=== PATIENT | female | born 1950 | race Caucasian/White ===

== ENCOUNTER 2020-06-18 11:21 | Emergency (ER) | payer MEDICARE, SELFPAY ==
--- NOTE | ~2020-06-18 | US_ITS ---
EXAMINATION: US venous doppler UE RT EXAM DATE: 06/18/2020 13:00 INDICATION: Right upper arm swelling. TECHNIQUE: Multiple grayscale, color flow, Doppler sonographic images of the right upper extremity ve ins obtained by technologist. Compression was performed where able. There is no prior study for baltazar lutz. FINDINGS: Right upper extremity: Jugular vein: ------------> Normal. Subclavian vein: --------> Normal. Axillary vein:------------> Normal. Brachial vein:-----------> Normal. Basilic vein: ------------> Normal. Cephalic vein: ----------> Normal. Radial vein: ------------> Normal. Ulnar vein: > Normal. Scanning at upper extremity above the antecubital fossa area of lump and swelling slightly hyperechoi c ill-defined region, nonspecific finding without artifact to suggest foreign body. No focal drainabl e abscess. IMPRESSION: 1. No deep venous thrombosis of the right upper extremity. 2. Vague nonspecific hyperechoic region at area of clinical concern without hypervascularity, focal m ass, abscess or definite foreign body identified. Nonspecific finding. Reviewed, dictated and finalized at location A. IMPRESSION: 1. No deep venous thrombosis of the right upper extremity. 2. Vague nonspecific hyperechoic region at area of clinical concern without hyp ervascularity, focal mass, abscess or definite foreign body identified. Nonspec ific finding.
[2020-06-18 11:30] VITALS: BP 130/109; PULSE 108; RESP 16; TEMP 36.6; O2SAT 98
--- NOTE | 2020-06-18 12:32 | PC.NURSE ---
pt to ultrasound
--- NOTE | 2020-06-18 13:21 | ED.UPPEXIN ---
HPI - Extremity Injury (Upper) General Chief Complaint: Extremity Injury, Upper <Alley Turner PA-C - Last Filed: 06/18/20 19:25> Stated Complaint: Possible Blood Clot in Arm <Alley Turner PA-C - Last Filed: 06/18/20 19:25> Time Seen by Provider: 06/18/20 12:08 <Alley Turner PA-C - Last Filed: 06/18/20 19:25> Source: patient and family <Alley Turner PA-C - Last Filed: 06/18/20 19:25> Mode of arrival: ambulatory <SARAH Wilson Last Filed: 06/18/20 19:25> Limitations: no limitations <Alley Turner PA-C - Last Filed: 06/18/20 19:25> History of Present Illness HPI narrative: Patient presents with chief complaint of swelling to the right axillary area that makes her concern for a venous thrombosis in the arm. Patient states that the swelling and discomfort to the area is presenting similarly to a DVT that she had in her left leg 4 years ago that was accompanied by PE. Patient states that she is also in remission for colon cancer and her last bout of chemo was 2 years ago. Patient denies any shortness of breath or lower extremity discomfort at this time. Patient states she takes a baby aspirin daily but denies being on any additional blood thinners. Patient cannot recall any direct injury or overuse of the arm that could cause the swelling. Patient denies loss of range of motion to the extremity. Patient denies severe pain to the extremity or to her fingertips. She reports some tingling sensation but states she has struggled with neuropathy in the past. Patient denies any fever, chills, nausea, vomiting, diarrhea, chest pain, shortness of breath, headache or any other symptoms. <Alley Turner PA-C - Last Filed: 06/18/20 19:25> Related Data Home Medications: Home Medications Medication Instructions Recorded Confirmed atorvastatin 06/18/20 cyclobenzaprine mg 06/18/20 hydroxychloroquine 06/18/20 losartan 06/18/20 metoprolol succinate PO 06/18/20 06/18/20 pantoprazole PO 06/18/20 <Alley Turner PA-C - Last Filed: 06/18/20 19:25> Allergies/Adverse Reactions: Allergies Allergy/AdvReac Type Severity Reaction Status Date / Time levofloxacin Allergy Severe joint Verified 08/09/18 19:26 swelling/difficulty walking morphine Allergy Intermediate Rash Verified 06/01/18 12:35 erythromycin base Allergy Unknown Verified 06/01/18 12:35 latex Allergy Unknown Verified 06/01/18 12:35 lisinopril Allergy Unknown SEVERE Verified 06/01/18 12:35 COUGHING Sulfa (Sulfonamide Allergy Unknown Verified 06/01/18 12:35 Antibiotics) tobramycin Allergy Unknown SWOLLEN, Verified 06/01/18 12:35 RED EYES <Alley Turner PA-C - Last Filed: 06/18/20 19:25> Review of Systems Review of Systems: Narrative: CONSTITUTIONAL: Denies fever, chills, or sweats. EYES: Denies visual changes, redness, or discharge. ENT: Denies rhinorrhea, congestion, sore throat, or otalgia. CARDIOVASCULAR: Denies chest pain, palpitations, or edema. RESPIRATORY: Denies cough or dyspnea. GASTROINTESTINAL: Denies abdominal pain, nausea, vomiting, or diarrhea. GENITOURINARY: Denies dysuria or hematuria. SKIN: Reports swelling denies rash or itching. MUSCULOSKELETAL: Reports right axillary swelling denies back pain, joint pain, or myalgia. NEUROLOGIC: Denies headache, numbness, dizziness, or weakness. PSYCHIATRIC: Denies anxiety or depression. <Alley Turner PA-C - Last Filed: 06/18/20 19:25> [facility] Past Medical History Medical History: Medical History (Updated 06/19/20 @ 00:00 by Anderson Euceda) Colon cancer DVT (deep venous thrombosis) Pulmonary emboli <Alley Turner PA-C - Last Filed: 06/18/20 19:25> Social History Social History: Social History (Updated 06/18/20 @ 13:25 by Alley Turner PA-C) Alcohol intake: unknown Substance use: unknown <Alley Turner PA-C - Last Filed: 06/18/20 19:25> Exam Narrative: Exam Narrative: GENERAL
--- NOTE | 2020-06-18 13:30 | PC.NURSE ---
Patient came to nurses station to check for results of her ultrasound. She was informed that they had not been read or reported to the EDP by the radiologist. Will notify charge hand of delay in results.
--- NOTE | 2020-06-18 14:50 | PC.NURSE ---
Patient presents to nurse station and tells me that she is leaving. She tells me that she knows her results and that she does not need to wait to be discharge. Patient and her states that she will not stay for me to notify the ED PA. Patient and her left the ED at this time.
== END 2020-06-18 14:45 | disposition home or self-care (01) ==
PROVIDERS: Emergency Provider Emergency Medicine
DX: M79.89 Other specified soft tissue disorders (principal); Z86.73 Personal history of transient ischemic attack (TIA), and cerebral infarction without residual deficits; Z86.718 Personal history of other venous thrombosis and embolism; Z85.038 Personal history of other malignant neoplasm of large intestine; Z92.21 Personal history of antineoplastic chemotherapy
CPT/HCPCS: 93971; 99284

== ENCOUNTER 2023-10-07 10:56 | Outpatient (CLI) | payer MEDICARE, SELFPAY ==
[2023-10-14 19:26] LABS: Cryoglobulin, QL Negative (Negative)
== END 2023-10-07 10:57 | disposition home or self-care (01) ==
PROVIDERS: Visit Provider Internal Medicine Rheumatology
DX: M35.01 Sjogren syndrome with keratoconjunctivitis (principal)
CPT/HCPCS: 36415; 82595

== ENCOUNTER 2024-09-21 10:38 | Outpatient (CLI) | payer MEDICARE, SELFPAY ==
--- NOTE | ~2024-09-21 | MR_ITS ---
EXAMINATION: MR hip RT wo con DATE: 09/21/2024 11:57 INDICATION: Right hip pain TECHNIQUE: Magnetic resonance imaging (MRI) of the right hip was performed without intravenous contr ast. Sequences included full-field axial PD-weighted FS FSE and T1-weighted FSE, coronal of the pelvi s with PD-weighted FS FSE, small field of view of the right hip with axial PD-weighted FS FSE, sagit hima PD-weighted FS FSE and coronal PD weighted FS FSE. Additional radial T1-weighted FGR oriented ort hogonal to the acetabular rim were obtained for evaluation of the labrum. COMPARISON: None FINDINGS: Bones/labrum/cartilage: Lumbar dextrocurvature with severe spondylosis. There is fibrofatty and fibrovascular degenerative en dplate changes in the lumbar spine. Marrow signal is otherwise normal with no fracture, avascular nec rosis or pathologic marrow replacing process. There is a tear at the 9:30-10:30 position of the right acetabular labrum. Minimal osteoarthritis at the right hip. Fluid: Symmetric physiologic amount of fluid within both hip joints. Soft tissues: Moderate tendinopathy without tear of the right gluteus minimus tendon. Additional moderate tendinopa thy with full-thickness tear of the absence of the right gluteus medius tendons which is detached fro m the lateral facet of the greater trochanter and retracted approximately 3.5 cm proximally. There is mild feathery muscular edema at the distal myotendinous junction of the right gluteus medius medius. There is relatively symmetric mild fatty atrophy of the bilateral gluteus minimus tendons. Otherwise normal and symmetric muscle bulk and signal in the pelvis and visualized proximal thighs. The left g luteus medius medius and minimus tendons, bilateral gluteus medius maxwell tendons, bilateral iliopso as tendons and bilateral proximal hamstring tendons are all normal. The uterus is not identified and has likely been surgically resected. Limited evaluation of visceral organs of the pelvis is otherwise unremarkable. No pathologically enlarged pelvic/inguinal lymphadenopathy. IMPRESSION: 1. Moderate right gluteus medius and minimus tendinopathy with full-thickness tear involving anterior half of the right gluteus medius tendon at its lateral facet trochanteric attachment. 2. Minimal right hip osteoarthritis with small tear of the posterior right acetabular labrum. 3. Severe lumbar spondylosis. Reviewed, dictated and finalized at location A. IMPRESSION: 1. Moderate right gluteus medius and minimus tendinopathy with full-thickness t ear involving anterior half of the right gluteus medius tendon at its lateral f acet trochanteric attachment. 2. Minimal right hip osteoarthritis with small tear of the posterior right acet abular labrum. 3. Severe lumbar spondylosis.
== END 2024-09-21 10:39 | disposition home or self-care (01) ==
DX: M76.01 Gluteal tendinitis, right hip (principal); S76.011A Strain of muscle, fascia and tendon of right hip, initial encounter; X58.XXXA Exposure to other specified factors, initial encounter; M47.816 Spondylosis without myelopathy or radiculopathy, lumbar region
CPT/HCPCS: 73721

== ENCOUNTER 2025-05-26 12:12 | Emergency (ER) | payer MEDICARE, SELFPAY ==
[2025-05-26] VITALS (7 sets, daily range): BP systolic 122–148; BP diastolic 81–88; PULSE 97–108; RESP 14–29; TEMP 36.8; O2SAT 95–99
--- NOTE | ~2025-05-26 | CT_ITS ---
EXAMINATION: CT brain wo con DATE: 05/26/2025 13:07 INDICATION: Fall with head injury TECHNIQUE: Computed tomography (CT) of the head was performed without intravenous contrast. Sagittal and coronal reconstructions were performed. The mA was adjusted according to patient size. Iterative reconstruction technique was employed. The dose-length product was 605.33 mGy-cm. COMPARISON: None FINDINGS: No calvarial fracture. Displaced fractures of the left nasal bone, the anterior and medial paz of t he left maxillary sinus as well as well as the floor and medial wall of the left orbit. Bilateral chelsey bes appear intact. There is mucosal thickening in the paranasal sinuses with high attenuation depende ntly layering blood in the left maxillary sinus and minimally in the right maxillary sinus. There is a laceration extending from the left malar to the left temporal region with prominent underlying soft tissue swelling and subcutaneous gas. No acute intracranial hemorrhage, acute infarction or abnormal extra axial fluid collection. There is mild scattered white matter hypoattenuation consistent with chronic small vessel ischemic disease. Ventricles are normal and symmetric. No mass/mass effect. The orbits, paranasal sinuses and mastoid a ir cells are normal. IMPRESSION: 1. No calvarial fracture or acute intracranial process. 2. Mild scattered white matter hypoattenuation consistent with chronic small vessel ischemic disease. 2. Fractures of the left nasal bone and paz of the left orbit and maxillary sinus as detailed above . Reviewed, dictated and finalized at location A. IMPRESSION: 1. No calvarial fracture or acute intracranial process. 2. Mild scattered white matter hypoattenuation consistent with chronic small ve ssel ischemic disease. 2. Fractures of the left nasal bone and paz of the left orbit and maxillary s inus as detailed above.
--- NOTE | ~2025-05-26 | CT_ITS ---
EXAMINATION: 1. CT facial & cervical spine wo DATE: 05/26/2025 13:08 INDICATION: Trauma with head injury TECHNIQUE: 1. Computed tomography (CT) of the maxillofacial region and of the cervical spine were performed with out intravenous contrast. Sagittal and coronal reconstructions of both regions were obtained. Automat ed exposure control and iterative reconstruction technique were employed. The dose-length product was 312.56 mGy-cm. COMPARISON: None. FINDINGS: Maxillofacial CT: Multiple nasal bone fractures including a comminuted fracture at the base of the left nasal bone and immediately adjacent anterior and medial paz of the left maxillary sinus. There is a deep skin lace ration overlying the fractured the base of the nasal bone with some surrounding foci of soft tissue g as suggesting open/compound fracture. Fracture extends posteriorly along a comminuted fracture of the inferior wall of the left orbit which involves the infraorbital canal. There is also comminuted frac ture of the lamina papyracea/medial wall of the left orbit with medial displacement of fragments at t he anterior-inferior aspect of the lamina papyracea. The inferior rectus muscle extends along the cep halad margin of the fracture but does not appear to herniate through the fracture defect although wou ld correlate with ophthalmic exam to exclude entrapment. Finally there is a nondisplaced fracture ext ending transversely across inferior aspect of the right maxillary sinus involving the anterior and la teral paz. Nasal septum remains midline without evident fracture. Mucosal thickening the paranasal sinuses with change of prior bilateral ethmoidectomies and right unc inectomy. There as also been a likely prior left uncinectomy however assessment is more limited by di stortion of the anatomy resulting from the displaced maxillary wall fracture fragments. There is depe ndently layering high attenuation blood in the bilateral maxillary and left ethmoid sinuses. Left chelsey be appears to remain intact. Right orbit is normal. Mastoid air cells and middle ear cavities are aniyah ar. There is an additional laceration extending from the left malar region with additional joints sof t tissue swelling and subcutaneous gas extending cephalad to the left temporal region. Mandible, zygo matic arches and paz of the right orbit remain intact. Severe osteoarthritis at the bilateral tempo romandibular joints. Cervical spine CT: There is reversal of the normal cervical lordosis. Vertebral body heights are normal. No fracture. Mo derate osteoarthritis at the atlantoaxial articulation. Severe disc height loss with severe uncoverte bral osteoarthritis and posterior endplate osteophytes contributing to mild central canal stenosis at C4-C5, C5-C6 and C6-C7. Mild disc height loss at C2-C3 and C3-C4. Multilevel mild to moderate cervic al facet osteoarthritis. There is moderate neural foraminal stenosis on the left at C6-C7 with multil evel mild stenosis at the remaining bilateral cervical neural foramina. Cervical soft tissues are unr emarkable. Mild biapical pleural-parenchymal scarring. IMPRESSION: 1. Multiple maxillofacial fractures involving the left nasal bone, paz of the left and right maxill rizwan sinuses and left orbit as detailed above. Normal is comminution and displacement of the fractures at the junction of the nasal bone, left orbit and maxilla as well as adjacent deep skin laceration s uggesting open/compound fracture. 2. Severe cervical spondylosis without acute osseous abnormality. Reviewed, dictated and finalized at location A. IMPRESSION: 1. Multiple maxillofacial fractures involving the left nasal bone, paz of the left and right maxillary sinuses and left orbit as detailed above. Normal is c omminution and displacement of the fractures at the junction of the nasal bone, left orbit and maxilla as well as adjacent deep skin laceration suggesting ope n/compound fracture. 2. Severe cervical spondylosis without acute osseous abnormality.
--- NOTE | 2025-05-26 12:51 | ED_ITS ---
HPI - Fall General Chief Complaint: Fall Stated Complaint: Fall w/ Laceration Time Seen by Provider: 05/26/25 12:34 History of Present Illness HPI Narrative: Patient is a 74-year-old female who presents ER after a trip and fall. She fell down approximately 5 steps face 1st. She did strike her head. No LOC. She is not on any blood thinning medication. She has a laceration across the left maxillary area extending towards the ear. She also has a laceration the medial canthus of the eyelid. She denies any eye pain. She reports normal vision in her eye. Tetanus up-to-date. She is in a cervical immobilizer. Related Data Home Medications ?Medication ?Instructions ?Recorded ?Confirmed ?Last Taken ?Type atorvastatin 40 mg tablet 06/18/20 Unknown History cyclobenzaprine 5 mg tablet mg 06/18/20 Unknown History hydroxychloroquine 200 mg tablet 06/18/20 Unknown History losartan 50 mg tablet 06/18/20 Unknown History metoprolol succinate 25 mg PO 06/18/20 06/18/20 Unknown History tablet,extended release 24 hr pantoprazole 40 mg tablet,delayed PO 06/18/20 Unknown History release Allergies Allergy/AdvReac Type Severity Reaction Status Date / Time levofloxacin Allergy Severe joint Verified 05/26/25 12:25 swelling/difficulty walking morphine Allergy Intermediate Rash Verified 05/26/25 12:25 erythromycin base Allergy Unknown unknown Verified 05/26/25 12:25 latex Allergy Unknown Other Verified 05/26/25 12:25 lisinopril Allergy Unknown SEVERE Verified 05/26/25 12:25 COUGHING Sulfa (Sulfonamide Allergy Unknown Other Verified 05/26/25 12:25 Antibiotics) tobramycin Allergy Unknown SWOLLEN, Verified 05/26/25 12:25 RED EYES Review of Systems Review of Systems: All systems reviewed & are unremarkable except as noted in HPI and below Constitutional: Constitutional: Reports no additional constitutional complaints Eyes: Eyes: Reports no additional eye complaints ENT: Reports system reviewed and no additional complaints, except as documented Cardiovascular: Cardiovascular: Reports no additional cardiovascular complaints Respiratory: Respiratory: Reports no additional respiratory complaints Musculoskeletal: Musculoskeletal: Reports no additional musculoskeletal complaints Neurologic: Reports system reviewed and no additional complaints, except as documented [facility] Past Medical History Medical History (Updated 05/26/25 @ 13:45 by Harman Tellez MD) Coronary artery disease Autoimmune hepatitis Hyperlipidemia Hypertension Pulmonary emboli DVT (deep venous thrombosis) Colon cancer Surgical History Surgical History (Updated 05/26/25 @ 13:45 by Harman Tellez MD) History of hysterectomy History of percutaneous coronary intervention Social History Social History (Updated 06/18/20 @ 13:25 by Rhonda Turner PA-C) Alcohol intake: unknown Substance use: unknown Exam Narrative: GENERAL: Well-appearing, well-nourished, and in no acute distress. HEAD: Normocephalic, atraumatic. EYES: PERRLA and EOMI. Laceration the medial canthus left eye. ENT: Mucous membranes moist. Tender palpation over the nasal bone. Gaping 2.5 cm laceration along the nasal labial fold extending inferior to the midline of the left eye. Additional laceration lateral to that 3.5 cm in length. NECK: Supple. C-spine immobilized. No midline tenderness. CHEST: Clear to auscultation. No respiratory distress. HEART: Regular rate and rhythm. Normal peripheral pulses. ABDOMEN: Soft, nontender, nondistended. EXTREMITIES: Normal range of motion. No edema. SKIN: Warm, dry, skin tear right forearm. NEURO: No facial asymmetry. Sharp and soft touch intact in face. Alert and oriented x3. PSYCH: Normal mood and affect. Course Course Emergency Course: 1347: Patient resting comfortably. Informed of results and significant injuries. Patient has received Ancef 2 g as well as metronidazole 500 mg. Patient has been accepted to [facility] emergency department by Dr. Cornelius. Vital Signs Vital signs: Vital Signs Temperature 98.2 F 05/26/25 12:19 Pulse Rate 98 05/26/25 12:19 Respiratory Rate 16 05/26/25 12:19 Blood Pressure 122/81 05/26/25 12:19 Pulse Oximetry 97 05/26/25 12:19 Oxygen Delivery Room Air 05/26/25 12:19 Temperature 98.2 F 05/26/25 12:19 Pulse Rate 104 H 05/26/25 12:30 Respiratory Rate 29 H 05/26/25 12:30 Blood Pressure 142/81 H 05/26/25 12:30 Pulse Oximetry 95 05/26/25 12:30 Oxygen Delivery Room Air 05/26/25 12:30 MDM - Fall Imaging Data Radiologist's impression: ITS Impressions Head CT 05/26/25 13:08 IMPRESSION: 1. No calvarial fracture or acute intracranial process. 2. Mild scattered white matter hypoattenuation consistent with chronic small vessel ischemic disease. 2. Fractures of the left nasal bone and paz of the left orbit and maxillary sinus as detailed above. Head/Cervical Spine/Facial Bones CT 05/26/25 13:16 IMPRESSION: 1. Multiple maxillofacial fractures involving the left nasal bone, paz of the left and right maxillary sinuses and left orbit as detailed above. Normal is comminution and displacement of the fractures at the junction of the nasal bone, left orbit and maxilla as well as adjacent deep skin laceration suggesting open/compound fracture. 2. Severe cervical spondylosis without acute osseous abnormality. Critical Care Time Critical Care Time Critical Care Time: Yes Total Critical Care Time: 35 Discharge Plan Discharge Clinical Impression: Complex laceration of face, Injury of eyelid, Fracture of orbital floor, Open fracture of maxillary sinus, Fracture of nasal bone Patient Disposition: Acute Care Hospital Condition: Stable Patient Language: Somali Prescriptions: No Action losartan 50 mg tablet atorvastatin 40 mg tablet pantoprazole 40 mg tablet,delayed release (DR/EC) PO metoprolol succinate 25 mg tablet extended release 24 hr PO hydroxychloroquine 200 mg tablet cyclobenzaprine 5 mg tablet Follow-up/Referrals: PHYSICIAN,TECHNICAL SALES REPRESENTATIVES [Non-Staff] -
[2025-05-26] MEDS: metroNIDAZOLE 500 MG/ISO 100ML 500 MG/100 ML BAG 100 MG IVPB (13:31)
[2025-05-26] MEDS: fentaNYL CITRATE INJ (*CRX) 100 MCG/2 ML VIAL 50 MCG IV PUSH ×2 (13:32→15:24)
[2025-05-26] MEDS: fentaNYL CITRATE INJ (*CRX) 100 MCG/2 ML VIAL 25 MCG IV PUSH (14:05)
== END 2025-05-26 15:40 | disposition short-term general hospital (02) ==
PROVIDERS: Emergency Provider Emergency Medicine
DX: S02.69XB Fracture of mandible of other specified site, initial encounter for open fracture (principal); S02.2XXA Fracture of nasal bones, initial encounter for closed fracture; S02.32XA Fracture of orbital floor, left side, initial encounter for closed fracture; S02.832A Fracture of medial orbital wall, left side, initial encounter for closed fracture; W10.9XXA Fall (on) (from) unspecified stairs and steps, initial encounter; I25.10 Atherosclerotic heart disease of native coronary artery without angina pectoris; I10 Essential (primary) hypertension; E78.5 Hyperlipidemia, unspecified; K75.4 Autoimmune hepatitis; Z86.711 Personal history of pulmonary embolism; Z86.718 Personal history of other venous thrombosis and embolism; Z85.038 Personal history of other malignant neoplasm of large intestine; Z90.710 Acquired absence of both cervix and uterus
CPT/HCPCS: 70450; 70486; 72125; 96365; 96367; 96375; 96376; 99285; J1836; J3010

== ENCOUNTER 2025-06-23 09:42 | Emergency (ER) | payer MEDICARE, SELFPAY ==
--- OUTSIDE RECORDS SUMMARY | 2025-06-23 09:46 | XMS_ITS | Encounter Summary ---
Author Organization [facility] Address [address] [facility] [place] [address] Care Team Providers Care Prosthodontist/Educator Name Role Phone Robert Celeste MD Primary Care Provider [phone] John Gallardo MD Unavailable Dinorah Peters DO Primary Care Provider [phone] Dinorah Peters DO Primary Care Provider [phone] Tracy Maldonado MD Unavailable [phone] Tracy Maldonado MD Unavailable [phone] Julita Adams MD Unavailable Abel Pop MD Unavailable Selam Ramirez MD Unavailable Luis Munoz MD Unavailable [phone] Kinjal Marino MD Unavailable [phone] Ghada Guardado MD Unavailable João Mora MD Unavailable Marianna Benjamin MD Unavailable [phone] Pratibha Hayes MD Primary Care Provider [phone] Franky Choudhury DO Unavailable Franky Choudhury DO Primary Care Provider Pratibha Hayes MD Primary Care Provider [phone] Franky Choudhury DO Primary Care Provider [phone] Lenin Trevino MD Unavailable Markie Romero MD Unavailable Reason for Visit * Reason Onset Date Comments MEDICATION REFILL 01/13/2020 Encounter Details Date Type Department Care Team (Late st Contact Info) Description 01/13/2020 Refill [facility] [address] [place] [address] Octavio Ruff MD [address] [place] [address] MEDICATION REFILL Social History Tobacco Use Types Packs/Day Years Used Date Smoking Tobacco: Never Smokeless Tobacco: Never Alcohol Use Standard Drinks/Week Comments No 0 (1 standard drink = 0.6 oz pur e alcohol) Comments No Sex and Gender Information Value Date Recorded Sex Assigned at Not on file Legal Sex Female 6:32 AM INSURANCE LICENSING SUPERVISOR Gender Identity Not on file Sexual Orientation Not on file Occupation Industry Job Start Date Job End Date Retired Not on file Not on file Not on file documented as of this encounter Functional Status * Is person deaf or have serious hearing difficulty? Answer Date of Assessment Author No 08/29/2018 11:33 AM Farrah Puente RN * Is person blind or have serious difficulty seeing? Answer Date of Assessment Author No 08/29/2018 11:33 AM Farrah Puente RN * Does person have serious difficulty walking/climbing stairs? Answer Date of Assessment Author No 08/29/2018 11:33 AM Farrah Puente RN * Does person have difficulty dressing/bathing? Answer Date of Assessment Author No 08/29/2018 11:33 AM Farrah Puente RN * Does person have difficulty doing errands alone? Answer Date of Assessment Author No 08/29/2018 11:33 AM Farrah Puente RN documented as of this encounter Mental Status * Does person have difficulty concentrating/remembering/making decisions? Answer Entry Date Author No 08/29/2018 11:33 AM CDT Farrah Neff RN documented in this encounter Plan of Treatment Upcoming Encounters Date Type Department Care Team (Late st Contact Info) Description 07/16/2025 10:30 AM CDT Procedure visit [facility] - Cosmetic Dermatology [address], [place] [place] [address] 07/23/2025 9:15 AM CDT Office Visit [facility] - Orthopedics [address] [place] [phone] Sharad Mclaughlin, HAND II THERMAL CUTTER-SPACE SYSTEMS OPERATIONS MANAGER [address] [address] 07/26/2025 1:45 PM CDT Office Visit [facility] - Internal Med [address] [place] [phone] Franky Choudhury, [address] [place] [address] 08/02/2025 1:00 PM CDT Office Visit [facility] - Ophthalmology [address] [place] [phone] Monse Kelly, HAND II THERMAL CUTTER-SPACE SYSTEMS OPERATIONS MANAGER [address] [place] [address] [place] [address] 08/09/2025 1:30 PM CDT Hospital Encounter [address] [address] 08/09/2025 2:00 PM CDT Hospital Encounter [address] [address] 08/14/2025 11:00 AM CDT Office Visit [facility] - Cosmetic Dermatology [address], [place] [place] [address] Consuelo Bosch MD [address] [facility] [address] [place] [address] 09/06/2025 11:30 AM CDT Office Visit [facility] - Cardiology [address] [facility], [facility] [address] [place] [address] Stephanie Silvestre, HAND II THERMAL CUTTER-SPACE SYSTEMS OPERATIONS MANAGER [address] [facility] [address] [place] [address] 10/01/2025 1:00 PM INSURANCE LICENSING SUPERVISOR Office Visit [facility] - Rheumatology [address] [place] [address] Markie Romero MD [address] [facility] [place] [address] 11/13/2025 11:00 AM INSURANCE LICENSING SUPERVISOR Office Visit [facility] - Hematology/Oncology [address] [place] [address] Luis Munoz MD [address] [facility] DIV OF HEMATOLOGY & [place] [address] 11/15/2025 11:00 AM INSURANCE LICENSING SUPERVISOR Office Visit [facility] - NURSE ADMINISTRATOR [address] [facility] [address] [place] [address] Jennifer Guy, HAND II THERMAL CUTTER-SPACE SYSTEMS OPERATIONS MANAGER 10[address] [facility] [address] [place] [address] 11/16/2025 11:00 AM INSURANCE LICENSING SUPERVISOR Office Visit [facility] - Ophthalmology [address] [facility], [place] [address] Xu Kelly OD [address] [place] [address] 05/14/2026 12:30 PM CDT Procedure visit [facility] - GI [address] [place] [phone] 05/14/2026 1:00 PM CDT Office Visit [facility] - GI [address] [place] [phone] Jasmyn Alvarado, HAND II THERMAL CUTTER-SPACE SYSTEMS OPERATIONS MANAGER [address] [place] [address] [address] [place] [address] documented as of this encounter Goals Goal Patient Goal Type Associated Problems Recent Progress Patient-Stated? Author Medication Management General On track( 025 1:02 PM CDT) Reena Dodge, RN Note: Expected end date: ongoing Interventions: Take all medications as prescribed Let your doctor know right away about any changes in your medications Make sure to request a refill of your medication at least one week prior to your last dose documented as of this encounter Visit Diagnoses Not on filedocumented in this encounter Additional Health Concerns Infection Onset Date Last Indicated Resolved Time CDIFF Under Investigation 05/27/2025 05/27/2025 8:56 PM CDT documented as of this encounter Care Teams Prosthodontist/Educator Relationship Specialty Start Date End Date Robert Celeste MD [address] [place] [address] PCP - General Internal Medicine 02/20/16 08/26/20 Dinorah Peters DO [address] [facility] 2L [place] [address] PCP - General Internal Medicine 08/27/20 03/24/21 Dinorah Peters DO [address] [facility] 2L [place] [address] PCP - General Internal Medicine 03/25/21 06/03/23 Pratibha Hayes MD [address] [place] [address] PCP - General Internal Medicine 06/04/23 11/17/23 Franky Choudhury DO [address] [place] [address] PCP - General Internal Medicine 11/18/23 09/26/24 Pratibha Hayes MD [address] [place] [address] PCP - General Internal Medicine 09/27/24 10/01/24 Franky Choudhury DO [address] [place] [address] PCP - General Internal Medicine 10/02/24 John Gallardo MD [address] [place] [address] Resident - PCP Student Resident 07/04/18 06/16/21 Tracy Maldonado MD [address] DIV [place] Resident - PCP Student Resident 06/17/21 05/11/23 Tracy Maldonado MD [address] DIV OF [facility] [place] Resident Student Resident 06/17/21 10/01/21 Julita Adams MD [address] [place] Resident - PCP Internal Medicine 05/17/23 06/03/23 Abel Pop MD [address] [place] [phone] Pain Management Anesthesiology 05/17/23 Selam Ramirez MD [address] [facility] [place] [address] Ophthalmology 05/17/23 Luis Munoz MD [address] [facility] OF HEMATOLOGY & [place] [address] Hematology and Oncology 05/17/23 Kinjal Marino MD [address] [place] [address] DEPT [place] [address] Dermatology 05/17/23 Ghada Guardado MD [address] [address] Cardiology 05/17/23 João Mora MD [address] [facility] [place] [address] Resident Rheumatology 05/17/23 05/26/25 Marianna Benjamin MD [address] [facility] [place] [phone] Surgeon Orthopedic Surgery 05/17/23 Franky Choudhury DO [address] [place] [address] Resident - PCP Internal Medicine 06/04/23 Lenin Trevino MD [address] [place] [address] Rheumatology 05/27/25 [facility] [address] [place] [address] Resident Rheumatology 06/15/25 documented as of this encounter
--- OUTSIDE RECORDS SUMMARY | 2025-06-23 09:46 | XMS_ITS | Encounter Summary ---
Author Organization [facility] Address [address] [facility] [place] [address] Care Team Providers Care Fur Dressing Supervisor Name Role Phone Abel Pop MD Unavailable Selam Ramirez MD Unavailable Luis Munoz MD Unavailable [phone] Kijnal Marino MD Unavailable [phone] Ghada Guardado MD Unavailable [phone] João Mora MD Unavailable Marianna Benjamin MD Unavailable [phone] Franky Choudhury DO Unavailable [phone] Franky Choudhury DO Primary Care Provider Lenin Trevino MD [facility]available [facility] Unavailable Encounter Details Date Type Department Care Team (Late st Contact Info) Description 05/26/2025 Ophth Exam [facility] - Ophthalmology [address] [place] [phone] Jorge Johnston MD [address] [place] [address] Social History Tobacco Use Types Packs/Day Years Used Date Smoking Tobacco: Never Smokeless Tobacco: Never Alcohol Use Standard Drinks/Week Comments No 0 (1 standard drink = 0.6 oz pur e alcohol) AUDIT-C Answer Date Recorded Q1: How often do you have a drink containing alcohol? Never 05/26/2025 Q2: How many drinks containi ng alcohol do you have on a typical day when you are drinking? Patient does not drink Q3: How often do you have si x or more drinks on one occasion? Never 05/26/2025 Overall Financial Resource Strain (CARDIA) Answe r Date Recorded How hard is it for you to pa y for the very basics like food, housing, medical care, and heating? Not hard at all 05/27/2025 PHQ-2 Answer Date Recorded Patient Health Questionnaire-2 Score 0 03/19/2025 [facility] - Occupational Stress Questionnaire Answer Date Recorded Do you feel stress - tense, restless, nervous, or anxious, or unable to sleep at night because your mind is troubled all the time - these days? Only a little 05/27/2025 Hunger Vital Sign Answer Date Recorded Within the past 12 months, y ou worried that your food would run out before you got the money to buy more. Never true 05/27/20 25 Within the past 12 months, t he food you bought just didn't last and you didn't have money to get more. Never true 05/27/2025 PRAPARE - Transportation Answer Date Re corded In the past 12 months, has l ack of transportation kept you from medical appointments or from getting medications? No 04/30 In the past 12 months, has l ack of transportation kept you from meetings, work, or from getting things needed for daily living? No 05/27/2025 Housing Stability Vital Sign Answer Aryan e Recorded In the last 12 months, was t here a time when you were not able to pay the mortgage or rent on time? No 05/27/2025 In the past 12 months, how m any times have you moved where you were living? 0 05/27/2025 At any time in the past 12 m [facility], were you homeless or living in a custodial (including now)? No 05/27/2025 Comments No Sex and Gender Information Value Date Recorded Sex Assigned at Not on file Legal Sex Female 6:32 AM SWITCH COUPLER Gender Identity Not on file Sexual Orientation Not on file Occupation Industry Job Start Date Job End Date Retired Not on file Not on file Not on file documented as of this encounter Functional Status * Question Answer Date of Assessment Author Q1: How often do you have a drink containing alcohol? Never 05/26/2025 11:56 PM Rhys Connolly RN Q2: How many drinks containing alcohol do you have on a typical day when you are drinking? Patient does not drink 05/26/2025 11:56 PM SOFIYAT Rhys Patel RN Q3: How often do you have six or more drinks on one occasion? Never 05/26/2025 11:56 PM SOFIYAT Rhys Patel RN * Audit-C Score Answer Date of Assessment Author 0 05/26/2025 11:56 PM SOFIYAT Rhys Patel RN * Is person deaf or have serious hearing difficulty? Answer Date of Assessment Author No 05/06/2022 4:42 PM Marisela Harman RN * Is person blind or have serious difficulty seeing? Answer Date of Assessment Author No 05/06/2022 4:42 PM SOFIYAT Marisela eLger RN * Does person have serious difficulty walking/climbing stairs? Answer Date of Assessment Author No 05/06/2022 4:42 PM Marisela Harman RN * Does person have difficulty dressing/bathing? Answer Date of Assessment Author No 05/06/2022 4:42 PM Marisela Harman RN * Does person have difficulty doing errands alone? Answer Date of Assessment Author No 05/06/2022 4:42 PM Marisela Harman RN documented as of this encounter Mental Status * Does person have difficulty concentrating/remembering/making decisions? Answer Entry Date Author No 05/06/2022 4:42 PM Marisela Harman RN documented in this encounter Plan of Treatment Upcoming Encounters Date Type Department Care Team (Late st Contact Info) Description 07/16/2025 10:30 AM CDT Procedure visit [facility] - Cosmetic Dermatology [address], [facility] [address] [place] [address] 07/23/2025 9:15 AM CDT Office Visit [facility] - Orthopedics [address] [place] [address], [place] [address] Sharad Mclaughlin, PIG MACHINE OPERATOR HELPER-PARTS DATA WRITER [address] [facility] 400 [place] [address] 07/26/2025 1:45 PM CDT Office Visit [facility] - Internal Med [address] [place] [address], [place] [phone] Franky Choudhury DO [address] [place] [address] 08/02/2025 1:00 PM CDT Office Visit [facility] - Ophthalmology [address] [place] [address], [place] [phone] Monse Kelly, PIG MACHINE OPERATOR HELPER-PARTS DATA WRITER [address] [place] [address] [place] [address] 08/09/2025 1:30 PM CDT Hospital Encounter [address] [address] 08/09/2025 2:00 PM CDT Hospital Encounter [address] [address] 08/14/2025 11:00 AM CDT Office Visit [facility] - Cosmetic Dermatology [address], [facility] [address] [place] [address] Consuelo Bosch MD [address] [facility] [address], [place] [address] 09/06/2025 11:30 AM CDT Office Visit [facility] - Cardiology [address] [facility], [place] [address] [place] [address] Stephanie Silvestre, PIG MACHINE OPERATOR HELPER-PARTS DATA WRITER [address] [facility] [address] [place] [address] 10/01/2025 1:00 PM SWITCH COUPLER Office Visit [facility] - Rheumatology 1225 [facility], [place] [phone] Markie Romero MD [address] [facility] [place] [address] 11/13/2025 11:00 AM SWITCH COUPLER Office Visit [facility] - Hematology/Oncology [address] [place] [address] Luis Munoz MD [address] [facility] DIV OF HEMATOLOGY & [place] [address] 11/15/2025 11:00 AM SWITCH COUPLER Office Visit [facility] - PLATING TANK OPERATOR APPRENTICE 10[address] [facility] [address] [place] [address] Jennifer Guy, PIG MACHINE OPERATOR HELPER-PARTS DATA WRITER [address] [facility] [address] [place] [address] 11/16/2025 11:00 AM SWITCH COUPLER Office Visit [facility] - Ophthalmology 1225 [facility], [place] [phone] Xu Kelly OD 1225 [place] [address] 05/14/2026 12:30 PM CDT Procedure visit [facility] - GI [address] [place] [phone] 05/14/2026 1:00 PM CDT Office Visit [facility] - GI [address] [place] [phone] Jasmyn Alvarado, PIG MACHINE OPERATOR HELPER-PARTS DATA WRITER [address] [facility] 3FL DIV OF GASTROENTEROLOGY [place], [place] [phone] documented as of this encounter Goals Goal Patient Goal Type Associated Problems Recent Progress Patient-Stated? Author Medication Management General On track( 025 1:02 PM CDT) Reena Dodge RN Note: Expected end date: ongoing Interventions: [...] documented as of this encounter Care Teams Fur Dressing Supervisor Relationship Specialty Start Date End Date Franky Choudhury DO [address] [place] [address] PCP - General Internal Medicine 10/02/24 Abel Pop MD [facility] [place] [address] Pain Management Anesthesiology 05/17/23 Selam Ramirez MD [address] [facility] GL DEPT [place] [address] Ophthalmology 05/17/23 Luis Munoz MD [address] [facility] DIV OF HEMATOLOGY & [place] [address] Hematology and Oncology 05/17/23 Kinjal Marino MD [address] [facility] 3L [place] [address] Dermatology 05/17/23 Ghada Guardado MD [address] [facility] [address]120 [place] [address] Cardiology 05/17/23 João Mora MD [address] [facility] [place] [place] [address] Resident Rheumatology 05/17/23 05/26/25 Marainna Benjamin MD [address] [facility] [place] [address] Surgeon Orthopedic Surgery 05/17/23 Franky Choudhury DO [address] [place] [address] Resident - PCP Internal Medicine 06/04/23 Lenin Trevino MD [address] [facility] 2L [place] [address] Rheumatology 05/27/25 Markie Romero MD [address] [facility] [place] [address] Resident Rheumatology 06/15/25 documented as of this encounter
--- OUTSIDE RECORDS SUMMARY | 2025-06-23 09:46 | XMS_ITS | Encounter Summary ---
Author Organization [facility] Address [address] [place] [address] Care Team Providers Care Quality Controller Name Role Phone Abel Pop MD Unavailable Selam Ramirez MD Unavailable Luis Munoz MD Unavailable [phone] Kinjal Marino MD Unavailable [phone] Ghada Guardado MD Unavailable [phone] João Mora MD Unavailable [phone] Marianna Benjamin MD Unavailable Pratibha Hayes MD Primary Care Provider [phone] Franky Choudhury DO Unavailable [phone] Franky Choudhury DO Primary Care Provider Pratibha Hayes MD Primary Care Provider [phone] Franky Choudhury DO Primary Care Provider Lenin Trevino MD Unavailable Markie Romero MD Unavailable Reason for Visit * Reason Onset Date Comments Colposcopy 10/13/2023 Encounter Details Date Type Department Care Team (Late st Contact Info) Description 10/13/2023 Telephone [facility] - AFRICANA STUDIES PROFESSOR [address] [place] [address] Melania Mohan MD [address] [place] [address] Colposcopy Social History Tobacco Use Types Packs/Day Years Used Date Smoking Tobacco: Never Smokeless Tobacco: Never Alcohol Use Standard Drinks/Week Comments No 0 (1 standard drink = 0.6 oz pur e alcohol) AUDIT-C Answer Date Recorded Q1: How often do you have a drink containing alcohol? Never 03/31/2023 Q2: How many drinks containi ng alcohol do you have on a typical day when you are drinking? Patient does not drink Q3: How often do you have si x or more drinks on one occasion? Never 03/31/2023 PHQ-2 Answer Date Recorded PHQ2 TOTAL SCORE 0 06/08/2023 Hunger Vital Sign Answer Date Recorded Within the past 12 months, y ou worried that your food would run out before you got the money to buy more. Never true 05/05/20 22 Within the past 12 months, t he food you bought just didn't last and you didn't have money to get more. Never true 05/05/2022 Comments No Sex and Gender Information Value Date Recorded Sex Assigned at Not on file Legal Sex Female 6:[address] Gender Identity Not on file Sexual Orientation [...] Marisela Harman RN * Does person have serious difficulty walking/climbing stairs? Answer Date of Assessment Author No 05/06/2022 4:42 PM Marisela Harman RN * Does person have difficulty dressing/bathing? Answer Date of Assessment Author No 05/06/2022 4:42 PM CDT Marisela Leger RN * Does person have difficulty doing errands alone? Answer Date of Assessment Author No 05/06/2022 4:42 PM CDT Marisela Leger RN documented as of this encounter Mental Status * Does person have difficulty concentrating/remembering/making decisions? Answer Entry Date Author No 05/06/2022 4:42 PM CDT Marisela Leger RN documented in this encounter Miscellaneous Notes * Telephone Encounter - Alma Pickett - 10/13/2023 10:50 AM CST Pt is calling to schedule a colposcopy Pt stated that she is available Nov 12- Dec 03 CLEANER documented in this encounter Plan of Treatment Upcoming Encounters Date Type Department Care Team (Late st Contact Info) Description 07/16/2025 10:30 AM CDT Procedure visit [facility] - Cosmetic Dermatology [address], [facility] [address] [place] [address] 07/23/2025 9:15 AM CDT Office Visit [facility] - Orthopedics [address] [place] [phone] Sharad Mclaughlin, CHIEF OPERATOR LOCK TENDER-GIFT BASKET PACKER [address] [facility] 400 [place] [address] 07/26/2025 1:45 PM CDT Office Visit [facility] - Internal Med [address] [place] [phone] Franky Choudhury DO [address] [place] [address] 08/02/2025 1:00 PM CDT Office Visit [facility] - Ophthalmology [address] [place] [address] [place] [phone] Monse Kelly, CHIEF OPERATOR LOCK TENDER-GIFT BASKET PACKER [address] [place] [address] [place] [address] 08/09/2025 1:30 PM CDT Hospital Encounter [facility] [address] [place] [address] 08/09/2025 2:00 PM CDT Hospital Encounter [address] [address] 08/14/2025 11:00 AM CDT Office Visit [facility] - Cosmetic Dermatology [address], [facility] [place] 200 [place] [phone] Consuelo Bosch MD [address] [facility] [address], [place] [address] 09/06/2025 11:30 AM CDT Office Visit [facility] - Cardiology [address] [facility] [place] [phone] [place] [address] Stephanie Silvestre, CHIEF OPERATOR LOCK TENDER-GIFT BASKET PACKER [phone] [place] [address] 10/01/2025 1:[address]ER Office Visit [facility] - Rheumatology [address] [facility], [place] [phone] Markie Romero MD [address] [facility] [place] [address] 11/13/2025 11:[address]ER Office Visit [facility] - Hematology/Oncology [facility] [place] [phone] Luis Munoz MD [address] [facility] DIV OF HEMATOLOGY & [place] [address] 11/15/2025 11:[address]ER Office Visit [facility] - AFRICANA STUDIES PROFESSOR [address] [facility] [address] [place] [phone] Jennifer Guy, CHIEF OPERATOR LOCK TENDER-GIFT BASKET PACKER [address] [facility] [address] [place] [address] 11/16/2025 11:[address]ER Office Visit [facility] - Ophthalmology [address] [place] [phone] Xu Kelly, MIRTA [address] [place] [address] 05/14/2026 12:30 PM CDT Procedure visit [facility] - GI [address] [place] [phone] 05/14/2026 1:00 PM CDT Office Visit [facility] - GI [address] [place] [phone] Jasmyn Alvarado, CHIEF OPERATOR LOCK TENDER-GIFT BASKET PACKER [address] [place] [address] [address] [place] [address] documented as of this encounter Goals Goal [...] documented as of this encounter Care Teams Quality Controller Relationship Specialty Start Date End Date Pratibha Hayes MD [address] [place] [address] 2L DIV [place] [phone] PCP - General Internal Medicine 06/04/23 11/17/23 Franky Choudhury DO [address] [place] [address] PCP - General Internal Medicine 11/18/23 09/26/24 Pratibha Hayes MD [address] OF [place] [address] PCP - General Internal Medicine 09/27/24 10/01/24 Franky Choudhury DO [address] [place] [address] PCP - General Internal Medicine 10/02/24 Abel Pop MD [address] [place] [address] Pain Management Anesthesiology 05/17/23 Selam Ramirez MD 1225 [facility] [place] [address] Ophthalmology 05/17/23 Luis Munoz MD [address] [facility] DIV OF HEMATOLOGY & [place] [address] Hematology and Oncology 05/17/23 Kinjal Marino MD [address] [facility] 3L [place] [address] Dermatology 05/17/23 Ghada Guardado MD [address] [address] Cardiology 05/17/23 João Mora MD [address]25 [place] [phone] Resident Rheumatology 05/17/23 05/26/25 [place] [address] [place] [address] [place] [phone] Surgeon Orthopedic Surgery 05/17/23 Franky Choudhury DO [address]01 [place] [address] Resident - PCP Internal Medicine 06/04/23 Lenin Trevino MD [address] [place] [address] [place] [phone] Rheumatology 05/27/25 Markie Romero MD [address] [place] [address] [place] [phone] Resident Rheumatology 06/15/25 documented as of this encounter
--- OUTSIDE RECORDS SUMMARY | 2025-06-23 09:46 | XMS_ITS | Clinical Summary ---
Author Organization [facility] Address [address] [place] [address] Phone Care Team Providers Care Scraper Operator Name Role Phone Pratibha Hayes MD Primary Care Provider Allergies Active Allergy Reactions Criticality Noted Date Comments Erythromycin Hives,Swelling High 07/11/2009 Latex Rash Low 07/11/2009 Sulfa (Sulfonamide Antibiotics) Rash,Swelling Low 0 07/11/2009 Medications esomeprazole (NEXIUM) 40 mg Oral CpDR Take 40 mg by mouth daily before breakfast. Active metoprolol tartrate (LOPRESSOR) 100 mg Oral Tab Take 100 mg by mouth 2 times daily. Active azathioprine (IMURAN) 75 mg Oral Tab Take 50 mg by mouth daily. Active AZELASTINE HCL (ASTELIN NA) Administer in each nostril. Active FLUNISOLIDE (NASAREL NA) Administer in each nostril. Active hydroxychloroqui ne (PLAQUENIL) 200 mg Oral Tab Take 200 mg by mouth daily. Active cetirizine (ZYRTEC) 10 mg Oral Tab Take 10 mg by mouth daily. Active GUAIFENESIN (MUCINEX PO) Take by mouth. Ac tive oxazepam (SERAX) 10 mg Oral Cap Take 10 mg by mouth nightly as needed for Insomnia and Anxiety. Active estradiol (VIVELLE-DOT) 0.0375 mg/24 hr Transdermal PTSW Apply 0.0375 mg to skin as directed twice weekly. Active CALCIUM PO Take by mouth. Acti ve ALENDRONATE SODIUM/VITAMIN D3 (FOSAMAX PLUS D PO) Take by mouth. Activ e Eye Lubricant Combination No.1 (FRESHKOTE) 2-0.9-1.8 % OP Drop Administer 1 Drop in both eyes PRN for Discomfort. 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 Dr yassine stroud, dr davina mercedes, dr akhil grant Problem Noted Date Diagnosed Date Abnormal mammogram, unspecified 02/03/2013 Autoimmune hepatitis Unspecified essential hypertension Osteopenia Sjogren's syndrome Family History Medical History Relation Name Comments Heart Disease Father Other Father diabetes Cancer Sister Relation Name Status Comments Father Sister Social History Tobacco Use Types Packs/Day Years Used Date Smoking Tobacco: Never Alcohol Use Standard Drinks/Week Comments Yes 0 (1 standard drink = 0.6 oz pur e alcohol) rarely Comments No Sex and Gender Information Value Date Recorded Sex Assigned at Not on file Legal Sex Female 4:36 AM 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 Gender Identity Not on file Sexual Orientation Not on file Occupation Industry Job Start Date Job End Date Not on file Not on file Not on file Not on file Last Filed Vital Signs Vital Sign Reading Time Taken Comments Blood Pressure 122/84 07/11/2009 10:32 AM CDT Pulse - - Temperature - - Respiratory Rate - - Oxygen Saturation - - Inhaled Oxygen Concentration - - Weight 57.2 kg (126 lb) 07/11/2009 10:32 AM CDT Height 160 cm (5' 3) 07/11/2009 10:32 AM CDT Body Mass Index 22.32 07/11/2009 10:32 AM CDT Plan of Treatment Health Maintenance Due Date Last Done Comments ZOSTER VACCINE (1 of 2) 1970 COLORECTAL SCREENING 1996 Colorectal Cancer Screening 1996 FIT-DNA Q 3 years 1996 FIT/FOBT Q 1 year 1996 Flex Sig/CT Colonography Q 5 years 1996 RSV VACCINE (60+ or ) (1 - Risk 60-74 years 1-dose series) 2011 OSTEOPOROSIS SCREENING 2016 DTAP/TDAP/TD VACCINES (2 - T d or Tdap) 11/14/2017 11/14/2007 BREAST CANCER SCREENING 03/06/2020 03/06/20 19, 09/08/2018, 08/31/2017, Additional history exists INFLUENZA VACCINE (#1) 2025 6, 07/30/2015, 08/09/2013, Additional history exists PNEUMOCOCCAL VACCINE 50+ YEARS Completed 09/03/2017 , 10/05/2016 Procedures Procedure Name Priority Date/Time Associated Diagnosis Comments MAMMO DIAG UNI RIGHT 3D ARLET W OR WO CAD Routine 03/06/2019 1:35 PM CDT Breast mass, right from Last 3 Months or Most Recently Relevant to Health Maintenance Results * MAMMO DIAG UNI RIGHT 3D ARLET W OR WO CAD (03/06/2019 1:35 PM CDT) Anatomical Region Laterality Modality Breast Right Mammography 03/06/2019 1:35 PM CDT Impressions 03/06/2019 2:25 PM CDT IMPRESSION: No suspicious findings to suggest malignancy. Clinical follow-up is recommended for the patient's right breast pain. Annual mammography is recommended. OVERALL ASSESSMENT: BI-RADS Category 1 - Negative. DICTATION LOCATION: [facility] 03/06/2019 2:25 PM CDT RIGHT BREAST FULL-FIELD DIGITAL DIAGNOSTIC MAMMOGRAM WITH CAD WITH TOMOGRAPHY AND LIMITED RIGHT BREAST ULTRASOUND DATE: 03/06/2019 1:35 PM HISTORY: Pain in the upper outer right breast. COMPARISON: 09/08/2018 and older. BREAST COMPOSITION: Heterogeneously dense, which limits the sensitivity of mammography. TECHNIQUE: Diagnostic full-field and spot compression digital mammography was performed on the right breast. Low-dose full-field digital breast tomosynthesis examination was performed with 2D and 3D acquisitions. Examination is read in conjunction with computer aided detection. Targeted sonography of the right breast was performed. FINDINGS: MAMMOGRAMS: There is no concerning mass, suspicious calcifications or architectural distortion identified. Since the prior mammograms, there has been no significant interval change. A metallic skin marker indicates the patient's area of pain in the posterior upper outer right breast. No corresponding mammographic abnormality is seen. ULTRASOUND: Targeted sonography was performed over the patient's area pain within the upper outer right breast. No solid or cystic mass is identified. There are no concerning findings. Procedure Note Luisana Wray MD - 03/06/2019 RIGHT BREAST FULL-FIELD DIGITAL DIAGNOSTIC MAMMOGRAM WITH CAD WITH TOMOGRAPHY AND LIMITED RIGHT BREAST ULTRASOUND DATE: 03/06/2019 1:35 PM HISTORY: Pain in the upper outer right breast. COMPARISON: 09/08/2018 and older. BREAST COMPOSITION: Heterogeneously dense, which limits the sensitivity of mammography. TECHNIQUE: Diagnostic full-field and spot compression digital mammography was performed on the right breast. Low-dose full-field digital breast tomosynthesis examination was performed with 2D and 3D acquisitions. Examination is read in conjunction with computer aided detection. Targeted sonography of the right breast was performed. FINDINGS: MAMMOGRAMS: There is no concerning mass, suspicious calcifications or architectural distortion identified. Since the prior mammograms, there has been no significant interval change. A metallic skin marker indicates the patient's area of pain in the posterior upper outer right breast. No corresponding mammographic abnormality is seen. ULTRASOUND: Targeted sonography was performed over the patient's area pain within the upper outer right breast. No solid or cystic mass is identified. There are no concerning findings. IMPRESSION: No suspicious findings to suggest malignancy. Clinical follow-up is recommended for the patient's right breast pain. Annual mammography is recommended. OVERALL ASSESSMENT: BI-RADS Category 1 - Negative. DICTATION LOCATION: [facility] Antonia Dupont MD MAMMO ORDERABL ES Final Result from Last 3 Months or Most Recently Relevant to Health Maintenance Insurance MEDICARE PART A AND B [facility] Care Teams Scraper Operator Relationship Specialty Start Date End Date Pratibha Hayes MD PCP - General Pediatrics 04/10/21
--- OUTSIDE RECORDS SUMMARY | 2025-06-23 09:46 | XMS_ITS | Encounter Summary ---
Author Organization [facility] Address [address] [place] [address] Care Team Providers Care Automated Equipment Engineer Technician Name Role Phone Abel Pop MD Unavailable Selam Ramirez MD Unavailable Luis Munoz MD Unavailable [phone] Kinjal Marino MD Unavailable [phone] Ghada Guardado MD Unavailable Marianna Benjamin MD Unavailable Franky Choudhury DO Unavailable Franky Choudhury DO Primary Care Provider Lenin Trevino MD Unavailable [facility] Unavailable Encounter Details Date Type Department Care Team (Late st Contact Info) Description 05/28/2025 Ophth Exam [facility] - Ophthalmology [address] [place] [address] Barrett Gutierrez MD [address] [place], [place] [phone] Social History Tobacco Use Types Packs/Day Years [...] Recorded Patient Health Questionnaire-2 Score 0 03/19/2025 [facility] - Occupational [...] time in the past 12 m [facility], were you homeless or living in a halfway (including now)? No 05/27/2025 Comments No Sex and Gender Information Value Date Recorded Sex Assigned at Not on file Legal Sex Female 6:32 AM CHEMICAL OPERATIONS AND TRAINING Gender Identity Not on file Sexual Orientation Not on file Occupation Industry Job Start Date Job End Date Retired Not on file Not on file Not on file documented as of this encounter Functional Status * Is person deaf or have serious hearing difficulty? Answer Date of Assessment Author No 05/28/2025 12:32 PM CDT Citlalli Alas RN * Is person blind or have serious difficulty seeing? Answer Date of Assessment Author No 05/28/2025 12:32 PM CDT Citlalli Alas RN * Does person have serious difficulty walking/climbing stairs? Answer Date of Assessment Author No 05/28/2025 12:32 PM CDT Citlalli Alas RN * Does person have difficulty dressing/bathing? Answer Date of Assessment Author No 05/28/2025 12:32 PM CDT Citlalli Alas RN * Does person have difficulty doing errands alone? Answer Date of Assessment Author No 05/28/2025 12:32 PM CDT Citlalli Alas RN documented as of this encounter Mental Status * Does person have difficulty concentrating/remembering/making decisions? Answer Entry Date Author No 05/28/2025 12:32 PM CDT Citlalli Alas RN documented in this encounter Plan of Treatment Upcoming Encounters Date Type Department Care Team (Late st Contact Info) Description 07/16/2025 10:30 AM CDT Procedure visit [facility] - Cosmetic Dermatology [address], [facility] 200 [place] [address] 07/23/2025 9:15 AM CDT Office Visit [facility] - Orthopedics [address] [place] [address], [place] [address] Sharad Mclaughlin, PROCESS CONTROL SPECIALIST-MAIL SORTING SUPERVISOR [address] [address] 07/26/2025 1:45 PM CDT Office Visit [facility] - Internal Med [address] [place] [address], [facility] [place] [phone] Franky Choudhury, [address] [place] [address] 08/02/2025 1:00 PM CDT Office Visit [facility] - Ophthalmology 12[address] [facility], [place] [address] Monse Kelly, PROCESS CONTROL SPECIALIST-MAIL SORTING SUPERVISOR 1225 [facility] DEPT [place] [address] 08/09/2025 1:30 PM CDT Hospital Encounter [address] [address] 08/09/2025 2:00 PM CDT Hospital Encounter [address] [address] 08/14/2025 11:00 AM CDT Office Visit [facility] - Cosmetic Dermatology [address], [facility] 200 [place] [phone] Consuelo Bosch MD [address] [facility] [address], [place] [address] 09/06/2025 11:30 AM CDT Office Visit [facility] - Cardiology 1034 [facility], [address] [address] Stephanie Silvestre, PROCESS CONTROL SPECIALIST-MAIL SORTING SUPERVISOR [address] [address] 10/01/2025 1:00 PM CHEMICAL OPERATIONS AND TRAINING Office Visit [facility] - Rheumatology [address] [place] [phone] Markie Romero MD [facility] DIV [place] [address] 11/13/2025 11:00 AM CHEMICAL OPERATIONS AND TRAINING Office Visit [facility] - Hematology/Oncology [address] [place] [phone] Luis Munoz MD 1201 [facility] OF HEMATOLOGY & [place] [address] 11/15/2025 11:00 AM CHEMICAL OPERATIONS AND TRAINING Office Visit [facility] - ACUTE CARE NURSING ASSISTANT [address] [facility] [address] [place] [phone] Jennifer Guy, PROCESS CONTROL SPECIALIST-MAIL SORTING SUPERVISOR [address] [facility] [address] [place] [address] 11/16/2025 11:00 AM CHEMICAL OPERATIONS AND TRAINING Office Visit [facility] - Ophthalmology [address] [place] [phone] [place] [address] [place] [phone] 05/14/2026 12:30 PM CDT Procedure visit [facility] - GI [address] [place] [phone] 05/14/2026 1:00 PM CDT Office Visit [facility] - GI [address] [place] [phone] Jasmyn Alvarado, PROCESS CONTROL SPECIALIST-MAIL SORTING SUPERVISOR [address] [place] [address] 3F [place] [address] documented as of this encounter Goals Goal [...] Diagnoses Not on filedocumented in this encounter Care Teams Automated Equipment Engineer Technician Relationship Specialty Start Date End Date Franky Choudhury DO [address] [place] [address] PCP - General Internal Medicine 10/02/24 Abel Pop MD [address] [place] [phone] Pain Management Anesthesiology 05/17/23 Selam Ramirez MD [address] [facility] DEPT [place] [address] Ophthalmology 05/17/23 Luis Munoz MD [address] [facility] DIV OF HEMATOLOGY & [place] [address] Hematology and Oncology 05/17/23 Kinjal Marino MD [address] [facility] 3L [place] [address] Dermatology 05/17/23 Ghada Guardado MD [address] [address] Cardiology 05/17/23 Marianna Benjamin MD [address] [address] Surgeon Orthopedic Surgery 05/17/23 Franky Choudhury DO [address] [place] [address] Resident - PCP Internal Medicine 06/04/23 Lenin Trevino MD [address] [facility] 2L [place] [address] Rheumatology 05/27/25 Markie Romero MD [address] [place] [address] Resident Rheumatology 06/15/25 documented as of this encounter
--- OUTSIDE RECORDS SUMMARY | 2025-06-23 09:46 | XMS_ITS | Encounter Summary ---
Author Organization [facility] Address [address] [place] [address] Care Team Providers Care Manufacturing Director Name Role Phone Robert Celeste MD Primary Care Provider [phone] John Gallardo MD Unavailable Dinorah Peters DO Primary Care Provider [phone] Dinorah Peters DO Primary Care Provider [phone] Tracy Maldonado MD Unavailable [phone] Tracy Maldonado MD Unavailable [phone] Julita Adams MD Unavailable Abel Pop MD Unavailable Selam Ramirez MD Unavailable Luis Munoz MD Unavailable [phone] Kinjal Marino MD Unavailable [phone] Ghada Guardado MD Unavailable João Mora MD Unavailable Marianna Benjamin MD Unavailable Pratibha Hayes MD Primary Care Provider [phone] Franky Choudhury DO Unavailable KeiMachoamaya DO Primary Care Provider [phone] Pratibha Hayes MD Primary Care Provider Franky Choudhury DO Primary Care Provider [phone] Lenin Trevino MD Unavailable Markie Romero MD Unavailable Reason for Visit * Reason Onset Date Comments MEDICATION REFILL 01/10/2020 MEDICATION REFILL 01/11/2020 Encounter Details Date Type Department Care Team (Late st Contact Info) Description 01/10/2020 Refill [facility] [address] [place] [address] Octavio Yanez MD [address] [place] [address] MEDICATION REFILL; MEDICATION REFILL Social History Tobacco Use Types Packs/Day Years Used Date Smoking Tobacco: Never Smokeless Tobacco: Never Alcohol Use Standard Drinks/Week Comments No 0 (1 standard drink = 0.6 oz pur e alcohol) Comments No Sex and Gender Information Value Date Recorded Sex Assigned at Not on file Legal Sex Female 6:[address] COMMISSIONER Gender Identity Not on file Sexual Orientation [...] of Assessment Author No 08/29/2018 11:33 AM CDT Farrah Neff RN documented as of this encounter Mental Status * Does person have difficulty concentrating/remembering/making decisions? Answer Entry Date Author No 08/29/2018 11:33 AM CDT Farrah Neff RN documented in this encounter Miscellaneous Notes * Telephone Encounter - Irlanda Glynn - 01/11/2020 11:35 AM CST Refill Request [facility] 12.30.19 NOV none Allergies: Allergies Allergen Reactions ??? Latex Swelling blisters ??? Levaquin [Levofloxacin] Other Says joints swell up huge ??? Codeine Vomiting ??? Lisinopril Cough Says really bad deep cough ??? Morphine Vomiting ??? Sulfa Drugs Urticaria, Rash and Swelling ??? Tobramycin-Dexamethasone Anaphylaxis, Itching and Swelling tobradex eye drops ??? Tobradex St Urticaria, Itching and Swelling ??? Erythromycin Urticaria and Rash Pended Medication Order: Requested Prescriptions Pending Prescriptions Disp Refills ??? hydroxychloroquine (PLAQUENIL) 200 MG tablet 30 tablet 3 Sig: Take 1 tablet by mouth once daily Reasons: Sjogren's Syndrome Signed Prescriptions Disp Refills ??? hydroxychloroquine (PLAQUENIL) 200 MG tablet 30 tablet 3 Sig: Take 1 tablet by mouth once daily Reasons: Sjogren's Syndrome Authorizing Provider: OCTAVIO YANEZ T COMMISSIONER documented in this encounter Plan of Treatment Upcoming Encounters Date Type Department Care Team (Late st Contact Info) Description 07/16/2025 10:30 AM CDT Procedure visit [facility] - Cosmetic Dermatology [address], [facility] 200 [place] [address] 07/23/2025 9:15 AM CDT Office Visit [facility] - Orthopedics [address] [facility], [place] [address] Sharad Mclaughlin, DIRECTOR PHYSICAL-OUTREACH DIRECTOR [address] [address] 07/26/2025 1:45 PM CDT Office Visit [facility] - Internal Med [address] [facility], [place] [phone] Franky Choudhury, [address] [place] [address] 08/02/2025 1:00 PM CDT Office Visit [facility] - Ophthalmology [address] [place] [address], [place] [phone] Monse Kelly, DIRECTOR PHYSICAL-OUTREACH DIRECTOR [address] [place] [address] [place] [address] 08/09/2025 1:30 PM CDT Hospital Encounter [address] [address] 08/09/2025 2:00 PM CDT Hospital Encounter [address] [address] 08/14/2025 11:00 AM CDT Office Visit [facility] - Cosmetic Dermatology [address], [address] [phone] Consuelo Bosch MD [address] [address] 09/06/2025 11:30 AM CDT Office Visit [facility] - Cardiology [address] [place], [address] [address] Stephanie Silvestre, DIRECTOR PHYSICAL-OUTREACH DIRECTOR [address] [address] 10/01/2025 1:[address] COMMISSIONER Office Visit [facility] - Rheumatology [address] [place] [address] Markie Romero MD [address] [facility] [place] [address] 11/13/2025 11:[address] COMMISSIONER Office Visit [facility] - Hematology/Oncology [address] [place] [phone] Luis Munoz MD [address] [facility] DIV OF HEMATOLOGY & [place]ICAL [place] [address] 11/15/2025 11:[address] COMMISSIONER Office Visit [facility] - COMMISSARY CLERK [address] [facility] [address] [place] [phone] Jennifer Guy, DIRECTOR PHYSICAL-OUTREACH DIRECTOR [address] [facility] [address] [place] [address] 11/16/2025 11:[address] COMMISSIONER Office Visit [facility] - Ophthalmology [address] [facility], [place] [address] Xu Kelly OD [address] [place] [phone] 05/14/2026 12:30 PM CDT Procedure visit [facility] - GI [address] [place] [phone] 05/14/2026 1:00 PM CDT Office Visit [facility] - GI [address] [place] [phone] Jasmyn Alvarado, DIRECTOR PHYSICAL-OUTREACH DIRECTOR [address] [place] [address] [address]F [place] [address] documented as of this encounter Goals Goal [...] documented as of this encounter Care Teams Manufacturing Director Relationship Specialty Start Date End Date Robert Celeste MD [address] [place] [address] PCP - General Internal Medicine 02/20/16 08/26/20 Dinorah Peters DO [address] [place] [address] PCP - General Internal Medicine 08/27/20 03/24/21 Dinorah Peters DO [address] [place] [phone] PCP - General Internal Medicine 03/25/21 06/03/23 Pratibha Hayes MD [address] [place] [address] PCP - General Internal Medicine 06/04/23 11/17/23 Franky Choudhury DO [address] [place] [address] PCP - General Internal Medicine 11/18/23 09/26/24 Pratibha Hayes MD [address] [place] [phone] PCP - General Internal Medicine 09/27/24 10/01/24 Franky Choudhury DO [address] [place] [address] PCP - General Internal Medicine 10/02/24 John Gallardo MD [address] [place] [address] Resident - PCP Student Resident 07/04/18 06/16/21 Tracy Maldonado MD [address] DIV OF [facility] INTERNAL MEDICINE [place] Resident - PCP Student Resident 06/17/21 05/11/23 Tracy Maldonado MD [address] DIV OF [facility] INTERNAL [facility] [place] Resident Student Resident 06/17/21 10/01/21 Julita Adams MD [address] DIV OF [facility] INTERNAL MEDIC[facility] [place] Resident - PCP Internal Medicine 05/17/23 06/03/23 Abel Pop MD [address] [place] [phone] Pain Management Anesthesiology 05/17/23 Selam Ramirez MD [address] [place] [phone] Ophthalmology 05/17/23 Luis Munoz MD [address] DIV OF HEMATOLOGY & [place]ICAL [place] [address] Hematology and Oncology 05/17/23 Kinjal Marino MD [address] DEPT [place] [address] Dermatology 05/17/23 Ghada Guardado MD [address] [facility] [address] [place] [address] Cardiology 05/17/23 João Mora MD [address] [place] [phone] Resident Rheumatology 05/17/23 05/26/25 Marianna Benjamin MD [address] [facility] [place] [place] [phone] Surgeon Orthopedic Surgery 05/17/23 Franky Choudhury DO [address] [place] [address] Resident - PCP Internal Medicine 06/04/23 Lenin Trevino MD [address] [facility] 2L DIV [place] [address] Rheumatology 05/27/25 Markie Romero MD [address] [place] [phone] Resident Rheumatology 06/15/25 documented as of this encounter
--- OUTSIDE RECORDS SUMMARY | 2025-06-23 09:46 | XMS_ITS | Encounter Summary ---
Author Organization [facility] Address [address] [facility] [place] [address] Care Team Providers Care Veterinary Anatomist Name Role Phone FranDinorah DO Primary Care Provider [phone] Tracy Maldonado MD Unavailable [phone] Julita Adams MD Unavailable [phone] Abel Pop MD Unavailable Selam Ramirez MD Unavailable Luis Munoz MD Unavailable [phone] Kinjal Marino MD Unavailable [phone] Ghada Guardado MD Unavailable [phone] João Mora MD Unavailable Marianna Benjamin MD Unavailable [phone] Pratibha Hayes MD Primary Care Provider [phone] Franky Choudhury DO Unavailable [phone] Franky Choudhury DO Primary Care Provider [phone] Pratibha Hayes MD Primary Care Provider [phone] Franky Choudhury DO Primary Care Provider [phone] Lenin Trev[facility] MD [facility] Un[facility] Encounter Details Date Type Department Care Team (Late st Contact Info) Description 12/02/2022 Telephone [facility] [address] [place] [address] Selam Ramirez MD [address] [facility] [place]PT [place] [address] Social History Tobacco Use Types Packs/Day Years Used Date Smoking Tobacco: Never Smokeless Tobacco: Never Alcohol Use Standard Drinks/Week Comments No 0 (1 standard drink = 0.6 oz pur e alcohol) PHQ-2 Answer Date Recorded PHQ2 TOTAL SCORE 0 04/09/2022 Hunger Vital Sign Answer Date Recorded Within [...] on file Legal Sex Female 6:32 AM MASH FILTER CLOTH CHANGER Gender Identity Not on file Sexual Orientation Not on file Occupation Industry Job Start Date Job End Date Retired Not on file Not on file Not on file COVID-19 Exposure Response Date Recorded In the last 10 days, have yo u been in contact with someone who was confirmed or suspected to have Coronavirus/COVID-19? No / Unsure 12/04/2022 7:49 AM MASH FILTER CLOTH CHANGER documented as of this encounter Functional Status [...] encounter Miscellaneous Notes * Telephone Encounter - Precious Eason - 12/02/2022 2:02 PM CST I am pretty sure you didn't mean to message me as I am currently not doing any adult clinics. I am only at [facility]. Did you mean to message Dr. Ramirez? FILTER CLOTH CHANGER * Telephone Encounter - Lu Gunn - 12/02/2022 1:58 PM CST I spoke to Rose and added her to the wait list for an earlier appointment. Her 03/17/23 appointment got pushed back to 05/05/23. Please contact patient if any appointment becomes available with Dr. Ramirez sooner. Thank you! FILTER CLOTH CHANGER documented in this encounter Plan of Treatment Upcoming Encounters Date Type Department Care Team (Late st Contact Info) Description 07/16/2025 10:30 AM CDT Procedure visit [facility] - Cosmetic Dermatology [address], [facility] 200 [place] [address] 07/23/2025 9:15 AM CDT Office Visit [facility] - Orthopedics [address] [place], [place] [address] Sharad Mclaughlin, MEDICAL CUSTOMER SERVICE REPRESENTATIVE-BUILDING MAINTENANCE WORKER [address] [facility] 400 [place] [address] 07/26/2025 1:45 PM CDT Office Visit [facility] - Internal Med [address] [place], [place] [phone] Franky Choudhury DO [address]01 [place] [address] 08/02/2025 1:00 PM CDT Office Visit [facility] - Ophthalmology [address] [place], [place] [address] Monse Kelly, MEDICAL CUSTOMER SERVICE REPRESENTATIVE-BUILDING MAINTENANCE WORKER [address] [place] [address] [place] [address] 08/09/2025 1:30 PM CDT Hospital Encounter [address] [address] 08/09/2025 2:00 PM CDT Hospital Encounter [address] [address] 08/14/2025 11:00 AM CDT Office Visit [facility] - Cosmetic Dermatology [address], [facility] 200 [place] [address] Consuelo Bosch MD [address] [facility] [address], [place] [address] 09/06/2025 11:30 AM CDT Office Visit [facility] - Cardiology [address] [facility], [place] [address] [place] [address] Stephanie Silvestre, MEDICAL CUSTOMER SERVICE REPRESENTATIVE-BUILDING MAINTENANCE WORKER [address] [place] [place] [address] 10/01/2025 1:00 PM MASH FILTER CLOTH CHANGER Office Visit [facility] - Rheumatology [address] [place], [place] [address] Markie Romero MD [facility] [place] [address] 11/13/2025 11:00 AM MASH FILTER CLOTH CHANGER [facility]Oncology [address] [place] [address] Luis Munoz MD 1201 [facility] DIV OF HEMATOLOGY & [place] [address] 11/15/2025 11:00 AM MASH FILTER CLOTH CHANGER Office Visit [facility] - DIRECTOR OF CONSUMER AFFAIRS [address] [facility] [address] [place] [address] Jennifer Guy, MEDICAL CUSTOMER SERVICE REPRESENTATIVE-BUILDING MAINTENANCE WORKER 10[address] [facility] [address] [place] [address] 11/16/2025 11:00 AM MASH FILTER CLOTH CHANGER Office Visit [facility] - Ophthalmology [address] [place] [address], [place] [address] Xu Kelly, MIRTA [address] [place] [address] 05/14/2026 12:30 PM CDT Procedure visit [facility] - GI [address] [place] [phone] 05/14/2026 1:00 PM CDT Office Visit [facility] - GI [address] [place] [phone] Jasmyn Alvarado, MEDICAL CUSTOMER SERVICE REPRESENTATIVE-BUILDING MAINTENANCE WORKER [address] [place] [address] [address] [place] [address] documented as of this encounter Goals Goal [...] documented as of this encounter Care Teams Veterinary Anatomist Relationship Specialty Start Date End Date Dinorah Peters DO [address] DIV [facility] [place] [address] PCP - General Internal Medicine 03/25/21 06/03/23 Pratibha Hayes MD [address] DIV OF [facility] [place] [address] PCP - General Internal Medicine 06/04/23 11/17/23 Franky Choudhury DO [address] [place] [address] PCP - General Internal Medicine 11/18/23 09/26/24 Pratibha Hayes MD [address] DIV OF [facility] [place] [address] PCP - General Internal Medicine 09/27/24 10/01/24 Franky Choudhury DO [address] [place] [address] PCP - General Internal Medicine 10/02/24 Tracy Maldonado MD [address] DIV OF [facility] [place] Resident - PCP Student Resident 06/17/21 05/11/23 Julita Adams MD [address] [facility] 2L DIV OF GEN INTERNAL MEDICINE [place] Resident - PCP Internal Medicine 05/17/23 06/03/23 Abel Pop MD [address] [place] [address] Pain Management Anesthesiology 05/17/23 Selam Ramirez MD [address] [facility] GL [place] [address] Ophthalmology 05/17/23 Luis Munoz MD [address] [facility] DIV OF HEMATOLOGY & [place] [address] Hematology and Oncology 05/17/23 Kinjal Marino MD [address] [facility] 3L [place] [address] Dermatology 05/17/23 Ghada Guardado MD [address] [facility] 1120 [place] [address] Cardiology 05/17/23 João Mora MD [address] [facility] [place] [address] Resident Rheumatology 05/17/23 05/26/25 Marianna Benjamin MD [address] [facility] [place] [address] Surgeon Orthopedic Surgery 05/17/23 Franky Choudhury DO [address] [place] [address] Resident - PCP Internal Medicine 06/04/23 Lenin Trevino MD [address] [facility] 2L [place] [phone] Rheumatology 05/27/25 Markie Romero MD [address] [facility] [place] [address] Resident Rheumatology 06/15/25 documented as of this encounter
--- OUTSIDE RECORDS SUMMARY | 2025-06-23 09:46 | XMS_ITS | Encounter Summary ---
Author Organization [facility] Address [address] [place] [address] Care Team Providers Care Rubber Heel And Sole Press Tender Name Role Phone FranDinorah DO Primary Care Provider [phone] Tracy Maldonado MD Unavailable [phone] Julita Adams MD Unavailable [phone] Abel Pop MD Unavailable Selam Ramirez MD Unavailable Luis Munoz MD Unavailable [phone] Kinjal Marino MD Unavailable [phone] Ghada Guardado MD Unavailable [phone] João Mora MD Unavailable Marianna Benjamin MD Unavailable Pratibha Hayes MD Primary Care Provider [phone] Franky Choudhury DO Unavailable [phone] Franky Choudhury DO Primary Care Provider [phone] Pratibha Hayes MD Primary Care Provider [phone] Franky Choudhury DO Primary Care Provider [phone] Lenin Trevino MD [facility]available [facility] Unavailable Reason for Visit * Reason Onset Date Comments MEDICATION REFILL 11/20/2022 Encounter Details Date Type Department Care Team (Late st Contact Info) Description 11/20/2022 Refill [facility] [address] [facility], [place] [address] Julita Adams MD [address] [place] [address] MEDICATION REFILL Social History Tobacco Use Types [...] on file Legal Sex Female 6:32 AM PULMONARY FUNCTION TECHNICIAN Gender Identity Not on file Sexual Orientation Not on file Occupation Industry Job Start Date Job End Date Retired Not on file Not on file Not on file COVID-19 Exposure Response Date Recorded In the last 10 days, have yo u been in contact with someone who was confirmed or suspected to have Coronavirus/COVID-19? No / Unsure 11/12/2022 2:59 PM PULMONARY FUNCTION TECHNICIAN documented as of this encounter Functional Status * Is person deaf or have serious hearing difficulty? Answer Date of Assessment Author No 05/06/2022 4:42 PM CDT Marisela Leger RN * Is person blind or have serious difficulty seeing? Answer Date of Assessment Author No 05/06/2022 4:42 PM SOFIYAT Marisela Leger RN * Does person have serious difficulty [...] Marisela Leger RN documented in this encounter Plan of Treatment Upcoming Encounters Date Type Department Care Team (Late st Contact Info) Description 07/16/2025 10:30 AM CDT Procedure visit [facility] - Cosmetic Dermatology [address], [facility] [address] [place] [phone] 07/23/2025 9:15 AM CDT Office Visit [facility] - Orthopedics [address] [place] [phone] Sharad Mclaughlin, ARTILLERY METEOROLOGICAL MAN-DYE MACHINE TENDER [address] [facility] [address] [place] [address] 07/26/2025 1:45 PM CDT Office Visit [facility] - Internal Med [address] [place] [phone] Franky Choudhury DO [address] [place] [address] 08/02/2025 1:00 PM CDT Office Visit [facility] - Ophthalmology [address] [place] [phone] Monse Kelly, ARTILLERY METEOROLOGICAL MAN-DYE MACHINE TENDER [address] [place] [address] DEPT [place] [address] 08/09/2025 1:30 PM CDT Hospital Encounter [facility] [address] [place] [address] 08/09/2025 2:00 PM CDT Hospital Encounter [facility] [address] [place] [address] 08/14/2025 11:00 AM CDT Office Visit [facility] - Cosmetic Dermatology [address], [place] [address] [place] [address] Consuelo Bosch MD [address] [place] [address] [place] [address] 09/06/2025 11:30 AM CDT Office Visit [facility] - Cardiology [address] [facility], [facility] [address] [place] [address] Stephanie Silvestre, ARTILLERY METEOROLOGICAL MAN-DYE MACHINE TENDER [address] [facility] [address] [place] [address] 10/01/2025 1:00 PM PULMONARY FUNCTION TECHNICIAN Office Visit [facility] - Rheumatology [address] [facility], [place] [phone] Markie Romero MD [address] [facility] DIV [place] [address] 11/13/2025 11:00 AM PULMONARY FUNCTION TECHNICIAN Office Visit [facility] - Hematology/Oncology [address] [place] [phone] Luis Munoz MD [address] [facility] DIV OF HEMATOLOGY & [place] [address] 11/15/2025 11:00 AM PULMONARY FUNCTION TECHNICIAN Office Visit [facility] - SETUP OPERATOR [address] [facility] [address] [place] [phone] Jennifer Guy, ARTILLERY METEOROLOGICAL MAN-DYE MACHINE TENDER [address] [facility] [place] [address] [place] [address] 11/16/2025 11:00 AM PULMONARY FUNCTION TECHNICIAN Office Visit [facility] - Ophthalmology [address] [place] [phone] Xu Kelly, MIRTA [address] [place] [address] 05/14/2026 12:30 PM CDT Procedure visit [facility] - GI [address] [place] [phone] 05/14/2026 1:00 PM CDT Office Visit [facility] - GI [address] [place] [phone] Jasmyn Alvarado, ARTILLERY METEOROLOGICAL MAN-DYE MACHINE TENDER [address] [place] [address] [address]FL DIV OF GASTROENTEROLOGY [place], [place] [phone] documented as of this encounter Goals Goal [...] documented as of this encounter Care Teams Rubber Heel And Sole Press Tender Relationship Specialty Start Date End Date Dinorah Peters DO [address] [place] [address] 2L DIV OF GEN [place] [address] PCP - General Internal Medicine 03/25/21 06/03/23 Pratibha Hayes MD [address] [place] [address] 2L DIV OF [place] [address] PCP - General Internal Medicine 06/04/23 11/17/23 Franky Choudhury DO [address] [place] [address] PCP - General Internal Medicine 11/18/23 09/26/24 Pratibha Hayes MD [address] 2L DIV OF [facility] [place] [address] PCP - General Internal Medicine 09/27/24 10/01/24 Franky Choudhury DO [address] [place] [address] PCP - General Internal Medicine 10/02/24 Tracy Maldonado MD [address] [facility] 2L DIV OF [facility] INTERNAL MEDICINE [place] Resident - PCP Student Resident 06/17/21 05/11/23 Julita Adams MD [address] [facility] DIV OF [facility] INTERNAL [place], [place] Resident - PCP Internal Medicine 05/17/23 06/03/23 Abel Pop MD [address] [place] [address] Pain Management Anesthesiology 05/17/23 Selam Ramirez MD [address] DEPT [place] [address] Ophthalmology 05/17/23 Luis Munoz MD [address] DIV OF HEMATOLOGY & [place] [address] Hematology and Oncology 05/17/23 Kinjal Marino MD [address] [facility] 3L [place] [address] Dermatology 05/17/23 Ghada Guardado MD [address] [facility] [place] [address] [place] [address] Cardiology 05/17/23 João Mora MD [address] [facility] [place] [phone] Resident Rheumatology 05/17/23 05/26/25 Marianna Benjamin MD [address] [facility] [place] [phone] Surgeon Orthopedic Surgery 05/17/23 Franky Choudhury DO [address] [place] [address] Resident - PCP Internal Medicine 06/04/23 Lenin Trevino MD 1225 [facility] 2L [place] [phone] Rheumatology 05/27/25 Markie Romero MD [address] [facility] DIV [place] [phone] Resident Rheumatology 06/15/25 documented as of this encounter
--- OUTSIDE RECORDS SUMMARY | 2025-06-23 09:46 | XMS_ITS | Encounter Summary ---
Author Organization [facility] Address [address] [facility] [place] [address] Care Team Providers Care Meat Apprentice Name Role Phone Abel Pop MD Unavailable Selam Rmairez MD Unavailable Luis Munoz MD Unavailable [phone] Kinjal Marino MD Unavailable [phone] Ghada Guardado MD Unavailable Marianna Benjamin MD Unavailable Franky Choudhury DO Unavailable Franky Choudhury DO Primary Care Provider [phone] Lenin Trevino MD [facility]available [facility] Unavailable Encounter Details Date Type Department Care Team (Late st Contact Info) Description 06/18/2025 Results Follow-Up [facility] - RIM ROLLER SETTER [address] [facility] [address] [place] [address] Melania Mohan MD [address] [facility] [address] [place] [address] Social History Tobacco Use Types Packs/Day Years [...] Date Recorded Patient Health Questionnaire-2 Score 0 06/09/2025 [facility] of Occupat ional Health - Occupational Stress [...] any time in the past 12 m ont, were you homeless or living in a intermediate (including now)? No 05/27/2025 Comments No Sex and Gender Information Value Date Recorded Sex Assigned at Not on file Legal Sex Female 6:32 AM CATERING COOK Gender Identity Not on file Sexual Orientation [...] Description 07/16/2025 10:30 AM CDT Procedure visit [facility] - Cosmetic Dermatology [address] , [facility] 200 [place] [address] 07/23/2025 9:15 AM CDT Office Visit [facility] - Orthopedics [address] [place] [address], [place] [address] Sharad Mclaughlin, SPRAY PAINTER-HEALTH CONCIERGE [address] [facility] 400 [place] [address] 07/26/2025 1:45 PM CDT Office Visit [facility] - Internal Med [address] [place] [address], [place] [phone] Franky Choudhury, DO [address] [place] [address] 08/02/2025 1:00 PM CDT Office Visit [facility] - Ophthalmology [address] [facility], [place] [phone] Monse Kelly, SPRAY PAINTER-HEALTH CONCIERGE [address] [place] [address] DEPT [place] [address] 08/09/2025 1:30 PM CDT Hospital Encounter [address] [address] 08/09/2025 2:00 PM CDT Hospital Encounter [address] [address] 08/14/2025 11:00 AM CDT Office Visit [facility] - Cosmetic Dermatology [address], [facility] 200 [place] [phone] Consuelo Bosch MD [address] [facility] [address] [address] 09/06/2025 11:30 AM CDT Office Visit [facility] - Cardiology [address] [phone] Stephanie Silvestre, SPRAY PAINTER-HEALTH CONCIERGE [address] [place] [address] 10/01/2025 1:00 PM CATERING COOK Office Visit [facility] - Rheumatology [address] [place] [phone] Markie Romero MD [facility]5 [facility] DIV [place] [address] 11/13/2025 11:00 AM CATERING COOK Office Visit [facility] - Hematology/Oncology [address] [place] [phone] Luis Munoz MD 1201 [facility] OF [facility] [place] [address] 11/15/2025 11:00 AM CATERING COOK Office Visit [facility] - RIM ROLLER SETTER [address] [facility] [address] [place] [phone] Jennifer Guy, SPRAY PAINTER-HEALTH CONCIERGE [address] [facility] [address] [place] [address] 11/16/2025 11:00 AM CATERING COOK Office Visit [facility] - Ophthalmology [address] [place] [phone] Xu Kelly OD [address] [place] [phone] 05/14/2026 12:30 PM CDT Procedure visit [facility] - GI [address] [place] [phone] 05/14/2026 1:00 PM CDT Office Visit [facility] - GI [address] [place] [phone] Jasmyn Alvarado, SPRAY PAINTER-HEALTH CONCIERGE [address] [place] [address] DIV [place] [address] documented as of this encounter Goals Goal [...] on filedocumented in this encounter Care Teams Meat Apprentice Relationship Specialty Start Date End Date Franky Choudhury DO [address] [place] [address] PCP - General Internal Medicine 10/02/24 Abel Pop MD [address] [place] [phone] Pain Management Anesthesiology 05/17/23 Selam Ramirez MD [address] [facility] [address] DEPT [place] [phone] Ophthalmology 05/17/23 Luis Munoz MD [facility] S [facility] OF [facility] & [place] [address] Hematology and Oncology 05/17/23 Kinjal Marino MD [facility] [place] [address] [place] [address] Dermatology 05/17/23 Ghada Guardado MD [address] [address] Cardiology 05/17/23 Marianna Benjamin MD [address] [address] Surgeon Orthopedic Surgery 05/17/23 Franky Choudhury DO [address] [place] [address] Resident - PCP Internal Medicine 06/04/23 Lenin Trevino MD [address]L [place] [address] Rheumatology 05/27/25 [facility] [address] [place] [address] Resident Rheumatology 06/15/25 documented as of this encounter
--- OUTSIDE RECORDS SUMMARY | 2025-06-23 09:46 | XMS_ITS | Encounter Summary ---
Author Organization [facility] Address [address] [facility] [place] [address] Care Team Providers Care Chemical Tank Worker Name Role Phone Robert Celeste MD Primary Care Provider [phone] John Gallardo MD Unavailable Dinorah Peters DO Primary Care Provider [phone] Dinorah Peters DO Primary Care Provider [phone] Tracy Maldonado MD Unavailable [phone] Tracy Maldonado MD Unavailable [phone] Julita Adams MD Unavailable Abel Pop MD Unavailable Selam Ramirez MD Unavailable Luis Munoz MD Unavailable [phone] Kinjal Marino MD Unavailable [phone] Ghada Guardado MD Unavailable João Mora MD Unavailable Marianna Benjamin MD Unavailable Pratibha Hayes MD Primary Care Provider [phone] Franky Choudhury DO Unavailable ChoudhuryMachoamaya DO Primary Care Provider [phone] Pratibha Hayes MD Primary Care Provider Franky Choudhury DO Primary Care Provider [phone] Lenin Trevino MD Unavailable Markie Romero MD Unavailable Encounter Details Date Type Department Care Team (Late st Contact Info) Description 10/07/2017 Lab Requisition [facility] - Lab Cytogenetics [address] [place] [address] Jerry Howell MD [address] [place] [address] B-cell lymphoma Social History Tobacco Use Types Packs/Day Years Used Date Smoking Tobacco: Never Alcohol Use Standard Drinks/Week Comments No 0 (1 standard drink = 0.6 oz pur e alcohol) Comments No Sex and Gender Information Value Date Recorded Sex Assigned at Not on file Legal Sex Female 6:32 AM SQUEEGEE OPERATOR Gender Identity Not on file Sexual Orientation Not on file documented as of this encounter Functional Status * Is person deaf or have serious hearing difficulty? Answer Date of Assessment Author No 03/23/2016 6:20 AM Basilio Chauhan RN * Is person blind or have serious difficulty seeing? Answer Date of Assessment Author No 03/23/2016 6:20 AM Basilio Chauhan RN * Does person have serious difficulty walking/climbing stairs? Answer Date of Assessment Author No 03/23/2016 6:20 AM Basilio Chauhan RN * Does person have difficulty dressing/bathing? Answer Date of Assessment Author No 03/23/2016 6:20 AM Basilio Chauhan RN * Does person have difficulty doing errands alone? Answer Date of Assessment Author No 03/23/2016 6:20 AM Basilio Chauhan RN documented as of this encounter Mental Status * Does person have difficulty concentrating/remembering/making decisions? Answer Entry Date Author No 03/23/2016 6:20 AM Basilio Chauhan A, RN documented in this encounter Plan of Treatment Upcoming Encounters Date Type Department Care Team (Late st Contact Info) Description 07/16/2025 10:30 AM CDT Procedure visit [facility] - Cosmetic Dermatology [address], [facility] 200 [place] [address] 07/23/2025 9:15 AM CDT Office Visit [facility] - Orthopedics [address] [place] [phone] Sharad Mclaughlin, BULLET LUBRICANT MIXER-MATERIAL ANALYST [address] [facility] 400 [place] [address] 07/26/2025 1:45 PM CDT Office Visit [facility] - Internal Med [address] [place] [phone] Franky Choudhury DO [address] [place] [address] 08/02/2025 1:00 PM CDT [facility] Ophthalmology [address] [place] [phone] Monse Kelly, BULLET LUBRICANT MIXER-MATERIAL ANALYST [address] [place] [address] [place] [phone] 08/09/2025 1:30 PM CDT Hospital Encounter [address] [address] 08/09/2025 2:00 PM CDT Hospital Encounter [address] [address] 08/14/2025 11:00 AM CDT Office Visit [facility] - Cosmetic Dermatology [facility], [facility] 200 [place] [phone] Consuelo Bosch MD [address] [facility] [address] [place] [address] 09/06/2025 11:30 AM CDT Office Visit [facility] - Cardiology [address] [facility], [place] [address] [place] [address] Stephanie Silvestre, BULLET LUBRICANT MIXER-MATERIAL ANALYST [address] [facility] [address] [place] [address] 10/01/2025 1:00 PM SQUEEGEE OPERATOR Office Visit [facility] - Rheumatology [address] [place] [phone] Markie Romero MD [address] [facility] [place] [address] 11/13/2025 11:00 AM SQUEEGEE OPERATOR Office Visit [facility] - Hematology/Oncology [address] [place] [phone] Luis Munoz MD [address] [facility] DIV OF HEMATOLOGY & [place] [address] 11/15/2025 11:00 AM SQUEEGEE OPERATOR [facility] - VETERINARY PHARMACOLOGIST [address] [facility] [address] [place] [phone] Jennifer Guy, BULLET LUBRICANT MIXER-MATERIAL ANALYST 10[address] [facility] [address] [place] [address] 11/16/2025 11:00 AM SQUEEGEE OPERATOR Office Visit [facility] - Ophthalmology [address] [facility], [place] [phone] Xu Kelly OD [address]25 [place] [phone] 05/14/2026 12:30 PM CDT Procedure visit [facility] - GI [address] [facility], [place] [phone] 05/14/2026 1:00 PM CDT Office Visit [facility] Physician Group - GI [address] [facility], [facility] [place] [phone] Christiano Jasmyn Amee, BULLET LUBRICANT MIXER-MATERIAL ANALYST 12[address] [facility] 3FL [place] [address] documented as of this encounter Procedures Procedure Name Priority Date/Time Associated Diagnosis Comments CYTOGENETICS CANCER PANEL Routine 09/29/2017 10:54 AM CDT B-cell lymphoma documented in this encounter Results * CYTOGENETICS CANCER PANEL (09/29/2017 10:54 AM CDT) Indication for Study Diffuse Large B-Cell Lymphoma 7 9:16 AM [facility] CYTOGENOMIC LAB Results Cytogenetics Analysis of 200 FFPE interphase gastric mass cells hybridized to dual breakapart BCL6, MYC and dual labeled dual fusion CMYC/IGH and BCL2/IGH specific fluorescent labeled probes* directed onto 3q27,8q24, 8q24/14q32 and 18q21/14q32 showed the following results: nuc ed(BCL6x2)[200], (CEP8,CMYC,IGH)x2[20 0],(CMYCx2)[200],(IG H,BCL2)x2[200] Normal 7 9:16 AM [facility] CYTOGENOMIC LAB Interpretation FISH of double hit lymphoma panel was negative for all the probes based on 200 interphase cells of FFPE slides. 7 9:16 AM [facility] CYTOGENOMIC LAB at [address] [facility] Disclaimer *This test was developed, and its performance characteristics determined by [facility] Molecular Cytogenetics Laboratory as required by CLIA '88 Regulations. It has not been cleared or approved for specific uses by the U.S. Food and Drug Administration. The FDA has determined that such clearance or approval is not necessary. This test is used for clinical purposes. It should not be reported as investigational or for research. --------- Notes for FISH probes: 1- At the pretreatment level, the cutoff values for trisomy is 1%, dual breakapart is 3 to 5%, double fusion is 1%, and monosomy/deletion is 5% for no FFPE specimen and 20% for FFPE specimen. Efficiency of the probe intensity was acceptable overall. 2- At the post-treatment level, any identified percentage found below the pretreatment cutoff values could not be interpreted unequivocally and needs to be correlated with clinicopathological and clinical findings. At the post treatment level, a low percentage could either represent an actual minimal residual disease or an actual nature of normal cell division. 3- Cutoff values are combined for all different probes forming a range of percentages which covers low/high ends of each probe that fluctuate due to environmental conditions. Percentages that are close to the cutoff values have to be interpreted in correlation with clinicopathological and clinical findings. 4- An additional validation is performed by correlating pathology with cytogenetic findings. 7 9:16 AM [facility] CYTOGENOMIC LAB Client Information [facility] - [id number] [facility] Lab # [id number] SENIOR C SOFTWARE DEVELOPER-TIS 7 9:16 AM [facility] CYTOGENOMIC LAB Embedded Images 7 9:16 AM [facility] CYTOGENOMIC LAB Other SLIDE / Unknown 09/29/2017 1 0:54 AM CDT 10/07/2017 4:12 PM SQUEEGEE OPERATOR us Jerry Howell MD LAB - PATHOLOGY/CYTOLOGY ORDERA BLES Final Result [facility] MOLECULAR CYTOGENOMIC LAB [address] [place] [address] documented in this encounter Visit Diagnoses Diagnosis B-cell lymphoma (HCC) Burkitt's tumor or lymphoma, unspecified site, extranodal and solid organ sites documented in this encounter Additional Health Concerns Infection Onset Date Last Indicated Resolved Time CDIFF Under Investigation 05/27/2025 05/27/2025 8:56 PM CDT documented as of this encounter Care Teams Chemical Tank Worker Relationship Specialty Start Date End Date Robert Celeste MD [address] [place] [address] PCP - General Internal Medicine 02/20/16 08/26/20 Dinorah Peters DO [address] DIV OF [facility] [place] [address] PCP - General Internal Medicine 08/27/20 03/24/21 Dinorah Peters DO [address] DIV OF [facility] [place] [address] PCP - General Internal Medicine 03/25/21 06/03/23 Pratibha Hayes MD [address] [place] [address] PCP - General Internal Medicine 06/04/23 11/17/23 Franky Choudhury DO [address] [place] [address] PCP - General Internal Medicine 11/18/23 09/26/24 Pratibha Hayes MD [address] DIV OF [facility] [place] [address] PCP - General Internal Medicine 09/27/24 10/01/24 Choudhury DO Franky [address] [place] [address] PCP - General Internal Medicine 10/02/24 John Gallardo MD [address] [place] [address] Resident - PCP Student Resident 07/04/18 06/16/21 Tracy Maldonado MD [address] DIV OF [facility] INTERNAL MEDIC[place] Resident - PCP Student Resident 06/17/21 05/11/23 Tracy Maldonado MD [address] DIV OF [facility] INTERNAL [place] Resident Student Resident 06/17/21 10/01/21 Julita Adams MD [address] DIV OF [facility] INTERNAL [place] Resident - PCP Internal Medicine 05/17/23 06/03/23 Abel Pop MD [address] [facility] [place] [phone] Pain Management Anesthesiology 05/17/23 Selam Ramirez MD [address] [place] [phone] Ophthalmology 05/17/23 Luis Munoz MD [address] DIV OF HEMATOLOGY & [place] [address] Hematology and Oncology 05/17/23 Kinjal Marino MD [address] [place] [address] Dermatology 05/17/23 Ghada Guardado MD [address] [facility] 1120 [place] [address] Cardiology 05/17/23 João Mora MD [address]25 [facility] [place] [phone] Resident Rheumatology 05/17/23 05/26/25 Marianna Benjamin MD [address] [facility] [place] [phone] Surgeon Orthopedic Surgery 05/17/23 Franky Choudhury DO [address] [place] [address] Resident - PCP Internal Medicine 06/04/23 Lenin Trevino MD 1225 [facility] 2L [place] [phone] Rheumatology 05/27/25 Markie Romero MD 12[address] [facility] [place] [address] Resident Rheumatology 06/15/25 documented as of this encounter
--- OUTSIDE RECORDS SUMMARY | 2025-06-23 09:46 | XMS_ITS | Encounter Summary ---
Author Organization [facility] Healthcare Address [address] [place] [address] Care Team Providers Care Cryptologic Linguist Name Role Phone Pratibha Hayes MD Primary Care Provider [phone] Encounter Details Date Type Department Care Team (Late st Contact Info) Description 06/20/2025 Results Follow-Up [facility] Medical Group Convenient Care at [address] [address] Lesley Kelly NP [address] [facility] [address] [place] [address] Urine culture Urine, clean voided Social History Tobacco Use Types Packs/Day Years Used Date Smoking Tobacco: Never Alcohol Use Standard Drinks/Week Comments No 0 (1 standard drink = 0.6 oz pur e alcohol) Comments Unknown Sex and Gender Information Value Date Recorded Sex Assigned at Not on file Legal Sex Female 3:03 AM PERSONAL LOAN SPECIALIST Gender Identity Not on file Sexual Orientation Not on file documented as of this encounter Plan of Treatment Not on file documented as of this encounter Visit Diagnoses Not on filedocumented in this encounter Care Teams Cryptologic Linguist Relationship Specialty Start Date End Date Pratibha Hayes MD [address] [facility] 2L DIV [place] [address] PCP - General Internal Medicine 11/18/24 documented as of this encounter
--- OUTSIDE RECORDS SUMMARY | 2025-06-23 09:46 | XMS_ITS | Encounter Summary ---
Author Organization [facility] Address [address] [place] [address] Care Team Providers Care Community Life Director Name Role Phone Robert Celeste MD Primary Care Provider [phone] John Gallardo MD Unavailable Dinorah Peters DO Primary Care Provider [phone] Dinorah Peters DO Primary Care Provider [phone] Tracy Maldonado MD Unavailable [phone] Tracy Maldonado MD Unavailable [phone] Julita Adams MD Unavailable Abel Pop MD Unavailable Selam Ramirez MD Unavailable Luis Munoz MD Unavailable [phone] Kinjal Marino MD Unavailable [phone] Ghada Guardado MD Unavailable João Mora MD Unavailable Marianna Benjamin MD Unavailable [phone] Pratibha Hayes MD Primary Care Provider [phone] Franky Choudhury DO Unavailable ChoudhuryMachoamaya DO Primary Care Provider Pratibha Hayes MD Primary Care Provider [phone] Franky Choudhury DO Primary Care Provider [phone] Lenin Trevino MD Unavailable Markie Romero MD Unavailable Encounter Details Date Type Department Care Team (Late st Contact Info) Description 10/07/2017 Lab Requisition [facility] - Lab Cytogenetics [address] [place] [address] Jerry Howell MD [address] [place] [address] B-cell lymphoma Social History Tobacco Use Types Packs/Day Years Used Date Smoking Tobacco: Never Alcohol Use Standard Drinks/Week Comments No 0 (1 standard drink = 0.6 oz pur e alcohol) Comments No Sex and Gender Information Value Date Recorded Sex Assigned at Not on file Legal Sex Female 6:32 AM PIZZA CHEF Gender Identity Not on file Sexual Orientation [...] - Cosmetic Dermatology [address], [facility] 200 [place] [phone] 07/23/2025 9:15 AM CDT Office Visit [facility] - Orthopedics [address] [place] [phone] Sharad Mclaughlin, URBAN SOCIOLOGIST-LEAD INSTALLER 1011 [facility] 400 [place] [address] 07/26/2025 1:45 PM CDT Office Visit [facility] - Internal Med [address] [place] [phone] Franky Choudhury DO [address] [place] [address] 08/02/2025 1:00 PM CDT [facility] Ophthalmology [address] [place] [phone] Monse Kelly, URBAN SOCIOLOGIST-LEAD INSTALLER [address] [place] [address] [place] [address] 08/09/2025 1:30 PM CDT Hospital Encounter [address] [address] 08/09/2025 2:00 PM CDT Hospital Encounter [address] [address] 08/14/2025 11:00 AM CDT Office Visit [facility] - Cosmetic Dermatology [facility], [facility] 200 [place] [phone] Consuelo Bosch MD [address] [email or web address] [address] [place] [address] 09/06/2025 11:30 AM CDT Office Visit [facility] - Cardiology [address] [facility], [place] [address] [place] [address] Stephanie Silvestre, URBAN SOCIOLOGIST-LEAD INSTALLER [address] [facility] [address] [place] [address] 10/01/2025 1:00 PM PIZZA CHEF Office Visit [facility] - Rheumatology [address] [place] [phone] Markie Romero MD [address] [facility] [place] [address] 11/13/2025 11:00 AM PIZZA CHEF Office Visit [facility] - Hematology/Oncology [address] [place] [phone] Luis Munoz MD 1201 [facility] DIV OF HEMATOLOGY & MEDICAL [place] [address] 11/15/2025 11:00 AM PIZZA CHEF [facility] - PATROL MAN [address] [facility] [address] [place] [phone] Jennifer Guy, URBAN SOCIOLOGIST-LEAD INSTALLER 1031 [facility] [address] [place] [address] 11/16/2025 11:00 AM PIZZA CHEF Office Visit [facility] - Ophthalmology 1225 [facility], [place] [phone] Xu Kelly OD 1225 [place] [phone] 05/14/2026 12:30 PM CDT Procedure visit [facility] Physician Group - GI [address] [place] [phone] 05/14/2026 1:00 PM CDT Office Visit [facility] Physician Group - GI [address] [place] [phone] Jasmyn Alvarado, URBAN SOCIOLOGIST-LEAD INSTALLER [address] [place] [address] [address]FL [place] [address] documented as of this encounter Visit Diagnoses Diagnosis B-cell lymphoma (HCC) Burkitt's tumor or lymphoma, unspecified site, extranodal and solid organ sites documented in this encounter Additional Health Concerns Infection Onset Date Last Indicated Resolved Time CDIFF Under Investigation 05/27/2025 05/27/2025 8:56 PM CDT documented as of this encounter Care Teams Community Life Director Relationship Specialty Start Date End Date Robert Celeste MD [address] [place] [address] PCP - General Internal Medicine 02/20/16 08/26/20 Dinorah Peters DO [address] [facility] [address] 2L DIV OF [facility] [place] [address] PCP - General Internal Medicine 08/27/20 03/24/21 Dinorah Peters DO [address] DIV OF [facility] [place] [address] PCP - General Internal Medicine 03/25/21 06/03/23 Pratibha Hayes MD [address] DIV OF [facility] [place] [address] PCP - General Internal Medicine 06/04/23 11/17/23 Franky Choudhury DO [address] [place] [address] PCP - General Internal Medicine 11/18/23 09/26/24 Pratibha Hayes MD [address] 2[address] DIV OF [facility] [place] [address] PCP - General Internal Medicine 09/27/24 10/01/24 Franky Choudhury DO [address] [place] [address] PCP - General Internal Medicine 10/02/24 John Gallardo MD [address] [place] [address] Resident - PCP Student Resident 07/04/18 06/16/21 Tracy Maldonado MD [address] DIV OF [facility] INTERNAL [place] Resident - PCP Student Resident 06/17/21 05/11/23 Tracy Maldonado MD [address] DIV OF [facility] INTERNAL [place] Resident Student Resident 06/17/21 10/01/21 Julita Adams MD [address] DIV OF [facility] INTERNAL [place] Resident - PCP Internal Medicine 05/17/23 06/03/23 Abel Pop MD [address] [place] [address] Pain Management Anesthesiology 05/17/23 Selam Ramirez MD [address] [place] [phone] Ophthalmology 05/17/23 Luis Munoz MD [address] DIV OF HEMATOLOGY & MEDICAL [place] [address] Hematology and Oncology 05/17/23 Kinjal Marino MD [address] [facility] [address]L DEPT [place] [address] Dermatology 05/17/23 Ghada Guardado MD [address] [address] Cardiology 05/17/23 João Mora MD [address] [facility] [place] [place] [address] Resident Rheumatology 05/17/23 05/26/25 Marianna Benjamin MD [address] S [facility] [place] [place] [phone] Surgeon Orthopedic Surgery 05/17/23 Franky Choudhury DO [address] [facility] [address] Resident - PCP Internal Medicine 06/04/23 Lenin Trevino MD [address] [facility] 2L DIV [place] [phone] Rheumatology 05/27/25 Markie Romero MD [address] [facility] [place] [phone] Resident Rheumatology 06/15/25 documented as of this encounter
--- OUTSIDE RECORDS SUMMARY | 2025-06-23 09:46 | XMS_ITS | Clinical Summary ---
Author Organization [facility] Address [address] [place] [address] Care Team Providers Care Nozzle And Sleeve Worker Name Role Phone Pratibha Hayes MD Primary Care Provider [phone] Allergies Active Allergy Reactions Criticality Noted Date Comments Amoxicillin Diarrhea Low 06/05/2025 Codeine Vomiting High 08/12/2018 Erythromycin Hives High Reaction: Hives, Kiwi (Actinidia Chinensis) Anaphylaxis,Rash,Sw elling High 10/30/2024 Mouth blisters and anaphylaxis Latex Hives,Swelling High Reaction: Hives, Swelling, Levofloxacin Swelling High 06/01/2018 Says joints swell up huge Lisinopril Cough,Other (See comments) Medium 11/17/2016 persistent cough Says really bad deep cough Morphine Vomiting High 08/12/2018 [place] Anaphylaxis,Rash,Sw elling High 10/30/2024 Mouth blisters and anaphylaxis Sulfa (Sulfonamide Antibiotics) Rash,Swelling Reaction: Rash, Swelling, Tobramycin Tobramycin-Dexamethaso ne Angioedema,Itching, Swelling,Urticaria High 04/05/2012 tobradex eye drops - swelling under eyelid and to face, no anaphylaxis Tomato Anaphylaxis,Rash,Sw elling High 10/30/2024 Mouth blisters and anaphylaxis Medications azelastine (ASTELIN) 137 mcg (0.1 %) nasal spray spray 2 spray by intranasal route 2 times every day in each nostril 0 0 3 Active cetirizine (ZyrTEC) 10 mg capsule 10 mg. 0 0 3 Active valACYclovir (VALTREX) 1 gram tablet take 1 tablet by oral route every 12 hours 0 0 3 Active guaiFENesin ER (MUCINEX) 600 mg 12 hr tablet take 1 tablet by oral route every 12 hours as needed 0 0 3 Active oxazepam (SERAX) 10 mg capsule take 1 capsule by oral route 3 times every day 0 0 3 Active Additional Information Patient not taking.Reported on 06/16/2025 metoprolol XL (TOPROL-XL) 100 mg 24 hr tablet take 1 tablet by oral route every day 0 0 3 Active azaTHIOprine (AZASAN) 75 mg tablet take 1 tablet by oral route every day 0 0 3 Active Additional Information Patient not taking.Reported on 06/16/2025 hydroxychloroqu ine (PLAQUENIL) 200 mg tablet take 1 Tablet by oral route every 2 days 0 0 3 Active aspirin 81 mg enteric coated tablet Take 1 tablet (81 mg total) by mouth daily 4 Active atorvastatin (LIPITOR) 40 mg tablet Take 1 tablet (40 mg total) by mouth daily 4 Active cyclobenzaprine (FLEXERIL) 5 mg tablet Take 1 tablet (5 mg total) by mouth 2 (two) times a day as needed 4 Active gabapentin (NEURONTIN) 300 mg capsule Take 1 capsule (300 mg total) by mouth nightly 4 Active Vascepa 1 gram capsule TAKE 1 CAPSULE BY MOUTH TWICE DAILY WITH MORNING MEAL AND WITH EVENING MEAL 4 Active losartan (COZAAR) 50 mg tablet Take 1 tablet (50 mg total) by mouth daily 4 Active nitroglycerin (NITROSTAT) 0.4 mg SL tablet DISSOLVE ONE TABLET UNDER THE TONGUE EVERY 5 MINUTES NEEDED FOR CHEST PAIN. DO NOT EXCEED A TOTAL OF 3 DOSES IN 15 MINUTES [address] (PROTONIX) 40 mg EC tablet Take 1 tablet (40 mg total) by mouth 2 (two) times a day 7 Active acyclovir (ZOVIRAX) 5 % ointment Apply topically Acti ve alendronate (Fosamax) 70 mg tablet 1 po q week, with usual precautions 7 Active biotin 5 mg tablet Take 5 mg by mouth 2 (two) times a day Active esomeprazole DR (NexIUM) 40 mg capsule daily 7 Active estradioL (Vivelle-Dot) 0.0375 mg/[address] on the skin 9 Active oxyCODONE (ROXICODONE) 5 mg immediate release tablet 5 Active cephalexin (KEFLEX) 500 mg capsuleIndicati ons:Acute cystitis with hematuria Take 1 capsule (500 mg total) by mouth 2 (two) times a day for 5 days 10 capsule 5 06/21/20 25 Active Problems Problem Noted Date Diagnosed Date Osteopenia 06/16/2025 Closed T12 fracture 05/27/2025 Fracture of fourth metacarpal bone of right hand 05/27/2025 Fracture of left orbital floor 05/27/2025 Cheek laceration 05/27/2025 Maxillary sinus fracture 05/27/2025 Nasal fracture 05/27/2025 Facial laceration 05/26/2025 Open fracture of left nasoorbitoethmoid complex 05/26/2025 Trauma 05/26/2025 Greater trochanteric bursitis of right hip 11/10 Hypertriglyceridemia 11/10/2024 Tear of right gluteus medius tendon 11/10/2024 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 Herpes zoster without complication 06/08/2023 Epiphora due to insufficient drainage, right 08/2023 Lacrimal canalicular stenosis, right 05/08/2023 Lagophthalmos of right lower eyelid 05/08/2023 Nasolacrimal duct obstruction, acquired, right 0 05/08/2023 HGSIL Pap smear of vagina 04/13/2023 ALVERTO III (vulvar intraepithelial neoplasia III) 0 04/13/2023 SVT (supraventricular tachycardia) 05/04/2022 Back spasm 04/03/2021 Chronic midline low back pain without sciatica 0 04/03/2021 Actinic keratosis 03/10/2021 Inflamed seborrheic keratosis 03/10/2021 Neoplasm of uncertain behavior of skin Essential hypertension 03/28/2020 Autoimmune hepatitis 08/08/2018 Overview (06/16/2025): 03/25/21 Fibroscan CAP 289, LSM 7.9 kPa 03/29/23 Fibroscan CAP 262, LSM 3.9 kPa PUD (peptic ulcer disease) 08/08/2018 S/P coronary artery stent placement 08/08/2018 Overview (06/16/2025): 02/09 1. Severe stenosis in the mid LAD s/p successful PCI with angioplasty and deployment of a 3.0x15 Xience Xpedition drug-eluting stent deployed with mini-crush technique and post-dilated with a 3mm non- compliant balloon. 2. Severe stenoses in the proximal and mid D2 s/p successful PCI with angioplasty and deployment of overlapping Xience Xpedition drug-eluting stents (2.25x18 mid and 2.5x18 proximal) post-dilated proximally with a 2.5mm non-compliant balloon. 3. Chronic-appearing severe stenosis in the proximal D1. 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 Severe stenosis in the mid LAD s/p successful PCI with angioplasty and deployment of a 3.0x15 Xience Xpedition drug-eluting stent deployed with mini-crush technique and post-dilated with a 3mm non- compliant balloon. 2. Severe stenoses in the proximal and mid D2 s/p successful PCI with angioplasty and deployment of overlapping Xience Xpedition drug-eluting stents (2.25x18 mid and 2.5x18 proximal) post-dilated proximally with a 2.5mm non-compliant balloon. 3. Chronic-appearing severe stenosis in the proximal D1. Osteoporosis 11/07/2013 Overview (06/16/2025): Had 5 years of bisphosphonate therapy ICD-10 Conversion Abnormal mammogram 02/03/2013 Asymmetrical sensorineural hearing loss 03/14/20 12 Chronic infection of sinus 01/15/2012 Encounters Date Type Department Care Team Description 06/20/2025 Results Follow-Up [facility] at [address] [phone] Lesley Kelly NP Urine culture Urine, clean voided 06/16/2025 6:10 PM CDT - 06/16/2025 11:59 PM CDT Hospital Encounter [address] [address] Acute cystitis with hematuria Discharge Disposition: Discharge to home or self care 06/16/2025 9:15 AM CDT Office Visit [facility] at [address] [address] Lesley Kelly NP Acute cystitis with hematuria (Primary Dx) 06/16/2025 Telephone [facility] at [address] [address] Yael Ram MA from Last 3 Months Immunizations Immunization Administration Dates Next Due Influenza, Quadrivalent, Hig h Dose, Preservative Free, Intrr 08/26/2023,08/15/2022,08/07/2021,08/06 Influenza, Trivalent, Adjuva nted, Intramuscular 08/12/2024 Influenza, Trivalent, High D ose, Split, Preservative Free, Intramuscular 08/15/2019,09/11/2018,08/11/2017,08/24 Influenza, Trivalent, IM (MDV) 6,08/15/2015,07/30/2015,08/06,08/09/2013,08/20/2012 Influenza, Unspecified 08/20/2023,09/12/2018 Moderna SARS-CoV-2 Monovalen t Vaccination (12+ YRS) 03/10/2022,02/27/2021,01/28/2021 Pneumococcal Conjugate PCV 13 10/05/2016 Pneumococcal Conjugate Pcv20 05/19/2023 Pneumococcal Polysaccharide PPV23 09/03/2017 RSV Vaccine, Pref, Recombina nt, Subunit, Adjuvanted, PF, IM (Arexvy) 08/20/2023 Td, adsorbed 08/29/2018 Tdap 11/14/2007 ZOSTER Recombinant 03/14/2021,11/28/2020 Surgical History Surgery Date Site/Laterality Comments HYSTERECTOMY 1988 Hysterectomy PORT PLACEMENT CHEST >5 YEARS 08/22/2018 N/A PORT PLACEMENT CHEST >5 YEARS 10/08/2017 N/A PORT PLACEMENT CHEST >5 YEARS 10/08/2017 N/A Medical History Medical History Date Comments Hx Other Medical 1997 Left foot surge ry Hx Other Medical 1997 Sinus Surgery Hx Other Medical Hepatitis Osteoarthritis Osteoarthritis Hypertension Hypertension Personal history of other en docrine, nutritional and metabolic disease History of hyperlipi demia - (Added by USHA Conv) Personal history of other di seases of the musculoskeletal system and connective tissue History of osteopenia - (Add ed by USHA Conv) Personal history of other di seases of the circulatory system History of hypertension - (A dded by USHA Conv) Family History Medical History Relation Name Comments Cancer Other Family history of Cancer; Diabetes Other Family history of Diabetes mellitus; Heart disease Other Family history of Heart disease; Heart failure Other Family history of Congestive heart failure; Hypertension Other Family history of Hypertension; Osteoarthritis Other Family histor y of Osteoarthritis; Stroke Other Family history of Stroke; Relation Name Status Comments Other Social History Tobacco Use Types Packs/Day Years Used Date Smoking Tobacco: Never Alcohol Use Standard Drinks/Week Comments No 0 (1 standard drink = 0.6 oz pur e alcohol) Comments Unknown Sex and Gender Information Value Date Recorded Sex Assigned at Not on file Legal Sex Female 3:03 AM DAM TENDER Gender Identity Not on file Sexual Orientation Not on file Obstetrics History Last Filed Vital Signs Vital Sign Reading Time Taken Comments Blood Pressure 147/88 06/16/2025 9:18 AM CDT Pulse 86 06/16/2025 9:18 AM CDT Temperature 36.6 C (97.8 F) 06/16/2025 9:18 AM CDT Respiratory Rate 16 06/16/2025 9:18 AM CDT Oxygen Saturation 97% 06/16/2025 9:18 AM CDT Inhaled Oxygen Concentration - - Weight 64.4 kg (142 lb) 11/18/2024 3:55 PM DAM TENDER Height 157.5 cm (5' 2) 03/18/2017 3:52 PM CDT Body Mass Index 25.97 03/18/2017 3:52 PM CDT Plan of Treatment Health Maintenance Due Date Last Done Comments Colon Cancer Screening-Colonoscopy 1950 Depression Screening 1950 Fall Risk Assessment 1950 Hepatitis C Screening 1950 Hepatitis B Screening 1969 Well Visit 65+ 2016 Osteoporosis Screening-Bone Density Scan 11/12/2024 11/12/2022, 11/12/2022, 05/27/2020, Additional history exists Covid-19 Vaccine (8 - Modern a risk ) 02/09/2025 08/12/2024, 08/20/2023, 08/08/2022, Additional history exists Breast Cancer Screening-Mammogram 06/16/2025 06/16/2024, 06/16/2024, 06/14/2023, Additional history exists Influenza Vaccine (#1) 2025 , 08/26/2023, 08/20/2023, Additional history exists DTaP/Tdap/Td Vaccine (3 - Td or Tdap) 08/29/2028 08/29/2018, 11/14/2007 Zoster Vaccine Completed 03/14/2021, 11/28/2020 Pneumococcal vaccine 65+ Completed 023, 09/03/2017, 10/05/2016 Procedures Procedure Name Priority Date/Time Associated Diagnosis Comments URINE CULTURE Routine 06/16/2025 6:44 PM CDT POCT URINALYSIS DIPSTICK Routine 06/16/2025 1:00 PM CDT Acute cystitis with hematuria from Last 3 Months Results * (ABNORMAL) Urine culture Urine, clean voided (06/16/2025 6:44 PM CDT) Report Final Report: Greater than or equal to 100,000 colonies/mL of Enterobacter cloacae complex (.) Comment:Testing performed by : [facility], [address] [facility], [place]., [address] Organism ENTEROBACTER CLOACAE COMPLEX ANY Urine, clean voided 06/16/2025 6:44 PM CDT 06/17/2025 12:09 AM CDT Narrative ANY - 06/19/2025 7:45 AM CDT Testing performed by [facility] Microbiology Laboratory ([phone]) Organism Antibiotic Method Susceptibility Enterobacter cloacae complex Ampicillin INTERPRETATION Resistant Enterobacter cloacae complex Cefazolin INTERPRETATION Resistant Enterobacter cloacae complex Nitrofurantoin INTERPRETATION Intermediate Enterobacter cloacae complex Gentamicin INTERPRETATION Susceptible Enterobacter cloacae complex Trimethoprim with Sulfamethoxazole INTERPRETATION Susceptible Enterobacter cloacae complex Meropenem INTERPRETATION Susceptible Enterobacter cloacae complex Cefepime INTERPRETATION Susceptible Enterobacter cloacae complex Ciprofloxacin INTERPRETATION Susceptible Enterobacter cloacae complex Ceftazidime INTERPRETATION Resistant Enterobacter cloacae complex Ceftriaxone INTERPRETATION Resistant Enterobacter cloacae complex Piperacillin/Tazobactam INTERPRETATION Resistant Lesley Kelly NP LAB MICROBIOLOGY - [facility] [place] ANY [id number] [address] [place] [address] * (ABNORMAL) POCT urinalysis dipstick (06/16/2025 1:00 PM CDT) Color, Urine, POC Yellow Clarity, ur, POC Cloudy(A) Clear Glucose, ur, POC Negative Negative Bilirubin, ur, POC Negative Negative Ketones, ur, POC Negative Negative Specific [place], POC 1.010 1.003 - 1.030 Blood, ur, POC Trace(A) Negative pH, ur, POC 6.0 5.0 - 8.0 Protein, ur, POC Negative Negative Urobilinogen, urine, POC 0.2 0.2 - 1.0 mg/dL Nitrite, ur, POC Negative Negative Leukocytes, ur, POC Large(A) Negative Lot Number [id number] Urine 06/16/2025 1:00 PM CDT Lesley Kelly NP POINT OF CARE TEST ORDERABLES F inal Result from Last 3 Months Insurance MEDICARE [facility] MEDICARE SUPPLEMENT Care Teams Nozzle And Sleeve Worker Relationship Specialty Start Date End Date Pratibha Hayes MD [address] OF [facility] [place] [address] PCP - General Internal Medicine 11/18/24
--- OUTSIDE RECORDS SUMMARY | 2025-06-23 09:46 | XMS_ITS | Encounter Summary ---
Author Organization [facility] Address [address] [facility] [place] [address] Care Team Providers Care Supervisor Electronics Assembly Name Role Phone FranDinorah DO Primary Care Provider [phone] Tracy Maldonado MD Unavailable [phone] Julita Adams MD Unavailable [phone] Abel Pop MD Unavailable Selam Ramirez MD Unavailable Luis Munoz MD Unavailable [phone] Kinjal Marino MD Unavailable [phone] Ghada Guardado MD Unavailable [phone] João Mora MD Unavailable Marianna Benjamin MD Unavailable Pratibha Hayes MD Primary Care Provider [phone] Franky Choudhury DO Unavailable [phone] Franky Choudhury DO Primary Care Provider [phone] Pratibha Hayes MD Primary Care Provider [phone] Franky Choudhury DO Primary Care Provider [phone] Lenin Trevino MD [facility]available [facility] Unavailable Reason for Visit * Reason Onset Date Comments MEDICATION REFILL 03/24/2022 Encounter Details Date Type Department Care Team (Late st Contact Info) Description 03/24/2022 Refill [facility] Medicine [address] [facility], [place] [phone] Dinorah Peters, DO [address] [facility] 2L DIV OF [facility] [place] [phone] MEDICATION REFILL Social History Tobacco Use Types Packs/Day Years Used Date Smoking Tobacco: Never Smokeless Tobacco: Never Alcohol Use Standard Drinks/Week Comments No 0 (1 standard drink = 0.6 oz pur e alcohol) PHQ-2 Answer Date Recorded PHQ2 TOTAL SCORE 0 04/03/2021 Comments No Sex and Gender Information Value Date Recorded Sex Assigned at Not on file Legal Sex Female 6:32 AM ASSOCIATE DENTIST Gender Identity Not on file Sexual Orientation [...] Date Author No 08/29/2018 11:33 AM CDT Tiller, Farrah, RN documented in this encounter Miscellaneous Notes * Telephone Encounter - John Devine - 03/24/2022 11:57 AM CDT Refill Request Rose Reynaga GOPAL:08/27/2021 NOV due: 04/01/2022 Qty Disp:90 TABLETS Allergies: Allergies Allergen Reactions ??? Latex Swelling [...] Requested Prescriptions Pending Prescriptions Disp Refills ??? cyclobenzaprine (FLEXERIL) 5 MG tablet 90 tablet 1 Sig: Take 1 (one) tablet by mouth 2 times daily as needed documented in this encounter Plan of Treatment Upcoming Encounters Date Type Department Care Team (Late st Contact Info) Description 07/16/2025 10:30 AM CDT Procedure visit [facility] - Cosmetic Dermatology [address] , [facility] [address] [place] [address] 07/23/2025 9:15 AM CDT Office Visit [facility] - Orthopedics [address] [place] [phone] Sharad Mclaughlin, COO-TEXTILE BROKER [address] [facility] [address] [place] [address] 07/26/2025 1:45 PM CDT [facility] [address] [place] [phone] Franky Choudhury, DO [address] [place] [address] 08/02/2025 1:00 PM CDT Office Visit [facility] - Ophthalmology [address] [facility], [place] [phone] Monse Kelly, COO-TEXTILE BROKER [address] [place] [address] [place] [phone] 08/09/2025 1:30 PM CDT Hospital Encounter [address] [address] 08/09/2025 2:00 PM CDT Hospital Encounter [address] [address] 08/14/2025 11:00 AM CDT Office Visit [facility] - Cosmetic Dermatology [address], [facility] [address] [place] [phone] Consuelo Bosch MD [address] [facility] [address], [place] [address] 09/06/2025 11:30 AM CDT Office Visit [facility] - Cardiology [address] [facility], [address] [phone] Stephanie Silvestre, COO-TEXTILE BROKER [id number] [place] [address] 10/01/2025 1:00 PM ASSOCIATE DENTIST Office Visit [facility] - Rheumatology [address] [facility], [place] [phone] Markie Romeor MD [facility] [facility] [place] [phone] 11/13/2025 11:00 AM ASSOCIATE DENTIST Office Visit [facility] - Hematology/Oncology [address] [place] [phone] Luis Munoz MD [address] [facility] OF HEMATOLOGY & [place] [address] 11/15/2025 11:00 AM ASSOCIATE DENTIST Office Visit [facility] - [facility] [address] [facility] [address] [place] [phone] Jennifer Guy, COO-TEXTILE BROKER [address] [place] [address] 11/16/2025 11:00 AM ASSOCIATE DENTIST [facility] [address] [place] [phone] Xu Kelly OD [address] [place] [address] 05/14/2026 12:30 PM CDT Procedure visit [facility] - GI [address] [place] [phone] 05/14/2026 1:00 PM CDT Office Visit [facility] - GI [address] [place] [phone] Jasmyn Alvarado, COO-TEXTILE BROKER [address] [place] [address] [address] [place] [address] documented as of this encounter Goals Goal [...] as of this encounter Visit Diagnoses Diagnosis Chronic midline low back pain without sciatica Back spasm Other symptoms referable to back documented in this encounter Additional Health Concerns Infection Onset Date Last Indicated Resolved Time CDIFF Under Investigation 05/27/2025 05/27/2025 8:56 PM CDT documented as of this encounter Care Teams Supervisor Electronics Assembly Relationship Specialty Start Date End Date Johnyalthea Dinorah JuneDO [address] 2[address] [place] [address] PCP - General Internal Medicine 03/25/21 06/03/23 Pratibha Hayes MD [address] [place] [address] PCP - General Internal Medicine 06/04/23 11/17/23 Franky Choudhury DO [address] [place] [address] PCP - General Internal Medicine 11/18/23 09/26/24 Pratibha Hayes MD [address] [place] [address] PCP - General Internal Medicine 09/27/24 10/01/24 Franky Choudhury DO [address] [place] [address] PCP - General Internal Medicine 10/02/24 Tracy Maldonado MD [address] DIV OF [facility] INTERNAL [place], [place] Resident - PCP Student Resident 06/17/21 05/11/23 Julita Adams MD [address] [facility] [place], [place] Resident - PCP Internal Medicine 05/17/23 06/03/23 Abel Pop MD [address] [place] [phone] Pain Management Anesthesiology 05/17/23 Selam Ramirez MD [address] [facility] DEPT [place] [phone] Ophthalmology 05/17/23 Luis Munoz MD [address] [facility] DIV OF HEMATOLOGY & [place] [address] Hematology and Oncology 05/17/23 Kinjal Marino MD [address] [facility] 3L [place] [address] Dermatology 05/17/23 Ghada Guardado MD [address] [address] Cardiology 05/17/23 João Mora MD [address] [facility] [place] [phone] Resident Rheumatology 05/17/23 05/26/25 Marianna Benjamin MD [address] [facility] [place] [phone] Surgeon Orthopedic Surgery 05/17/23 Franky Choudhury DO [address] [place] [address] Resident - PCP Internal Medicine 06/04/23 Lenin Trevino MD [address] [facility] [address] [place] [phone] Rheumatology 05/27/25 Markie Romero MD [address] [place] [phone] Resident Rheumatology 06/15/25 documented as of this encounter
--- OUTSIDE RECORDS SUMMARY | 2025-06-23 09:46 | XMS_ITS | Encounter Summary ---
Author Organization [facility] Address [address] [facility] [place] [address] Care Team Providers Care Roofer Apprentice Name Role Phone FranDinorah DO Primary Care Provider [phone] Tracy Maldonado MD Unavailable [phone] Julita Adams MD Unavailable [phone] Abel Pop MD Unavailable Selam Ramirez MD Unavailable Luis Munoz MD Unavailable [phone] Kinjal Marino MD Unavailable [phone] Ghada Guardado MD Unavailable [phone] João Mora MD Unavailable Marianna Benjamni MD Unavailable Pratibha Hayes MD Primary Care Provider [phone] Franky Choudhury DO Unavailable [phone] Franky Choudhury DO Primary Care Provider [phone] Pratibha Hayes MD Primary Care Provider [phone] Franky Choudhury DO Primary Care Provider [phone] Lenin Trevino MD Unavailable Markie Romero MD Unavailable Reason for Visit * Reason Onset Date Comments MEDICATION REFILL 03/24/2022 Encounter Details Date Type Department Care Team (Late st Contact Info) Description 03/24/2022 Refill [facility] [address] [facility], [place] [phone] Dinorah Peters, DO [address] [facility] 2L DIV OF [facility] [place] [place] [address] MEDICATION REFILL Social History Tobacco Use Types Packs/Day Years Used Date Smoking Tobacco: Never Smokeless Tobacco: Never Alcohol Use Standard Drinks/Week Comments No 0 (1 standard drink = 0.6 oz pur e alcohol) PHQ-2 Answer Date Recorded PHQ2 TOTAL SCORE 0 04/03/2021 Comments No Sex and Gender Information Value Date Recorded Sex Assigned at Not on file Legal Sex Female 6:32 AM LEAD BUSINESS ANALYST Gender Identity Not on file Sexual Orientation [...] Tiller, Farrah, RN documented in this encounter Plan of Treatment Upcoming Encounters Date Type Department Care Team (Late st Contact Info) Description 07/16/2025 10:30 AM CDT [facility] Cosmetic Dermatology [address], [address] [place] [address] 07/23/2025 9:15 AM CDT Office Visit [facility] - Orthopedics [address] [place] [phone] Sharad Mclaughlin, PUMP STATION OPERATOR-TISSUE RECOVERY TECHNICIAN [address] [address] 07/26/2025 1:45 PM CDT Office Visit [facility] - Internal Med [address] [place] [phone] Franky Choudhury DO 1201 [place] [address] 08/02/2025 1:00 PM CDT Office Visit [facility] - Ophthalmology [address] [place] [phone] Monse Kelly, PUMP STATION OPERATOR-TISSUE RECOVERY TECHNICIAN [address] [place] [address] [place] [address] 08/09/2025 1:30 PM CDT Hospital Encounter [address] [address] 08/09/2025 2:00 PM CDT Hospital Encounter [address] [address] 08/14/2025 11:00 AM CDT [facility] Visit [facility] Cosmetic Dermatology [facility] [place] [address] Consuelo Bosch MD [address] [place] [address], [place] [address] 09/06/2025 11:30 AM CDT Office Visit [facility] Cardiology [address] [facility], [facility] [address]120 [place] [address] Stephanie Silvestre, PUMP STATION OPERATOR-TISSUE RECOVERY TECHNICIAN [address] [place] [address] [address] [place] [address] 10/01/2025 1:00 PM LEAD BUSINESS ANALYST Office Visit [facility] - Rheumatology [address] [facility], [place] [address] Markie Romero MD [address] [facility] [place] [address] 11/13/2025 11:00 AM LEAD BUSINESS ANALYST Office Visit [facility] - Hematology/Oncology [address] [place] [address] Luis Munoz MD [address] [facility] DIV OF HEMATOLOGY & [place] [address] 11/15/2025 11:00 AM LEAD BUSINESS ANALYST Office Visit [facility] - LANGUAGE ASSISTANT [address] [facility] [address] [place] [address] Jennifer Guy, PUMP STATION OPERATOR-TISSUE RECOVERY TECHNICIAN 10[address] [facility] 400 [place] [address] 11/16/2025 11:00 AM LEAD BUSINESS ANALYST Office Visit [facility] - Ophthalmology [address] [facility], [place] [address] Xu Kelly OD 1225 [place] [phone] 05/14/2026 12:30 PM CDT Procedure visit [facility] - GI 1225 [place] [address] 05/14/2026 1:00 PM CDT Office Visit [facility] - GI 1225 [place] [phone] Jasmyn Alvarado, PUMP STATION OPERATOR-TISSUE RECOVERY TECHNICIAN [address] [place] [address] [address] [place] [address] documented as of this encounter Goals Goal [...] documented as of this encounter Care Teams Roofer Apprentice Relationship Specialty Start Date End Date Dinorah Peters DO [address] [facility] 2L [place] [address] PCP - General Internal Medicine 03/25/21 06/03/23 Pratibha Hayes MD [address] [facility] 2L [place] [address] PCP - General Internal Medicine 06/04/23 11/17/23 Franky Choudhury DO [address]01 [place] [address] PCP - General Internal Medicine 11/18/23 09/26/24 Pratibha Hayes MD [address] 2L [place] [address] PCP - General Internal Medicine 09/27/24 10/01/24 Macho ChoudhuryamayaDO [address] [facility] [place] [address] PCP - General Internal Medicine 10/02/24 Tracy Maldonado MD [address] 2L DIV OF GEN INTERNAL MEDICINE [place] Resident - PCP Student Resident 06/17/21 05/11/23 Julita Adams MD [address] 2L DIV OF [facility] INTERNAL MEDICINE [place] Resident - PCP Internal Medicine 05/17/23 06/03/23 Abel Pop MD [address] [place] [phone] Pain Management Anesthesiology 05/17/23 Selam Ramirez MD [address] [place] [phone] Ophthalmology 05/17/23 Luis Munoz MD [address] DIV OF HEMATOLOGY & [place] [address] Hematology and Oncology 05/17/23 Kinjal Marino MD [address] [place] [address] Dermatology 05/17/23 Ghada Guardado MD [address] [facility] 1120 [place] [address] Cardiology 05/17/23 João Mora MD [facility]5 [place] [phone] Resident Rheumatology 05/17/23 05/26/25 Marianna Benjamin MD [address] [place] [address] [place] [address] Surgeon Orthopedic Surgery 05/17/23 Franky Choudhury DO [address]01 [place] [address] Resident - PCP Internal Medicine 06/04/23 Lenin Trevino MD [address] [place] [address] 2L [place] [address] Rheumatology 05/27/25 Markie Romero MD [address] [place] [address] [place] [phone] Resident Rheumatology 06/15/25 documented as of this encounter
--- OUTSIDE RECORDS SUMMARY | 2025-06-23 09:46 | XMS_ITS | Clinical Summary ---
Author Organization [facility] Address [address], [facility] [address] [place] [address] Phone Care Team Providers Care Rough Carpenter Name Role Phone Provider, Unknown Primary Care Provider Unavaila Edmond Soto DO Unavailable [phone] Allergies Active Allergy Reactions Criticality Noted Date Comments Erythromycin Unknown 04/15/2017 Latex Unknown,Swelling High 03/13/2016 blisters Lisinopril Other (see Comments) Low 11/17/2016 persistent cough Sulfa Antibiotics Unknown 04/15/2017 Tobramycin Unknown 04/15/2017 Medications acyclovir (ZOVIRAX) 5 % Ointment Apply every 3 hours. Active Aspirin 81 MG Tablet Take 81 mg by mouth daily. Active atorvastatin (LIPITOR) 40 MG Tablet Take 40 mg by mouth daily. Active azaTHIOprine (IMURAN) 50 MG Tablet Take 50 mg by mouth daily. Active azelastine (ASTELIN) 0.1 % Solution 2 Sprays by Nasal route 2 times daily. Use in each nostril as directed Active Calcium Carbonate (CALCIUM 600 PO) Take by mouth. Active Carboxymethylcel l-Hypromellose (GENTEAL OP) Place in affected eye(s). Active cetirizine (ZYRTEC ALLERGY) 10 MG Tablet Take 10 mg by mouth daily. Active cyclobenzaprine (FLEXERIL) 5 MG Tablet Take 5 mg by mouth 3 times daily. Active FLUNISOLIDE, NASAL, NA by Nasal route. Acti ve losartan (COZAAR) 50 MG Tablet Take 50 mg by mouth daily. Active metoprolol succinate (TOPROL-XL) 200 MG TABLET SR 24 HR Take 200 mg by mouth daily. Active Multiple Vitamins-Mineral s (MULTIVITAMIN PO) Take by mouth. Activ e nitroGLYCERIN (NITROSTAT) 0.4 MG SL Tablet 0.4 mg by Sublingual route every 5 minutes as needed for Chest pain. Active [place]-3 Fatty Acids (OMEGA-3 FISH OIL PO) Take by mouth. Ac tive Oxazepam (SERAX PO) Take by mouth. Activ e valACYclovir (VALTREX) 1 GM Tablet Take 1,000 mg by mouth 2 times daily. Active pantoprazole (PROTONIX) 40 MG Tablet Delayed ResponseIndicati ons:Gastrointest inal hemorrhage with hematemesis,Acut e gastric ulcer with hemorrhage,Duode nal ulcer,Gastroesop hageal reflux disease without esophagitis,Othe r pulmonary embolism without acute cor pulmonale, unspecified chronicity (HCC),Acute deep vein thrombosis (DVT) of both upper extremities, unspecified vein (HCC),Anemia, unspecified type Take 1 Tab by mouth daily. 60 Tab 3 7 Active Glycerin-Polysor enrike 80 (REFRESH DRY EYE THERAPY OP) Place in affected eye(s). Active pantoprazole (PROTONIX) 40 MG Tablet Delayed Response Take 1 Tab by mouth 2 times daily (before meals). 60 Tab 2 7 Active Family History Medical History Relation Name Comments Heart Disease Father Lupus Father Heart Disease Mother Osteoporosis Mother Breast Cancer Sister Cancer Sister Brain Heart Disease Sister Lung Cancer Sister Relation Name Status Comments Father Mother Sister Social History Tobacco Use Types Packs/Day Years Used Date Smoking Tobacco: Never Alcohol Use Standard Drinks/Week Comments No 0 (1 standard drink = 0.6 oz pur e alcohol) Comments Unknown Sex and Gender Information Value Date Recorded Sex Assigned at Not on file Legal Sex Female 9:21 AM CDT Gender Identity Not on file Sexual Orientation Not on file Last Filed Vital Signs Vital Sign Reading Time Taken Comments Blood Pressure 136/82 04/15/2017 12:55 PM CDT Pulse 98 04/15/2017 12:55 PM CDT Temperature 36.7 C (98 F) 04/15/2017 12:55 PM CDT Respiratory Rate 16 04/15/2017 12:55 PM CDT Oxygen Saturation 92% 04/15/2017 12:55 PM CDT Inhaled Oxygen Concentration - - Weight 61.2 kg (135 lb) 04/15/2017 12:55 PM CDT Height - - Body Mass Index - - Plan of Treatment Health Maintenance Due Date Last Done Comments Hepatitis C Virus (HCV) Screening 1950 TdaP Immunization 1950 Cologuard 1996 Colonoscopy 1996 Colorectal Cancer Screening 1996 Immunochemical Fecal Occult Blood 1996 Pneumococcal Immunization (50+ years) (1 of 1 - PCV) 2001 Respiratory Syncytial Virus (RSV) Immunization (Adult) (1 - Risk 60-74 years 1-dose series) 2011 SARS-COV-2 Immunization (2 - Moderna risk series) 09/25/2021 08/28/2021 Influenza Immunization (#1) 2025 09/0 06/2020, 08/15/2019, 09/11/2018, Additional history exists Zoster Immunization Completed 03/14/2021, 0 Hepatitis B Immunization Aged Out No longer eligible based on patient's age to complete this topic Human Papillomavirus (HPV) Immunization Aged Out No longer eligible based on patient's age to complete this topic Meningococcal Immunization (ACWY) Aged Out No longer eligible based on patient's age to complete this topic Rotavirus Immunization Aged Out No lo nger eligible based on patient's age to complete this topic Insurance MEDICARE [facility], [facility] [place] [address] [facility] [address] Care Teams Rough Carpenter Relationship Specialty Start Date End Date Provider, Unknown UNKNOWN PCP - General 03/17/17 Edmond Verma DO UNKNOWN Gastroenterology 07/14/17
--- OUTSIDE RECORDS SUMMARY | 2025-06-23 09:46 | XMS_ITS | Encounter Summary ---
Author Organization [facility] Address [address] [facility] [place] [address] Care Team Providers Care Gravity Prospecting Observer Name Role Phone Abel Pop MD Unavailable Selam Ramirez MD Unavailable Luis Munoz MD Unavailable [phone] Kinjal Marino MD Unavailable [phone] Ghada Guardado MD Unavailable [phone] João Mora MD Unavailable Marianna Benjamin MD Unavailable Franky Choudhury DO Unavailable [phone] Franky Choudhury DO Primary Care Provider Lenin Trevino MD Unavailable [facility] Unavailable Encounter Details Date Type Department Care Team (Late st Contact Info) Description 05/23/2025 Results Follow-Up [facility] GI [address] [facility], [place] [address] Jasmyn Alvarado, HARMONIC ANALYST-ROBOTICS APPLICATION ENGINEER [address] [place] [address] [facility] [place], [place] [phone] Social History Tobacco Use Types Packs/Day Years [...] Recorded Patient Health Questionnaire-2 Score 0 03/19/2025 [facility] - Occupational [...] time in the past 12 m [facility], were you homeless or living in a long-term (including now)? No 05/27/2025 Comments No Sex and Gender Information Value Date Recorded Sex Assigned at Not on file Legal Sex Female 6:32 AM BENEFITS SPECIALIST Gender Identity Not on file Sexual Orientation Not on file Occupation Industry Job Start Date Job End Date Retired Not on file Not on file Not on file documented as of this encounter Functional Status * Question Answer Date of Assessment Author Q1: How often do you have a drink containing alcohol? Never 05/26/2025 11:56 PM SOFIYAT Rhys Patel RN Q2: How many drinks containing alcohol [...] Description 07/16/2025 10:30 AM CDT Procedure visit [facility] - Cosmetic Dermatology [address], [address] [place] [address] 07/23/2025 9:15 AM CDT Office Visit [facility] Orthopedics [address] [facility], [place] [address] Sharad Mclaughlin, HARMONIC ANALYST-ROBOTICS APPLICATION ENGINEER [address] [facility] 400 [place] [address] 07/26/2025 1:45 PM CDT Office Visit [facility] - Internal Med [address] [place] [address], [place] [phone] Franky Choudhury, [address]01 [place] [address] 08/02/2025 1:00 PM CDT Office Visit [facility] - Ophthalmology [address] [place] [address], [place] [phone] Monse Kelly, HARMONIC ANALYST-ROBOTICS APPLICATION ENGINEER [address] [facility] [place] [address] 08/09/2025 1:30 PM CDT Hospital Encounter [address] [address] 08/09/2025 2:00 PM CDT Hospital Encounter [address] [address] 08/14/2025 11:00 AM CDT Office Visit [facility] - Cosmetic Dermatology [address], [facility] 200 [place] [address] Consuelo Bosch MD [address] [place], [place] [address] 09/06/2025 11:30 AM CDT Office Visit [facility] - Cardiology 1034 [facility], [address] [place] [address] Stephanie Silvestre, HARMONIC ANALYST-ROBOTICS APPLICATION ENGINEER [address] [facility] [address] [place] [address] 10/01/2025 1:00 PM BENEFITS SPECIALIST Office Visit [facility] - Rheumatology [address] [facility], [place] [address] Markie Romero MD 1225 [facility] [place] [address] 11/13/2025 11:00 AM BENEFITS SPECIALIST Office Visit [facility] - Hematology/Oncology [address] [place] [address] Luis Munoz MD 1201 [facility] DIV OF HEMATOLOGY & [place] [address] 11/15/2025 11:00 AM BENEFITS SPECIALIST Office Visit [facility] - FACULTY PHYSICIAN 1031 [facility] [address] [place] [phone] Jennifer Guy, HARMONIC ANALYST-ROBOTICS APPLICATION ENGINEER 1031 [facility] 400 [place] [address] 11/16/2025 11:00 AM BENEFITS SPECIALIST Office Visit [facility] - Ophthalmology [address] [facility], [place] [phone] Xu Kelly, MIRTA 1225 [place] [address] 05/14/2026 12:30 PM CDT Procedure visit [facility] - GI [address] [place] [phone] 05/14/2026 1:00 PM CDT Office Visit [facility] - GI [address] [place] [phone] AlvaradoJasmyn hickey Amee, HARMONIC ANALYST-ROBOTICS APPLICATION ENGINEER [address] [facility] 3FL DIV OF GASTROENTEROLOGY [place], [place] [phone] documented as of this encounter Goals Goal [...] documented as of this encounter Care Teams Gravity Prospecting Observer Relationship Specialty Start Date End Date Franky Choudhury DO 1201 [place] [address] PCP - General Internal Medicine 10/02/24 Abel Pop MD 1201 [place] [phone] Pain Management Anesthesiology 05/17/23 Selam Ramirez MD 1225 [facility] GL [place] [phone] Ophthalmology 05/17/23 Luis Munoz MD [address] [facility] DIV OF HEMATOLOGY & [place] [address] Hematology and Oncology 05/17/23 Kinjal Marino MD 1225 [facility] 3L [place] [address] Dermatology 05/17/23 Ghada Guardado MD [address] [facility] 1120 [place] [address] Cardiology 05/17/23 João Mora MD 1225 [facility] [place] [address] Resident Rheumatology 05/17/23 05/26/25 Marianna Benjamin MD 1225 [facility] [place] [address] Surgeon Orthopedic Surgery 05/17/23 Franky Choudhury DO [address]01 [place] [address] Resident - PCP Internal Medicine 06/04/23 Lenin Trevino MD 1225 [facility] 2L [place] [address] Rheumatology 05/27/25 Markie Romero MD 1225 [facility] [place] [address] Resident Rheumatology 06/15/25 documented as of this encounter
--- OUTSIDE RECORDS SUMMARY | 2025-06-23 09:46 | XMS_ITS | Referral Summary ---
Author Organization [facility] Address [address] [place] [address] Care Team Providers Care Rayon Winder Name Role Phone Pratibha Hayes MD Primary Care Provider [phone] Encounters Date Type Department Care Team Description 06/20/2025 Results Follow-Up [facility] at [address] [address] Lesley Kelly NP Urine culture Urine, clean voided 06/16/2025 6:10 PM CDT - 06/16/2025 11:59 PM CDT Hospital Encounter [address] [address] Acute cystitis with hematuria Discharge Disposition: Discharge to home or self care 06/16/2025 Telephone [facility] at [address] [address] Yael Ram MA 06/16/2025 9:15 AM CDT Office Visit [facility] at [address] [address] Lesley Kelly NP Acute cystitis with hematuria (Primary Dx) from Last 3 Months Allergies Active Allergy Reactions Criticality Noted Date [...] bad deep cough Morphine Vomiting High 08/12/2018 [place] Anaphylaxis,Rash,Sw elling High 10/30/2024 Mouth blisters and [...] coronary artery stent placement 08/08/2018 Overview (06/16/2025): 3 1. 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 03/14/2014 Overview (06/16/2025): [...] 03/14/20 12 Chronic infection of sinus 01/15/2012 Immunizations Immunization Administration Dates Next Due Influenza, [...] adsorbed 08/29/2018 Tdap 11/14/2007 ZOSTER Recombinant 03/14/2021,11/28/2020 Social History Tobacco Use Types Packs/Day Years Used Date Smoking Tobacco: Never Alcohol Use Standard Drinks/Week Comments No 0 (1 standard drink = 0.6 oz pur e alcohol) Comments Unknown Sex and Gender Information Value Date Recorded Sex Assigned at Not on file Legal Sex Female 3:03 AM CONSTRUCTION TECH Gender Identity Not on file Sexual Orientation [...] 64.4 kg (142 lb) 11/18/2024 3:55 PM CONSTRUCTION TECH Height 157.5 cm (5' 2) 03/18/2017 3:52 PM CDT Body Mass Index 25.97 03/18/2017 3:52 PM CDT Plan of Treatment Not on file Procedures Procedure Name Priority Date/Time Associated Diagnosis Comments URINE CULTURE Routine 06/16/2025 6:44 PM CDT POCT URINALYSIS DIPSTICK Routine 06/16/2025 1:00 PM CDT Acute cystitis with hematuria from Last 3 Months Results * (ABNORMAL) Urine culture Urine, clean voided (06/16/2025 6:44 PM CDT) Report Final Report: Greater than or equal to 100,000 colonies/mL of Enterobacter cloacae complex (.) Comment:Testing performed by : [facility], [address] [facility], [place]., [address] Organism ENTEROBACTER CLOACAE COMPLEX ANY BELLAMY Urine, clean voided 06/16/2025 6:44 PM CDT 06/17/2025 12:09 AM CDT Narrative ANY BELLAMY - 06/19/2025 7:45 AM CDT Testing performed by [facility] Microbiology Laboratory ([phone]) Organism Antibiotic Method Susceptibility Enterobacter cloacae complex [...] Resistant Lesley Kelly NP LAB MICROBIOLOGY - [facility] [place] [id number] [address] Department [place] [address] * (ABNORMAL) POCT urinalysis dipstick (06/16/2025 1:00 PM CDT) Color, Urine, POC Yellow Clarity, ur, POC Cloudy(A) Clear Glucose, ur, POC Negative Negative Bilirubin, ur, POC Negative Negative Ketones, ur, POC Negative Negative Specific Gidd[place], POC 1.010 1.003 - 1.030 Blood, ur, POC Trace(A) Negative pH, ur, POC 6.0 5.0 - 8.0 Protein, ur, POC Negative Negative Urobilinogen, urine, POC 0.2 0.2 - 1.0 mg/dL Nitrite, ur, POC Negative Negative Leukocytes, ur, POC Large(A) Negative Lot Number [id number] Urine 06/16/2025 1:00 PM CDT Lesley Kelly NP POINT OF CARE TEST ORDERABLES F inal Result from Last 3 Months Insurance MEDICARE [facility] MEDICARE SUPPLEMENT Care Teams Rayon Winder Relationship Specialty Start Date End Date Pratibha Hayes MD [address] OF [place] [phone] PCP - General Internal Medicine 11/18/24
[2025-06-23 09:47] VITALS: BP 139/109; PULSE 106; RESP 18; TEMP 36.7; O2SAT 97
--- OUTSIDE RECORDS SUMMARY | 2025-06-23 09:47 | XMS_ITS | Encounter Summary ---
Author Organization [facility] Address [address] [facility] [place] [address] Care Team Providers Care Certified Medical Records Coder Name Role Phone John Gallardo MD Unavailable Dinorah Peters DO Primary Care Provider [phone] Dinorah Peters DO Primary Care Provider [phone] Tracy Maldonado MD Unavailable [phone] Tracy Maldonado MD Unavailable Julita Adams MD Unavailable Abel Pop MD Unavailable Selam Ramirez MD Unavailable Luis Munoz MD Unavailable [phone] Kinjal Marino MD Unavailable [phone] Ghada Guardado MD Unavailable [phone] João Mora MD Unavailable Marianna Benjamin MD Unavailable Pratibha Hayes MD Primary Care Provider Franky Choudhury DO Unavailable Franky Choudhury DO Primary Care Provider Pratibha Hayes MD Primary Care Provider Franky Choudhury DO Primary Care Provider [phone] Lenin Trevino MD [facility]available [facility] Unavailable Reason for Visit * Reason Onset Date Comments MEDICATION REFILL 11/15/2020 Encounter Details Date Type Department Care Team (Late st Contact Info) Description 11/15/2020 Refill [facility] [address] [facility] [address] [place] [address] Obinna Pantoja, DO Need updated address MEDICATION REFILL Social History Tobacco Use Types Packs/Day Years Used Date Smoking Tobacco: Never Smokeless Tobacco: Never Alcohol Use Standard Drinks/Week Comments No 0 (1 standard drink = 0.6 oz pur e alcohol) Comments No Sex and Gender Information Value Date Recorded Sex Assigned at Not on file Legal Sex Female 6:32 AM WAREHOUSE TEAM MEMBER Gender Identity Not on file Sexual Orientation [...] Entry Date Author No 08/29/2018 11:33 AM Farrah Puente RN documented in this encounter Plan of Treatment Upcoming Encounters Date Type Department Care Team (Late st Contact Info) Description 07/16/2025 10:30 AM CDT Procedure visit [facility] - Cosmetic Dermatology [facility], [facility] [address] [place] [phone] 07/23/2025 9:15 AM CDT Office Visit [facility] - Orthopedics [address] [place] [phone] Sharad Mclaughlin, SALES DEVELOPER-DOCKETING SPECIALIST [address] [facility] [address] [place] [address] 07/26/2025 1:45 PM CDT Office Visit [facility] - Internal Med [address] [place] [phone] Franky Choudhury DO [address] [place] [address] 08/02/2025 1:00 PM CDT Office Visit [facility] - Ophthalmology [address] [place] [phone] Monse Kelly, SALES DEVELOPER-DOCKETING SPECIALIST [address] [place] [address] [place] [address] 08/09/2025 1:30 PM CDT Hospital Encounter [address] [address] 08/09/2025 2:00 PM CDT Hospital Encounter [address] [address] 08/14/2025 11:00 AM CDT Office Visit [facility] - Cosmetic Dermatology [facility], [facility] [address] [place] [phone] Consuelo Bosch MD [address] [facility] [address] [address] 09/06/2025 11:30 AM CDT Office Visit [facility] - Cardiology [address] [facility], [facility] [address] [place] [address] Stephanie Silvestre, SALES DEVELOPER-DOCKETING SPECIALIST [address] [facility] [address] [place] [address] 10/01/2025 1:00 PM WAREHOUSE TEAM MEMBER Office Visit [facility] - Rheumatology [address] [facility], [place] [address] Markie Romero MD [address] [facility] [place] [address] 11/13/2025 11:00 AM WAREHOUSE TEAM MEMBER Office Visit [facility] - Hematology/Oncology [address] [place] [phone] Luis Munoz MD 12[address] [facility] DIV OF HEMATOLOGY & [place] [address] 11/15/2025 11:00 AM WAREHOUSE TEAM MEMBER Office Visit [facility] - QUALITY ASSURANCE CLERK [address] [facility] [address] [place] [phone] Jennifer Guy, SALES DEVELOPER-DOCKETING SPECIALIST 1031 [facility] 400 [place] [address] 11/16/2025 11:00 AM WAREHOUSE TEAM MEMBER Office Visit [facility] - Ophthalmology [address] [facility] [place] [phone] Xu Kelly OD [address] [place] [phone] 05/14/2026 12:30 PM CDT Procedure visit [facility] - GI 12[address] [place] [address] 05/14/2026 1:00 PM CDT Office Visit [facility] - GI [address] [place] [phone] Jasmyn Alvarado, SALES DEVELOPER-DOCKETING SPECIALIST [address] [place] [address] [address] [place] [address] documented as of this encounter Goals Goal [...] documented as of this encounter Care Teams Certified Medical Records Coder Relationship Specialty Start Date End Date Dinorah Peters DO [address] [place] [address] 2L DIV OF [facility] [place] [address] PCP - General Internal Medicine 08/27/20 03/24/21 Dinorah Peters DO [address] [place] [address] 2L DIV OF [facility] [place] [address] PCP - General Internal Medicine 03/25/21 06/03/23 Pratibha Hayes MD [address] [place] [address] 2L DIV OF [facility] [place] [address] PCP - General Internal Medicine 06/04/23 11/17/23 Franky Choudhury DO [address] [place] [address] PCP - General Internal Medicine 11/18/23 09/26/24 Pratibha Hayes MD [address] 2L DIV OF [facility] [place] [phone] PCP - General Internal Medicine 09/27/24 10/01/24 Franky Choudhury DO [address] [place] [address] PCP - General Internal Medicine 10/02/24 John Gallardo MD [address] [place] [address] Resident - PCP Student Resident 07/04/18 06/16/21 Tracy Maldonado MD [address] 2L DIV OF [facility] [place] Resident - PCP Student Resident 06/17/21 05/11/23 Tracy Maldonado MD [address] 2L DIV OF [facility] [place] Resident Student Resident 06/17/21 10/01/21 Julita [place] MD [address] DIV OF [facility] [place] Resident - PCP Internal Medicine 05/17/23 06/03/23 Abel Pop MD [address] [place] [phone] Pain Management Anesthesiology 05/17/23 Selam Ramirez MD [address] [place] [phone] Ophthalmology 05/17/23 Luis Munoz MD [address] [facility] DIV OF HEMATOLOGY & [place] [address] Hematology and Oncology 05/17/23 Kinjal Marino MD [address] [facility] 3L [place] [address] Dermatology 05/17/23 Ghada Guardado MD [address] [facility] 1120 [place] [address] Cardiology 05/17/23 João Mora MD [address] [facility] [place] [address] Resident Rheumatology 05/17/23 05/26/25 Marianna Benjamin MD [address] [facility] [place] [address] Surgeon Orthopedic Surgery 05/17/23 Franky Choudhury DO [address] [place] [address] Resident - PCP Internal Medicine 06/04/23 Lenin Trevino MD 1225 [facility] 2L [place] [phone] Rheumatology 05/27/25 Markie Romero MD [address] [facility] [place] [address] Resident Rheumatology 06/15/25 documented as of this encounter
--- OUTSIDE RECORDS SUMMARY | 2025-06-23 09:47 | XMS_ITS | Encounter Summary ---
Author Organization [facility] Address [address] [place] [address] Care Team Providers Care Front Maker Name Role Phone Robert Celeste MD Primary Care Provider [phone] John Gallardo MD Unavailable Dinorah Peters DO Primary Care Provider [phone] Dinorah Peters DO Primary Care Provider [phone] Tracy Maldonado MD Unavailable [phone] Tracy Maldonado MD Unavailable [phone] Julita [place] MD Unavailable Abel Pop MD Unavailable Selam Ramirez MD Unavailable Luis Munoz MD Unavailable [phone] Kinjal Marino MD Unavailable [phone] Ghada Guardado MD Unavailable João Mora MD Unavailable Marianna Benjamin MD Unavailable Pratibha Hayes MD Primary Care Provider [phone] Franky Choudhury DO Unavailable Franky Choudhury DO Primary Care Provider [phone] Pratibha Hayes MD Primary Care Provider Franky Choudhury DO Primary Care Provider [phone] Lenin Trevino MD Unavailable Markie Romero MD Unavailable Reason for Visit * Reason Onset Date Comments Order 06/22/2018 Encounter Details Date Type Department Care Team (Late st Contact Info) Description 06/22/2018 Telephone [facility] [address] [facility] [address] [place] [address] Robert Celeste MD [address] OF [facility] [place] [address] Order Social History Tobacco Use Types Packs/Day Years Used Date Smoking Tobacco: Never Smokeless Tobacco: Never Alcohol Use Standard Drinks/Week Comments No 0 (1 standard drink = 0.6 oz pur e alcohol) Comments No Sex and Gender Information Value Date Recorded Sex Assigned at Not on file Legal Sex Female 6:32 AM CERTIFIED FLEX ENDOSCOPE REPROCESSOR Gender Identity Not on file Sexual Orientation Not on file documented as of this encounter Functional Status * Is person deaf or have serious hearing difficulty? Answer Date of Assessment Author No 06/22/2018 4:11 PM Jocelin Jacob RN * Is person blind or have serious difficulty seeing? Answer Date of Assessment Author No 06/22/2018 4:11 PM Jocelin Jacob RN * Does person have serious difficulty walking/climbing stairs? Answer Date of Assessment Author No 06/22/2018 4:11 PM Jocelin Jacbo RN * Does person have difficulty dressing/bathing? Answer Date of Assessment Author No 06/22/2018 4:11 PM Jocelin Jacob RN * Does person have difficulty doing errands alone? Answer Date of Assessment Author No 06/22/2018 4:11 PM Jocelin Jacob RN documented as of this encounter Mental Status * Does person have difficulty concentrating/remembering/making decisions? Answer Entry Date Author No 06/22/2018 4:11 PM CDT Jocelin Turcios RN documented in this encounter Miscellaneous Notes * Telephone Encounter - Antonia Loza - 06/22/2018 4:14 PM CDT Bella from [facility] called CB# [phone] Bella called to see if the PCP will follow the pt for home care Thank you documented in this encounter Plan of Treatment Upcoming Encounters Date Type Department Care Team (Late st Contact Info) Description 07/16/2025 10:30 AM CDT Procedure visit [facility] - Cosmetic Dermatology [address], [facility] 200 [place] [phone] 07/23/2025 9:15 AM CDT Office Visit [facility] - Orthopedics [address] [place] [phone] Sharad Mclaughlin, OPERATIONS SUPERVISOR-VETERINARY MEDICINE DOCTOR 1011 [facility] 400 [place] [address] 07/26/2025 1:45 PM CDT Office Visit [facility] - Internal Med [address] [place] [phone] Franky Choudhury DO 1201 [place] [address] 08/02/2025 1:00 PM CDT Office Visit [facility] - Ophthalmology [address] [place] [phone] Monse Kelly, OPERATIONS SUPERVISOR-VETERINARY MEDICINE DOCTOR [address] [place] [address] DE[place] [phone] 08/09/2025 1:30 PM CDT Hospital Encounter [facility] [address] [place] [address] 08/09/2025 2:00 PM CDT Hospital Encounter [facility] [address] [place] [address] 08/14/2025 11:00 AM CDT Office Visit [facility] - Cosmetic Dermatology [address], [place] [address] [place] [address] Consuelo Bosch MD [address] [place] [address] [place] [address] 09/06/2025 11:30 AM CDT Office Visit [facility] - Cardiology [address] [facility], [facility] [address] [place] [address] Stephanie Silvestre, OPERATIONS SUPERVISOR-VETERINARY MEDICINE DOCTOR 1034 [facility] [address] [place] [address] 10/01/2025 1:00 PM CERTIFIED FLEX ENDOSCOPE REPROCESSOR Office Visit [facility] - Rheumatology 1225 [facility] [place] [address] Markie Romero MD 1225 [facility] DIV [place] [phone] 11/13/2025 11:00 AM CERTIFIED FLEX ENDOSCOPE REPROCESSOR Office Visit [facility] - Hematology/Oncology [address] [place] [phone] Luis Munoz MD 1201 [facility] DIV OF HEMATOLOGY & [place] [address] 11/15/2025 11:00 AM CERTIFIED FLEX ENDOSCOPE REPROCESSOR Office Visit [facility] - BILLPOSTER [address] [facility] [address] [place] [phone] Jennifer Guy, OPERATIONS SUPERVISOR-VETERINARY MEDICINE DOCTOR 10[address] [facility] [address] [place] [address] 11/16/2025 11:00 AM CERTIFIED FLEX ENDOSCOPE REPROCESSOR Office Visit [facility] - Ophthalmology [address] [place] [phone] Xu Kelly, MIRTA [address] [place] [phone] 05/14/2026 12:30 PM CDT Procedure visit [facility] - GI [address] [place] [phone] 05/14/2026 1:00 PM CDT Office Visit [facility] - GI [address] [place] [phone] Jasmyn Alvarado, OPERATIONS SUPERVISOR-VETERINARY MEDICINE DOCTOR [address] [place] [address] 3FL [place] [address] documented as of this encounter Visit Diagnoses Not on filedocumented in this encounter Additional Health Concerns Infection Onset Date Last Indicated Resolved Time CDIFF Under Investigation 05/27/2025 05/27/2025 8:56 PM CDT documented as of this encounter Care Teams Front Maker Relationship Specialty Start Date End Date Robert Celeste MD [address] [place] [address] PCP - General Internal Medicine 02/20/16 08/26/20 Dinorah Peters DO [address] [place] [address] 2L DIV OF [place] [address] PCP - General Internal Medicine 08/27/20 03/24/21 Dinorah Peters DO [address] [place] [address] 2L DIV [place] [address] PCP - General Internal Medicine 03/25/21 06/03/23 Pratibha Hayes MD [address] 2L DIV OF [facility] [place] [address] PCP - General Internal Medicine 06/04/23 11/17/23 Franky Choudhury DO [address] [place] [address] PCP - General Internal Medicine 11/18/23 09/26/24 Pratibha Hayes MD [address] 2L DIV OF [facility] [place] [address] PCP - General Internal Medicine 09/27/24 10/01/24 Franky Choudhury DO [address] [place] [address] PCP - General Internal Medicine 10/02/24 John Gallardo MD [address] [place] [address] Resident - PCP Student Resident 07/04/18 06/16/21 Tracy Maldonado MD [address] 2L DIV OF [facility] [place] Resident - PCP Student Resident 06/17/21 05/11/23 Tracy Maldonado MD [address] 2L DIV OF [facility] [place] Resident Student Resident 06/17/21 10/01/21 Julita Adams MD [address] 2L DIV [place] Resident - PCP Internal Medicine 05/17/23 06/03/23 Abel Pop MD [address] [place] [phone] Pain Management Anesthesiology 05/17/23 Selam Ramirez MD [address] [facility] GL DEPT [place] [phone] Ophthalmology 05/17/23 Luis Munoz MD [address] [facility] DIV OF HEMATOLOGY & [place] [address] Hematology and Oncology 05/17/23 Kinjal Marino MD [address] [facility] 3L [place] [address] Dermatology 05/17/23 Ghada Guardado MD [address] [address] Cardiology 05/17/23 João Mora MD [address] [facility] [place] [phone] Resident Rheumatology 05/17/23 05/26/25 Marianna Benjamin MD [address] [facility] [place] [phone] Surgeon Orthopedic Surgery 05/17/23 Franky Choudhury DO [address] [place] [address] Resident - PCP Internal Medicine 06/04/23 Lenin Trevino MD [address] [facility] 2L [place] [address] Rheumatology 05/27/25 Markie Romero MD [address] [facility] [place] [address] Resident Rheumatology 06/15/25 documented as of this encounter
--- OUTSIDE RECORDS SUMMARY | 2025-06-23 09:47 | XMS_ITS | Encounter Summary ---
Author Organization [facility] Address [address] [facility] [place] [address] Care Team Providers Care Manager Water Wastewater Name Role Phone Robert Celeste MD Primary Care Provider [phone] John Gallardo MD Unavailable Dinorah Peters DO Primary Care Provider [phone] Dinorah Peters DO Primary Care Provider [phone] Tracy Maldonado MD Unavailable [phone] Tracy Maldonado MD Unavailable [phone] Julita Adams MD Unavailable Abel Pop MD Unavailable Selam Ramirez MD Unavailable Luis Munoz MD Unavailable [phone] Kinjal Marino MD Unavailable [phone] Ghada Guardado MD Unavailable João Mora MD Unavailable Marianna Benjamin MD Unavailable Pratibha Hayes MD Primary Care Provider [phone] Franky Choudhury DO Unavailable KeiMachoamaya DO Primary Care Provider [phone] Pratibha Hayes MD Primary Care Provider [phone] Franky Choudhury DO Primary Care Provider [phone] Lenin Trevino MD Unavailable Markie Romero MD Unavailable Encounter Details Date Type Department Care Team (Late st Contact Info) Description 08/16/2018 Telephone [facility] General Internal Medicine [address] [place], [place] [phone] Robert Celeste MD [address] [place] [address] Social History Tobacco Use Types Packs/Day Years Used Date Smoking Tobacco: Never Smokeless Tobacco: Never Alcohol Use Standard Drinks/Week Comments No 0 (1 standard drink = 0.6 oz pur e alcohol) Comments No Sex and Gender Information Value Date Recorded Sex Assigned at Not on file Legal Sex Female 6:32 AM TRACK VEHICLE 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 Answer Date of Assessment Author No 08/11/2018 1:21 PM Sindhu Zhong RN * Is person blind or have serious difficulty seeing? Answer Date of Assessment Author No 08/11/2018 1:21 PM Sindhu Zhong RN * Does person have serious difficulty walking/climbing stairs? Answer Date of Assessment Author No 08/11/2018 1:21 PM Sindhu Zhong, [place]DE[place] * Does person have difficulty dressing/bathing? Answer Date of Assessment Author No 08/11/2018 1:21 PM Sindhu Zhong RN * Does person have difficulty doing errands alone? Answer Date of Assessment Author No 08/11/2018 1:21 PM Sindhu Zhong RN documented as of this encounter Mental Status * Does person have difficulty concentrating/remembering/making decisions? Answer Entry Date Author No 08/11/2018 1:21 PM CDT Sindhu Diego RN documented in this encounter Miscellaneous Notes * Telephone Encounter - Krysta Dumas RN - 08/16/2018 3:25 PM CDT Telephone call from Lu Vilchis. Orders previously sent from their office for this patient were incorrect and she will be faxing new orders. documented in this encounter Plan of Treatment Upcoming Encounters Date Type Department Care Team (Late st Contact Info) Description 07/16/2025 10:30 AM CDT Procedure visit [facility] - Cosmetic Dermatology [address], [facility] [address] [place] [phone] 07/23/2025 9:15 AM CDT Office Visit [facility] - Orthopedics [address] [place] [phone] Sharad Mclaughlin, MECHATRONICS TECHNICIAN-COMPLAINT SPECIALIST [address] [facility] 400 [place] [address] 07/26/2025 1:45 PM CDT [facility] Med [address] [place] [phone] Franky Choudhury DO 1201 [place] [address] 08/02/2025 1:00 PM CDT [facility] Ophthalmology [address] [place] [phone] Monse Kelly, MECHATRONICS TECHNICIAN-COMPLAINT SPECIALIST [address] [place] [address] [place] [phone] 08/09/2025 1:30 PM CDT Hospital Encounter [facility] [address] [place] [address] 08/09/2025 2:00 PM CDT Hospital Encounter [facility] [address] [place] [address] 08/14/2025 11:00 AM CDT Office Visit [facility] - Cosmetic Dermatology [address], [place] [address] [place] [phone] Consuelo Bosch MD [address] [facility] [address] [place] [address] 09/06/2025 11:30 AM CDT Office Visit [facility] - Cardiology [address] [facility], [facility] 1120 [place] [address] Stephanie Silvestre, MECHATRONICS TECHNICIAN-COMPLAINT SPECIALIST 1034 [facility] 1120 [place] [address] 10/01/2025 1:00 PM TRACK VEHICLE REPAIRER Office Visit [facility] - Rheumatology [address] [facility], [place] [phone] Markie Romero MD 12[address] [facility] [place] [phone] 11/13/2025 11:00 AM TRACK VEHICLE REPAIRER Office Visit [facility] - Hematology/Oncology [address] [place] [phone] Luis Munoz MD [address] [facility] DIV OF HEMATOLOGY & [place]ICAL [place] [address] 11/15/2025 11:00 AM TRACK VEHICLE REPAIRER Office Visit [facility] - INFECTION PREVENTION PRACTITIONER [address] [facility] [address] [place] [phone] Jennifer Guy, MECHATRONICS TECHNICIAN-COMPLAINT SPECIALIST 1031 [facility] 400 [place] [address] 11/16/2025 11:00 AM TRACK VEHICLE REPAIRER Office Visit [facility] - Ophthalmology 1225 [place] [phone] Xu Kelly, MIRTA 1225 [place] [address] 05/14/2026 12:30 PM CDT Procedure visit [facility] - GI [address] [place] [phone] 05/14/2026 1:00 PM CDT Office Visit [facility] - GI [address] [place] [phone] Jasmyn Alvarado, MECHATRONICS TECHNICIAN-COMPLAINT SPECIALIST [address] [place] [address] [address] DIV OF GASTROENTEROLOGY [place], [place] [phone] documented as of this encounter Goals Goal [...] documented as of this encounter Care Teams Manager Water Wastewater Relationship Specialty Start Date End Date Robert Celeste MD [address]60 [place] [address] PCP - General Internal Medicine 02/20/16 08/26/20 Dinorah Peters DO [address] [place] [address] 2L DIV [place] [phone] PCP - General Internal Medicine 08/27/20 03/24/21 Dinorah Peters DO [address] 2L DIV OF [facility] [place] [address] PCP - General Internal Medicine 03/25/21 06/03/23 Pratibha Hayes MD [address] 2L DIV OF [facility] [place] [address] PCP - General Internal Medicine 06/04/23 11/17/23 Franky Choudhury DO [address] [place] [address] PCP - General Internal Medicine 11/18/23 09/26/24 Pratibha Hayes MD [address] 2L [place] [address] PCP - General Internal Medicine 09/27/24 10/01/24 Franky Choudhury DO [address] [place] [address] PCP - General Internal Medicine 10/02/24 John Gallardo MD [address] [place] [address] Resident - PCP Student Resident 07/04/18 06/16/21 Tracy Maldonado MD [address] 2L DIV [place] Resident - PCP Student Resident 06/17/21 05/11/23 Tracy Maldonado MD [address] 2L DIV OF [facility] INTERNAL MEDIC[place] Resident Student Resident 06/17/21 10/01/21 Julita Adams MD [address] [facility] 2L DIV OF [facility] INTERNAL MEDIC[place] Resident - PCP Internal Medicine 05/17/23 06/03/23 Abel Pop MD [address] [place] [phone] Pain Management Anesthesiology 05/17/23 Selam Ramirez MD [address] [facility] GL [place] [phone] Ophthalmology 05/17/23 Luis Munoz MD [address] [facility] DIV OF HEMATOLOGY & [place] [address] Hematology and Oncology 05/17/23 Kinjal Marino MD [address] [facility] 3L DEPT [place] [address] Dermatology 05/17/23 Ghada Guardado MD [address] [address] Cardiology 05/17/23 João Mora MD [address] [facility] [place] [phone] Resident Rheumatology 05/17/23 05/26/25 Marianna Benjamin MD [address] [facility] [place] [phone] Surgeon Orthopedic Surgery 05/17/23 Franky Choudhury DO [address] [place] [address] Resident - PCP Internal Medicine 06/04/23 Lenin Trevino MD [address] [facility] 2L DIV [place] [phone] Rheumatology 05/27/25 Markie Romero MD [address] [facility] [place] [address] Resident Rheumatology 06/15/25 documented as of this encounter
--- OUTSIDE RECORDS SUMMARY | 2025-06-23 09:47 | XMS_ITS ---
Author Organization [facility] Address [address] [facility] [place] [address] Care Team Providers Care Body Cleaner Name Role Phone Abel Pop MD Unavailable Selam Ramirez MD Unavailable Luis Munoz MD Unavailable [phone] Kinjal Marino MD Unavailable [phone] Ghada Guardado MD Unavailable Marianna Benjamin MD Unavailable Franky Choudhury DO Unavailable Franky Choudhury DO Primary Care Provider [phone] Lenin Trevino MD [facility] Unavailable Active Problems Problem Noted Date Diagnosed Date Fracture of left orbital floor 05/27/2025 Closed T12 fracture 05/27/2025 Nasal fracture 05/27/2025 Fracture of fourth metacarpal bone of right hand 05/27/2025 Cheek laceration 05/27/2025 Maxillary sinus fracture 05/27/2025 Trauma 05/26/2025 Lip laceration, initial encounter 05/26/2025 Facial laceration, initial encounter 05/26/2025 Open fracture of left nasoor bitoethmoid complex, initial encounter 05/26/2025 Hypertriglyceridemia 11/10/2024 Greater trochanteric bursitis of right hip 11/10 Tear of right gluteus medius tendon 11/10/2024 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 Herpes zoster without complication 06/08/2023 Lagophthalmos of right lower eyelid 05/08/2023 Lacrimal canalicular stenosis, right 05/08/2023 Nasolacrimal duct obstruction, acquired, right 0 05/08/2023 Epiphora due to insufficient drainage, right 08/2023 ALVERTO III (vulvar intraepithelial neoplasia III) 0 04/13/2023 HGSIL Pap smear of vagina 04/13/2023 SVT (supraventricular tachycardia) 05/04/2022 Preop examination 05/04/2022 Chronic midline low back pain without sciatica 0 04/03/2021 Back spasm 04/03/2021 Neoplasm of uncertain behavior of skin Assessment & Plan (03/10/2021 12:03 PM CDT): - R lateral cheek - Shave biopsy performed for further evaluation (see procedure note) - DDx includes NMSC vs. ISK - Wound care instructions reviewed, post-biopsy handout given - Will call patient with results (will arrange treatment if indicated) Actinic keratosis 03/10/2021 Assessment & Plan (03/10/2021 12:02 PM CDT): - Counseled on diagnosis, etiology, natural disease course- including pre- malignant nature of lesions and association with sun exposure - 22 AKs (face, chest, arms) treated today with LN2 - Wound care instructions provided Inflamed seborrheic keratosis 03/10/2021 Assessment & Plan (03/10/2021 12:03 PM CDT): - Discussed benign potential - Fully reviewed treatment options with patient including indications, risks, benefits, alternatives to LN2 - pt desires treatment - Cryo x 1 lesion, 6-7 second freeze time x 1 cycle - Wound care reviewed - Post cryo handout given 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 No changes. Continue BB and ARB. S/P coronary artery stent placement 08/08/2018 Overview (08/08/2018): 3 1. Severe stenosis in the mid [...] Chronic-appearing severe stenosis in the proximal D1. Assessment & Plan (10/08/2020 3:53 PM CHICKEN PICKER): Stable. No changes. No further ischemic evaluation at this time. 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 Severe stenosis [...] Chronic-appearing severe stenosis in the proximal D1. Assessment & Plan (10/08/2020 3:52 PM CHICKEN PICKER): Stable sp PCI to LAD with DB in February 2014. Asymptomatic. Continue ASA, statin, BB and ARB. Pt had routine blood work drawn this week, will look for results. Osteoporosis 11/07/2013 Overview (05/25/2018): Overview: Had 5 years of bisphosphonate therapy ICD-10 Conversion Current Treatment and Therapy Plans No current plan information found. Past Treatment and Therapy Plans No past plan information found. Lifetime Dose Tracking * Chemical Lifetime Dose Automatic Entry Manual Entr y Doxorubicin 250 mg/m2 (390 mg) 0 mg/m2 (0 mg) 250 mg/ m2 (390 mg) Dose Length Product 319.1 mGy-cm 319.1 mGy-cm 0 mGy-cm Resolved Problems Problem Noted Date Diagnosed Date Resolved Date S/P IVC filter 03/24/2019 09/27/2019 Sepsis secondary to UTI 08/09/201803/29 STEMI (ST elevation myocardial infarction) 08/08/2018 09/27/2019 Overview (08/08/2018): CPR 4/17 DVT (deep venous thrombosis) 08/08/2018 09/27/2019 Overview (08/08/2018): LE,UE DVT and PE Anemia 08/08/2018 09/27/2019 Gastric outlet obstruction 06/03/2018 1 Gastrointestinal hemorrhage associated with gastric ulcer 05/18/2017 06/08/2018 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
--- OUTSIDE RECORDS SUMMARY | 2025-06-23 09:47 | XMS_ITS | Encounter Summary ---
Author Organization [facility] Address [address] [facility] [place] [address] Care Team Providers Care Jet Aircraft Servicer Name Role Phone John Gallardo MD Unavailable Dinorah Peters DO Primary Care Provider [phone] Dinorah Peters DO Primary Care Provider [phone] Tracy Maldonado MD Unavailable [phone] Tracy Maldonado MD Unavailable Julita Adams MD Unavailable Abel Pop MD Unavailable Selam Ramirez MD Unavailable Luis Munoz MD Unavailable [phone] Kinjal Marino MD Unavailable [phone] Ghada Guardado MD Unavailable [phone] João Mora MD Unavailable Marianna Benjamin MD Unavailable [phone] Pratibha Hayes MD Primary Care Provider Franky Choudhury DO Unavailable Franky Choudhury DO Primary Care Provider Pratibha Hayes MD Primary Care Provider Franky Choudhury DO Primary Care Provider [phone] Lenin Trevino MD Unavailable Markie Romero MD Unavailable Reason for Visit * Reason Onset Date Comments MEDICATION REFILL 11/23/2020 Encounter Details Date Type Department Care Team (Late st Contact Info) Description 11/23/2020 Refill [facility] [address] [place] [address] Luis Munoz MD [address] [facility] [place] [address] MEDICATION REFILL Social History Tobacco Use Types Packs/Day Years Used Date Smoking Tobacco: Never Smokeless Tobacco: Never Alcohol Use Standard Drinks/Week Comments No 0 (1 standard drink = 0.6 oz pur e alcohol) Comments No Sex and Gender Information Value Date Recorded Sex Assigned at Not on file Legal Sex Female 6:32 AM COMB TENDER Gender Identity Not on file Sexual Orientation Not on file Occupation Industry Job Start Date Job End Date Retired Not on file Not on file Not on file COVID-19 Exposure Response Date Recorded In the last month, have you been in contact with someone who was confirmed or suspected to have Coronavirus / COVID-19? No / Unsure 11/25/2020 8:07 AM COMB TENDER documented as of this encounter Functional Status [...] Description 07/16/2025 10:30 AM CDT [facility] Cosmetic Dermatology [address], [place] [address] [place] [address] 07/23/2025 9:15 AM CDT Office Visit [facility] - Orthopedics [address] [place] [phone] Sharad Mclaughlin, ASSESSMENT CLINICIAN-NEW ACCOUNTS CLERK [address] [address] 07/26/2025 1:45 PM CDT Office Visit [facility] - Internal Med [address] [place] [phone] Franky Choudhury DO [address] [place] [address] 08/02/2025 1:00 PM CDT Office Visit [facility] - Ophthalmology [address] [place] [phone] Monse Kelly, ASSESSMENT CLINICIAN-NEW ACCOUNTS CLERK [address] [place] [address] DE[place] [phone] 08/09/2025 1:30 PM CDT Hospital Encounter [address] [address] 08/09/2025 2:00 PM CDT Hospital Encounter [address] [address] 08/14/2025 11:00 AM CDT Office Visit [facility] - Cosmetic Dermatology [address], [place] [place] [phone] Consuelo Bosch MD [address] [place] [address] [place] [address] 09/06/2025 11:30 AM CDT Office Visit [facility] - Cardiology [address] [facility], [facility] [address] [place] [address] Stephanie Silvestre, ASSESSMENT CLINICIAN-NEW ACCOUNTS CLERK 1034 [facility] [address]120 [place] [address] 10/01/2025 1:00 PM COMB TENDER Office Visit [facility] - Rheumatology [address] [place] [phone] Markie Romero MD 1225 [facility] [place] [phone] 11/13/2025 11:00 AM COMB TENDER Office Visit [facility] - Hematology/Oncology [address] [place] [phone] Luis Munoz MD 1201 [facility] DIV OF HEMATOLOGY & [place] [address] 11/15/2025 11:00 AM COMB TENDER Office Visit [facility] - ANIMAL DAMAGE CONTROL AGENT [address] [facility] [address] [place] [phone] Jennifer Guy, ASSESSMENT CLINICIAN-NEW ACCOUNTS CLERK 1031 [facility] 400 [place] [address] 11/16/2025 11:00 AM COMB TENDER Office Visit [facility] - Ophthalmology 1225 [facility] [place] [address] KellyXu naidu, OD [address] [place] [address] 05/14/2026 12:30 PM CDT Procedure visit [facility] - GI [address] [place] [phone] 05/14/2026 1:00 PM CDT Office Visit [facility] - GI [address] [place] [phone] Jasmyn Alvaraod, ASSESSMENT CLINICIAN-NEW ACCOUNTS CLERK [address] [place] [address] [address] DIV OF GASTROENTEROLOGY [place], [place] [phone] documented as of this encounter Goals Goal [...] documented as of this encounter Care Teams Jet Aircraft Servicer Relationship Specialty Start Date End Date Dinorah Peters DO [address] [place] [address] 2L DIV [place] [address] PCP - General Internal Medicine 08/27/20 03/24/21 Dinorah Peters DO [address] [place] [address] 2L DIV [place] [address] PCP - General Internal Medicine 03/25/21 06/03/23 Pratibha Hayes MD [address]L [place] [address] PCP - General Internal Medicine 06/04/23 11/17/23 Franky Choudhury DO [address] [place] [address] PCP - General Internal Medicine 11/18/23 09/26/24 Pratibha Hayes MD [address] [place] [address] PCP - General Internal Medicine 09/27/24 10/01/24 Franky Choudhury DO [address] [place] [address] PCP - General Internal Medicine 10/02/24 John Gallardo MD [address] [place] [address] Resident - PCP Student Resident 07/04/18 06/16/21 Tracy Maldonado MD [address] 2[address] DIV OF [facility] INTERNAL [place], [place] Resident - PCP Student Resident 06/17/21 05/11/23 Tracy Maldonado MD [address] 2[address] DIV [place], [place] Resident Student Resident 06/17/21 10/01/21 Julita Adams MD [address] 2[address] [place] Resident - PCP Internal Medicine 05/17/23 06/03/23 Abel Pop MD [address] [place] [phone] Pain Management Anesthesiology 05/17/23 Selam Ramirez MD [address] [facility] DEPT [place] [phone] Ophthalmology 05/17/23 Luis Munoz MD [address] [facility] [place] [address] Hematology and Oncology 05/17/23 Kinjal Marino MD 1225 [facility] 3L [place] [address] Dermatology 05/17/23 Ghada Guardado MD [address] [address] Cardiology 05/17/23 João Mora MD 1225 [facility] [place] [phone] Resident Rheumatology 05/17/23 05/26/25 Marianna Benjamin MD 1225 [facility] [place] [phone] Surgeon Orthopedic Surgery 05/17/23 Franky Choudhury DO [address] [place] [address] Resident - PCP Internal Medicine 06/04/23 Lenin Trevino MD [address] [place] [phone] Rheumatology 05/27/25 Markie Romero MD [address] [place] [address] Resident Rheumatology 06/15/25 documented as of this encounter
--- OUTSIDE RECORDS SUMMARY | 2025-06-23 09:47 | XMS_ITS | Encounter Summary ---
Author Organization [facility] Address [address] [place] [address] Care Team Providers Care Patch Driller Name Role Phone John Gallardo MD Unavailable Dinorah Peters DO Primary Care Provider [phone] Dinorah Peters DO Primary Care Provider [phone] Tracy Maldonado MD Unavailable [phone] Tracy Maldonado MD Unavailable Julita Adams MD Unavailable Abel Pop MD Unavailable Selam Ramirez MD Unavailable Luis Munoz MD Unavailable Kinjal Marino MD Unavailable Ghada Guardado MD Unavailable [phone] João Mora MD Unavailable Marianna Benjamin MD Unavailable [phone] Pratibha Hayes MD Primary Care Provider Franky Choudhury DO Unavailable Franky Choudhury DO Primary Care Provider Pratibha Hayes MD Primary Care Provider Franky Choudhury DO Primary Care Provider [phone] Lenin Trevino MD Unavailable Markie Romero MD Unavailable Reason for Visit * Reason Onset Date Comments MEDICATION REFILL 11/23/2020 Encounter Details Date Type Department Care Team (Late st Contact Info) Description 11/23/2020 Refill [facility] [address] [facility] 1[address] [place] [address] Ghada Guardado MD [address] [facility] 1120 [place] [address] MEDICATION REFILL Social History Tobacco Use Types Packs/Day Years Used Date Smoking Tobacco: Never Smokeless Tobacco: Never Alcohol Use Standard Drinks/Week Comments No 0 (1 standard drink = 0.6 oz pur e alcohol) Comments No Sex and Gender Information Value Date Recorded Sex Assigned at Not on file Legal Sex Female 6:32 AM ELECTRIC DOLLY OPERATOR Gender Identity Not on file Sexual Orientation Not on file Occupation Industry Job Start Date Job End Date Retired Not on file Not on file Not on file COVID-19 Exposure Response Date Recorded In the last month, have you been in contact with someone who was confirmed or suspected to have Coronavirus / COVID-19? No / Unsure 11/25/2020 8:07 AM ELECTRIC DOLLY OPERATOR documented as of this encounter Functional Status [...] Description 07/16/2025 10:30 AM CDT [facility]metic Dermatology [address], [address] [place] [address] 07/23/2025 9:15 AM CDT Office Visit [facility] - Orthopedics [address] [place] [phone] Sharad Mclaughlin, FOLDING MACHINE SETTER-AIRLINE ATTENDANT [address] [address] 07/26/2025 1:45 PM CDT Office Visit [facility] - Internal Med [address] [place] [phone] Franky Choudhury DO 1201 [place] [address] 08/02/2025 1:00 PM CDT Office Visit [facility] - Ophthalmology [address] [place] [phone] Monse Kelly, FOLDING MACHINE SETTER-AIRLINE ATTENDANT [address] [place] [address] [place] [phone] 08/09/2025 1:30 PM CDT Hospital Encounter [address] [address] 08/09/2025 2:00 PM CDT Hospital Encounter [address] [address] 08/14/2025 11:00 AM CDT Office Visit [facility] - Cosmetic Dermatology [address], [address] [place] [phone] Consuelo Bosch MD [address] [place] [address] 09/06/2025 11:30 AM CDT Office Visit [facility] - Cardiology [address] [facility] 1120 [place] [address] Stephanie Silvestre, FOLDING MACHINE SETTER-AIRLINE ATTENDANT 10[address] [facility] 1120 [place] [address] 10/01/2025 1:00 PM ELECTRIC DOLLY OPERATOR Office Visit [facility] - Rheumatology [address] [place] [phone] Markie Romero MD 12[address] [facility] [place] [phone] 11/13/2025 11:00 AM ELECTRIC DOLLY OPERATOR Office Visit [facility] - Hematology/Oncology [address] [place] [phone] Luis Munoz MD 12[address] [facility] DIV OF HEMATOLOGY & MEDICAL [place] [address] 11/15/2025 11:00 AM ELECTRIC DOLLY OPERATOR Office Visit [facility] - BILLING SPEC [address] [facility] [address] [place] [phone] Jennifer Guy, FOLDING MACHINE SETTER-AIRLINE ATTENDANT [address] [facility] 400 [place] [address] 11/16/2025 11:00 AM ELECTRIC DOLLY OPERATOR Office Visit [facility] - Ophthalmology 1225 [place] [address] KellyXu naidu, OD 1225 [place] [address] 05/14/2026 12:30 PM CDT Procedure visit [facility] - GI [address] [place] [phone] 05/14/2026 1:00 PM CDT Office Visit [facility] - GI [address] [place] [phone] Jasmyn Alvarado, FOLDING MACHINE SETTER-AIRLINE ATTENDANT [address] [place] [address] [address] DIV OF GASTROENTEROLOGY [place], [place] [phone] documented as of this encounter Goals Goal [...] documented as of this encounter Care Teams Patch Driller Relationship Specialty Start Date End Date Dinorah Peters DO [address] [place] [address] 2L DIV [place] [address] PCP - General Internal Medicine 08/27/20 03/24/21 Dinorah Peters DO [address] [place] [address] 2L [place] [address] PCP - General Internal Medicine 03/25/21 06/03/23 Pratibha Hayes MD [address] [place] [address] PCP - General Internal Medicine 06/04/23 11/17/23 Franky Choudhury DO [address] [place] [address] PCP - General Internal Medicine 11/18/23 09/26/24 Pratibha Hayes MD [address] [place] [address] PCP - General Internal Medicine 09/27/24 10/01/24 Franky Choudhury DO [address] [place] [address] PCP - General Internal Medicine 10/02/24 John Gallardo MD [address] [place] [address] Resident - PCP Student Resident 07/04/18 06/16/21 Tracy Maldonado MD [address] DIV OF [facility] INTERNAL [place] Resident - PCP Student Resident 06/17/21 05/11/23 Tracy Maldonado MD [address] 2[address] DIV [place], [place] Resident Student Resident 06/17/21 10/01/21 Julita Adams MD [address] [place] Resident - PCP Internal Medicine 05/17/23 06/03/23 Abel Pop MD [address] [place] [phone] Pain Management Anesthesiology 05/17/23 Selam Ramirez MD [address] [facility] [place] [phone] Ophthalmology 05/17/23 Luis Munoz MD [address] [facility] OF HEMATOLOGY & MEDICAL [place] [address] Hematology and Oncology 05/17/23 Kinjal Marino MD 12[address] [facility] 3L DEPT [place] [address] Dermatology 05/17/23 Ghada Guardado MD [address] [address] Cardiology 05/17/23 João Mora MD 1225 [facility] [place] [phone] Resident Rheumatology 05/17/23 05/26/25 Marianna Benjamin MD [address] [facility] [place] [phone] Surgeon Orthopedic Surgery 05/17/23 Franky Choudhury DO 1201 [place] [address] Resident - PCP Internal Medicine 06/04/23 Lenin Trevino MD [address] DIV [place] [phone] Rheumatology 05/27/25 Markie Romero MD [address] [place] [address] Resident Rheumatology 06/15/25 documented as of this encounter
--- OUTSIDE RECORDS SUMMARY | 2025-06-23 09:47 | XMS_ITS | Encounter Summary ---
Author Organization [facility] Address [address] [facility] [place] [address] Care Team Providers Care Sofa Inspector Name Role Phone Robert Celeste MD Primary Care Provider [phone] John Gallardo MD Unavailable Dinorah Peters DO Primary Care Provider [phone] Dinorah Peters DO Primary Care Provider [phone] Tracy Maldonado MD Unavailable [phone] Tracy Maldonado MD Unavailable [phone] Julita Adams MD Unavailable Abel Pop MD Unavailable Selam Ramirez MD Unavailable Luis Munoz MD Unavailable [phone] Kinjal Marino MD Unavailable [phone] Ghada Guardado MD Unavailable João Mora MD Unavailable Marianna Benjamin MD Unavailable Pratibha Hayes MD Primary Care Provider [phone] Franky Choudhury DO Unavailable Franky Choudhury DO Primary Care Provider Pratibha Hayes MD Primary Care Provider Franky Choudhury DO Primary Care Provider [phone] Lenin Trevino MD Unavailable Markie Romero MD Unavailable Reason for Visit * Reason Onset Date Comments Results 07/04/2018 Encounter Details Date Type Department Care Team (Late st Contact Info) Description 07/04/2018 Telephone [facility] [address] [facility] 206 [place] [address] Robert Celeste MD [address] OF [facility] [place] [address] Results Social History Tobacco Use Types Packs/Day Years Used Date Smoking Tobacco: Never Smokeless Tobacco: Never Alcohol Use Standard Drinks/Week Comments No 0 (1 standard drink = 0.6 oz pur e alcohol) Comments No Sex and Gender Information Value Date Recorded Sex Assigned at Not on file Legal Sex Female 6:32 AM 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 [...] encounter Miscellaneous Notes * Telephone Encounter - Angelika Escamilla - 07/04/2018 9:01 AM CDT PT: Rose Reynaga PH: [phone] Patient would like to request biopsy results. Patient will be seeing PCP today. Advised patient to inquire when she comes in. Thank you documented in this encounter Plan of Treatment Upcoming Encounters Date Type Department Care Team (Late st Contact Info) Description 07/16/2025 10:30 AM CDT Procedure visit [facility] - Cosmetic Dermatology [address] [place] [address] 07/23/2025 9:15 AM CDT Office Visit [facility] - Orthopedics [address] [place] [phone] Sharad Mclaughlin, NUTRITIONAL SERVICES COOK-COMMERCIAL CREDIT LEAD [address]1 [facility] 400 [place] [address] 07/26/2025 1:45 PM CDT Office Visit [facility] - Internal Med [address] [place] [phone] Franky Choudhury DO [address]01 [place] [address] 08/02/2025 1:00 PM CDT Office Visit [facility] - Ophthalmology [address] [place] [phone] Monse Kelly, NUTRITIONAL SERVICES COOK-COMMERCIAL CREDIT LEAD [address] [place] [address] [place] [phone] 08/09/2025 1:30 PM CDT Hospital Encounter [facility] [address] [place] [address] 08/09/2025 2:00 PM CDT Hospital Encounter [facility] [address] [place] [address] 08/14/2025 11:00 AM CDT Office Visit [facility] - Cosmetic Dermatology [address], [address] [place] [phone] Consuelo Bosch MD [address] [place] [address] 09/06/2025 11:30 AM CDT Office Visit [facility] - Cardiology 1034 [facility], [address] [place] [address] Stephanie Silvestre, NUTRITIONAL SERVICES COOK-COMMERCIAL CREDIT LEAD 1034 [facility] 1120 [place] [address] 10/01/2025 1:00 PM GEOGRAPHIC AREA INTELLIGENCE OFFICER Office Visit [facility] - Rheumatology [address] [facility], [place] [phone] Markie Romero MD 1225 [facility] [place] [phone] 11/13/2025 11:00 AM GEOGRAPHIC AREA INTELLIGENCE OFFICER Office Visit [facility] - Hematology/Oncology [address] [place] [phone] Luis Munoz MD 1201 [facility] DIV OF HEMATOLOGY & [place] [address] 11/15/2025 11:00 AM GEOGRAPHIC AREA INTELLIGENCE OFFICER Office Visit [facility] - AOC DIRECTOR INTELLIGENCE OFFICER 10[address] [facility] [address] [place] [phone] Jennifer Guy, NUTRITIONAL SERVICES COOK-COMMERCIAL CREDIT LEAD [address] [place] [address] 11/16/2025 11:00 AM GEOGRAPHIC AREA INTELLIGENCE OFFICER Office Visit [facility] - Ophthalmology 12[address] [facility], [place] [phone] Xu Kelly, MIRTA 1225 [place] [phone] 05/14/2026 12:30 PM CDT [facility] [address] [place] [phone] 05/14/2026 1:00 PM CDT Office [facility] - GI [address] [place] [phone] Jasmyn Alvarado, NUTRITIONAL SERVICES COOK-COMMERCIAL CREDIT LEAD [address] [place] [address] [address] [place] [address] documented as of this encounter Visit Diagnoses Not on filedocumented in this encounter Additional Health Concerns Infection Onset Date Last Indicated Resolved Time CDIFF Under Investigation 05/27/2025 05/27/2025 8:56 PM CDT documented as of this encounter Care Teams Sofa Inspector Relationship Specialty Start Date End Date Robert Celeste MD [address]60 [place] [address] PCP - General Internal Medicine 02/20/16 08/26/20 Dinorah Peters DO [address] [place] [address] 2L DIV [place] [phone] PCP - General Internal Medicine 08/27/20 03/24/21 Dinorah Peters DO [address] [place] [address] 2L DIV [place] [phone] PCP - General Internal Medicine 03/25/21 06/03/23 Pratibha Hayes MD [address] DIV OF [facility] [place] [address] PCP - General Internal Medicine 06/04/23 11/17/23 Franky Choudhury DO [address] [place] [address] PCP - General Internal Medicine 11/18/23 09/26/24 Pratibha Hayes MD [address] [place] [address] PCP - General Internal Medicine 09/27/24 10/01/24 Franky Choudhury DO [address] [place] [address] PCP - General Internal Medicine 10/02/24 John Gallardo MD [address]35 [place] [address] Resident - PCP Student Resident 07/04/18 06/16/21 Tracy Maldonado MD [address] [place] Resident - PCP Student Resident 06/17/21 05/11/23 Tracy Maldonado MD [address] DIV OF [facility] INTERNAL [place], [place] Resident Student Resident 06/17/21 10/01/21 Julita Adams MD [address] [place] Resident - PCP Internal Medicine 05/17/23 06/03/23 Abel Pop MD [address] [place] [phone] Pain Management Anesthesiology 05/17/23 Selam Ramirez MD [address] [facility] GL [place] [phone] Ophthalmology 05/17/23 Luis Munoz MD [address] [facility] DIV OF HEMATOLOGY & [place] [address] Hematology and Oncology 05/17/23 Kinjal Marino MD [address] [facility] 3L [place] [address] Dermatology 05/17/23 Ghada Guardado MD [address] [address] Cardiology 05/17/23 João Mora MD [address] [facility] [place] [phone] Resident Rheumatology 05/17/23 05/26/25 Marianna Benjamin MD [address] [facility] [place] [phone] Surgeon Orthopedic Surgery 05/17/23 Franky Choudhury DO [address] [place] [address] Resident - PCP Internal Medicine 06/04/23 Lenin Trevino MD [address] [place] [address] Rheumatology 05/27/25 Markie Romero MD [address] [place] [address] Resident Rheumatology 06/15/25 documented as of this encounter
--- OUTSIDE RECORDS SUMMARY | 2025-06-23 09:47 | XMS_ITS | Clinical Summary ---
Author Organization [facility] Address [address] [place] [address] Care Team Providers Care Pipe Fitter Marine Name Role Phone Abel Pop MD Unavailable Selam Ramirez MD Unavailable Luis Munoz MD Unavailable [phone] Kinjal Marino MD Unavailable [phone] Ghada Guardado MD Unavailable Marianna Benjamin MD Unavailable [phone] Franky Choudhury DO Unavailable Franky Choudhury DO Primary Care Provider Lenin Trevino MD [facility]available [facility] Unavailable Source Comments [facility],non-owned Affiliates and Associated Physician Practices is amultiple site organization consisting of ambulatory clinics and hospital sitesin [place], [place], [place] and [place]. This disclosure is being madepursuant to the Care Everywhere program and may not contain all information available regarding this patient. Last updated 18.[facility] Allergies Active Allergy Reactions Criticality Noted Date Comments Amoxicillin Diarrhea 06/05/2025 Codeine Vomiting High 08/12/2018 Erythromycin Urticaria,Rash Medium 03/13/2016 Kiwi Extract Anaphylaxis,Rash,Sw elling High 10/30/2024 Mouth blisters and anaphylaxis Latex Rash,Swelling High 03/13/2016 blisters Levofloxacin Swelling High 06/01/2018 Says joints swell up huge Lisinopril Cough Medium 06/02/2018 Says really bad deep cough Morphine Vomiting High 08/12/2018 Platte Anaphylaxis,Rash,Sw elling High 10/30/2024 Mouth blisters and anaphylaxis Sulfa Drugs Urticaria,Rash,Swel ling Medium 03/13/[address] Urticaria,Itching,S welling Medium 03/13/2016 Tobramycin-Dexamethaso ne Itching,Swelling,An gioedema High 04/05/2012 tobradex eye drops - swelling under eyelid and to face, no anaphylaxis Tomato Anaphylaxis,Rash,Sw elling High 10/30/2024 Mouth blisters and anaphylaxis Medications * Be aware that medications may not be up to date on this document. Alwaysverify current medications with the patient. azelastine (ASTELIN) 0.1 % nasal spray [place] 1 (one) spray into each nostril once daily as needed SPRAY 2 SPRAYS IN EACH NOSTRIL EVERY MORNING 014 Active Calcium Carbonate-Vitamin D (CALCIUM-VITAMIN D) 250-125 MG-UNIT Take 600 mg by mouth 2 times daily Active cetirizine (ZYRTEC) 10 MG tablet Take 1 (one) tablet by mouth at bedtime Active biotin 5 MG tablet Take 1 (one) tablet by mouth 2 times daily Active Diphenhydramine-APA P, sleep, (TYLENOL PM EXTRA STRENGTH PO) Take 600 mg by mouth nightly as needed Active atorvastatin (Lipitor) 40 MG tabletIndications:C oronary artery disease involving [place] coronary artery of [place] heart without angina pectoris Take 1 (one) tablet by mouth once daily 90 tablet 3 024 Active aspirin EC (Ecotrin) 81 MG tabletIndications:C oronary artery disease involving [place] coronary artery of [place] heart without angina pectoris Take 1 (one) tablet by mouth once daily 90 tablet 4 024 Active gabapentin (Neurontin) 300 MG capsuleIndications: Chemotherapy-induce d peripheral neuropathy (HCC) Take 1 capsule by mouth at bedtime 90 capsule 3 024 Active metoprolol succinate XL 24hr (Toprol XL) 50 MG tabletIndications:E ssential hypertension Take 1 tablet by mouth once daily 90 tablet 3 025 Active losartan (Cozaar) 50 MG tabletIndications:E ssential hypertension Take 1 tablet by mouth once daily 90 tablet 3 025 Active pantoprazole EC (Protonix) 40 MG tabletIndications:P UD (peptic ulcer disease) Take 1 tablet by mouth twice daily 180 tablet 025 Active nitroGLYCERIN (Nitrostat) 0.4 MG tablet Dissolve 1 (one) tablet under the tongue every 5 minutes as needed for Angina 25 tablet 11 025 Active flunisolide (Nasalide) 25 MCG/ACT (0.025%) nasal solution USE 1 SPRAY(S) IN EACH NOSTRIL ONCE DAILY AT BEDTIME 25 mL 025 Active acetaminophen (Tylenol) 325 MG tablet Take 2 (two) tablets by mouth every 4 hours as needed Maximum allowable Acetaminophen amount = 4 Grams (4000 mg) / 24 hours. 025 Active artificial tears ophthalmic ointment Instill into left eye at bedtime 025 Active artificial tears ophthalmic solution Instill 1 (one) drop into left eye 3 times daily as needed 025 Active bacitracin ointment Apply to affected area 3 times daily 025 Active saline nasal spray (Hanson; Baby [place]) 0.65 % nasal spray [place] 1 (one) spray into each nostril every 2 hours as needed for Dry Nose 44 mL 05/28/20 25 12:51 PM CDT 025 Active Vascepa 1 g capsuleIndications: Mixed hyperlipidemia,Masha nary artery disease involving [place] coronary artery of [place] heart without angina pectoris TAKE 1 CAPSULE BY MOUTH TWICE DAILY WITH MORNING AND EVENING MEALS 180 capsule 025 Active hydroxychloroquine (Plaquenil) 200 MG tabletIndications:S jogren's syndrome, with unspecified organ involvement (HCC) Take 1 (one) tablet by mouth once daily 90 tablet 025 Active acyclovir (ZOVIRAX) 5 % ointment Apply to affected area as needed (As Directed) Apply to cold sores up to every 3 hours for 7 days as needed. 015 05/28 Discontinued( List Clean-Up) guaiFENesin ER 12hr (Mucinex) 600 MG tablet Take 1 (one) tablet by mouth every 12 hours 05/28 Discontinued( Clinical Decision) hydroxychloroquine (Plaquenil) 200 MG tabletIndications:S jogren's syndrome, with unspecified organ involvement (HCC) Take 1 (one) tablet by mouth once daily 90 tablet 024 06/15 Discontinued( Reorder) Vascepa 1 g capsule TAKE 1 CAPSULE BY MOUTH TWICE DAILY WITH MORNING MEAL AND WITH EVENING MEAL 180 capsule 3 024 06/08 Discontinued flunisolide (Nasalide) 25 MCG/ACT (0.025%) nasal solution USE 1 SPRAY(S) IN EACH NOSTRIL ONCE DAILY AT BEDTIME 25 mL 025 05/25 Discontinued cyclobenzaprine (Flexeril) 5 MG tabletIndications:C hronic midline low back pain without sciatica,Back spasm Take 1 tablet by mouth twice daily as needed 60 tablet 025 05/28 Discontinued( List Clean-Up) amoxicillin-clavula kurtis (Augmentin) 875-125 MG tablet Take 1 (one) tablet by mouth 2 times daily with morning and evening meal for 5 days 10 tablet 05/28/20 25 12:51 PM CDT 025 06/02 polyethylene glycol 3350 (Miralax) 17 g packet Take 17 (seventeen) g by mouth once daily as needed for Constipation 025 06/11 Discontinued( List Clean-Up) oxyCODONE, immediate release, (Roxicodone) 5 MG tabletIndications:O pen fracture of left nasoorbitoethmoid complex, initial encounter ([facility]) Take 1 (one) tablet by mouth every 6 hours as needed 12 tablet 05/28/20 25 12:51 PM CDT 025 06/11 Discontinued( List Clean-Up) Active Problems Problem Noted Date Diagnosed Date [...] 03/28/2020 Assessment & Plan (10/08/2020 3:58 PM TURBINE ATTENDANT): BP stable. No changes. Continue BB and ARB. S/P coronary artery stent placement 08/08/2018 Overview (08/08/2018): 3/14 1. Severe stenosis in the mid LAD [...] D1. Assessment & Plan (10/08/2020 3:53 PM TURBINE ATTENDANT): Stable. No changes. No further ischemic evaluation [...] spleen 10/04/2017 Coronary artery disease invo lving [place] coronary artery of [place] heart without angina pectoris 03/14/2014 Overview (05/25/2018): [...] D1. Assessment & Plan (10/08/2020 3:52 PM TURBINE ATTENDANT): Stable sp PCI to LAD with DB in February 2014. Asymptomatic. Continue ASA, statin, BB and ARB. Pt had routine blood work drawn this week, will look for results. 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 Encounters Date Type Department Care Team Description 06/19/2025 10:45 AM CDT - 06/19/2025 11:59 PM CDT Hospital Encounter [facility] [address] [place] [address] Luis Munoz MD Discharge Disposition: Home or Self Care 06/18/2025 Results Follow-Up [facility] [address] [place] [address] Melania Mohan MD 06/15/2025 Telephone [facility] [address] [place] [address] Ave [address] [place] [address] Sg Lopez Che, MD Medication Request 06/15/2025 Refill [facility] - Rheumatology [address] [place] [phone] Markie Romero MD MEDICATION REFILL 06/14/2025 11:00 AM CDT [facility] [address] [place] [phone] Monse Kelly APRN-MEDICAL ONCOLOGY PHYSICIAN 06/14/2025 Travel 06/12/2025 11:30 AM CDT [facility] [address] [place] [address] [address] [place] [address] Melania Mohan MD VAIN (vaginal intraepithelial neoplasia) (Primary Dx); ALVERTO III (vulvar intraepithelial neoplasia III) 06/12/2025 Travel 06/11/2025 11:00 AM CDT Office Visit [facility] - Plastic Surgery [address] [place] [phone] Sharad Mclaughlin, TERMITE CONTROL REPRESENTATIVE-MEDICAL ONCOLOGY PHYSICIAN Arlette Izaguirre, SARAH Fall (on) (from) other stairs and steps, initial encounter (Primary Dx); Open fracture of left orbital floor, initial encounter (HCC); Open fracture of left nasoorbitoethmoid complex, initial encounter (HCC); Open fracture of left maxillary sinus, initial encounter (HCC); Fracture of medial orbital wall, left side, initial encounter for open fracture (HCC) 06/11/2025 9:15 AM CDT Office Visit [facility] - [facility]oped[facility] [facility], [place] [address] Sharad Mclaughlin, TERMITE CONTROL REPRESENTATIVE-MEDICAL ONCOLOGY PHYSICIAN Closed nondisplaced fracture of base of fourth metacarpal bone of right hand with routine healing, subsequent encounter (Primary Dx); Fall down stairs, subsequent encounter; Open fracture of orbit with routine healing, subsequent encounter; Skin tear of right hand without complication, subsequent encounter 06/11/2025 9:10 AM CDT - 06/11/2025 11:59 PM CDT Hospital Encounter [facility] DIAGNOSTIC RAD CSM [address] [facility] [place] [address] Sharad Mclaughlin, KAELYN-MEDICAL ONCOLOGY PHYSICIAN Discharge Disposition: Home or Self Care 06/11/2025 Travel 06/08/2025 Refill [facility] - Cardiology [facility] [address] [phone] Ghada Guardado MD Refill Request 06/05/2025 11:00 AM CDT Office Visit Transitional Care at [address] [phone] Megan Hairston MD Age related osteoporosis, unspecified pathological fracture presence (Primary Dx); Essential hypertension; Coronary artery disease involving [place] coronary artery of [place] heart without angina pectoris 06/04/2025 Telephone Transitional Care at [address] [phone] Chayo Mosher MA Scheduling 06/04/2025 Travel 06/04/2025 Telephone [facility] Internal Med [address] [place] [address], [place] [phone] Franky Choudhury DO [facility] Follow-up 2025 Orders Only [facility] - Orthopedics [address] [place] [phone] Sharad Mclaughlin, TERMITE CONTROL REPRESENTATIVE-MEDICAL ONCOLOGY PHYSICIAN Right hand pain 05/28/2025 Ophth Exam [facility] Ophthalmology [address] [place] [phone] Barrett Gutierrez MD 05/26/2025 4:19 PM CDT - 05/28/2025 3:33 PM CDT Hospital Encounter [facility] 5S ACUTE [address] [place] [phone] Jaquan Wilhelm MD Freeman, Carl A, MD Trauma Discharge Disposition: Home or Self Care 05/26/2025 Ophth Exam [facility] - Ophthalmology [address] [place] [phone] Jorge Johnston MD 05/26/2025 Travel 05/25/2025 Orders Only [facility] Pediatric[facility] - Orthopedics [address] [place] [address] [address] [facility] [address] [place] [address] Levi Meehan MD Back spasm 05/23/2025 Results Follow-Up [facility] - [facility] [address] [place] [phone] Jasmyn Alvarado APRN-ELSY 05/23/2025 Orders Only [facility] - GI [address] [place] [phone] Jasmyn Alvarado, TERMITE CONTROL REPRESENTATIVE-MEDICAL ONCOLOGY PHYSICIAN Autoimmune hepatitis (HCC) ; Elevated liver enzymes; Encounter for screening for other viral diseases 05/22/2025 Refill [facility] - Internal Med [address] [place] [phone] Franky Choudhury DO Refill Request 05/15/2025 2:00 PM CDT [facility] - Hematology/Oncolo gy [address] [place] [phone] Luis Munoz MD 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) (Primary Dx) 05/15/2025 1:40 PM CDT - 05/15/2025 11:59 PM CDT Hospital Encounter [facility] CANCER CARE DRAWSTATION [address] [place] [address] Discharge Disposition: Home or Self Care 05/15/2025 Travel 05/14/2025 10:00 AM CDT [facility] - Ophthalmology [address] [place] [phone] Xu Kelly, OD Long-term use of Plaquenil (Primary Dx); Lagophthalmos of right lower eyelid, unspecified lagophthalmos type; Combined forms of age-related cataract of both eyes 05/14/2025 9:30 AM CDT Clinical Support [facility] - Ophthalmology [address] [place] [phone] Xu Kelly, OD Long-term use of Plaquenil (Primary Dx) 05/14/2025 Travel 05/10/2025 2:00 PM CDT Office Visit [facility] - Cardiology [address] [facility] [address] [place] [address] Ghada Guardado MD History of right hip replacement (Primary Dx); Mixed hyperlipidemia 05/10/2025 Travel 05/08/2025 1:45 PM CDT - 05/08/2025 11:59 PM CDT Hospital Encounter [facility] OP DRAW STATION [address] [place] [address] Discharge Disposition: Home or Self Care 05/08/2025 1:00 PM CDT Office Visit [facility] - GI [address] [place] [phone] Jasmyn Alvarado, TERMITE CONTROL REPRESENTATIVE-MEDICAL ONCOLOGY PHYSICIAN Autoimmune hepatitis (HCC) (Primary Dx) 05/08/2025 Travel 05/07/2025 Refill [facility] - Internal Med [address] [place] [phone] Franky Choudhury DO Refill Request 05/04/2025 Orders Only [facility] - Hematology/Oncolo gy [address] [place] [phone] Erin Guerra RN 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) 04/13/2025 Refill [facility] - Internal Med [address] [facility], [place] [address] Franky Choudhury DO Refill Request from Last 3 Months Immunizations Immunization Administration Dates Next Due INFLUENZA VACCINE, TRIV. (AF LURIA, FLUZONE TRIVALENT; 6MO+) (IIV3) 09/04/2016,07/30/2015,08/09/2013,2011 COVID MODERNA 12+ yr 50mcg/0.5mL 08/20/2023 COVID MODERNA BIVALENT 12Y+ 50MCG/0.5ML 08/08/2022 COVID PFIZER 12+YR 30MCG/0.3mL 08/12/2024 Covid Moderna primary monova lent 12+ yr 0.5mL 03/10/2022,08/28/2021,02/27/2021,2020 FLU VACCINE TRI IIV3 SPLIT I M (FLUVIRIN) 08/15/2015,08/06/2014 INFLUENZA VACCINE 08/20/2023,,08/07/2021,2018,09/12/2018,08/11/2017,08/24/2016 INFLUENZA VACCINE, ADJUVANTE D, TRIV. (FLUAD TRIVALENT; 65Y+) (AIIV3) 08/12/2024 INFLUENZA VACCINE, HIGH-DOSE , QUADR. (FLUZONE HIGH-DOSE QUADRIVALENT; 65Y+), 0.7 ML (HD-IIV4) 08/26/2023,08/15/2022,08/07/2021,2019,08/15/2019,09/12/2018 INFLUENZA VACCINE, HIGH-DOSE , TRIV. (FLUZONE HIGH-DOSE TRIVALENT; 65Y+) (HD-IIV3) 08/15/2019,08/11/2017,08/24/2016 Influenza Intradermal 08/20/2012 PNEUMOCOCCAL PCV20 CONJ VAC IM 05/19/2023 PNEUMOCOCCAL PPSV23 09/03/2017 Pneumococcal Pcv13 Conj 10/05/2016 RSV AREXVY 60YR+ 0.5ML 08/20/2023 TD (AGE 7-ADULT) 08/29/2018 TDAP (7yrs+) 11/14/2007 Zoster Hzv Vacc Recombinant Inj Im 03/14/2021, Family History Medical History Relation Name Comments Heart Disease Brother CABG and AVR Kidney Stones Daughter Malignant Hyperthermia Daughter Heart Disease Father Lupus Father Cancer - Skin, Non Melanoma Maternal Grandmother Beba/mother Cancer - Skin, Melanoma Mother Ebba/mother Cancer - Skin, Non Melanoma Mother Beba/mother Heart Disease Mother Beba/mother CABG and tommy ve replacement Hypertension Mother Beba/mother Osteoporosis Mother Beba/mother Stroke Mother Beba/mother Cancer Sister 1 Mother Cancer - Skin, Non Melanoma Sister 1 Mother Breast Biopsy Sister 2 Joi/sister Oophorectomy Neg Hx Relation Name Status Comments Brother Daughter Father Maternal Grandmother Beba/mother Mother Beba/mother Sister 1 Mother Sister 2 Joi/sister Alive Social History Tobacco Use Types Packs/Day Years [...] Recorded Patient Health Questionnaire-2 Score 0 06/09/2025 [facility] Occupat ional [facility] - Occupational Stress [...] time in the past 12 m [facility], were you homeless or living in a [facility] (including now)? No 05/27/2025 Comments No Sex and Gender Information Value Date Recorded Sex Assigned at Not on file Legal Sex Female 6:32 AM TURBINE ATTENDANT Gender Identity Not on file Sexual Orientation Not on file Occupation Industry Job Start Date Job End Date Retired Not on file Not on file Not on file Last Filed Vital Signs Vital Sign Reading Time Taken Comments Blood Pressure 128/82 06/12/2025 11:29 AM CDT Pulse 90 06/11/2025 11:07 AM CDT Temperature 36.6 C (97.8 F) 06/11/2025 11:07 AM CDT Respiratory Rate 20 06/05/2025 10:38 AM CDT Oxygen Saturation 96% 06/05/2025 10:38 AM CDT Inhaled Oxygen Concentration 96% 07/23/2020 2 :53 PM CDT Weight 52.6 kg (116 lb) 06/19/2025 11:14 AM CDT Height 152.4 cm (5') 06/19/2025 11:14 AM CDT Body Mass Index 22.65 06/19/2025 11:14 AM CDT Plan of Treatment Upcoming Encounters Date Type Department Care Team (Late st Contact Info) Description 07/16/2025 10:30 AM CDT Procedure visit [facility] Cosmetic Dermatology [address], [address] [place] [phone] 07/23/2025 9:15 AM CDT Office Visit [facility] - Orthopedics [address] [place] [phone] Sharad Mclaughlin, TERMITE CONTROL REPRESENTATIVE-MEDICAL ONCOLOGY PHYSICIAN [address] [facility] [address] [place] [address] 07/26/2025 1:45 PM CDT Office Visit [facility] - Internal Med [address] [place] [phone] Franky Choudhury, [address] [place] [address] 08/02/2025 1:00 PM CDT Office Visit [facility] - Ophthalmology [address] [place] [phone] Monse Kelly, TERMITE CONTROL REPRESENTATIVE-MEDICAL ONCOLOGY PHYSICIAN [address] [place] [address] DE[place] [phone] 08/09/2025 1:30 PM CDT Hospital Encounter [address] [address] 08/09/2025 2:00 PM CDT Hospital Encounter [address] [address] 08/14/2025 11:00 AM CDT Office Visit [facility] - Cosmetic Dermatology [facility], [facility] [address] [place] [phone] Consuelo Bosch MD [address] [facility] [address] [place] [address] 09/06/2025 11:30 AM CDT Office Visit [facility] - Cardiology [address] [facility], [address] [place] [address] Stephanie Silvestre, TERMITE CONTROL REPRESENTATIVE-MEDICAL ONCOLOGY PHYSICIAN [address] [facility] [address] [place] [address] 10/01/2025 1:00 PM TURBINE ATTENDANT Office Visit [facility] - Rheumatology [address] [place] [phone] Markie Romero MD [address] [facility] [place] [phone] 11/13/2025 11:00 AM TURBINE ATTENDANT Office Visit [facility] - Hematology/Oncology [address] [place] [phone] Luis Munoz MD [address] [facility] DIV OF HEMATOLOGY & [place] [address] 11/15/2025 11:00 AM TURBINE ATTENDANT [facility] - [facility] [address] [facility] [address] [place] [phone] Jennifer Guy, TERMITE CONTROL REPRESENTATIVE-MEDICAL ONCOLOGY PHYSICIAN [address] [facility] [address] [place] [address] 11/16/2025 11:00 AM TURBINE ATTENDANT Office Visit [facility] - Ophthalmology [address] [facility], [place] [phone] Xu Kelly OD [address] [place] [phone] 05/14/2026 12:30 PM CDT Procedure visit [facility] - GI [address] [facility], [place] [phone] 05/14/2026 1:00 PM CDT Office Visit [facility] - GI [address] [facility], [place] [phone] Jasmyn Alvarado, TERMITE CONTROL REPRESENTATIVE-MEDICAL ONCOLOGY PHYSICIAN [address] [facility] [place] [address] Health Maintenance Due Date Last Done Comments COLOGUARD (AGES 45-75) - COLON CA SCREENING 1950 CT COLONOGRAPHY - COLON CA SCREENING 1950 FIT - COLON CA SCREENING 1950 FLEX SIG - COLON CA SCREENING 1950 COVID-19 VACCINE ( season) 2025 08/12/2024, 08/20/2023, 08/08/2022, Additional history exists INFLUENZA VACCINE (#1) 2025 , 08/26/2023, 08/20/2023, Additional history exists MEDICARE AWV 12 MONTHS 11/08/2025 11/08/2024, 11/18/2023, 04/09/2022, Additional history exists MAMMOGRAM 06/19/2027 06/19/2025, 05/29, 06/14/2023, Additional history exists DTAP/TDAP/TD VACCINES (3 - Td or Tdap) 08/29/2028 08/29/2018, 11/14/2007 COLON MONITORING 05/04/2032 05/04/2022, 05/04/2022 COLONOSCOPY - COLON CA SCREENING 05/04/2032 05/04/2022, 05/04/2022 Colorectal Cancer Screening 05/04/2032 HEPATITIS C SCREENING Completed 07/15/2017 ZOSTER VACCINE Completed 03/14/2021, 11/28/2020 BONE DENSITY TESTING Completed 11/12/2022, 05/27/2020, 10/13/2016, Additional history exists PNEUMOCOCCAL VACCINE 50+ Completed 023, 09/03/2017, 10/05/2016 Respiratory Syncytial Virus (RSV) Vaccine Pt: or over 60 yrs Completed 08/20/2023 DEPRESSION SCREENING Completed 03/19/2025, 11/08/2024, 05/04/2024, Additional history exists HEPATITIS B VACCINE Aged Out No longe r eligible based on patient's age to complete this topic HIB VACCINE Aged Out No longer eligi ble based on patient's age to complete this topic HPV VACCINE Aged Out No longer eligi ble based on patient's age to complete this topic MENINGOCOCCAL (Group B) VACCINE SHARED DECISION-MAKING Aged Out No longer eligible based on patient's age to complete this topic MENINGOCOCCAL GROUPS A/C/Y/W VACCINE Aged Out No longer eligible based on patient's age to complete this topic Goals Goal Patient Goal Type Associated Problems [...] one week prior to your last dose Medical Devices Implanted Type Area Community Health Program Coordinator Device Identifier Shelf Expiration Date Model / Serial / Lot Set Intbt .016in .025in Crwfrd Nose Implanted:Qty: 1 on 08/06/2023 by Selam Ramirez MD at [facility] Right: Lacrimal Duct [employer] 12/29/2027 [id number] / / [id number] Raeford Sut Healix Adv Dynacord 5.5mm Implanted:Qty: 2 on 11/02/2024 by Levi Meehan MD at [facility] Right: Hip [employer] 01/26/2026 [id number] / / [id number] Raeford Sut Healix Adv Dynacord 5.5mm Implanted:Qty: 1 on 11/02/2024 by Levi Meehan MD at [facility] Right: Hip [employer] 05/28/2025 [id number] / / [id number] [employer] Sut Healix Adv 5.5mm Bcmps Slf Implanted:Qty: 1 on 11/02/2024 by Levi Meehan MD at [facility] Right: Hip [employer] 03/28/2027 [id number] / / [id number] [employer] Sut Healix Adv 5.5mm Bcmps Slf Implanted:Qty: 1 on 11/02/2024 by Levi Meehan MD at [facility] Right: Hip [employer] 02/26/2027 [id number] / / [id number] Explanted Type Area [facility] Coordinator Device Identifier Shelf Expiration Date Model / Serial / Lot Stent Pncr 15mm 24mm 10mm 146mm 138mm Implanted:Qty: 1 Explanted:Qty: 1 on 07/19/2018 by Genaro Short MD at [facility] [employer] 05/26/2020 [id number] / / [id number] Procedures Procedure Name Priority Date/Time Associated Diagnosis Comments MAMMO BILAT SCREENING W BALJINDER Routine 06/19/2025 11:14 AM CDT Screening due Encounter for screening mammogram for malignant neoplasm of breast PAP IMAGE-GUIDED W HPV Routine 06/12/2025 11:58 AM CDT VAIN (vaginal intraepithelial neoplasia) HPV HIGH RISK W/RFLX TO GENOTYPES Routine 06/12/2025 11:58 AM CDT VAIN (vaginal intraepithelial neoplasia) XR HAND RIGHT 3VW OR MORE Routine 06/11/2025 9:20 AM CDT Right hand pain PHOSPHORUS BLOOD Routine 05/28/2025 5:36 AM CDT MAGNESIUM BLOOD Routine 05/28/2025 5:36 AM CDT CBC W AUTO DIFFERENTIAL AM Draw 05/28/2025 5:36 AM CDT BASIC METABOLIC PANEL (CALCIUM TOTAL) AM Draw 05/28/2025 5:36 AM CDT C DIFFICILE GDH AG + TOXIN A+B Routine 05/27/2025 6:00 PM CDT PHOSPHORUS BLOOD Routine 05/27/2025 4:38 AM CDT MAGNESIUM BLOOD Routine 05/27/2025 4:38 AM CDT CBC W AUTO DIFFERENTIAL AM Draw 05/27/2025 4:38 AM CDT BASIC METABOLIC PANEL (CALCIUM TOTAL) AM Draw 05/27/2025 4:38 AM CDT XR LUMBAR SPINE 2 OR 3VW STAT 05/26/2025 7:57 PM CDT Facial laceration, initial encounter XR FOOT LEFT 3VW OR MORE STAT 05/26/2025 6:17 PM CDT Trauma XR HAND RIGHT 3VW OR MORE STAT 05/26/2025 6:17 PM CDT Trauma XR FOREARM RIGHT 2VW OR MORE STAT 05/26/2025 6:[address] CHEST ABDOMEN PELVIS W CONT STAT 05/26/2025 5:[address] LUMBAR SPINE WO CONTRAST STAT 05/26/2025 5:[address] THORACIC SPINE WO CONTRAST STAT 05/26/2025 5:[address] CERVICAL SPINE WO CONTRAST STAT 05/26/2025 5:[address] FACIAL BONES WO CONTRAST STAT 05/26/2025 5:[address] HEAD WO CONTRAST STAT 05/26/2025 5 :12 PM CDT Trauma TYPE + SCREEN PANEL STAT 05/26/2025 4 :45 PM CDT PT-INR [facility] STAT 05/26/2025 4:45 PM CDT CBC W AUTO DIFFERENTIAL STAT 05/26/2025 4:45 PM CDT BASIC METABOLIC PANEL (CALCIUM TOTAL) STAT 05/26/2025 4:45 PM CDT ALCOHOL ETHYL BLOOD STAT 05/26/2025 4 :45 PM CDT XR PELVIS 1 OR 2VW Routine 05/26/2025 4: 34 PM CDT Trauma XR CHEST 1VW PORTABLE STAT 05/26/2025 4:34 PM CDT Trauma LOPEZ AUTO VISUAL FIELD EXTENDED Routine 05/14/2025 9:29 AM CDT Long-term use of Plaquenil IGG BLOOD Routine 05/08/2025 2:02 PM CDT Autoimmune hepatitis (HCC) COMPREHENSIVE METABOLIC PANEL Routine 05/08/2025 2:02 PM CDT Autoimmune hepatitis (HCC) CBC W AUTO DIFFERENTIAL Routine 05/08/2025 2:02 PM CDT Autoimmune hepatitis (HCC) DEXA BONE DENSITY AXIAL SKELETON Routine 11/12/2022 9:35 AM 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 Possible calcifications are questioned in the slightly inner central right breast. Additional imaging is recommended. 2. Negative, no mammographic evidence of malignancy in the left breast. RECOMMENDATION: Diagnostic right mammogram. If indicated at that time, right breast ultrasound will be performed. Patient will be contacted and scheduled to return for the additional imaging. OVERALL ASSESSMENT: BI-RADS CATEGORY 0: INCOMPLETE: NEED ADDITIONAL IMAGING EVALUATION. Report dictated by Soren Reyes MD(vice president of communications). > Interpreting Provider: Lizz Neil MD on 06/19/2025 2:03 PM Narrative 06/19/2025 2:03 PM CDT EXAMINATIONS: BILATERAL DIGITAL SCREENING MAMMOGRAM AND BILATERAL BREAST TOMOSYNTHESIS LOCATION: [facility] EXAM DATE: 06/19/2025 HISTORY: Screening. History of left benign breast biopsy. No reported family history of breast cancer. RISK ASSESSMENT CALCULATION: Patient completed a breast cancer risk assessment during her appointment 06/19/2025. Based upon the information she provided and her mammographic breast density, her lifetime risk of developing breast cancer is 4 % (Average Risk <15%; Intermediate / Moderate Risk 15-19; High Risk > 20%). Risk assessment based upon the BRCAPRO model. COMPARISON: Compare with prior breast imaging studies back to 2017 from [facility], with the most recent dated 06/16/[address] [facility]. TECHNIQUE: Tomosynthesis (3D) and reconstructed synthetic 2-D images acquired and reviewed in the bilateral craniocaudal and mediolateral oblique projections. Transpara AI was utilized in the interpretation. BREAST PARENCHYMAL COMPOSITION: Category C: The breasts are heterogeneously dense which may obscure small masses. FINDINGS: Right breast: Possible calcifications are questioned in the slightly inner central breast at posterior depth. Left breast: No significant masses, suspicious calcification, or other abnormality is noted. A tissue marker is present. us Melania Mohan MD MAMMO ORDERABLES Final Res ult * HPV HIGH RISK W/RFLX TO GENOTYPES (06/12/2025 11:58 AM CDT) Human papillomavirus Source Vaginal 06/15/2025 9:01 AM CDT [employer] ([facility]) Human papillomavirus High Risk by TMA Not Detected 06/15/2025 9:01 AM CDT [employer] ([facility]) Comment: This test was developed and its performance characteristics determined by [employer] It has not been cleared or approved by the U.S. Food and Drug Administration. This test was performed in a CLIA-certified laboratory and is intended for clinical purposes. INTERPRETIVE INFORMATION: HPV, High Risk by TMA This test detects E6/E7 viral messenger RNA of 14 high-risk HPV types (16, 18, 31, 33, 35, 39, 45, 51, 52, 56, 58, 59, 66, and 68) associated with cervical cancer and its precursor lesions. This test does not discriminate between the 14 high-risk HPV types. Sensitivity may be affected by specimen collection methods, stage of infection, and the presence of interfering substances. Results should be interpreted in conjunction with other available laboratory and clinical data. A negative high-risk HPV result does not exclude the presence of other high-risk HPV types. HPV testing should not be used for screening or management of atypical squamous cells of undetermined significance (ASCUS) in women under age 21. Performed By: [facility] [place] [address] Set Up Machinist: Aj Cárdenas MD, PhD CLIA Number: [id number] Pathology/Cytolo gy ENTIRE VAGINA / Unknown Collection / Unknown 06/12/2025 11:58 AM CDT 06/13/2025 12:16 PM CDT Jennifer VALLEJO LAB - MICROBIOLOGY ORDER MACRELINO Final Result [facility] ([facility]) [address] [place] [address] * PAP IMAGE-GUIDED W HPV (06/12/2025 11:58 AM CDT) Case Report Gynecologic Cytology Report Case: [id number] Authorizing Provider: eJnnifer Guy APRN-CNP Collected: 06/12/2025 11:58 AM Ordering Location: [facility] - Received: 06/12/2025 12:05 PM EGG CASER First Screen: James Campos, LAKESHA(ASCP) Rescreen: Simonttleonela Danny Specimen: THINPREP - IMAGE GUIDED, Vagina 06/18/2025 9:20 AM CDT [facility] LMP remote 06/18/2025 9:20 AM CDT [facility] Menstrual Status Hysterectomy 2024 9:20 AM CDT [facility] Specimen Adequacy Satisfactory for evaluation. 06/18/2025 9:20 AM CDT [facility] Categorization Negative for intraepithelial lesion or malignancy. 06/18/2025 9:20 AM CDT [facility] Interpretation WELDER [employer]ODUCTION [employer] COMBINATION Negative for intraepithelial lesion or malignancy. 06/18/2025 9:20 AM CDT [facility] at 0920 CDT Other Atrophic changes. 025 9:20 AM CDT [facility] Pap Footnote The Pap Smear is a screening test. False positive and false negative results occur. Negative results do not preclude abnormalities, thus clinical correlation is required. This specimen was evaluated by the [employer] System along with an additional manual rescreening by a bread room hand and/or pathologist. 06/18/2025 9:20 AM CDT [facility] Embedded Images 9:20 AM CDT [facility] Pathology/Cytolo gy ENTIRE VAGINA / Unknown Collection / Unknown 06/12/2025 11:58 AM CDT 06/12/2025 12:05 PM CDT Jennifer Guy TERMITE CONTROL REPRESENTATIVE-MEDICAL ONCOLOGY PHYSICIAN LAB - PATHOLOGY/CYTOLOGY ORDERABLES Final Result Performing Organization Address City/State/[facility] Co de Phone Number [facility] [address] [phone] * XR Hand Right 3Vw or More (06/11/2025 9:20 AM CDT) Only the most recent of2 resultswithin the time period is included. Anatomical Region Laterality Modality Wrist / Hand Radiographic Gavi ging 06/11/2025 9:24 AM CDT Impressions 06/11/2025 9:26 AM CDT IMPRESSION: No acute osseous abnormality. > Interpreting Provider: Matt Polanco MD on 06/11/2025 9:26 AM Narrative 06/11/2025 9:26 AM CDT PROCEDURE: XR HAND RIGHT 3VW OR MORE DATE/TIME OF EXAM: 06/11/2025 9:20 AM CLINICAL INFORMATION: None relevant/not provided if blank. Indication: M79.641: Right hand pain Additional History: COMPARISON: None. FINDINGS: No fracture or dislocation is present. The joint spaces are normal. No erosions are seen. Bone density is decreased. The soft tissues are normal. There are a few small soft tissue calcifications in the wrist which may represent chondrocalcinosis which can be associated with CPPD arthropathy and processes. Procedure Note Matt Polanco MD - 06/11/2025 PROCEDURE: XR HAND RIGHT 3VW OR MORE DATE/TIME OF EXAM: 06/11/2025 9:20 AM CLINICAL INFORMATION: None relevant/not provided if blank. Indication: M79.641: Right hand pain Additional History: COMPARISON: None. FINDINGS: No fracture or dislocation is present. The joint spaces are normal. No erosions are seen. Bone density is decreased. The soft tissues are normal. There are a few small soft tissue calcifications in the wristwhich may represent chondrocalcinosis which can be associated with CPPD arthropathy and processes. IMPRESSION: No acute osseous abnormality. > Interpreting Provider: Matt Polanco MD on 06/11/2025 9:26 AM Sharad Mclaughlin TERMITE CONTROL REPRESENTATIVE-MEDICAL ONCOLOGY PHYSICIAN DIAGNOSTIC IMAGING [facility] Final Result * (ABNORMAL) CBC W AUTO DIFFERENTIAL (05/28/2025 5:36 AM CDT) Only the most recent of4 resultswithin the time period is included. WBC 14.3(H) 4.0 - 10.7 x10E9/L 05/28/2025 6:59 AM CDT [facility] RBC Count 3.29(L) 3.90 - 5.20 x10E12/L 05/28/2025 6:59 AM CDT [facility] Hemoglobin 10.6(L) 11.9 - 15.8 g/dL 05/28/2025 6:59 AM T [facility] Hematocrit 31.6(L) 34.8 - 46.1 % 05/28/2025 6:59 AM [facility] MCV 96.0 80.0 - 98.0 fL 05/28/2025 6:59 AM [facility] MCH 32.2 26.7 - 33.6 pg 05/28/2025 6:59 AM [facility] MCHC 33.5 31.7 - 36.3 g/dL 05/28/2025 6:59 AM [facility] RDW-CV 13.9 11.3 - 14.8 % 05/28/2025 6:59 AM [facility] Platelet Count 285 150 - 420 x10E9/L 05/28/2025 6:59 AM [facility] MPV 11.0 7.8 - 11.4 fL 05/28/2025 6:59 AM [facility] Neutrophil % 58.1 41.0 - 74.0 % 05/28/2025 6:59 AM [facility] Lymphocyte % 32.9 17.0 - 47.0 % 05/28/2025 6:59 AM [facility] Monocyte % 7.5 3.0 - 11.0 % 05/28/2025 6:59 AM [facility] Eosinophil % 0.8 0.0 - 7.0 % 05/28/2025 6:59 AM [facility] Basophil % 0.4 0.0 - 1.6 % 05/28/2025 6:59 AM [facility] Immature Granulocytes % 0.3 0.0 - 1.0 % 05/28/2025 6:59 AM [facility] Neutrophil Absolute 8.33(H) 1.60 - 7.50 x10E9/L 05/28/2025 6:59 AM [facility] Lymphocyte Absolute 4.71(H) 1.00 - 4.40 x10E9/L 05/28/2025 6:59 AM [facility] Monocyte Absolute 1.07(H) 0.15 - 1.00 x10E9/L 05/28/2025 6:59 AM [facility] Eosinophil Absolute 0.12 0.00 - 0.60 x10E9/L 05/28/2025 6:59 AM [facility] Basophil Absolute 0.06 0.00 - 0.13 x10E9/L 05/28/2025 6:59 AM [facility] Blood BLOOD SPECIMEN / Unknown Lab Venipuncture / Unknown 05/28/2025 5:36 AM CDT 05/28/2025 6:52 AM CDT us Jaquan Wilhelm MD LAB - HEMATOLOGY ORDERA BLES Final Result [facility] [address] [place] [address], [place] [phone] * (ABNORMAL) BASIC METABOLIC PANEL (CALCIUM TOTAL) (05/28/2025 5:36 AM CDT) Only the most recent of3 resultswithin the time period is included. BUN 12 7 - 26 mg/dL 05/28/2025 7:18 AM [facility] Creatinine 0.50(L) 0.56 - 0.96 mg/dL 05/28/2025 7:18 AM [facility] Sodium 137 136 - 145 mmol/L 05/28/2025 7:18 AM [facility] Potassium 3.7 3.5 - 4.5 mmol/L 05/28/2025 7:18 AM [facility] Chloride 108(H) 98 - 107 mmol/L 05/28/2025 7:18 AM [facility] CO2 17(L) 22 - 29 mmol/L 05/28/2025 7:18 AM [facility] Glucose 84 70 - 99 mg/dL 05/28/2025 7:18 AM [facility] Calcium 8.4 8.4 - 10.2 mg/dL 05/28/2025 7:18 AM [facility] Anion Gap 12 6 - 16 05/28/2025 7:18 AM [facility] BUN/Creatinine Ratio 24(H) 7 - 23 05/28/2025 7:18 AM [facility] Osmolality Calculated 283 275 - 295 mOsm/kg 05/28/2025 7:18 AM [facility] eGFR by CKD-EPI >90 >=90 mL/min/1.7 3 m2 05/28/2025 7:18 AM CDT [facility] Blood BLOOD SPECIMEN / Unknown Lab Venipuncture / Unknown 05/28/2025 5:36 AM CDT 05/28/2025 7:03 AM CDT Narrative [facility] - 05/28/2025 7:18 AM CDT Estimated Glomerular Filtration Rate (eGFR) calculated using the CKD-EPI Creatinine Equation (2020), per the National Kidney Foundation and [place] [employer]ph[employer] recommendations. Jaquan Wilhelm MD LAB - CHEMISTRY ORDERAB LES Final Result Performing Organization Address City/[facility]/ZIP Co de Phone Number [address] [address], [place] [phone] * (ABNORMAL) PHOSPHORUS BLOOD (05/28/2025 5:36 AM CDT) Only the most recent of2 resultswithin the time period is included. Phosphorus 2.6(L) 2.9 - 5.1 mg/dL 05/28/2025 7:18 AM CDT [facility] Blood BLOOD SPECIMEN / Unknown Lab Venipuncture / Unknown 05/28/2025 5:36 AM CDT 05/28/2025 7:03 AM CDT us Jaquan Wilhelm MD LAB - CHEMISTRY ORDERAB LES Final Result [address] [address], [place] [phone] * MAGNESIUM BLOOD (05/28/2025 5:36 AM CDT) Only the most recent of2 resultswithin the time period is included. Magnesium 1.9 1.6 - 2.6 mg/dL 05/28/2025 7:18 AM CDT [facility] Blood BLOOD SPECIMEN / Unknown Lab Venipuncture / Unknown 05/28/2025 5:36 AM CDT 05/28/2025 7:03 AM CDT us Jaquan Wilhelm MD LAB - CHEMISTRY ORDERAB LES Final Result [facility] [address] [place] [address], [place] [phone] * C DIFFICILE GDH AG + TOXIN A+B (05/27/2025 6:00 PM CDT) C difficile GDH antigen & toxin A/B NEGATIVE NEGATIVE 05/27/2025 8:56 PM CDT [facility] Stool STOOL SPECIMEN / Unknown Collection / Unknown 05/27/2025 6:00 PM CDT 05/27/2025 6:09 PM CDT Narrative [facility] - 05/27/2025 8:56 PM CDT Negative for toxigenic C. difficile us Jerry Mahajan MD LAB - MICROBIOLOGY ORDERABLES Final Result [facility] [address] [place] [address], [place] [phone] * XR Lumbar Spine 2 or 3Vw (05/26/2025 7:57 PM CDT) Anatomical Region Laterality Modality Spine Digital Radiogra phy 05/26/2025 10:3 0 PM CDT Impressions 05/26/2025 10:51 PM CDT IMPRESSION: No acute fractures. Diffuse osteopenia and degenerative changes in the spine. > Interpreting Provider: Peter Cruz MD on 05/26/2025 10:51 PM Narrative 05/26/2025 10:51 PM CDT Examination: XR LUMBAR SPINE 2 OR 3VW Date: 05/26/2025 7:57 PM Indications: S01.81XA: Facial laceration, initial encounter Comparison: None Technique: Frontal and lateral radiographs of the thoracolumbar spine were obtained. Findings: Diffuse osteopenia seen. Diffuse narrowing of the disc spaces are seen between L1-L5 associated with marginal osteophytes predominantly at L1-L3. There is mild associated leftward convexity of the mid lumbar spine. No acute fractures or dislocations is seen. Neural foraminal narrowing noted at L5-S1. Vascular calcifications noted. Procedure Note Peter Cruz MD - 05/26/2025 Examination: XR LUMBAR SPINE 2 OR 3VW Date: 05/26/2025 7:57 PM Indications: S01.81XA: Facial laceration, initial encounter Comparison: None Technique: Frontal and lateral radiographs of the thoracolumbar spinewere obtained. Findings: Diffuse osteopenia seen. Diffuse narrowing of the disc spaces are seen between L1-L5 associatedwith marginal osteophytes predominantly at L1-L3. There is mild associated leftward convexity of the mid lumbar spine. No acute fractures or dislocations is seen. Neural foraminal narrowing noted at L5-S1. Vascular calcifications noted. IMPRESSION: No acute fractures. Diffuse osteopenia and degenerative changes in the spine. > Interpreting Provider: Peter Cruz MD on 510:51 PM Jaquan Wilhelm MD DIAGNOSTIC IMAGING [facility] Final Result * XR Foot Left 3Vw or More (05/26/2025 6:17 PM CDT) Anatomical Region Laterality Modality Ankle / Foot Digital Radiogra phy 05/26/2025 6:33 PM CDT Impressions 05/26/2025 10:01 PM CDT IMPRESSION: No acute fracture or dislocation identified. Report dictated by Alex Jerome MD, (vice president of communications). I, Peter Cruz MD have personally reviewed and interpreted this examination/study. > Interpreting Provider: Peter Cruz MD on 05/26/2025 10:01 PM Narrative 05/26/2025 10:01 PM CDT PROCEDURE: XR FOOT LEFT 3VW OR MORE, DATE/TIME OF EXAM: 05/26/2025 6:17 PM, LOCATION [facility] INDICATION: T14.90XA: Trauma ADDITIONAL CLINICAL INFORMATION: Ordering Provider Reason For Exam: Technologist Note: Additional: COMPARISON: None. FINDINGS: The osseous structures are intact and well aligned without acute fracture or dislocation. The joint spaces are preserved. The bones are mildly diffusely demineralized. No soft tissue swelling is present. Arthritic changes at the left first metatarsophalangeal joint. Procedure Note Peter Cruz MD - 05/26/2025 PROCEDURE: XR FOOT LEFT 3VW OR MORE, DATE/TIME OF EXAM: 05/26/2025 6:17 PM, LOCATION [facility] INDICATION: T14.90XA: Trauma ADDITIONAL CLINICAL INFORMATION: Ordering Provider Reason For Exam: Technologist Note: Additional: COMPARISON: None. FINDINGS: The osseous structures are intact and well aligned without acutefracture or dislocation. The joint spaces are preserved. The bones are mildly diffusely demineralized. No soft tissue swelling is present. Arthritic changes at the left first metatarsophalangeal joint. IMPRESSION: No acute fracture or dislocation identified. Report dictated by Alex Jerome MD, MD (vice president of communications). Peter Jennings MD have personally reviewed and interpreted this examination/study. > Interpreting Provider: Peter Cruz MD on 510:01 PM Jaquan Wilhelm MD DIAGNOSTIC IMAGING [facility] Final Result * XR Forearm Right 2Vw or More (05/26/2025 6:17 PM CDT) Anatomical Region Laterality Modality Upper Extremity Digital Radiogra phy 05/26/2025 6:35 PM CDT Impressions 05/26/2025 9:55 PM CDT IMPRESSION: No acute displaced fractures identified forearm and hand. Report dictated by Alex Jerome MD, MD (vice president of communications). Peter Jennings MD have personally reviewed and interpreted this examination/study. > Interpreting Provider: Peter Cruz MD on 05/26/2025 9:55 PM Narrative 05/26/2025 9:55 PM CDT PROCEDURE: XR FOREARM RIGHT 2VW OR MORE, XR HAND RIGHT 3VW OR MORE, DATE/TIME OF EXAM: 05/26/2025 6:17 PM, LOCATION [facility] INDICATION: T14.90XA: Trauma COMPARISON: None. RIGHT FOREARM FINDINGS: There is no fracture or osseous abnormality. The elbow and wrist joints are in normal alignment. The soft tissues are normal. RIGHT HAND FINDINGS: The osseous structures are intact and well aligned without acute fracture or dislocation. The joint spaces are preserved. Bone density and texture are normal. No soft tissue swelling is present. Procedure Note Peter Cruz MD - 05/26/2025 PROCEDURE: XR FOREARM RIGHT 2VW OR MORE, XR HAND RIGHT 3VW OR MORE, DATE/TIME OF EXAM: 05/26/2025 6:17 PM, LOCATION [facility] INDICATION: T14.90XA: Trauma COMPARISON: None. RIGHT FOREARM FINDINGS: There is no fracture or osseous abnormality. The elbow and wrist joints are in normal alignment. The soft tissues are normal. RIGHT HAND FINDINGS: The osseous structures are intact and well aligned without acutefracture or dislocation. The joint spaces are preserved. Bone density and texture are normal. No soft tissue swelling is present. IMPRESSION: No acute displaced fractures identified forearm and hand. Report dictated by Alex Jerome MD, (vice president of communications). I, Peter Cruz MD have personally reviewed and interpreted this examination/study. > Interpreting Provider: Peter Cruz MD on 59:55 PM Jaquan Wilhelm MD DIAGNOSTIC IMAGING [facility] Final Result * CT Chest Abdomen Pelvis W Cont (05/26/2025 5:12 PM CDT) Anatomical Region Laterality Modality Chest, Abdomen, Pelvis Computed Tomography 05/26/2025 5:23 PM CDT Impressions 05/27/2025 1:41 AM CDT Impression: 1.No acute visceral, vascular, or osseus injury identified in the chest, abdomen, or pelvis. 2.Upper abdominal, left mild mesenteric fat stranding with associated prominent lymph nodes can be seen in mesenteric panniculitis. > Dictated by Sindhu Williamson MD (vice president of communications). I, Darlene Rivas MD have personally reviewed and interpreted this examination/study. > Interpreting Provider: Darlene Rivas MD on 05/27/2025 1:41 AM Narrative 05/27/2025 1:41 AM CDT PROCEDURE: CT CHEST ABDOMEN PELVIS W CONT, DATE/TIME OF EXAM: 05/26/2025 5:14 PM, LOCATION [facility] INDICATION: T14.90XA: Trauma COMPARISON: None. TECHNIQUE: CT of the chest, abdomen, and pelvis was performed after the uneventful administration of 100 mL of Isovue 370 intravenous contrast according to standard protocol. Findings: Chest: Lower Neck and Axillae: Normal. Lungs: Mild bilateral dependent atelectasis is present. No suspicious pulmonary nodules are identified. No pleural fluid or pneumothorax is present. Heart and Pericardium: The cardiac chambers are normal in size. No pericardial fluid or thickening is present. The coronary arteries are atherosclerotic. Mediastinum and Chantel: No mediastinal hemorrhage is present. No enlarged lymph nodes are present. Thoracic Vasculature: The aorta and its branch vessels are atherosclerotic. Abdomen/pelvis: Liver: Normal. Gallbladder and Bile Ducts: Normal. Spleen: Normal. Pancreas: Normal. Adrenals: Normal. Kidneys: Multiple subcentimeter hypoattenuating lesions in both kidneys are too small to characterize, but likely represent cysts. Gastrointestinal: Other than small hiatal hernia, the visualized loops of large and small bowel are unremarkable. The appendix is not seen; however, no inflammatory changes are seen in the right lower quadrant. Mesentery/Peritoneum/Retroperitoneum: No free intraperitoneal air. No free fluid in the abdomen or pelvis. Mild mesenteric fat stranding with associated prominent lymph nodes none measure greater than 1 cm in short axis diameter (series 4, image 83) which can be seen in mesenteric panniculitis. Bladder: The bladder is distended. Abdominal Vasculature: Atherosclerotic calcification of the aorta and its branch vessels. Bones: Bone windows demonstrate no suspicious lytic or blastic lesions. The visible osseous structures are intact. Degenerative changes are seen in the spine. Schmorl's nodes and vacuum phenomena present at multiple levels. Chronic anterior compression wedging of the T12 vertebral body with approximately 20% height loss and mild retropulsion. Trace retrolisthesis of L2 on L3. Soft tissues: Fat-containing umbilical hernia. Procedure Note Darlene Rivas MD - 05/27/2025 PROCEDURE: CT CHEST ABDOMEN PELVIS W CONT, DATE/TIME OF EXAM:05/26/2025 5:14 PM, LOCATION [facility] INDICATION: T14.90XA: Trauma COMPARISON: None. TECHNIQUE: CT of the chest, abdomen, and pelvis was performed after the uneventful administration of 100 mL of Isovue 370 intravenous contrast according to standard protocol. Findings: Chest: Lower Neck and Axillae: Normal. Lungs: Mild bilateral dependent atelectasis is present. No suspicious pulmonary nodules are identified. No pleural fluid or pneumothorax is present. Heart and Pericardium: The cardiac chambers are normal in size. No pericardial fluid orthickening is present. The coronary arteries are atherosclerotic. Mediastinum and Chantel: No mediastinal hemorrhage is present. No enlarged lymph nodes arepresent. Thoracic Vasculature: The aorta and its branch vessels are atherosclerotic. Abdomen/pelvis: Liver: Normal. Gallbladder and Bile Ducts: Normal. Spleen: Normal. Pancreas: Normal. Adrenals: Normal. Kidneys: Multiple subcentimeter hypoattenuating lesions in both kidneys are too small to characterize, but likely represent cysts. Gastrointestinal: Other than small hiatal hernia, the visualized loops of large and small bowel are unremarkable. The appendix is not seen; however, noinflammatory changes are seen in the right lower quadrant. Mesentery/Peritoneum/Retroperitoneum: No free intraperitoneal air. No free fluid in the abdomen or pelvis.Mild mesenteric fat stranding with associated prominent lymph nodes nonemeasure greater than 1 cm in short axis diameter (series 4, image 83) which canbe seen in mesenteric panniculitis. Bladder: The bladder is distended. Abdominal Vasculature: Atherosclerotic calcification of the aorta and its branch vessels. Bones: Bone windows demonstrate no suspicious lytic or blastic lesions. The visible osseous structures are intact. Degenerative changes are seen inthe spine. Schmorl's nodes and vacuum phenomena present at multiple levels. Chronic anterior compression wedging of the T12 vertebral body with approximately 20% height loss and mild retropulsion. Traceretrolisthesis of L2 on L3. Soft tissues: Fat-containing umbilical hernia. Impression: 1.No acute visceral, vascular, or osseus injury identified in the chest, abdomen, or pelvis. 2.Upper abdominal, left mild mesenteric fat stranding with associated prominent lymph nodes can be seen in mesenteric panniculitis. > Dictated by Sindhu Williamson MD (vice president of communications). I, Darlene Rivas MD have personally reviewed and interpreted this examination/study. > Interpreting Provider: Darlene Rivas MD on 05/27/2025 1:41 AM us Jerry Mahajan MD CT ORDERABLES Final Result * CT Lumbar Spine Wo Contrast (05/26/2025 5:12 PM CDT) Anatomical Region Laterality Modality Spine Computed Tomogra phy 05/26/2025 5:17 PM CDT Impressions 05/26/2025 6:30 PM CDT IMPRESSION: CT of the head: 2.No acute intracranial hemorrhage, midline shift, or significant mass effect. CT facial bones: 1.Finding is compatible with severe left naso-orbitoethmoid (KEMAL) fracture. 2.No extraocular muscle entrapment. The eye globes are intact. No globe rupture. CT cervical, thoracic, and lumbar spine: 1.Age-indeterminate depressed fracture of the T12 vertebral body with loss of less than 30% of vertebral body height and 5 mm retropulsion resulting in mild or mild to moderate spinal canal stenosis at this level. 2.Otherwise, no evidence of acute fracture in the cervical, thoracic, or lumbar spine. Additional findings: 1.Please refer to the concurrent, dedicated body report for findings in the chest, abdomen, and pelvis > Interpreting Provider: Rc Mcdonald MD on 05/26/2025 6:30 PM Narrative 05/26/2025 6:30 PM CDT PROCEDURE: CT HEAD WO CONTRAST, CT FACIAL BONES WO CONTRAST, CT CERVICAL SPINE WO CONTRAST, CT THORACIC SPINE WO CONTRAST, CT LUMBAR SPINE WO CONTRAST, DATE/TIME OF EXAM: 05/26/2025 5:14 PM, LOCATION [facility] INDICATION: T14.90XA: Trauma EXAMINATION: 1. Computed tomography (CT) of the head without contrast 2. CT of the maxillofacial bones, orbits, and paranasal sinuses without contrast 3. CT of the cervical spine without contrast 4. CT of the thoracic spine without contrast 5. CT of the lumbar spine without contrast ADDITIONAL CLINICAL INFORMATION: Ordering Provider Reason For Exam: Trauma. Technologist Note: None. Additional: None. TECHNIQUE: CT of the head, cervical spine, and maxillofacial bones, orbits, and paranasal sinuses was performed without contrast according to standard protocol. Reformatted axial, sagittal, and coronal images of the thoracic and lumbar spine were obtained by the technologist from a concurrently performed body CT and sent to the workstation for review. CT dose reduction technique was used, including Automated Exposure Control. COMPARISON: No prior study is available for comparison at the time of this dictation. FINDINGS: Head: No acute intra- or extra-axial fluid collections are identified. There is mild cerebral volume loss with associated ex vacuo ventricular dilatation. The basilar cisterns are patent. No mass effect or midline shift is seen. The doss-white matter differentiation is normal. Periventricular white matter hypoattenuation is indicative of chronic small vessel ischemic disease. There is vascular calcification of the carotid siphons. No acute calvarial fracture is identified. Extensive left facial bone fractures are detailed in the next section Maxillofacial: There are facial bone fractures as follows: *There is a left inferior orbital wall blowout fracture with depressed bone fracture inferiorly in the upper aspect of the left maxillary sinus. There is extraconal hemorrhage and foci of gas adjacent to the fracture site. No extra ocular muscle entrapment. *There is an acute, moderately displaced fracture of the inferior aspect of the left lamina papyracea, with extraconal hemorrhage and foci of gas along the medial aspect of the left orbit inferiorly. No extra ocular muscle entrapment. *There is large lacerations with extensive foci of gas and hemorrhage involving the left temporal scalp, extending posteriorly adjacent to the squamous portion of the left temporal bone, and extending inferiorly adjacent to the left zygomatic arch. Its unclear whether there is a nondisplaced fracture of the squamous portion of the left temporal bone. There is extension of the subcutaneous soft tissue lacerations and foci of gas along the lateral aspect of the left orbit. It is unclear whether there is a nondisplaced fracture of the lateral wall of the left orbit. *There is a comminuted, moderately to severely displaced fracture of the medial wall of the right maxillary sinus, with displaced fractures along the fracture line. There are fractures of the paz of the adjacent left ethmoid air cells. There is hemorrhage within the left maxillary sinus and the left ethmoid air cells. *There is fracture involvement of the wall of the left lacrimal duct. *Questionable irregularities along the cribriform plate of ethmoid bone, unclear whether representing nondisplaced fractures. *Severe, severely comminuted fractures of the anterior wall of the left maxillary sinus, with depressed bone fragments extending slightly in the left maxillary sinus. There is hemorrhage in the adjacent subcutaneous soft tissues of the left cheek. *There are severely comminuted, displaced fractures of the nasal process of the left maxillary bone. There is adjacent soft tissue swelling and lacerations with foci of gas and hemorrhage. *There are minimally or mildly displaced fractures of the left nasal bone. *Suspected nondisplaced fracture of the right nasal bone. *Suspected minimally displaced fractures of the nasal tip. The orbits appear otherwise grossly unremarkable. There are sinonasal postsurgical and inflammatory changes, to be correlated with prior clinical/surgical history and prior imaging, if available. There is mild paranasal sinus disease. There are degenerative changes of the temporomandibular joints. The hard palate, mandible, and temporomandibular joints appear otherwise grossly unremarkable. Small amount of cerumen is present in the left external auditory canal. The mastoid air cells are grossly clear. Extensive lacerations along the left face, left cheek, and the left temporal scalp. Cervical spine: Mild anterolisthesis of C3 on C4. Minimal retrolisthesis of C4 on C5, C5 on C6, and C6 on C7. Mild levocurvature of the cervical spine. Reversal of the cervical lordosis at the level of C4 the C5.. Vertebral bodies are normal in height without evidence of acute fracture. Other than advanced middle atlantoaxial joint osteoarthritis, the craniocervical junction appears normal. There is advanced degenerative disc disease. Mild central canal stenosis is seen. There are varying degrees of mild facet osteoarthritis. There are varying degrees of mild to advanced uncovertebral joint osteoarthritis with the same degree of neural foraminal stenosis at these levels. There is atherosclerotic calcification of the carotid bifurcations. Thoracic spine: Mild dextro curvature of the thoracic spine. Straightening of the thoracic kyphosis. The alignment is otherwise maintained. Age-indeterminate mild burst fracture of the T12 vertebral body with loss of less than 30% of the vertebral body height anteriorly and approximately 5 mm retropulsion of the superior fractured fragment, resulting in up to moderate spinal canal stenosis at this level. Vertebral bodies are normal in height without evidence of acute fracture. Schmorl's nodes are present at multiple levels. There is advanced degenerative disc disease. [id number] spinal canal stenosis at the level of T6/T7 due to central calcified disc protrusion. No high-grade central canal stenosis is otherwise seen. There are varying degrees of mild facet osteoarthritis. No high-grade neural foraminal stenosis is seen. There is subsegmental atelectasis in the dependent portions of the lung bases. There are atherosclerotic calcifications of the coronary arteries. There are calcifications of the aortic valve leaflets/aortic root. There is atherosclerotic calcification of the thoracic aorta and its branch vessels. There is a small hiatal hernia. Lumbar spine: Minimal retrolisthesis of L1 on L2, L2 on L3, L3 on L4, L4 on L5, and L5 on S1. Mild right lateral listhesis of L1 on L2. Mild left lateral recess of L2 on L3 and L3 on L4. Mild levoscoliosis of the upper lumbar spine and mild dextroscoliosis of the lower lumbar spine. The alignment is otherwise maintained. Vertebral bodies are normal in height without evidence of acute fracture. There is advanced degenerative disc disease. Decreased disc space height, endplate sclerosis and erosions and vacuum disc phenomenon are seen at L1-L5. Multilevel mild to moderate central canal stenosis is seen. Advanced There are varying degrees of neural foraminal stenosis at multiple levels. There are degenerative changes of the SI joints There is atherosclerotic calcification of the abdominal aorta and its branch vessels. Brain injury guidelines: Skull fracture: No Subdural hematoma: No subdural hematoma. Epidural hematoma: No epidural hematoma. Intraparenchymal hemorrhage: No intraparenchymal hemorrhage. Subarachnoid hemorrhage: No subarachnoid hemorrhage. Intraventricular hemorrhage: No. Midline shift: No. Procedure Note Rc Mcdonald MD - 05/26/2025 PROCEDURE: CT HEAD WO CONTRAST, CT FACIAL BONES WO CONTRAST, CTCERVICAL SPINE WO CONTRAST, CT THORACIC SPINE WO CONTRAST, CT LUMBAR SPINE WO CONTRAST, DATE/TIME OF EXAM: 05/26/2025 5:14 PM, LOCATION [facility] INDICATION: T14.90XA: Trauma EXAMINATION: 1. Computed tomography (CT) of the head without contrast 2. CT of the maxillofacial bones, orbits, and paranasal sinuses without contrast 3. CT of the cervical spine without contrast 4. CT of the thoracic spine without contrast 5. CT of the lumbar spine without contrast ADDITIONAL CLINICAL INFORMATION: Ordering Provider Reason For Exam: Trauma. Technologist Note: None. Additional: None. TECHNIQUE: CT of the head, cervical spine, and maxillofacial bones,orbits, and paranasal sinuses was performed without contrast according tostandard protocol. Reformatted axial, sagittal, and coronal images of thethoracic and lumbar spine were obtained by the technologist from a concurrently performed body CT and sent to the workstation for review. CT dosereduction technique was used, including Automated Exposure Control. COMPARISON: No prior study is available for comparison at the time ofthis dictation. FINDINGS: Head: No acute intra- or extra-axial fluid collections are identified. Thereis mild cerebral volume loss with associated ex vacuo ventriculardilatation. The basilar cisterns are patent. No mass effect or midline shift isseen. The doss-white matter differentiation is normal. Periventricular white matter hypoattenuation is indicative of chronic small vessel ischemic disease. There is vascular calcification of the carotid siphons. Noacute calvarial fracture is identified. Extensive left facial bone fracturesare detailed in the next section Maxillofacial: There are facial bone fractures as follows: *There is a left inferior orbital wall blowout fracture with depressedbone fracture inferiorly in the upper aspect of the left maxillary sinus.There is extraconal hemorrhage and foci of gas adjacent to the fracture site.No extra ocular muscle entrapment. *There is an acute, moderately displaced fracture of the inferior aspectof the left lamina papyracea, with extraconal hemorrhage and foci of gasalong the medial aspect of the left orbit inferiorly. No extra ocular muscle entrapment. *There is large lacerations with extensive foci of gas and hemorrhage involving the left temporal scalp, extending posteriorly adjacent to the squamous portion of the left temporal bone, and extending inferiorly adjacent to the left zygomatic arch. Its unclear whether there is a nondisplaced fracture of the squamous portion of the left temporal bone. There is extension of the subcutaneous soft tissue lacerations and fociof gas along the lateral aspect of the left orbit. It is unclear whetherthere is a nondisplaced fracture of the lateral wall of the left orbit. *There is a comminuted, moderately to severely displaced fracture of the medial wall of the right maxillary sinus, with displaced fractures along the fracture line. There are fractures of the paz of the adjacent left ethmoid air cells. There is hemorrhage within the left maxillary sinusand the left ethmoid air cells. *There is fracture involvement of the wall of the left lacrimal duct. *Questionable irregularities along the cribriform plate of ethmoid bone, unclear whether representing nondisplaced fractures. *Severe, severely comminuted fractures of the anterior wall of the left maxillary sinus, with depressed bone fragments extending slightly in the left maxillary sinus. There is hemorrhage in the adjacent subcutaneoussoft tissues of the left cheek. *There are severely comminuted, displaced fractures of the nasal processof the left maxillary bone. There is adjacent soft tissue swelling and lacerations with foci of gas and hemorrhage. *There are minimally or mildly displaced fractures of the left nasalbone. *Suspected nondisplaced fracture of the right nasal bone. *Suspected minimally displaced fractures of the nasal tip. The orbits appear otherwise grossly unremarkable. There are sinonasal postsurgical and inflammatory changes, to be correlated with prior clinical/surgical history and prior imaging, if available. There is mild paranasal sinus disease. There are degenerative changes of the temporomandibular joints. The hard palate, mandible, andtemporomandibular joints appear otherwise grossly unremarkable. Small amount of cerumen is present in the left external auditory canal. The mastoid air cells are grossly clear. Extensive lacerations along the left face, left cheek,and the left temporal scalp. Cervical spine: Mild anterolisthesis of C3 on C4. Minimal retrolisthesis of C4 on C5, C5on C6, and C6 on C7. Mild levocurvature of the cervical spine. Reversal ofthe cervical lordosis at the level of C4 the C5.. Vertebral bodies arenormal in height without evidence of acute fracture. Other than advanced middle atlantoaxial joint osteoarthritis, the craniocervical junction appears normal. There is advanced degenerative disc disease. Mild central canal stenosis is seen. There are varying degrees of mild facetosteoarthritis. There are varying degrees of mild to advanced uncovertebral joint osteoarthritis with the same degree of neural foraminal stenosis atthese levels. There is atherosclerotic calcification of the carotidbifurcations. Thoracic spine: Mild dextro curvature of the thoracic spine. Straightening of thethoracic kyphosis. The alignment is otherwise maintained. Age-indeterminate mild burst fracture of the T12 vertebral body with loss of less than 30% ofthe vertebral body height anteriorly and approximately 5 mm retropulsion ofthe superior fractured fragment, resulting in up to moderate spinal canal stenosis at this level. Vertebral bodies are normal in height without evidence of acute fracture. Schmorl's nodes are present at multiplelevels. There is advanced degenerative disc disease. [id number] spinalcanal stenosis at the level of T6/T7 due to central calcified disc protrusion.No high-grade central canal stenosis is otherwise seen. There are varying degrees of mild facet osteoarthritis. No high-grade neural foraminal stenosis is seen. There is subsegmental atelectasis in the dependent portions of the lung bases. There are atherosclerotic calcifications ofthe coronary arteries. There are calcifications of the aortic valve leaflets/aortic root. There is atherosclerotic calcification of the thoracic aorta and its branch vessels. There is a small hiatal hernia. Lumbar spine: Minimal retrolisthesis of L1 on L2, L2 on L3, L3 on L4, L4 on L5, and L5on S1. Mild right lateral listhesis of L1 on L2. Mild left lateral recessof L2 on L3 and L3 on L4. Mild levoscoliosis of the upper lumbar spine and mild dextroscoliosis of the lower lumbar spine. The alignment isotherwise maintained. Vertebral bodies are normal in height without evidence ofacute fracture. There is advanced degenerative disc disease. Decreased discspace height, endplate sclerosis and erosions and vacuum disc phenomenon areseen at L1-L5. Multilevel mild to moderate central canal stenosis is seen. Advanced There are varying degrees of neural foraminal stenosis atmultiple levels. There are degenerative changes of the SI joints There is atherosclerotic calcification of the abdominal aorta and its branch vessels. Brain injury guidelines: Skull fracture: No Subdural hematoma: No subdural hematoma. Epidural hematoma: No epidural hematoma. Intraparenchymal hemorrhage: No intraparenchymal hemorrhage. Subarachnoid hemorrhage: No subarachnoid hemorrhage. Intraventricular hemorrhage: No. Midline shift: No. IMPRESSION: CT of the head: 2.No acute intracranial hemorrhage, midline shift, or significant mass effect. CT facial bones: 1.Finding is compatible with severe left naso-orbitoethmoid (KEMAL)fracture. 2.No extraocular muscle entrapment. The eye globes are intact. No globe rupture. CT cervical, thoracic, and lumbar spine: 1.Age-indeterminate depressed fracture of the T12 vertebral body withloss of less than 30% of vertebral body height and 5 mm retropulsionresulting in mild or mild to moderate spinal canal stenosis at this level. 2.Otherwise, no evidence of acute fracture in the cervical, thoracic, or lumbar spine. Additional findings: 1.Please refer to the concurrent, dedicated body report for findings inthe chest, abdomen, and pelvis > Interpreting Provider: Rc Mcdonald MD on 05/26/2025 6:30 PM us Jerry Mahajan MD CT ORDERABLES Final Result * CT Thoracic Spine Wo Contrast (05/26/2025 5:12 PM CDT) Anatomical Region Laterality Modality Spine Computed Tomogra phy 05/26/2025 5:17 PM CDT Impressions 05/26/2025 6:30 PM CDT IMPRESSION: CT of the head: 2.No acute intracranial hemorrhage, midline shift, or significant mass effect. CT facial bones: 1.Finding is compatible with severe left naso-orbitoethmoid (KEMAL) fracture. 2.No extraocular muscle entrapment. The eye globes are intact. No globe rupture. CT cervical, thoracic, and lumbar spine: 1.Age-indeterminate depressed fracture of the T12 vertebral body with loss of less than 30% of vertebral body height and 5 mm retropulsion resulting in mild or mild to moderate spinal canal stenosis at this level. 2.Otherwise, no evidence of acute fracture in the cervical, thoracic, or lumbar spine. Additional findings: 1.Please refer to the concurrent, dedicated body report for findings in the chest, abdomen, and pelvis > Interpreting Provider: Rc Mcdonald MD on 05/26/2025 6:30 PM Narrative 05/26/2025 6:30 PM CDT PROCEDURE: CT HEAD WO CONTRAST, CT FACIAL BONES WO CONTRAST, CT CERVICAL SPINE WO CONTRAST, CT THORACIC SPINE WO CONTRAST, CT LUMBAR SPINE WO CONTRAST, DATE/TIME OF EXAM: 05/26/2025 5:14 PM, LOCATION [facility] INDICATION: T14.90XA: Trauma EXAMINATION: 1. Computed tomography (CT) of the head without contrast 2. CT of the maxillofacial bones, orbits, and paranasal sinuses without contrast 3. CT of the cervical spine without contrast 4. CT of the thoracic spine without contrast 5. CT of the lumbar spine without contrast ADDITIONAL CLINICAL INFORMATION: Ordering Provider Reason For Exam: Trauma. Technologist Note: None. Additional: None. TECHNIQUE: CT of the head, cervical spine, and maxillofacial bones, orbits, and paranasal sinuses was performed without contrast according to standard protocol. Reformatted axial, sagittal, and coronal images of the thoracic and lumbar spine were obtained by the technologist from a concurrently performed body CT and sent to the workstation for review. CT dose reduction technique was used, including Automated Exposure Control. COMPARISON: No prior study is available for comparison at the time of this dictation. FINDINGS: Head: No acute intra- or extra-axial fluid collections are identified. There is mild cerebral volume loss with associated ex vacuo ventricular dilatation. The basilar cisterns are patent. No mass effect or midline shift is seen. The doss-white matter differentiation is normal. Periventricular white matter hypoattenuation is indicative of chronic small vessel ischemic disease. There is vascular calcification of the carotid siphons. No acute calvarial fracture is identified. Extensive left facial bone fractures are detailed in the next section Maxillofacial: There are facial bone fractures as follows: *There is a left inferior orbital wall blowout fracture with depressed bone fracture inferiorly in the upper aspect of the left maxillary sinus. There is extraconal hemorrhage and foci of gas adjacent to the fracture site. No extra ocular muscle entrapment. *There is an acute, moderately displaced fracture of the inferior aspect of the left lamina papyracea, with extraconal hemorrhage and foci of gas along the medial aspect of the left orbit inferiorly. No extra ocular muscle entrapment. *There is large lacerations with extensive foci of gas and hemorrhage involving the left temporal scalp, extending posteriorly adjacent to the squamous portion of the left temporal bone, and extending inferiorly adjacent to the left zygomatic arch. Its unclear whether there is a nondisplaced fracture of the squamous portion of the left temporal bone. There is extension of the subcutaneous soft tissue lacerations and foci of gas along the lateral aspect of the left orbit. It is unclear whether there is a nondisplaced fracture of the lateral wall of the left orbit. *There is a comminuted, moderately to severely displaced fracture of the medial wall of the right maxillary sinus, with displaced fractures along the fracture line. There are fractures of the paz of the adjacent left ethmoid air cells. There is hemorrhage within the left maxillary sinus and the left ethmoid air cells. *There is fracture involvement of the wall of the left lacrimal duct. *Questionable irregularities along the cribriform plate of ethmoid bone, unclear whether representing nondisplaced fractures. *Severe, severely comminuted fractures of the anterior wall of the left maxillary sinus, with depressed bone fragments extending slightly in the left maxillary sinus. There is hemorrhage in the adjacent subcutaneous soft tissues of the left cheek. *There are severely comminuted, displaced fractures of the nasal process of the left maxillary bone. There is adjacent soft tissue swelling and lacerations with foci of gas and hemorrhage. *There are minimally or mildly displaced fractures of the left nasal bone. *Suspected nondisplaced fracture of the right nasal bone. *Suspected minimally displaced fractures of the nasal tip. The orbits appear otherwise grossly unremarkable. There are sinonasal postsurgical and inflammatory changes, to be correlated with prior clinical/surgical history and prior imaging, if available. There is mild paranasal sinus disease. There are degenerative changes of the temporomandibular joints. The hard palate, mandible, and temporomandibular joints appear otherwise grossly unremarkable. Small amount of cerumen is present in the left external auditory canal. The mastoid air cells are grossly clear. Extensive lacerations along the left face, left cheek, and the left temporal scalp. Cervical spine: Mild anterolisthesis of C3 on C4. Minimal retrolisthesis of C4 on C5, C5 on C6, and C6 on C7. Mild levocurvature of the cervical spine. Reversal of the cervical lordosis at the level of C4 the C5.. Vertebral bodies are normal in height without evidence of acute fracture. Other than advanced middle atlantoaxial joint osteoarthritis, the craniocervical junction appears normal. There is advanced degenerative disc disease. Mild central canal stenosis is seen. There are varying degrees of mild facet osteoarthritis. There are varying degrees of mild to advanced uncovertebral joint osteoarthritis with the same degree of neural foraminal stenosis at these levels. There is atherosclerotic calcification of the carotid bifurcations. Thoracic spine: Mild dextro curvature of the thoracic spine. Straightening of the thoracic kyphosis. The alignment is otherwise maintained. Age-indeterminate mild burst fracture of the T12 vertebral body with loss of less than 30% of the vertebral body height anteriorly and approximately 5 mm retropulsion of the superior fractured fragment, resulting in up to moderate spinal canal stenosis at this level. Vertebral bodies are normal in height without evidence of acute fracture. Schmorl's nodes are present at multiple levels. There is advanced degenerative disc disease. Arla-eg-erajrqnk spinal canal stenosis at the level of T6/T7 due to central calcified disc protrusion. No high-grade central canal stenosis is otherwise seen. There are varying degrees of mild facet osteoarthritis. No high-grade neural foraminal stenosis is seen. There is subsegmental atelectasis in the dependent portions of the lung bases. There are atherosclerotic calcifications of the coronary arteries. There are calcifications of the aortic valve leaflets/aortic root. There is atherosclerotic calcification of the thoracic aorta and its branch vessels. There is a small hiatal hernia. Lumbar spine: Minimal retrolisthesis of L1 on L2, L2 on L3, L3 on L4, L4 on L5, and L5 on S1. Mild right lateral listhesis of L1 on L2. Mild left lateral recess of L2 on L3 and L3 on L4. Mild levoscoliosis of the upper lumbar spine and mild dextroscoliosis of the lower lumbar spine. The alignment is otherwise maintained. Vertebral bodies are normal in height without evidence of acute fracture. There is advanced degenerative disc disease. Decreased disc space height, endplate sclerosis and erosions and vacuum disc phenomenon are seen at L1-L5. Multilevel mild to moderate central canal stenosis is seen. Advanced There are varying degrees of neural foraminal stenosis at multiple levels. There are degenerative changes of the SI joints There is atherosclerotic calcification of the abdominal aorta and its branch vessels. Brain injury guidelines: Skull fracture: No Subdural hematoma: No subdural hematoma. Epidural hematoma: No epidural hematoma. Intraparenchymal hemorrhage: No intraparenchymal hemorrhage. Subarachnoid hemorrhage: No subarachnoid hemorrhage. Intraventricular hemorrhage: No. Midline shift: No. Procedure Note Rc Mcdonald MD - 05/26/2025 PROCEDURE: CT HEAD WO CONTRAST, CT FACIAL BONES WO CONTRAST, CTCERVICAL SPINE WO CONTRAST, CT THORACIC SPINE WO CONTRAST, CT LUMBAR SPINE WO CONTRAST, DATE/TIME OF EXAM: 05/26/2025 5:14 PM, LOCATION [facility] INDICATION: T14.90XA: Trauma EXAMINATION: 1. Computed tomography (CT) of the head without contrast 2. CT of the maxillofacial bones, orbits, and paranasal sinuses without contrast 3. CT of the cervical spine without contrast 4. CT of the thoracic spine without contrast 5. CT of the lumbar spine without contrast ADDITIONAL CLINICAL INFORMATION: Ordering Provider Reason For Exam: Trauma. Technologist Note: None. Additional: None. TECHNIQUE: CT of the head, cervical spine, and maxillofacial bones,orbits, and paranasal sinuses was performed without contrast according tostandard protocol. Reformatted axial, sagittal, and coronal images of thethoracic and lumbar spine were obtained by the technologist from a concurrently performed body CT and sent to the workstation for review. CT dosereduction technique was used, including Automated Exposure Control. COMPARISON: No prior study is available for comparison at the time ofthis dictation. FINDINGS: Head: No acute intra- or extra-axial fluid collections are identified. Thereis mild cerebral volume loss with associated ex vacuo ventriculardilatation. The basilar cisterns are patent. No mass effect or midline shift isseen. The doss-white matter differentiation is normal. Periventricular white matter hypoattenuation is indicative of chronic small vessel ischemic disease. There is vascular calcification of the carotid siphons. Noacute calvarial fracture is identified. Extensive left facial bone fracturesare detailed in the next section Maxillofacial: There are facial bone fractures as follows: *There is a left inferior orbital wall blowout fracture with depressedbone fracture inferiorly in the upper aspect of the left maxillary sinus.There is extraconal hemorrhage and foci of gas adjacent to the fracture site.No extra ocular muscle entrapment. *There is an acute, moderately displaced fracture of the inferior aspectof the left lamina papyracea, with extraconal hemorrhage and foci of gasalong the medial aspect of the left orbit inferiorly. No extra ocular muscle entrapment. *There is large lacerations with extensive foci of gas and hemorrhage involving the left temporal scalp, extending posteriorly adjacent to the squamous portion of the left temporal bone, and extending inferiorly adjacent to the left zygomatic arch. Its unclear whether there is a nondisplaced fracture of the squamous portion of the left temporal bone. There is extension of the subcutaneous soft tissue lacerations and fociof gas along the lateral aspect of the left orbit. It is unclear whetherthere is a nondisplaced fracture of the lateral wall of the left orbit. *There is a comminuted, moderately to severely displaced fracture of the medial wall of the right maxillary sinus, with displaced fractures along the fracture line. There are fractures of the paz of the adjacent left ethmoid air cells. There is hemorrhage within the left maxillary sinusand the left ethmoid air cells. *There is fracture involvement of the wall of the left lacrimal duct. *Questionable irregularities along the cribriform plate of ethmoid bone, unclear whether representing nondisplaced fractures. *Severe, severely comminuted fractures of the anterior wall of the left maxillary sinus, with depressed bone fragments extending slightly in the left maxillary sinus. There is hemorrhage in the adjacent subcutaneoussoft tissues of the left cheek. *There are severely comminuted, displaced fractures of the nasal processof the left maxillary bone. There is adjacent soft tissue swelling and lacerations with foci of gas and hemorrhage. *There are minimally or mildly displaced fractures of the left nasalbone. *Suspected nondisplaced fracture of the right nasal bone. *Suspected minimally displaced fractures of the nasal tip. The orbits appear otherwise grossly unremarkable. There are sinonasal postsurgical and inflammatory changes, to be correlated with prior clinical/surgical history and prior imaging, if available. There is mild paranasal sinus disease. There are degenerative changes of the temporomandibular joints. The hard palate, mandible, andtemporomandibular joints appear otherwise grossly unremarkable. Small amount of cerumen is present in the left external auditory canal. The mastoid air cells are grossly clear. Extensive lacerations along the left face, left cheek,and the left temporal scalp. Cervical spine: Mild anterolisthesis of C3 on C4. Minimal retrolisthesis of C4 on C5, C5on C6, and C6 on C7. Mild levocurvature of the cervical spine. Reversal ofthe cervical lordosis at the level of C4 the C5.. Vertebral bodies arenormal in height without evidence of acute fracture. Other than advanced middle atlantoaxial joint osteoarthritis, the craniocervical junction appears normal. There is advanced degenerative disc disease. Mild central canal stenosis is seen. There are varying degrees of mild facetosteoarthritis. There are varying degrees of mild to advanced uncovertebral joint osteoarthritis with the same degree of neural foraminal stenosis atthese levels. There is atherosclerotic calcification of the carotidbifurcations. Thoracic spine: Mild dextro curvature of the thoracic spine. Straightening of thethoracic kyphosis. The alignment is otherwise maintained. Age-indeterminate mild burst fracture of the T12 vertebral body with loss of less than 30% ofthe vertebral body height anteriorly and approximately 5 mm retropulsion ofthe superior fractured fragment, resulting in up to moderate spinal canal stenosis at this level. Vertebral bodies are normal in height without evidence of acute fracture. Schmorl's nodes are present at multiplelevels. There is advanced degenerative disc disease. Limj-up-daitaazs spinalcanal stenosis at the level of T6/T7 due to central calcified disc protrusion.No high-grade central canal stenosis is otherwise seen. There are varying degrees of mild facet osteoarthritis. No high-grade neural foraminal stenosis is seen. There is subsegmental atelectasis in the dependent portions of the lung bases. There are atherosclerotic calcifications ofthe coronary arteries. There are calcifications of the aortic valve leaflets/aortic root. There is atherosclerotic calcification of the thoracic aorta and its branch vessels. There is a small hiatal hernia. Lumbar spine: Minimal retrolisthesis of L1 on L2, L2 on L3, L3 on L4, L4 on L5, and L5on S1. Mild right lateral listhesis of L1 on L2. Mild left lateral recessof L2 on L3 and L3 on L4. Mild levoscoliosis of the upper lumbar spine and mild dextroscoliosis of the lower lumbar spine. The alignment isotherwise maintained. Vertebral bodies are normal in height without evidence ofacute fracture. There is advanced degenerative disc disease. Decreased discspace height, endplate sclerosis and erosions and vacuum disc phenomenon areseen at L1-L5. Multilevel mild to moderate central canal stenosis is seen. Advanced There are varying degrees of neural foraminal stenosis atmultiple levels. There are degenerative changes of the SI joints There is atherosclerotic calcification of the abdominal aorta and its branch vessels. Brain injury guidelines: Skull fracture: No Subdural hematoma: No subdural hematoma. Epidural hematoma: No epidural hematoma. Intraparenchymal hemorrhage: No intraparenchymal hemorrhage. Subarachnoid hemorrhage: No subarachnoid hemorrhage. Intraventricular hemorrhage: No. Midline shift: No. IMPRESSION: CT of the head: 2.No acute intracranial hemorrhage, midline shift, or significant mass effect. CT facial bones: 1.Finding is compatible with severe left naso-orbitoethmoid (KEMAL)fracture. 2.No extraocular muscle entrapment. The eye globes are intact. No globe rupture. CT cervical, thoracic, and lumbar spine: 1.Age-indeterminate depressed fracture of the T12 vertebral body withloss of less than 30% of vertebral body height and 5 mm retropulsionresulting in mild or mild to moderate spinal canal stenosis at this level. 2.Otherwise, no evidence of acute fracture in the cervical, thoracic, or lumbar spine. Additional findings: 1.Please refer to the concurrent, dedicated body report for findings inthe chest, abdomen, and pelvis > Interpreting Provider: Rc Mcdonald MD on 05/26/2025 6:30 PM us Jerry Mahajan MD CT ORDERABLES Final Result * CT Cervical Spine Wo Contrast (05/26/2025 5:12 PM CDT) Anatomical Region Laterality Modality Spine Computed Tomogra phy 05/26/2025 5:17 PM CDT Impressions 05/26/2025 6:30 PM CDT IMPRESSION: CT of the head: 2.No acute intracranial hemorrhage, midline shift, or significant mass effect. CT facial bones: 1.Finding is compatible with severe left naso-orbitoethmoid (KEMAL) fracture. 2.No extraocular muscle entrapment. The eye globes are intact. No globe rupture. CT cervical, thoracic, and lumbar spine: 1.Age-indeterminate depressed fracture of the T12 vertebral body with loss of less than 30% of vertebral body height and 5 mm retropulsion resulting in mild or mild to moderate spinal canal stenosis at this level. 2.Otherwise, no evidence of acute fracture in the cervical, thoracic, or lumbar spine. Additional findings: 1.Please refer to the concurrent, dedicated body report for findings in the chest, abdomen, and pelvis > Interpreting Provider: Rc Mcdonald MD on 05/26/2025 6:30 PM Narrative 05/26/2025 6:30 PM CDT PROCEDURE: CT HEAD WO CONTRAST, CT FACIAL BONES WO CONTRAST, CT CERVICAL SPINE WO CONTRAST, CT THORACIC SPINE WO CONTRAST, CT LUMBAR SPINE WO CONTRAST, DATE/TIME OF EXAM: 05/26/2025 5:14 PM, LOCATION [facility] INDICATION: T14.90XA: Trauma EXAMINATION: 1. Computed tomography (CT) of the head without contrast 2. CT of the maxillofacial bones, orbits, and paranasal sinuses without contrast 3. CT of the cervical spine without contrast 4. CT of the thoracic spine without contrast 5. CT of the lumbar spine without contrast ADDITIONAL CLINICAL INFORMATION: Ordering Provider Reason For Exam: Trauma. Technologist Note: None. Additional: None. TECHNIQUE: CT of the head, cervical spine, and maxillofacial bones, orbits, and paranasal sinuses was performed without contrast according to standard protocol. Reformatted axial, sagittal, and coronal images of the thoracic and lumbar spine were obtained by the technologist from a concurrently performed body CT and sent to the workstation for review. CT dose reduction technique was used, including Automated Exposure Control. COMPARISON: No prior study is available for comparison at the time of this dictation. FINDINGS: Head: No acute intra- or extra-axial fluid collections are identified. There is mild cerebral volume loss with associated ex vacuo ventricular dilatation. The basilar cisterns are patent. No mass effect or midline shift is seen. The doss-white matter differentiation is normal. Periventricular white matter hypoattenuation is indicative of chronic small vessel ischemic disease. There is vascular calcification of the carotid siphons. No acute calvarial fracture is identified. Extensive left facial bone fractures are detailed in the next section Maxillofacial: There are facial bone fractures as follows: *There is a left inferior orbital wall blowout fracture with depressed bone fracture inferiorly in the upper aspect of the left maxillary sinus. There is extraconal hemorrhage and foci of gas adjacent to the fracture site. No extra ocular muscle entrapment. *There is an acute, moderately displaced fracture of the inferior aspect of the left lamina papyracea, with extraconal hemorrhage and foci of gas along the medial aspect of the left orbit inferiorly. No extra ocular muscle entrapment. *There is large lacerations with extensive foci of gas and hemorrhage involving the left temporal scalp, extending posteriorly adjacent to the squamous portion of the left temporal bone, and extending inferiorly adjacent to the left zygomatic arch. Its unclear whether there is a nondisplaced fracture of the squamous portion of the left temporal bone. There is extension of the subcutaneous soft tissue lacerations and foci of gas along the lateral aspect of the left orbit. It is unclear whether there is a nondisplaced fracture of the lateral wall of the left orbit. *There is a comminuted, moderately to severely displaced fracture of the medial wall of the right maxillary sinus, with displaced fractures along the fracture line. There are fractures of the paz of the adjacent left ethmoid air cells. There is hemorrhage within the left maxillary sinus and the left ethmoid air cells. *There is fracture involvement of the wall of the left lacrimal duct. *Questionable irregularities along the cribriform plate of ethmoid bone, unclear whether representing nondisplaced fractures. *Severe, severely comminuted fractures of the anterior wall of the left maxillary sinus, with depressed bone fragments extending slightly in the left maxillary sinus. There is hemorrhage in the adjacent subcutaneous soft tissues of the left cheek. *There are severely comminuted, displaced fractures of the nasal process of the left maxillary bone. There is adjacent soft tissue swelling and lacerations with foci of gas and hemorrhage. *There are minimally or mildly displaced fractures of the left nasal bone. *Suspected nondisplaced fracture of the right nasal bone. *Suspected minimally displaced fractures of the nasal tip. The orbits appear otherwise grossly unremarkable. There are sinonasal postsurgical and inflammatory changes, to be correlated with prior clinical/surgical history and prior imaging, if available. There is mild paranasal sinus disease. There are degenerative changes of the temporomandibular joints. The hard palate, mandible, and temporomandibular joints appear otherwise grossly unremarkable. Small amount of cerumen is present in the left external auditory canal. The mastoid air cells are grossly clear. Extensive lacerations along the left face, left cheek, and the left temporal scalp. Cervical spine: Mild anterolisthesis of C3 on C4. Minimal retrolisthesis of C4 on C5, C5 on C6, and C6 on C7. Mild levocurvature of the cervical spine. Reversal of the cervical lordosis at the level of C4 the C5.. Vertebral bodies are normal in height without evidence of acute fracture. Other than advanced middle atlantoaxial joint osteoarthritis, the craniocervical junction appears normal. There is advanced degenerative disc disease. Mild central canal stenosis is seen. There are varying degrees of mild facet osteoarthritis. There are varying degrees of mild to advanced uncovertebral joint osteoarthritis with the same degree of neural foraminal stenosis at these levels. There is atherosclerotic calcification of the carotid bifurcations. Thoracic spine: Mild dextro curvature of the thoracic spine. Straightening of the thoracic kyphosis. The alignment is otherwise maintained. Age-indeterminate mild burst fracture of the T12 vertebral body with loss of less than 30% of the vertebral body height anteriorly and approximately 5 mm retropulsion of the superior fractured fragment, resulting in up to moderate spinal canal stenosis at this level. Vertebral bodies are normal in height without evidence of acute fracture. Schmorl's nodes are present at multiple levels. There is advanced degenerative disc disease. Gotw-st-xpfjghak spinal canal stenosis at the level of T6/T7 due to central calcified disc protrusion. No high-grade central canal stenosis is otherwise seen. There are varying degrees of mild facet osteoarthritis. No high-grade neural foraminal stenosis is seen. There is subsegmental atelectasis in the dependent portions of the lung bases. There are atherosclerotic calcifications of the coronary arteries. There are calcifications of the aortic valve leaflets/aortic root. There is atherosclerotic calcification of the thoracic aorta and its branch vessels. There is a small hiatal hernia. Lumbar spine: Minimal retrolisthesis of L1 on L2, L2 on L3, L3 on L4, L4 on L5, and L5 on S1. Mild right lateral listhesis of L1 on L2. Mild left lateral recess of L2 on L3 and L3 on L4. Mild levoscoliosis of the upper lumbar spine and mild dextroscoliosis of the lower lumbar spine. The alignment is otherwise maintained. Vertebral bodies are normal in height without evidence of acute fracture. There is advanced degenerative disc disease. Decreased disc space height, endplate sclerosis and erosions and vacuum disc phenomenon are seen at L1-L5. Multilevel mild to moderate central canal stenosis is seen. Advanced There are varying degrees of neural foraminal stenosis at multiple levels. There are degenerative changes of the SI joints There is atherosclerotic calcification of the abdominal aorta and its branch vessels. Brain injury guidelines: Skull fracture: No Subdural hematoma: No subdural hematoma. Epidural hematoma: No epidural hematoma. Intraparenchymal hemorrhage: No intraparenchymal hemorrhage. Subarachnoid hemorrhage: No subarachnoid hemorrhage. Intraventricular hemorrhage: No. Midline shift: No. Procedure Note Rc Mcdonald MD - 05/26/2025 PROCEDURE: CT HEAD WO CONTRAST, CT FACIAL BONES WO CONTRAST, CTCERVICAL SPINE WO CONTRAST, CT THORACIC SPINE WO CONTRAST, CT LUMBAR SPINE WO CONTRAST, DATE/TIME OF EXAM: 05/26/2025 5:14 PM, LOCATION [facility] INDICATION: T14.90XA: Trauma EXAMINATION: 1. Computed tomography (CT) of the head without contrast 2. CT of the maxillofacial bones, orbits, and paranasal sinuses without contrast 3. CT of the cervical spine without contrast 4. CT of the thoracic spine without contrast 5. CT of the lumbar spine without contrast ADDITIONAL CLINICAL INFORMATION: Ordering Provider Reason For Exam: Trauma. Technologist Note: None. Additional: None. TECHNIQUE: CT of the head, cervical spine, and maxillofacial bones,orbits, and paranasal sinuses was performed without contrast according tostandard protocol. Reformatted axial, sagittal, and coronal images of thethoracic and lumbar spine were obtained by the technologist from a concurrently performed body CT and sent to the workstation for review. CT dosereduction technique was used, including Automated Exposure Control. COMPARISON: No prior study is available for comparison at the time ofthis dictation. FINDINGS: Head: No acute intra- or extra-axial fluid collections are identified. Thereis mild cerebral volume loss with associated ex vacuo ventriculardilatation. The basilar cisterns are patent. No mass effect or midline shift isseen. The doss-white matter differentiation is normal. Periventricular white matter hypoattenuation is indicative of chronic small vessel ischemic disease. There is vascular calcification of the carotid siphons. Noacute calvarial fracture is identified. Extensive left facial bone fracturesare detailed in the next section Maxillofacial: There are facial bone fractures as follows: *There is a left inferior orbital wall blowout fracture with depressedbone fracture inferiorly in the upper aspect of the left maxillary sinus.There is extraconal hemorrhage and foci of gas adjacent to the fracture site.No extra ocular muscle entrapment. *There is an acute, moderately displaced fracture of the inferior aspectof the left lamina papyracea, with extraconal hemorrhage and foci of gasalong the medial aspect of the left orbit inferiorly. No extra ocular muscle entrapment. *There is large lacerations with extensive foci of gas and hemorrhage involving the left temporal scalp, extending posteriorly adjacent to the squamous portion of the left temporal bone, and extending inferiorly adjacent to the left zygomatic arch. Its unclear whether there is a nondisplaced fracture of the squamous portion of the left temporal bone. There is extension of the subcutaneous soft tissue lacerations and fociof gas along the lateral aspect of the left orbit. It is unclear whetherthere is a nondisplaced fracture of the lateral wall of the left orbit. *There is a comminuted, moderately to severely displaced fracture of the medial wall of the right maxillary sinus, with displaced fractures along the fracture line. There are fractures of the paz of the adjacent left ethmoid air cells. There is hemorrhage within the left maxillary sinusand the left ethmoid air cells. *There is fracture involvement of the wall of the left lacrimal duct. *Questionable irregularities along the cribriform plate of ethmoid bone, unclear whether representing nondisplaced fractures. *Severe, severely comminuted fractures of the anterior wall of the left maxillary sinus, with depressed bone fragments extending slightly in the left maxillary sinus. There is hemorrhage in the adjacent subcutaneoussoft tissues of the left cheek. *There are severely comminuted, displaced fractures of the nasal processof the left maxillary bone. There is adjacent soft tissue swelling and lacerations with foci of gas and hemorrhage. *There are minimally or mildly displaced fractures of the left nasalbone. *Suspected nondisplaced fracture of the right nasal bone. *Suspected minimally displaced fractures of the nasal tip. The orbits appear otherwise grossly unremarkable. There are sinonasal postsurgical and inflammatory changes, to be correlated with prior clinical/surgical history and prior imaging, if available. There is mild paranasal sinus disease. There are degenerative changes of the temporomandibular joints. The hard palate, mandible, andtemporomandibular joints appear otherwise grossly unremarkable. Small amount of cerumen is present in the left external auditory canal. The mastoid air cells are grossly clear. Extensive lacerations along the left face, left cheek,and the left temporal scalp. Cervical spine: Mild anterolisthesis of C3 on C4. Minimal retrolisthesis of C4 on C5, C5on C6, and C6 on C7. Mild levocurvature of the cervical spine. Reversal ofthe cervical lordosis at the level of C4 the C5.. Vertebral bodies arenormal in height without evidence of acute fracture. Other than advanced middle atlantoaxial joint osteoarthritis, the craniocervical junction appears normal. There is advanced degenerative disc disease. Mild central canal stenosis is seen. There are varying degrees of mild facetosteoarthritis. There are varying degrees of mild to advanced uncovertebral joint osteoarthritis with the same degree of neural foraminal stenosis atthese levels. There is atherosclerotic calcification of the carotidbifurcations. Thoracic spine: Mild dextro curvature of the thoracic spine. Straightening of thethoracic kyphosis. The alignment is otherwise maintained. Age-indeterminate mild burst fracture of the T12 vertebral body with loss of less than 30% ofthe vertebral body height anteriorly and approximately 5 mm retropulsion ofthe superior fractured fragment, resulting in up to moderate spinal canal stenosis at this level. Vertebral bodies are normal in height without evidence of acute fracture. Schmorl's nodes are present at multiplelevels. There is advanced degenerative disc disease. [id number] spinalcanal stenosis at the level of T6/T7 due to central calcified disc protrusion.No high-grade central canal stenosis is otherwise seen. There are varying degrees of mild facet osteoarthritis. No high-grade neural foraminal stenosis is seen. There is subsegmental atelectasis in the dependent portions of the lung bases. There are atherosclerotic calcifications ofthe coronary arteries. There are calcifications of the aortic valve leaflets/aortic root. There is atherosclerotic calcification of the thoracic aorta and its branch vessels. There is a small hiatal hernia. Lumbar spine: Minimal retrolisthesis of L1 on L2, L2 on L3, L3 on L4, L4 on L5, and L5on S1. Mild right lateral listhesis of L1 on L2. Mild left lateral recessof L2 on L3 and L3 on L4. Mild levoscoliosis of the upper lumbar spine and mild dextroscoliosis of the lower lumbar spine. The alignment isotherwise maintained. Vertebral bodies are normal in height without evidence ofacute fracture. There is advanced degenerative disc disease. Decreased discspace height, endplate sclerosis and erosions and vacuum disc phenomenon areseen at L1-L5. Multilevel mild to moderate central canal stenosis is seen. Advanced There are varying degrees of neural foraminal stenosis atmultiple levels. There are degenerative changes of the SI joints There is atherosclerotic calcification of the abdominal aorta and its branch vessels. Brain injury guidelines: Skull fracture: No Subdural hematoma: No subdural hematoma. Epidural hematoma: No epidural hematoma. Intraparenchymal hemorrhage: No intraparenchymal hemorrhage. Subarachnoid hemorrhage: No subarachnoid hemorrhage. Intraventricular hemorrhage: No. Midline shift: No. IMPRESSION: CT of the head: 2.No acute intracranial hemorrhage, midline shift, or significant mass effect. CT facial bones: 1.Finding is compatible with severe left naso-orbitoethmoid (KEMAL)fracture. 2.No extraocular muscle entrapment. The eye globes are intact. No globe rupture. CT cervical, thoracic, and lumbar spine: 1.Age-indeterminate depressed fracture of the T12 vertebral body withloss of less than 30% of vertebral body height and 5 mm retropulsionresulting in mild or mild to moderate spinal canal stenosis at this level. 2.Otherwise, no evidence of acute fracture in the cervical, thoracic, or lumbar spine. Additional findings: 1.Please refer to the concurrent, dedicated body report for findings inthe chest, abdomen, and pelvis > Interpreting Provider: Rc Mcdonald MD on 05/26/2025 6:30 PM us Jerry Mahajan MD CT ORDERABLES Final Result * CT Facial Bones Wo Contrast (05/26/2025 5:12 PM CDT) Anatomical Region Laterality Modality Head Computed Tomogra phy 05/26/2025 5:17 PM CDT Impressions 05/26/2025 6:30 PM CDT IMPRESSION: CT of the head: 2.No acute intracranial hemorrhage, midline shift, or significant mass effect. CT facial bones: 1.Finding is compatible with severe left naso-orbitoethmoid (KEMAL) fracture. 2.No extraocular muscle entrapment. The eye globes are intact. No globe rupture. CT cervical, thoracic, and lumbar spine: 1.Age-indeterminate depressed fracture of the T12 vertebral body with loss of less than 30% of vertebral body height and 5 mm retropulsion resulting in mild or mild to moderate spinal canal stenosis at this level. 2.Otherwise, no evidence of acute fracture in the cervical, thoracic, or lumbar spine. Additional findings: 1.Please refer to the concurrent, dedicated body report for findings in the chest, abdomen, and pelvis > Interpreting Provider: Rc Mcdonald MD on 05/26/2025 6:30 PM Narrative 05/26/2025 6:30 PM CDT PROCEDURE: CT HEAD WO CONTRAST, CT FACIAL BONES WO CONTRAST, CT CERVICAL SPINE WO CONTRAST, CT THORACIC SPINE WO CONTRAST, CT LUMBAR SPINE WO CONTRAST, DATE/TIME OF EXAM: 05/26/2025 5:14 PM, LOCATION [facility] INDICATION: T14.90XA: Trauma EXAMINATION: 1. Computed tomography (CT) of the head without contrast 2. CT of the maxillofacial bones, orbits, and paranasal sinuses without contrast 3. CT of the cervical spine without contrast 4. CT of the thoracic spine without contrast 5. CT of the lumbar spine without contrast ADDITIONAL CLINICAL INFORMATION: Ordering Provider Reason For Exam: Trauma. Technologist Note: None. Additional: None. TECHNIQUE: CT of the head, cervical spine, and maxillofacial bones, orbits, and paranasal sinuses was performed without contrast according to standard protocol. Reformatted axial, sagittal, and coronal images of the thoracic and lumbar spine were obtained by the technologist from a concurrently performed body CT and sent to the workstation for review. CT dose reduction technique was used, including Automated Exposure Control. COMPARISON: No prior study is available for comparison at the time of this dictation. FINDINGS: Head: No acute intra- or extra-axial fluid collections are identified. There is mild cerebral volume loss with associated ex vacuo ventricular dilatation. The basilar cisterns are patent. No mass effect or midline shift is seen. The doss-white matter differentiation is normal. Periventricular white matter hypoattenuation is indicative of chronic small vessel ischemic disease. There is vascular calcification of the carotid siphons. No acute calvarial fracture is identified. Extensive left facial bone fractures are detailed in the next section Maxillofacial: There are facial bone fractures as follows: *There is a left inferior orbital wall blowout fracture with depressed bone fracture inferiorly in the upper aspect of the left maxillary sinus. There is extraconal hemorrhage and foci of gas adjacent to the fracture site. No extra ocular muscle entrapment. *There is an acute, moderately displaced fracture of the inferior aspect of the left lamina papyracea, with extraconal hemorrhage and foci of gas along the medial aspect of the left orbit inferiorly. No extra ocular muscle entrapment. *There is large lacerations with extensive foci of gas and hemorrhage involving the left temporal scalp, extending posteriorly adjacent to the squamous portion of the left temporal bone, and extending inferiorly adjacent to the left zygomatic arch. Its unclear whether there is a nondisplaced fracture of the squamous portion of the left temporal bone. There is extension of the subcutaneous soft tissue lacerations and foci of gas along the lateral aspect of the left orbit. It is unclear whether there is a nondisplaced fracture of the lateral wall of the left orbit. *There is a comminuted, moderately to severely displaced fracture of the medial wall of the right maxillary sinus, with displaced fractures along the fracture line. There are fractures of the paz of the adjacent left ethmoid air cells. There is hemorrhage within the left maxillary sinus and the left ethmoid air cells. *There is fracture involvement of the wall of the left lacrimal duct. *Questionable irregularities along the cribriform plate of ethmoid bone, unclear whether representing nondisplaced fractures. *Severe, severely comminuted fractures of the anterior wall of the left maxillary sinus, with depressed bone fragments extending slightly in the left maxillary sinus. There is hemorrhage in the adjacent subcutaneous soft tissues of the left cheek. *There are severely comminuted, displaced fractures of the nasal process of the left maxillary bone. There is adjacent soft tissue swelling and lacerations with foci of gas and hemorrhage. *There are minimally or mildly displaced fractures of the left nasal bone. *Suspected nondisplaced fracture of the right nasal bone. *Suspected minimally displaced fractures of the nasal tip. The orbits appear otherwise grossly unremarkable. There are sinonasal postsurgical and inflammatory changes, to be correlated with prior clinical/surgical history and prior imaging, if available. There is mild paranasal sinus disease. There are degenerative changes of the temporomandibular joints. The hard palate, mandible, and temporomandibular joints appear otherwise grossly unremarkable. Small amount of cerumen is present in the left external auditory canal. The mastoid air cells are grossly clear. Extensive lacerations along the left face, left cheek, and the left temporal scalp. Cervical spine: Mild anterolisthesis of C3 on C4. Minimal retrolisthesis of C4 on C5, C5 on C6, and C6 on C7. Mild levocurvature of the cervical spine. Reversal of the cervical lordosis at the level of C4 the C5.. Vertebral bodies are normal in height without evidence of acute fracture. Other than advanced middle atlantoaxial joint osteoarthritis, the craniocervical junction appears normal. There is advanced degenerative disc disease. Mild central canal stenosis is seen. There are varying degrees of mild facet osteoarthritis. There are varying degrees of mild to advanced uncovertebral joint osteoarthritis with the same degree of neural foraminal stenosis at these levels. There is atherosclerotic calcification of the carotid bifurcations. Thoracic spine: Mild dextro curvature of the thoracic spine. Straightening of the thoracic kyphosis. The alignment is otherwise maintained. Age-indeterminate mild burst fracture of the T12 vertebral body with loss of less than 30% of the vertebral body height anteriorly and approximately 5 mm retropulsion of the superior fractured fragment, resulting in up to moderate spinal canal stenosis at this level. Vertebral bodies are normal in height without evidence of acute fracture. Schmorl's nodes are present at multiple levels. There is advanced degenerative disc disease. [id number] spinal canal stenosis at the level of T6/T7 due to central calcified disc protrusion. No high-grade central canal stenosis is otherwise seen. There are varying degrees of mild facet osteoarthritis. No high-grade neural foraminal stenosis is seen. There is subsegmental atelectasis in the dependent portions of the lung bases. There are atherosclerotic calcifications of the coronary arteries. There are calcifications of the aortic valve leaflets/aortic root. There is atherosclerotic calcification of the thoracic aorta and its branch vessels. There is a small hiatal hernia. Lumbar spine: Minimal retrolisthesis of L1 on L2, L2 on L3, L3 on L4, L4 on L5, and L5 on S1. Mild right lateral listhesis of L1 on L2. Mild left lateral recess of L2 on L3 and L3 on L4. Mild levoscoliosis of the upper lumbar spine and mild dextroscoliosis of the lower lumbar spine. The alignment is otherwise maintained. Vertebral bodies are normal in height without evidence of acute fracture. There is advanced degenerative disc disease. Decreased disc space height, endplate sclerosis and erosions and vacuum disc phenomenon are seen at L1-L5. Multilevel mild to moderate central canal stenosis is seen. Advanced There are varying degrees of neural foraminal stenosis at multiple levels. There are degenerative changes of the SI joints There is atherosclerotic calcification of the abdominal aorta and its branch vessels. Brain injury guidelines: Skull fracture: No Subdural hematoma: No subdural hematoma. Epidural hematoma: No epidural hematoma. Intraparenchymal hemorrhage: No intraparenchymal hemorrhage. Subarachnoid hemorrhage: No subarachnoid hemorrhage. Intraventricular hemorrhage: No. Midline shift: No. Procedure Note Rc Mcdonald MD - 05/26/2025 PROCEDURE: CT HEAD WO CONTRAST, CT FACIAL BONES WO CONTRAST, CTCERVICAL SPINE WO CONTRAST, CT THORACIC SPINE WO CONTRAST, CT LUMBAR SPINE WO CONTRAST, DATE/TIME OF EXAM: 05/26/2025 5:14 PM, LOCATION [facility] INDICATION: T14.90XA: Trauma EXAMINATION: 1. Computed tomography (CT) of the head without contrast 2. CT of the maxillofacial bones, orbits, and paranasal sinuses without contrast 3. CT of the cervical spine without contrast 4. CT of the thoracic spine without contrast 5. CT of the lumbar spine without contrast ADDITIONAL CLINICAL INFORMATION: Ordering Provider Reason For Exam: Trauma. Technologist Note: None. Additional: None. TECHNIQUE: CT of the head, cervical spine, and maxillofacial bones,orbits, and paranasal sinuses was performed without contrast according tostandard protocol. Reformatted axial, sagittal, and coronal images of thethoracic and lumbar spine were obtained by the technologist from a concurrently performed body CT and sent to the workstation for review. CT dosereduction technique was used, including Automated Exposure Control. COMPARISON: No prior study is available for comparison at the time ofthis dictation. FINDINGS: Head: No acute intra- or extra-axial fluid collections are identified. Thereis mild cerebral volume loss with associated ex vacuo ventriculardilatation. The basilar cisterns are patent. No mass effect or midline shift isseen. The doss-white matter differentiation is normal. Periventricular white matter hypoattenuation is indicative of chronic small vessel ischemic disease. There is vascular calcification of the carotid siphons. Noacute calvarial fracture is identified. Extensive left facial bone fracturesare detailed in the next section Maxillofacial: There are facial bone fractures as follows: *There is a left inferior orbital wall blowout fracture with depressedbone fracture inferiorly in the upper aspect of the left maxillary sinus.There is extraconal hemorrhage and foci of gas adjacent to the fracture site.No extra ocular muscle entrapment. *There is an acute, moderately displaced fracture of the inferior aspectof the left lamina papyracea, with extraconal hemorrhage and foci of gasalong the medial aspect of the left orbit inferiorly. No extra ocular muscle entrapment. *There is large lacerations with extensive foci of gas and hemorrhage involving the left temporal scalp, extending posteriorly adjacent to the squamous portion of the left temporal bone, and extending inferiorly adjacent to the left zygomatic arch. Its unclear whether there is a nondisplaced fracture of the squamous portion of the left temporal bone. There is extension of the subcutaneous soft tissue lacerations and fociof gas along the lateral aspect of the left orbit. It is unclear whetherthere is a nondisplaced fracture of the lateral wall of the left orbit. *There is a comminuted, moderately to severely displaced fracture of the medial wall of the right maxillary sinus, with displaced fractures along the fracture line. There are fractures of the paz of the adjacent left ethmoid air cells. There is hemorrhage within the left maxillary sinusand the left ethmoid air cells. *There is fracture involvement of the wall of the left lacrimal duct. *Questionable irregularities along the cribriform plate of ethmoid bone, unclear whether representing nondisplaced fractures. *Severe, severely comminuted fractures of the anterior wall of the left maxillary sinus, with depressed bone fragments extending slightly in the left maxillary sinus. There is hemorrhage in the adjacent subcutaneoussoft tissues of the left cheek. *There are severely comminuted, displaced fractures of the nasal processof the left maxillary bone. There is adjacent soft tissue swelling and lacerations with foci of gas and hemorrhage. *There are minimally or mildly displaced fractures of the left nasalbone. *Suspected nondisplaced fracture of the right nasal bone. *Suspected minimally displaced fractures of the nasal tip. The orbits appear otherwise grossly unremarkable. There are sinonasal postsurgical and inflammatory changes, to be correlated with prior clinical/surgical history and prior imaging, if available. There is mild paranasal sinus disease. There are degenerative changes of the temporomandibular joints. The hard palate, mandible, andtemporomandibular joints appear otherwise grossly unremarkable. Small amount of cerumen is present in the left external auditory canal. The mastoid air cells are grossly clear. Extensive lacerations along the left face, left cheek,and the left temporal scalp. Cervical spine: Mild anterolisthesis of C3 on C4. Minimal retrolisthesis of C4 on C5, C5on C6, and C6 on C7. Mild levocurvature of the cervical spine. Reversal ofthe cervical lordosis at the level of C4 the C5.. Vertebral bodies arenormal in height without evidence of acute fracture. Other than advanced middle atlantoaxial joint osteoarthritis, the craniocervical junction appears normal. There is advanced degenerative disc disease. Mild central canal stenosis is seen. There are varying degrees of mild facetosteoarthritis. There are varying degrees of mild to advanced uncovertebral joint osteoarthritis with the same degree of neural foraminal stenosis atthese levels. There is atherosclerotic calcification of the carotidbifurcations. Thoracic spine: Mild dextro curvature of the thoracic spine. Straightening of thethoracic kyphosis. The alignment is otherwise maintained. Age-indeterminate mild burst fracture of the T12 vertebral body with loss of less than 30% ofthe vertebral body height anteriorly and approximately 5 mm retropulsion ofthe superior fractured fragment, resulting in up to moderate spinal canal stenosis at this level. Vertebral bodies are normal in height without evidence of acute fracture. Schmorl's nodes are present at multiplelevels. There is advanced degenerative disc disease. Mzat-[id number]-jhfaritu spinalcanal stenosis at the level of T6/T7 due to central calcified disc protrusion.No high-grade central canal stenosis is otherwise seen. There are varying degrees of mild facet osteoarthritis. No high-grade neural foraminal stenosis is seen. There is subsegmental atelectasis in the dependent portions of the lung bases. There are atherosclerotic calcifications ofthe coronary arteries. There are calcifications of the aortic valve leaflets/aortic root. There is atherosclerotic calcification of the thoracic aorta and its branch vessels. There is a small hiatal hernia. Lumbar spine: Minimal retrolisthesis of L1 on L2, L2 on L3, L3 on L4, L4 on L5, and L5on S1. Mild right lateral listhesis of L1 on L2. Mild left lateral recessof L2 on L3 and L3 on L4. Mild levoscoliosis of the upper lumbar spine and mild dextroscoliosis of the lower lumbar spine. The alignment isotherwise maintained. Vertebral bodies are normal in height without evidence ofacute fracture. There is advanced degenerative disc disease. Decreased discspace height, endplate sclerosis and erosions and vacuum disc phenomenon areseen at L1-L5. Multilevel mild to moderate central canal stenosis is seen. Advanced There are varying degrees of neural foraminal stenosis atmultiple levels. There are degenerative changes of the SI joints There is atherosclerotic calcification of the abdominal aorta and its branch vessels. Brain injury guidelines: Skull fracture: No Subdural hematoma: No subdural hematoma. Epidural hematoma: No epidural hematoma. Intraparenchymal hemorrhage: No intraparenchymal hemorrhage. Subarachnoid hemorrhage: No subarachnoid hemorrhage. Intraventricular hemorrhage: No. Midline shift: No. IMPRESSION: CT of the head: 2.No acute intracranial hemorrhage, midline shift, or significant mass effect. CT facial bones: 1.Finding is compatible with severe left naso-orbitoethmoid (KEMAL)fracture. 2.No extraocular muscle entrapment. The eye globes are intact. No globe rupture. CT cervical, thoracic, and lumbar spine: 1.Age-indeterminate depressed fracture of the T12 vertebral body withloss of less than 30% of vertebral body height and 5 mm retropulsionresulting in mild or mild to moderate spinal canal stenosis at this level. 2.Otherwise, no evidence of acute fracture in the cervical, thoracic, or lumbar spine. Additional findings: 1.Please refer to the concurrent, dedicated body report for findings inthe chest, abdomen, and pelvis > Interpreting Provider: Rc Mcdonald MD on 05/26/2025 6:30 PM us Jerry Mahajan MD CT ORDERABLES Final Result * CT Head Wo Contrast (05/26/2025 5:12 PM CDT) Anatomical Region Laterality Modality Head Computed Tomogra phy 05/26/2025 5:17 PM CDT Impressions 05/26/2025 6:30 PM CDT IMPRESSION: CT of the head: 2.No acute intracranial hemorrhage, midline shift, or significant mass effect. CT facial bones: 1.Finding is compatible with severe left naso-orbitoethmoid (KEMAL) fracture. 2.No extraocular muscle entrapment. The eye globes are intact. No globe rupture. CT cervical, thoracic, and lumbar spine: 1.Age-indeterminate depressed fracture of the T12 vertebral body with loss of less than 30% of vertebral body height and 5 mm retropulsion resulting in mild or mild to moderate spinal canal stenosis at this level. 2.Otherwise, no evidence of acute fracture in the cervical, thoracic, or lumbar spine. Additional findings: 1.Please refer to the concurrent, dedicated body report for findings in the chest, abdomen, and pelvis > Interpreting Provider: Rc Mcdonald MD on 05/26/2025 6:30 PM Narrative 05/26/2025 6:30 PM CDT PROCEDURE: CT HEAD WO CONTRAST, CT FACIAL BONES WO CONTRAST, CT CERVICAL SPINE WO CONTRAST, CT THORACIC SPINE WO CONTRAST, CT LUMBAR SPINE WO CONTRAST, DATE/TIME OF EXAM: 05/26/2025 5:14 PM, LOCATION [facility] INDICATION: T14.90XA: Trauma EXAMINATION: 1. Computed tomography (CT) of the head without contrast 2. CT of the maxillofacial bones, orbits, and paranasal sinuses without contrast 3. CT of the cervical spine without contrast 4. CT of the thoracic spine without contrast 5. CT of the lumbar spine without contrast ADDITIONAL CLINICAL INFORMATION: Ordering Provider Reason For Exam: Trauma. Technologist Note: None. Additional: None. TECHNIQUE: CT of the head, cervical spine, and maxillofacial bones, orbits, and paranasal sinuses was performed without contrast according to standard protocol. Reformatted axial, sagittal, and coronal images of the thoracic and lumbar spine were obtained by the technologist from a concurrently performed body CT and sent to the workstation for review. CT dose reduction technique was used, including Automated Exposure Control. COMPARISON: No prior study is available for comparison at the time of this dictation. FINDINGS: Head: No acute intra- or extra-axial fluid collections are identified. There is mild cerebral volume loss with associated ex vacuo ventricular dilatation. The basilar cisterns are patent. No mass effect or midline shift is seen. The doss-white matter differentiation is normal. Periventricular white matter hypoattenuation is indicative of chronic small vessel ischemic disease. There is vascular calcification of the carotid siphons. No acute calvarial fracture is identified. Extensive left facial bone fractures are detailed in the next section Maxillofacial: There are facial bone fractures as follows: *There is a left inferior orbital wall blowout fracture with depressed bone fracture inferiorly in the upper aspect of the left maxillary sinus. There is extraconal hemorrhage and foci of gas adjacent to the fracture site. No extra ocular muscle entrapment. *There is an acute, moderately displaced fracture of the inferior aspect of the left lamina papyracea, with extraconal hemorrhage and foci of gas along the medial aspect of the left orbit inferiorly. No extra ocular muscle entrapment. *There is large lacerations with extensive foci of gas and hemorrhage involving the left temporal scalp, extending posteriorly adjacent to the squamous portion of the left temporal bone, and extending inferiorly adjacent to the left zygomatic arch. Its unclear whether there is a nondisplaced fracture of the squamous portion of the left temporal bone. There is extension of the subcutaneous soft tissue lacerations and foci of gas along the lateral aspect of the left orbit. It is unclear whether there is a nondisplaced fracture of the lateral wall of the left orbit. *There is a comminuted, moderately to severely displaced fracture of the medial wall of the right maxillary sinus, with displaced fractures along the fracture line. There are fractures of the paz of the adjacent left ethmoid air cells. There is hemorrhage within the left maxillary sinus and the left ethmoid air cells. *There is fracture involvement of the wall of the left lacrimal duct. *Questionable irregularities along the cribriform plate of ethmoid bone, unclear whether representing nondisplaced fractures. *Severe, severely comminuted fractures of the anterior wall of the left maxillary sinus, with depressed bone fragments extending slightly in the left maxillary sinus. There is hemorrhage in the adjacent subcutaneous soft tissues of the left cheek. *There are severely comminuted, displaced fractures of the nasal process of the left maxillary bone. There is adjacent soft tissue swelling and lacerations with foci of gas and hemorrhage. *There are minimally or mildly displaced fractures of the left nasal bone. *Suspected nondisplaced fracture of the right nasal bone. *Suspected minimally displaced fractures of the nasal tip. The orbits appear otherwise grossly unremarkable. There are sinonasal postsurgical and inflammatory changes, to be correlated with prior clinical/surgical history and prior imaging, if available. There is mild paranasal sinus disease. There are degenerative changes of the temporomandibular joints. The hard palate, mandible, and temporomandibular joints appear otherwise grossly unremarkable. Small amount of cerumen is present in the left external auditory canal. The mastoid air cells are grossly clear. Extensive lacerations along the left face, left cheek, and the left temporal scalp. Cervical spine: Mild anterolisthesis of C3 on C4. Minimal retrolisthesis of C4 on C5, C5 on C6, and C6 on C7. Mild levocurvature of the cervical spine. Reversal of the cervical lordosis at the level of C4 the C5.. Vertebral bodies are normal in height without evidence of acute fracture. Other than advanced middle atlantoaxial joint osteoarthritis, the craniocervical junction appears normal. There is advanced degenerative disc disease. Mild central canal stenosis is seen. There are varying degrees of mild facet osteoarthritis. There are varying degrees of mild to advanced uncovertebral joint osteoarthritis with the same degree of neural foraminal stenosis at these levels. There is atherosclerotic calcification of the carotid bifurcations. Thoracic spine: Mild dextro curvature of the thoracic spine. Straightening of the thoracic kyphosis. The alignment is otherwise maintained. Age-indeterminate mild burst fracture of the T12 vertebral body with loss of less than 30% of the vertebral body height anteriorly and approximately 5 mm retropulsion of the superior fractured fragment, resulting in up to moderate spinal canal stenosis at this level. Vertebral bodies are normal in height without evidence of acute fracture. Schmorl's nodes are present at multiple levels. There is advanced degenerative disc disease. Jqiu-cw-lyhbblux spinal canal stenosis at the level of T6/T7 due to central calcified disc protrusion. No high-grade central canal stenosis is otherwise seen. There are varying degrees of mild facet osteoarthritis. No high-grade neural foraminal stenosis is seen. There is subsegmental atelectasis in the dependent portions of the lung bases. There are atherosclerotic calcifications of the coronary arteries. There are calcifications of the aortic valve leaflets/aortic root. There is atherosclerotic calcification of the thoracic aorta and its branch vessels. There is a small hiatal hernia. Lumbar spine: Minimal retrolisthesis of L1 on L2, L2 on L3, L3 on L4, L4 on L5, and L5 on S1. Mild right lateral listhesis of L1 on L2. Mild left lateral recess of L2 on L3 and L3 on L4. Mild levoscoliosis of the upper lumbar spine and mild dextroscoliosis of the lower lumbar spine. The alignment is otherwise maintained. Vertebral bodies are normal in height without evidence of acute fracture. There is advanced degenerative disc disease. Decreased disc space height, endplate sclerosis and erosions and vacuum disc phenomenon are seen at L1-L5. Multilevel mild to moderate central canal stenosis is seen. Advanced There are varying degrees of neural foraminal stenosis at multiple levels. There are degenerative changes of the SI joints There is atherosclerotic calcification of the abdominal aorta and its branch vessels. Brain injury guidelines: Skull fracture: No Subdural hematoma: No subdural hematoma. Epidural hematoma: No epidural hematoma. Intraparenchymal hemorrhage: No intraparenchymal hemorrhage. Subarachnoid hemorrhage: No subarachnoid hemorrhage. Intraventricular hemorrhage: No. Midline shift: No. Procedure Note Rc Mcdonald MD - 05/26/2025 PROCEDURE: CT HEAD WO CONTRAST, CT FACIAL BONES WO CONTRAST, CTCERVICAL SPINE WO CONTRAST, CT THORACIC SPINE WO CONTRAST, CT LUMBAR SPINE WO CONTRAST, DATE/TIME OF EXAM: 05/26/2025 5:14 PM, LOCATION [facility] INDICATION: T14.90XA: Trauma EXAMINATION: 1. Computed tomography (CT) of the head without contrast 2. CT of the maxillofacial bones, orbits, and paranasal sinuses without contrast 3. CT of the cervical spine without contrast 4. CT of the thoracic spine without contrast 5. CT of the lumbar spine without contrast ADDITIONAL CLINICAL INFORMATION: Ordering Provider Reason For Exam: Trauma. Technologist Note: None. Additional: None. TECHNIQUE: CT of the head, cervical spine, and maxillofacial bones,orbits, and paranasal sinuses was performed without contrast according tostandard protocol. Reformatted axial, sagittal, and coronal images of thethoracic and lumbar spine were obtained by the technologist from a concurrently performed body CT and sent to the workstation for review. CT dosereduction technique was used, including Automated Exposure Control. COMPARISON: No prior study is available for comparison at the time ofthis dictation. FINDINGS: Head: No acute intra- or extra-axial fluid collections are identified. Thereis mild cerebral volume loss with associated ex vacuo ventriculardilatation. The basilar cisterns are patent. No mass effect or midline shift isseen. The doss-white matter differentiation is normal. Periventricular white matter hypoattenuation is indicative of chronic small vessel ischemic disease. There is vascular calcification of the carotid siphons. Noacute calvarial fracture is identified. Extensive left facial bone fracturesare detailed in the next section Maxillofacial: There are facial bone fractures as follows: *There is a left inferior orbital wall blowout fracture with depressedbone fracture inferiorly in the upper aspect of the left maxillary sinus.There is extraconal hemorrhage and foci of gas adjacent to the fracture site.No extra ocular muscle entrapment. *There is an acute, moderately displaced fracture of the inferior aspectof the left lamina papyracea, with extraconal hemorrhage and foci of gasalong the medial aspect of the left orbit inferiorly. No extra ocular muscle entrapment. *There is large lacerations with extensive foci of gas and hemorrhage involving the left temporal scalp, extending posteriorly adjacent to the squamous portion of the left temporal bone, and extending inferiorly adjacent to the left zygomatic arch. Its unclear whether there is a nondisplaced fracture of the squamous portion of the left temporal bone. There is extension of the subcutaneous soft tissue lacerations and fociof gas along the lateral aspect of the left orbit. It is unclear whetherthere is a nondisplaced fracture of the lateral wall of the left orbit. *There is a comminuted, moderately to severely displaced fracture of the medial wall of the right maxillary sinus, with displaced fractures along the fracture line. There are fractures of the paz of the adjacent left ethmoid air cells. There is hemorrhage within the left maxillary sinusand the left ethmoid air cells. *There is fracture involvement of the wall of the left lacrimal duct. *Questionable irregularities along the cribriform plate of ethmoid bone, unclear whether representing nondisplaced fractures. *Severe, severely comminuted fractures of the anterior wall of the left maxillary sinus, with depressed bone fragments extending slightly in the left maxillary sinus. There is hemorrhage in the adjacent subcutaneoussoft tissues of the left cheek. *There are severely comminuted, displaced fractures of the nasal processof the left maxillary bone. There is adjacent soft tissue swelling and lacerations with foci of gas and hemorrhage. *There are minimally or mildly displaced fractures of the left nasalbone. *Suspected nondisplaced fracture of the right nasal bone. *Suspected minimally displaced fractures of the nasal tip. The orbits appear otherwise grossly unremarkable. There are sinonasal postsurgical and inflammatory changes, to be correlated with prior clinical/surgical history and prior imaging, if available. There is mild paranasal sinus disease. There are degenerative changes of the temporomandibular joints. The hard palate, mandible, andtemporomandibular joints appear otherwise grossly unremarkable. Small amount of cerumen is present in the left external auditory canal. The mastoid air cells are grossly clear. Extensive lacerations along the left face, left cheek,and the left temporal scalp. Cervical spine: Mild anterolisthesis of C3 on C4. Minimal retrolisthesis of C4 on C5, C5on C6, and C6 on C7. Mild levocurvature of the cervical spine. Reversal ofthe cervical lordosis at the level of C4 the C5.. Vertebral bodies arenormal in height without evidence of acute fracture. Other than advanced middle atlantoaxial joint osteoarthritis, the craniocervical junction appears normal. There is advanced degenerative disc disease. Mild central canal stenosis is seen. There are varying degrees of mild facetosteoarthritis. There are varying degrees of mild to advanced uncovertebral joint osteoarthritis with the same degree of neural foraminal stenosis atthese levels. There is atherosclerotic calcification of the carotidbifurcations. Thoracic spine: Mild dextro curvature of the thoracic spine. Straightening of thethoracic kyphosis. The alignment is otherwise maintained. Age-indeterminate mild burst fracture of the T12 vertebral body with loss of less than 30% ofthe vertebral body height anteriorly and approximately 5 mm retropulsion ofthe superior fractured fragment, resulting in up to moderate spinal canal stenosis at this level. Vertebral bodies are normal in height without evidence of acute fracture. Schmorl's nodes are present at multiplelevels. There is advanced degenerative disc disease. Mkjk-hq-javfltju spinalcanal stenosis at the level of T6/T7 due to central calcified disc protrusion.No high-grade central canal stenosis is otherwise seen. There are varying degrees of mild facet osteoarthritis. No high-grade neural foraminal stenosis is seen. There is subsegmental atelectasis in the dependent portions of the lung bases. There are atherosclerotic calcifications ofthe coronary arteries. There are calcifications of the aortic valve leaflets/aortic root. There is atherosclerotic calcification of the thoracic aorta and its branch vessels. There is a small hiatal hernia. Lumbar spine: Minimal retrolisthesis of L1 on L2, L2 on L3, L3 on L4, L4 on L5, and L5on S1. Mild right lateral listhesis of L1 on L2. Mild left lateral recessof L2 on L3 and L3 on L4. Mild levoscoliosis of the upper lumbar spine and mild dextroscoliosis of the lower lumbar spine. The alignment isotherwise maintained. Vertebral bodies are normal in height without evidence ofacute fracture. There is advanced degenerative disc disease. Decreased discspace height, endplate sclerosis and erosions and vacuum disc phenomenon areseen at L1-L5. Multilevel mild to moderate central canal stenosis is seen. Advanced There are varying degrees of neural foraminal stenosis atmultiple levels. There are degenerative changes of the SI joints There is atherosclerotic calcification of the abdominal aorta and its branch vessels. Brain injury guidelines: Skull fracture: No Subdural hematoma: No subdural hematoma. Epidural hematoma: No epidural hematoma. Intraparenchymal hemorrhage: No intraparenchymal hemorrhage. Subarachnoid hemorrhage: No subarachnoid hemorrhage. Intraventricular hemorrhage: No. Midline shift: No. IMPRESSION: CT of the head: 2.No acute intracranial hemorrhage, midline shift, or significant mass effect. CT facial bones: 1.Finding is compatible with severe left naso-orbitoethmoid (KEMAL)fracture. 2.No extraocular muscle entrapment. The eye globes are intact. No globe rupture. CT cervical, thoracic, and lumbar spine: 1.Age-indeterminate depressed fracture of the T12 vertebral body withloss of less than 30% of vertebral body height and 5 mm retropulsionresulting in mild or mild to moderate spinal canal stenosis at this level. 2.Otherwise, no evidence of acute fracture in the cervical, thoracic, or lumbar spine. Additional findings: 1.Please refer to the concurrent, dedicated body report for findings inthe chest, abdomen, and pelvis > Interpreting Provider: Rc Mcdonald MD on 05/26/2025 6:30 PM us Jerry Mahajan MD CT ORDERABLES Final Result * PT-INR [facility] (05/26/2025 4:45 PM CDT) PT 13.7 12.1 - 14.8 Seconds 05/26/2025 5:21 PM CDT [facility] INR 1.1 See Comment 05/26/2025 5:21 PM CDT [facility] Comment:The suggested therap eutic range for standard coumadin (warfarin) therapy is an INR of 2.0-3.0. For high-risk patients (Mechanical Mitral Valve Prosthesis, etc.), the suggested prophylactic therapeutic range is an INR of 2.5-3.5. Blood BLOOD SPECIMEN / Unknown Venipuncture / Unknown 05/26/2025 4:45 PM CDT 05/26/2025 4:51 PM CDT us Jerry Mahajan MD LAB - COAGULATION ORDERABLES F inal Result [facility] [address] [place] [address], [place] [phone] * TYPE + SCREEN PANEL (05/26/2025 4:45 PM CDT) Antibody Screen NEG 5:54 PM CDT [facility] ABO Rh O POS 05/26/2025 5:54 PM CDT [facility] Blood Bank BLOOD SPECIMEN / Unknown Venipuncture / Unknown 05/26/2025 4:45 PM CDT 05/26/2025 5:01 PM CDT us Jerry Mahajan MD LAB - BLOOD BANK ORDERABLES Fi nal Result Performing Organization Address [facility]/ZIP Co de Phone Number [facility] [address] [place] [address], [place] [phone] * ALCOHOL ETHYL BLOOD (05/26/2025 4:45 PM CDT) Ethanol (mg/dL) <10 <10 mg/dL 5:21 PM CDT [facility] Ethanol Calculated (g/dL) <0.010 <=0.010 g/dL 05/26/2025 5:21 PM CDT [facility] Blood BLOOD SPECIMEN / Unknown Venipuncture / Unknown 05/26/2025 4:45 PM CDT 05/26/2025 4:51 PM CDT Narrative [facility] - 05/26/2025 5:21 PM CDT Ethanol Interp <10: None Detected. Depression of FINISH SPECIALIST: >100 mg/dl Potentially Critical: >250 mg/dl Potentially Fatal >400 mg/dl Ethanol in the patient's blood will contribute to the osmolar gap. Ethanol's contribution to the osmolar gap can be estimated by dividing the concentration of ethanol in mg/dL by 4.6. This test is for clinical use only and does not equal a RENATO for legal purposes. us Jerry Mahajan MD LAB - CHEMISTRY ORDERABLES Fin al Result Performing Organization Address [facility]/ZIP Co de Phone Number [facility] [address] [place] [address], [place] [phone] * XR PELVIS 1 OR 2VW (05/26/2025 4:34 PM CDT) Anatomical Region Laterality Modality Pelvis Digital Radiogra phy 05/26/2025 6:09 PM CDT Impressions 05/26/2025 9:55 PM CDT IMPRESSION: No acute fracture identified. Report dictated by Alex Jerome MD, MD (vice president of communications). Peter Jennings MD have personally reviewed and interpreted this examination/study. > Interpreting Provider: Peter Cruz MD on 05/26/2025 9:55 PM Narrative 05/26/2025 9:55 PM CDT PROCEDURE: XR PELVIS 1 OR 2VW, DATE/TIME OF EXAM: 05/26/2025 4:34 PM, LOCATION [facility] INDICATION: T14.90XA: Trauma ADDITIONAL CLINICAL INFORMATION: Ordering Provider Reason For Exam: Technologist Note: Additional: COMPARISON: X-ray pelvis from 08/17/2024. FINDINGS: No acute fracture is identified. The femoral heads appear well-seated within their respective acetabula. The pubic symphysis is intact. Bone density and texture are normal. The sacroiliac joints are normal. Procedure Note Peter Cruz MD - 05/26/2025 PROCEDURE: XR PELVIS 1 OR 2VW, DATE/TIME OF EXAM: 05/26/2025 4:34 PM, LOCATION [facility] INDICATION: T14.90XA: Trauma ADDITIONAL CLINICAL INFORMATION: Ordering Provider Reason For Exam: Technologist Note: Additional: COMPARISON: X-ray pelvis from 08/17/2024. FINDINGS: No acute fracture is identified. The femoral heads appear well-seated within their respective acetabula. The pubic symphysis is intact. Bone density and texture are normal. The sacroiliac joints are normal. IMPRESSION: No acute fracture identified. Report dictated by Alex Jerome MD, (vice president of communications). Peter Jennings MD have personally reviewed and interpreted this examination/study. > Interpreting Provider: Peter Cruz MD on 6/28/59042:55 PM us Jerry Mahajan MD DIAGNOSTIC IMAGING ORDERABLES Final Result * XR CHEST 1VW PORTABLE (05/26/2025 4:34 PM CDT) Anatomical Region Laterality Modality Chest Digital Radiogra phy 05/26/2025 6:08 PM CDT Narrative 05/26/2025 9:55 PM CDT PROCEDURE: XR CHEST 1VW PORTABLE, DATE/TIME OF EXAM: 05/26/2025 4:34 PM, LOCATION [facility] INDICATION: T14.90XA: Trauma ADDITIONAL CLINICAL INFORMATION: Ordering Provider Reason For Exam: Technologist Note: Additional: COMPARISON: Chest x-ray from 05/04/2022. FINDINGS/IMPRESSION: Left minimal basilar atelectasis. Otherwise there is no focal consolidation, pleural effusion, or pneumothorax.The cardiomediastinal silhouette is normal. No displaced fractures identified. > Dictated by Alex Jerome MD (vice president of communications). Peter Jennings MD have personally reviewed and interpreted this examination/study. > Interpreting Provider: Peter Cruz MD on 05/26/2025 9:55 PM Procedure Note Peter Cruz MD - 05/26/2025 PROCEDURE: XR CHEST 1VW PORTABLE, DATE/TIME OF EXAM: 05/26/2025 4:34PM, LOCATION [facility] INDICATION: T14.90XA: Trauma ADDITIONAL CLINICAL INFORMATION: Ordering Provider Reason For Exam: Technologist Note: Additional: COMPARISON: Chest x-ray from 05/04/2022. FINDINGS/IMPRESSION: Left minimal basilar atelectasis. Otherwise there is no focal consolidation, pleural effusion, or pneumothorax.The cardiomediastinal silhouette is normal. No displaced fractures identified. > Dictated by Alex Jerome MD (vice president of communications). Peter Jennings MD have personally reviewed and interpreted this examination/study. > Interpreting Provider: Peter Cruz MD on 59:55 PM us Jerry Mahajan MD DIAGNOSTIC IMAGING ORDERABLES Final Result * LOPEZ AUTO VISUAL FIELD EXTENDED (05/14/2025 9:29 AM CDT) Anatomical Region Laterality Modality Head External-Camera Photography Narrative 05/14/2025 10:11 AM CDT Images from the original result were not included. OD: overall full with no signs of paracentral/central loss with plaquenil toxicity; reliability good OS: overall full with no signs of paracentral/central loss with plaquenil toxicity; reliability good us Xu Kelly OD OPHTHALMOLOGY SCHED ORD W PACS F inal Result * (ABNORMAL) COMPREHENSIVE METABOLIC PANEL (05/08/2025 2:02 PM CDT) Glucose 82 70 - 99 mg/dL 05/08/2025 10:02 PM CDT [facility] Sodium 140 136 - 145 mmol/L 05/08/2025 10:02 PM CDT [facility] Potassium 4.5 3.5 - 5.1 mmol/L 05/08/2025 10:02 PM CDT [facility] Chloride 106 98 - 107 mmol/L 05/08/2025 10:02 PM CDT [facility] CO2 17(L) 22 - 29 mmol/L 05/08/2025 10:02 PM CDT [facility] [facility] Calcium 9.6 8.4 - 10.4 mg/dL 05/08/2025 10:02 PM CDT [facility] Anion Gap 17(H) 6 - 16 mmol/L 05/08/2025 10:02 PM CDT [facility] BUN 13 7 - 26 mg/dL 05/08/2025 10:02 PM CDT [facility] Creatinine 0.70 0.57 - 1.11 mg/dL 05/08/2025 10:02 PM CDT [facility] Alkaline Phosphatase 64 40 - 150 U/L 05/08/2025 10:02 PM CDT [facility] ALT 80(H) 6 - 57 U/L 05/08/2025 10:02 PM CDT [facility] AST 96(H) 10 - 48 U/L 05/08/2025 10:02 PM CDT [facility] Protein Total 7.8 6.4 - 8.3 gm/dL 05/08/2025 10:02 PM CDT [facility] Albumin 4.3 3.1 - 4.5 gm/dL 05/08/2025 10:02 PM CDT [facility] Bilirubin Total 0.7 0.2 - 1.2 mg/dL 05/08/2025 10:02 PM CDT [facility] eGFR by CKD-EPI >90 >=90 mL/min/1.7 3 m2 05/08/2025 10:02 PM CDT [facility] Blood BLOOD SPECIMEN / Unknown Lab Venipuncture / Unknown 05/08/2025 2:02 PM CDT 05/08/2025 8:50 PM CDT Jasmyn Alvarado TERMITE CONTROL REPRESENTATIVE-MEDICAL ONCOLOGY PHYSICIAN LAB - CHEMISTRY ORD ERABLES Final Result Performing Organization Address City/[facility]/ZIP Co de Phone Number [facility] [address] [place] [address] * IGG BLOOD (05/08/2025 2:02 PM CDT) [facility] IgG 1,391 767 - 1,590 mg/dL 05/08/2025 11:23 PM CDT [facility] Blood BLOOD SPECIMEN / Unknown Lab Venipuncture / Unknown 05/08/2025 2:02 PM CDT 05/08/2025 2:03 PM CDT Jasmyn Alvarado [facility] LAB - CHEMISTRY ORD ERABLES Final Result [address] [address], [place] [phone] * BONE DENSITY AXIAL SKELETON(1OR MORE SITES)[id number] (11/12/2022 9:35 AM TURBINE ATTENDANT) Anatomical Region Laterality Modality Other 11/12/2022 2:59 PM TURBINE ATTENDANT Narrative 11/12/2022 5:35 PM TURBINE ATTENDANT Examination: Dual energy x-ray absorptiometry of the lumbar spine and hip. Comparison: DEXA scan on 10/13/2016 LUMBAR SPINE (L1-L4): Bone mineral density (g/cm2): 1.1 Current T-score: 0.6 LEFT FEMORAL NECK: Bone mineral density (g/cm2): 0.7 Current T-score: -1.2 BONE DENSITY ASSESSMENT: WHO Category: Osteopenia. FRAX not reported because: Premenopausal woman, prior hip or vertebral fracture, treated for osteoporosis. Please see the PACS images for additional details. World Health Organization definitions of standard deviations relative to the mean T-score: Normal bone density = -1.0 and above Osteopenia = between -1.0 and -2.5 Osteoporosis = -2.5 and below = T-Score at or below -2.5 SD > Dictated by Linda Ward MD (Clinician Oncology) 11/12/2022 3:14 PM I, Efra Camargo MD have personally reviewed and interpreted this examination/study. > Interpreting Provider: Efra Camargo MD on 11/12/2022 5:35 PM Procedure Note Efra Camargo MD - 11/12/2022 Examination: Dual energy x-ray absorptiometry of the lumbar spine and hip. Comparison: DEXA scan on 10/13/2016 LUMBAR SPINE (L1-L4): Bone mineral density (g/cm2): 1.1 Current T-score: 0.6 LEFT FEMORAL NECK: Bone mineral density (g/cm2): 0.7 Current T-score: -1.2 BONE DENSITY ASSESSMENT: WHO Category: Osteopenia. FRAX not reported because: Premenopausal woman, prior hip or vertebral fracture, treated for osteoporosis. Please see the PACS images for additional details. World Health Organization definitions of standard deviations relative to the mean T-score: Normal bone density = -1.0 and above Osteopenia = between -1.0 and -2.5 Osteoporosis = -2.5 and below = T-Score at or below -2.5 SD > Dictated by Linda Ward MD (Clinician Oncology) 11/12/2022 3:14PM I, Efra Camargo MD have personally reviewed and interpreted this examination/study. > Interpreting Provider: Efra Camargo MD on 11/12/2022 5:35 PM Lenin Trevino MD DEXA ORDERABLES Final Result * ENDOSCOPY, COLON, SCREENING (05/04/2022 7:48 AM CDT) Report Endoscopy POC Endoscopy Department Report _ Patient Name: Jose Reynaga Procedure Date: 05/04/2022 7:48 AM Date of : 1950 Classification: Outpatient Gender: Female Ethnicity: Not or Race: White _ Providers: Ez Lord MD Referring MD: Dinorah Peters (Referring MD) Procedure: Colonoscopy Indications: Screening for colorectal malignant neoplasm Medications: Monitored Anesthesia Care Description of Procedure: Pre-Anesthesia Assessment: - Prior to the procedure, a History and Physical was performed, and patient medications and allergies were reviewed. The patient's tolerance of previous anesthesia was also reviewed. The risks and benefits of the procedure and the sedation options and risks were discussed with the patient. All questions were answered, and informed consent was obtained. Prior Anticoagulants: The patient has taken no previous anticoagulant or antiplatelet agents except for aspirin. ASA Grade Assessment: II - A patient with mild systemic disease. After reviewing the risks and benefits, the patient was deemed in satisfactory condition to undergo the procedure. After I obtained informed consent, the scope was passed under direct vision. Throughout the procedure, the patient's blood pressure, pulse, and oxygen saturations were monitored continuously. The Colonoscope was introduced through the anus and advanced to the cecum, identified by appendiceal orifice and ileocecal valve. The colonoscopy was performed without difficulty. The patient tolerated the procedure well. The quality of the bowel preparation was good. The ileocecal valve, appendiceal orifice, and rectum were photographed. Findings: The perianal and digital rectal examinations were normal. A few small-mouthed diverticula were found in the sigmoid colon and ascending colon. Non-bleeding internal hemorrhoids were found during retroflexion. The hemorrhoids were small and Grade I (internal hemorrhoids that do not prolapse). The exam was otherwise without abnormality on direct and retroflexion views. Estimated Blood Loss: Estimated blood loss: none. Complications: No immediate complications. Impression: - Diverticulosis in the sigmoid colon and in the ascending colon. - Non-bleeding internal hemorrhoids. - The examination was otherwise normal on direct and retroflexion views. - No specimens collected. Recommendation: - Patient has a contact number available for emergencies. The signs and symptoms of potential delayed complications were discussed with the patient. Return to normal activities tomorrow. Written discharge instructions were provided to the patient. - Resume previous diet. - Continue present medications. - Repeat colonoscopy in 10 years for surveillance if medically stable and has significant life expectancy. - Return to referring physician as previously scheduled. Attending Participation: I personally performed the entire procedure. Procedure Code(s): --- Professional --- G0121, Colorectal cancer screening; colonoscopy on individual not meeting criteria for high risk Diagnosis Code(s): --- Professional --- Z12.11, Encounter for screening for malignant neoplasm of colon K64.0, First degree hemorrhoids K57.30, Diverticulosis of large intestine without perforation or abscess without bleeding CPT copyright 2019 [employer]. All rights reserved. The codes documented in this report are preliminary and upon petroleum refinery operator review may be revised to meet current compliance requirements. Ez Lord MD 05/04/2022 8:46:58 AM This report has been signed electronically. Note Initiated On: 05/04/2022 7:48 AM Number of Addenda: 0 [facility] [address] [place] [address] 05/04/2022 7:48 AM CDT Ez Lord MD GI PROCEDURE ORDERABLES Edited Result - Final Performing Organization Address [facility]/ZIP Co de Phone Number [facility] * HEPATITIS C ANTIBODY (07/15/2017 11:00 AM CDT) Hepatitis C Antibody Non-react [facility] Comment: Hepatitis C Antibody screen indicates no serologic evidence of past or current infection with Hepatitis C Virus. Patients with unexplained liver disease who are immunocompromised or suspected of having acute Hepatitis C infection may benefit from Nucleic Acid Test (VEENA) for Hepatitis C Viral RNA to confirm Hepatitis C status. Blood specimen (specimen) BLOOD SPECIMEN / Unknown 07/15/2017 11:00 AM CDT 07/15/2017 11:40 AM CDT Robert Celeste MD LAB - CHEMISTRY ORDERABLE S Final Result Performing Organization Address [facility] Co de Phone Number [facility] [address] [place] [address] from Last 3 Months or Most Recently Relevant to Health Maintenance Insurance MEDICARE [facility] MEDICARE MEDICARE MEDICARE [facility] Advance Directives * Full Code (Latest Code Status on File) Date Activated Date Inactivated Comments 05/26/2025 9:51 PM 05/28/2025 4:38 PM * Full Code Date Activated Date Inactivated Comments 05/04/2022 1:51 PM 05/06/2022 7:12 PM * Full Code Date Activated Date Inactivated Comments 08/18/2018 8:53 PM 08/29/2018 3:05 PM * Full Code Date Activated Date Inactivated Comments 08/10/2018 12:35 AM 08/11/2018 3:03 PM * Full Code Date Activated Date Inactivated Comments 06/01/2018 10:18 PM 06/22/2018 6:14 PM Care Teams Pipe Fitter Marine Relationship Specialty Start Date End Date Franky Choudhury DO [facility] [place] [address] PCP - General Internal Medicine 10/02/24 Abel Pop MD [address] [place] [phone] Pain Management Anesthesiology 05/17/23 Selam Ramirez MD [address] [facility] GL DEPT [place] [phone] Ophthalmology 05/17/23 Luis Munoz MD [address] [facility] DIV OF HEMATOLOGY & [place] [address] Hematology and Oncology 05/17/23 Kinjal Marino MD [address] [facility] 3L [place] [address] Dermatology 05/17/23 Ghada Guardado MD [address] [address] Cardiology 05/17/23 Marianna Benjamin MD [address] [address] Surgeon Orthopedic Surgery 05/17/23 Franky Choudhury DO [address] [place] [address] Resident - PCP Internal Medicine 06/04/23 Lenin Trevino MD [address] [facility] 2L [place] [phone] Rheumatology 05/27/25 Markie Romero MD [address] [facility] [place] [phone] Resident Rheumatology 06/15/25
--- OUTSIDE RECORDS SUMMARY | 2025-06-23 09:47 | XMS_ITS | Encounter Summary ---
Author Organization [facility] Address [address] [facility] [place] [address] Care Team Providers Care Director Of Corporate Responsibility Name Role Phone John Gallardo MD Unavailable Dinorah Peters DO Primary Care Provider [phone] Tracy Maldonado MD Unavailable Tracy Maldonado MD Unavailable Julita Adams MD Unavailable Abel Pop MD Unavailable Selam Ramirez MD Unavailable Luis Munoz MD Unavailable [phone] Kinjal Marino MD Unavailable [phone] Ghada Guardado MD Unavailable João Mora MD Unavailable Marianna Benjamin MD Unavailable Pratibha Hayes MD Primary Care Provider [phone] Franky Choudhury DO Unavailable Franky Choudhury DO Primary Care Provider [phone] Pratibha Hayes MD Primary Care Provider Franky Choudhury DO Primary Care Provider [phone] Lenin Trevino MD Unavailable Markie Romero MD Unavailable Reason for Visit * Reason Onset Date Comments Scheduling 05/26/2021 Encounter Details Date Type Department Care Team (Late st Contact Info) Description 05/26/2021 Telephone [facility] [address] [place] [address] Antonia Dupont MD [address] [place] [address] Scheduling Social History Tobacco Use Types Packs/Day Years Used Date Smoking Tobacco: Never Smokeless Tobacco: Never Alcohol Use Standard Drinks/Week Comments No 0 (1 standard drink = 0.6 oz pur e alcohol) PHQ-2 Answer Date Recorded PHQ2 TOTAL SCORE 0 04/03/2021 Comments No Sex and Gender Information Value Date Recorded Sex Assigned at Not on file Legal Sex Female 6:32 AM GRINDER HAND Gender Identity Not on file Sexual Orientation Not on file Occupation Industry Job Start Date Job End Date Retired Not on file Not on file Not on file COVID-19 Exposure Response Date Recorded In the last month, have you been in contact with someone who was confirmed or suspected to have Coronavirus / COVID-19? No / Unsure 05/06/2021 12:43 PM CDT documented as of this encounter Functional Status * Is person deaf or have serious hearing difficulty? Answer Date of Assessment Author No 08/29/2018 11:33 AM CDT Farrah Neff RN * Is person blind or have serious difficulty seeing? Answer Date of Assessment Author No 08/29/2018 11:33 AM CDT Farrah Neff RN * Does person have serious difficulty walking/climbing stairs? Answer Date of Assessment Author No 08/29/2018 11:33 AM CDT Farrah Neff RN * Does person have difficulty dressing/bathing? [...] encounter Miscellaneous Notes * Telephone Encounter - Emelina Wang - 05/26/2021 9:28 AM CDT PT is calling office to schedule a colposcopy with Dr Dupont per Dr Lopez but the next available is 12.08.21 and the pt doesn't want to wait that long and she will be back in [place] in November. She will like a sooner appt if available Pt CB# [phone] documented in this encounter Plan of Treatment Upcoming Encounters Date Type Department Care Team (Late st Contact Info) Description 07/16/2025 10:30 AM CDT Procedure visit [facility] - Cosmetic Dermatology [address], [facility] [address] [place] [phone] 07/23/2025 9:15 AM CDT Office Visit [facility] - Orthopedics [address] [place] [phone] Sharad Mclaughlin, CLAIM REVIEW MEDICAL DIRECTOR-MOTOR VEHICLE OPERATOR ROAD SUPERVISOR [address] [facility] [address] [place] [address] 07/26/2025 1:45 PM CDT Office Visit [facility] - Internal Med [address] [place] [phone] Franky Choudhury DO [address] [place] [address] 08/02/2025 1:00 PM CDT Office Visit [facility] - Ophthalmology [address] [place] [phone] Monse Kelly, CLAIM REVIEW MEDICAL DIRECTOR-MOTOR VEHICLE OPERATOR ROAD SUPERVISOR [address] [facility] GL [place] [phone] 08/09/2025 1:30 PM CDT Hospital Encounter [facility] [address] [place] [address] 08/09/2025 2:00 PM CDT Hospital Encounter [facility] [address] [place] [address] 08/14/2025 11:00 AM CDT Office Visit [facility] - Cosmetic Dermatology [address], [facility] [address] [place] [phone] Consuelo Bosch MD [address] [facility] [address], [place] [address] 09/06/2025 11:30 AM CDT Office Visit [facility] - Cardiology [address] [facility] [place] [address] [place] [address] Stephanie Silvestre, CLAIM REVIEW MEDICAL DIRECTOR-MOTOR VEHICLE OPERATOR ROAD SUPERVISOR [address] [place] [address] 10/01/2025 1:00 PM GRINDER HAND Office Visit [facility] - Rheumatology [address] [facility] [place] [phone] Markie Romero MD [address] [facility] [place] [phone] 11/13/2025 11:00 AM GRINDER HAND Office Visit [facility] - Hematology/Oncology [address] [place] [phone] Luis Munoz MD [address] [facility] DIV OF HEMATOLOGY & [place] [address] 11/15/2025 11:00 AM GRINDER HAND Office Visit [facility] - CHIEF CLOTH FINISHING RANGE OPERATOR [address] [facility] [address] [place] [phone] Jennifer Guy, CLAIM REVIEW MEDICAL DIRECTOR-MOTOR VEHICLE OPERATOR ROAD SUPERVISOR [address] [place] [address] 11/16/2025 11:00 AM GRINDER HAND Office Visit [facility] - Ophthalmology [address] [facility] [place] [phone] Xu Kelly OD [address] [place] [phone] 05/14/2026 12:30 PM CDT Procedure visit [facility] - GI [address] [place] [phone] 05/14/2026 1:00 PM CDT Office Visit [facility] - GI [address] [place] [phone] Jasmyn Alvarado, CLAIM REVIEW MEDICAL DIRECTOR-MOTOR VEHICLE OPERATOR ROAD SUPERVISOR [address] [place] [address] [facility] [place] [address] documented as of this encounter Goals Goal [...] documented as of this encounter Care Teams Director Of Corporate Responsibility Relationship Specialty Start Date End Date Fran Dinorah ChisholmDO [address] DIV OF [facility] [place] [address] PCP - General Internal Medicine 03/25/21 06/03/23 Pratibha Hayes MD [address] DIV OF [facility] [place] [address] PCP - General Internal Medicine 06/04/23 11/17/23 Franky Choudhury DO [address] [place] [address] PCP - General Internal Medicine 11/18/23 09/26/24 Pratibha Hayes MD [address] DIV OF [facility] [place] [address] PCP - General Internal Medicine 09/27/24 10/01/24 Franky Choudhury DO [address] [place] [address] PCP - General Internal Medicine 10/02/24 John Gallardo MD [address] [place] [address] Resident - PCP Student Resident 07/04/18 06/16/21 Tracy Maldonado MD [address] DIV OF [facility] INTERNAL [place] Resident - PCP Student Resident 06/17/21 05/11/23 Tracy Maldonado MD [address] DIV OF [facility] [place] Resident Student Resident 06/17/21 10/01/21 Julita Adams MD [address] [facility] [address] DIV OF GEN INTERNAL MEDICINE [place] Resident - PCP Internal Medicine 05/17/23 06/03/23 Abel Pop MD [address] [place] [phone] Pain Management Anesthesiology 05/17/23 Selam Ramirez MD [address] [facility] GL [place] [phone] Ophthalmology 05/17/23 Luis Munoz MD [address] [facility] DIV OF HEMATOLOGY & [place] [address] Hematology and Oncology 05/17/23 Kinjal Marino MD [address] [facility] 3L [place] [address] Dermatology 05/17/23 Ghada Guardado MD [address] [facility] [address] [place] [address] Cardiology 05/17/23 João Mora MD [address] [facility] [place] [phone] Resident Rheumatology 05/17/23 05/26/25 Marianna Benjamin MD [address] [facility] [place] [phone] Surgeon Orthopedic Surgery 05/17/23 Franky Choudhury DO [address] [place] [address] Resident - PCP Internal Medicine 06/04/23 Lenin Trevino MD [address] [facility] [address] [place] [phone] Rheumatology 05/27/25 Markie Romero MD [address] [facility] [place] [phone] Resident Rheumatology 06/15/25 documented as of this encounter
--- OUTSIDE RECORDS SUMMARY | 2025-06-23 09:47 | XMS_ITS | Encounter Summary ---
Author Organization [facility] Address [address] [facility] [place] [address] Care Team Providers Care Crisis Nurse Name Role Phone Robert Celeste MD Primary Care Provider [phone] John Gallardo MD Unavailable Dinorah Peters DO Primary Care Provider [phone] Dinorah Peters DO Primary Care Provider [phone] Tracy Maldonado MD Unavailable [phone] Tracy Maldonado MD Unavailable [phone] Julita Adams MD Unavailable Abel Pop MD Unavailable Selam Ramirez MD Unavailable Luis Munoz MD Unavailable [phone] Kinjal Marino MD Unavailable [phone] Ghada Guardado MD Unavailable João Mora MD Unavailable Marianna Benjamin MD Unavailable Pratibha Hayes MD Primary Care Provider [phone] Franky Choudhury DO Unavailable Kei Franky DO Primary Care Provider Pratibha Hayes MD Primary Care Provider Franky Choudhury DO Primary Care Provider [phone] Lenin Trevino MD Unavailable Markie Romero MD Unavailable Encounter Details Date Type Department Care Team (Late st Contact Info) Description 06/23/2018 Telephone [facility] General Internal Medicine [address] [place], [place] [phone] Robert Celeste MD [address] [place] [address] Social History Tobacco Use Types Packs/Day Years Used Date Smoking Tobacco: Never Smokeless Tobacco: Never Alcohol Use Standard Drinks/Week Comments No 0 (1 standard drink = 0.6 oz pur e alcohol) Comments No Sex and Gender Information Value Date Recorded Sex Assigned at Not on file Legal Sex Female 6:32 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 Gender Identity Not on file Sexual Orientation [...] Jocelin Turcios RN documented in this encounter Plan of Treatment Upcoming Encounters Date Type Department Care Team (Late st Contact Info) Description 07/16/2025 10:30 AM CDT Procedure visit [facility] - Cosmetic Dermatology [facility], [address] [place] [phone] 07/23/2025 9:15 AM CDT [facility] [address] [place] [phone] Sharad Mclaughlin, COMMUNITY SERVICE AIDE-GTA [address] [address] 07/26/2025 1:45 PM CDT Office Visit [facility] - Internal Med [address] [place] [phone] Franky Choudhury, [address] [place] [address] 08/02/2025 1:00 PM CDT [facility] Op[facility] [address] [place] [phone] Monse Kelly, COMMUNITY SERVICE AIDE-GTA [address] [place] [address] [place] [address] 08/09/2025 1:30 PM CDT Hospital Encounter [address] [address] 08/09/2025 2:00 PM CDT Hospital Encounter [address] [address] 08/14/2025 11:00 AM CDT Office Visit [facility] - Cosmetic Dermatology [facility] [address], [address] [place] [phone] Consuelo Bosch MD [address] [place] [address] 09/06/2025 11:30 AM CDT Office Visit [facility] - Cardiology [address] [place], [facility] [address] [place] [address] Stephanie Silvestre COMMUNITY SERVICE AIDE-GTA [address] [facility] [address] [place] [address] 10/01/2025 1:00 PM FOOD PRODUCTION WORKER Office Visit [facility] - Rheumatology [address] [place] [phone] Markie Romero MD [address] [facility] [place] [address] 11/13/2025 11:00 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 WORKER Office Visit [facility] - Hematology/Oncology [address] [place] [phone] Lusi Munoz MD [address] [facility] DIV OF HEMATOLOGY & [place] [address] 11/15/2025 11:00 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 WORKER Office Visit [facility] - NUMERICAL CONTROL PROGRAMMER [address] [facility] [address] [place] [phone] Jennifer Guy, COMMUNITY SERVICE AIDE-GTA [address] [facility] [address] [place] [address] 11/16/2025 11:00 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 WORKER Office Visit [facility] - Ophthalmology 12[address] [facility], [place] [phone] Xu Kelly OD 1225 [place] [phone] 05/14/2026 12:30 PM CDT Procedure visit [facility] Physician Group - GI 12[address] [place] [phone] 05/14/2026 1:00 PM CDT Office Visit [facility] Physician Group - GI [address] [place] [phone] Jasmyn Alvarado, COMMUNITY SERVICE AIDE-GTA [address] [facility] [address] [place] [address] documented as of this encounter Visit Diagnoses Not on filedocumented in this encounter Additional Health Concerns Infection Onset Date Last Indicated Resolved Time CDIFF Under Investigation 05/27/2025 05/27/2025 8:56 PM CDT documented as of this encounter Care Teams Crisis Nurse Relationship Specialty Start Date End Date Robert Celeste MD [address]60 [place] [address] PCP - General Internal Medicine 02/20/16 08/26/20 Dinorah Peters DO [address] [facility] 2[address] [place] [address] PCP - General Internal Medicine 08/27/20 03/24/21 Dinorah Peters DO [address] [facility] [address] [place] [address] PCP - General Internal Medicine 03/25/21 06/03/23 Pratibha Hayes MD [address] [facility] [address] [place] [address] PCP - General Internal Medicine 06/04/23 11/17/23 Franky Choudhury DO [address] [place] [address] PCP - General Internal Medicine 11/18/23 09/26/24 Pratibha Hayes MD [address] DIV OF [facility] [place] [phone] PCP - General Internal Medicine 09/27/24 10/01/24 Franky Choudhury DO [address] [place] [address] PCP - General Internal Medicine 10/02/24 John Gallardo MD [address] [place] [address] Resident - PCP Student Resident 07/04/18 06/16/21 Tracy Maldonado MD [address] DIV OF [facility] INTERNAL [place] Resident - PCP Student Resident 06/17/21 05/11/23 Tracy Maldonado MD [address] DIV OF [facility] INTERNAL [place], [place] Resident Student Resident 06/17/21 10/01/21 Julita Adams MD [address] DIV OF [facility] INTERNAL [place] Resident - PCP Internal Medicine 05/17/23 06/03/23 Abel Pop MD [address] [place] [phone] Pain Management Anesthesiology 05/17/23 Selam Ramirez MD [address] [place] [phone] Ophthalmology 05/17/23 Luis Munoz MD [address] DIV OF HEMATOLOGY & [place] [address] Hematology and Oncology 05/17/23 Kinjal Marino MD [address] [place] [address] Dermatology 05/17/23 Ghada Guardado MD [address] [facility] [address] [place] [address] Cardiology 05/17/23 João Mora MD [address] [place] [phone] Resident Rheumatology 05/17/23 05/26/25 Marianna Benjamin MD [address] [place] [phone] Surgeon Orthopedic Surgery 05/17/23 Franky Choudhury DO [address] [place] [address] Resident - PCP Internal Medicine 06/04/23 Lenin Trevino MD [address] [place] [phone] Rheumatology 05/27/25 Markie Romero MD [address] [place] [phone] Resident Rheumatology 06/15/25 documented as of this encounter
--- NOTE | 2025-06-23 10:06 | ED.GENADULT ---
HPI - General Adult General Chief complaint: Urogenital-Female Stated complaint: UTI Time Seen by Provider: 06/23/25 09:50 History of Present Illness HPI narrative: 75-year-old female presenting to the emergency department for evaluation for persistent urinary symptoms. Patient was diagnosed with urinary tract infection by [facility] urgent care on 06/16 was started on Keflex. Patient states she is having persistent urinary symptoms so she presented emergency department for evaluation. Patient denies any recent falls or injuries. Patient denies any nausea vomiting diarrhea. Related Data Home Medications ?Medication ?Instructions ?Recorded ?Confirmed ?Last Taken ?Type atorvastatin 40 mg tablet 06/18/20 Unknown History cyclobenzaprine 5 mg tablet mg 06/18/20 Unknown History hydroxychloroquine 200 mg tablet 06/18/20 Unknown History losartan 50 mg tablet 06/18/20 Unknown History metoprolol succinate 25 mg PO 06/18/20 06/18/20 Unknown History tablet,extended release 24 hr pantoprazole 40 mg tablet,delayed PO 06/18/20 Unknown History release Allergies Allergy/AdvReac Type Severity Reaction Status Date / Time levofloxacin Allergy Severe joint Verified 05/26/25 12:25 swelling/difficulty walking morphine Allergy Intermediate Rash Verified 05/26/25 12:25 erythromycin base Allergy Unknown unknown Verified 05/26/25 12:25 latex Allergy Unknown Other Verified 05/26/25 12:25 lisinopril Allergy Unknown SEVERE Verified 05/26/25 12:25 COUGHING Sulfa (Sulfonamide Allergy Unknown Other Verified 05/26/25 12:25 Antibiotics) tobramycin Allergy Unknown SWOLLEN, Verified 05/26/25 12:25 RED EYES Review of Systems Review of Systems: All systems reviewed & are unremarkable except as noted in HPI and below PMFSH Past Medical History Medical History (Updated 06/23/25 @ 11:10 by Tano Campbell MD) Coronary artery disease Autoimmune hepatitis Hyperlipidemia Hypertension Pulmonary emboli DVT (deep venous thrombosis) Colon cancer Surgical History Surgical History (Updated 05/26/25 @ 13:45 by Harman Tellez MD) History of hysterectomy History of percutaneous coronary intervention Social History Social History (Updated 06/18/20 @ 13:25 by Rhonda Turner PA-C) Alcohol intake: unknown Substance use: unknown Exam Narrative: APPEARANCE: Well appearing, no pain, no distress, well-nourished. HEAD: normocephalic, atraumatic. EYES: PERRLA/EOMI, conjunctivae clear. NOSE: Normal no drainage EARS:TMS clear with good light reflex. THROAT: Pharynx clear, no exudate. NECK: Supple. No adenopathy, no masses. RESPIRATORY: Airway patent, respirations nonlabored. Clear to auscultation bilaterally, no rales, rhonchi, wheezing. CARDIOVASCULAR: Regular rate and rhythm without murmurs rubs or gallops. ABDOMINAL: Soft, nontender, nondistended, normal bowel sounds MUSCULOSKELETAL: Moves all extremities. Strength/ROM intact, No edema, No calf tenderness. NEURO: Alert. Cranial nerves II through XII intact. Good gait. Good coordination SKIN: Warm, dry. Normal Color PSYCHIATRIC: Normal affect/mood. Course Vital Signs Vital signs: Vital Signs Temperature 98.1 F 06/23/25 09:47 Pulse Rate 106 H 06/23/25 09:47 Respiratory Rate 18 06/23/25 09:47 Blood Pressure 139/109 H 06/23/25 09:47 Pulse Oximetry 97 06/23/25 09:47 Oxygen Delivery Room Air 06/23/25 09:47 Temperature 98.1 F 06/23/25 09:47 Pulse Rate 106 H 06/23/25 09:47 Respiratory Rate 18 06/23/25 09:47 Blood Pressure 139/109 H 06/23/25 09:47 Pulse Oximetry 97 06/23/25 09:47 Oxygen Delivery Room Air 06/23/25 09:47 Medical Decision Making [facility] Narrative Medical decision making narrative: 75-year-old female presenting to the emergency department for evaluation for persistent urinary symptoms after completing a course of Keflex. Patient does have allergies to Levaquin, erythromycin, sulfa and tobramycin. I do not have access to the patient's previous urine cultures. Patient is being started on Macrobid and Pyridium. Patient states she does tolerate both his medications. Patient was also encouraged close follow-up with primary care physician if he had worsening symptoms. Urine culture was pending. Differential Diagnosis Differential Diagnosis: UTI, ureteral calculi, pyelonephritis Vital Signs Vital Signs: Vital Signs Temperature 98.1 F 06/23/25 09:47 Pulse Rate 106 H 06/23/25 09:47 Respiratory Rate 18 06/23/25 09:47 Blood Pressure 139/109 H 06/23/25 09:47 Pulse Oximetry 97 06/23/25 09:47 Oxygen Delivery Room Air 06/23/25 09:47 Temperature 98.1 F 06/23/25 09:47 Pulse Rate 106 H 06/23/25 09:47 Respiratory Rate 18 06/23/25 09:47 Blood Pressure 139/109 H 06/23/25 09:47 Pulse Oximetry 97 06/23/25 09:47 Oxygen Delivery Room Air 06/23/25 09:47 Lab Data Labs: Lab Results 06/23/25 Range/Units 09:56 Urine Color Yellow (Yellow) Urine Appearance Turbid H (Clear) Urine pH 6.5 (5.0-9.0) Ur Specific [place] 1.015 (1.001-1.035) Urine Protein 2+ H (Negative) mg/dL Urine Glucose (UA) Negative (Negative) mg/dL Urine Ketones Negative (Negative) mg/dL Ur Blood (Man) 2+ H (Negative) Urine Nitrate Negative (Negative) Urine Bilirubin Negative (Negative) Urine Urobilinogen 0.2 (<2.0) mg/dL Add Ur Microanalysis Reviewed Leukocyte Esterase Rfl 3+ H (Negative) CHRIS/UL Urine RBC 21-50 H (0-2) /hpf Urine WBC >100 H (0-3) /hpf Ur Squamous Epith Cells None seen (Few) /hpf Urine Bacteria Rare /hpf Urine Casts 0-2 Discharge Plan Discharge Clinical Impression: Urinary tract infection Patient Disposition: Home Condition: Stable Instructions: Antibiotic Form, Urinary Tract Infection in Women (ED) Additional Instructions: Drink plenty of fluids. Antibiotic as directed until completed. Pyridium as needed for urinary symptoms. Have close follow-up with your primary care physician. If you have any worsening symptoms then please call or return to the emergency department. Patient Language: Azeri Prescriptions: New phenazopyridine [Pyridium] 100 mg tablet 100 mg PO TID PRN (Reason: pain) Qty: 6 0RF nitrofurantoin monohyd/m-cryst [Macrobid] 100 mg capsule 100 mg PO Q12H 5 Days Qty: 10 0RF Rx Instructions: must administer with a meal/food No Action losartan 50 mg tablet atorvastatin 40 mg tablet pantoprazole 40 mg tablet,delayed release (DR/EC) PO metoprolol succinate 25 mg tablet extended release 24 hr PO hydroxychloroquine 200 mg tablet cyclobenzaprine 5 mg tablet Follow-up/Referrals: PHYSICIAN NOT ON STAFF,NONSTAFF [Primary Care Provider] -
--- OUTSIDE RECORDS SUMMARY | 2025-06-23 10:13 | XMS_ITS | Encounter Summary ---
Author Organization [facility] Address [address] [place] [address] Care Team Providers Care Eyeglass Inspector Name Role Phone Robert Celeste MD Primary Care Provider [phone] John Gallardo MD Unavailable Dinorah Peters DO Primary Care Provider [phone] Dinorah Peters DO Primary Care Provider [phone] Tracy Maldonado MD Unavailable [phone] Tracy Maldonado MD Unavailable [phone] Julita Adams MD Unavailable Abel Pop MD Unavailable Selam Ramirez MD Unavailable Luis Munoz MD Unavailable [phone] Kinjal Marino MD Unavailable [phone] Ghada Guardado MD Unavailable João Mora MD Unavailable Marianna Benjamin MD Unavailable [phone] Pratibha Hayes MD Primary Care Provider [phone] Franky Choudhury DO Unavailable ChoudhuryMachoamaya DO Primary Care Provider Pratibha Hayes MD Primary Care Provider Franky Choudhury DO Primary Care Provider [phone] Lenin Trevino MD Unavailable Markie Romero MD Unavailable Encounter Details Date Type Department Care Team (Late st Contact Info) Description 10/07/2017 Lab Requisition [facility] - Lab Cytogenetics [address] [place] [address] Jerry Howell MD [address] [place] [address] B-cell lymphoma Social History Tobacco Use Types Packs/Day Years Used Date Smoking Tobacco: Never Alcohol Use Standard Drinks/Week Comments No 0 (1 standard drink = 0.6 oz pur e alcohol) Comments No Sex and Gender Information Value Date Recorded Sex Assigned at Not on file Legal Sex Female 6:32 AM THERMAL TECHNICIAN Gender Identity Not on file Sexual [...] - Cosmetic Dermatology [address], [facility] 200 [place] [phone] 07/23/2025 9:15 AM CDT Office Visit [facility] - Orthopedics [address] [place] [phone] Sharad Mclaughlin, SLOT FLOOR PERSON-COMPLIANCE ENGINEER PRODUCTS [address] [facility] 400 [place] [address] 07/26/2025 1:45 PM CDT Office Visit [facility] - Internal Med [address] [place] [phone] Franky Choudhury DO [address] [place] [address] 08/02/2025 1:00 PM CDT Office Visit [facility] - Ophthalmology [address] [place] [phone] Monse Kelly, SLOT FLOOR PERSON-COMPLIANCE ENGINEER PRODUCTS [address] [place] [address] [place] [phone] 08/09/2025 1:30 PM CDT Hospital Encounter [address] [place] [address] [address] 08/09/2025 2:00 PM CDT Hospital Encounter [address] [place] [address] [address] 08/14/2025 11:00 AM CDT Office Visit [facility] - Cosmetic Dermatology [facility], [facility] 200 [place] [phone] Consuelo Bosch MD [address] [facility] [address] [place] [address] 09/06/2025 11:30 AM CDT Office Visit [facility] - Cardiology [address] [facility], [address] [place] [address] Stephanie Silvestre, SLOT FLOOR PERSON-COMPLIANCE ENGINEER PRODUCTS [address] [facility] [address] [place] [address] 10/01/2025 1:00 PM THERMAL TECHNICIAN Office Visit [facility] - Rheumatology [address] [place] [phone] Markie Romero MD [address] [facility] [place] [address] 11/13/2025 11:00 AM THERMAL TECHNICIAN Office Visit [facility] - Hematology/Oncology [address] [place] [phone] Luis Munoz MD 1201 [facility] DIV OF HEMATOLOGY & [place] [address] 11/15/2025 11:00 AM THERMAL TECHNICIAN Office Visit [facility] - ARCHITECTURAL MODEL MAKER [address] [facility] [address] [place] [phone] Jennifer Guy, SLOT FLOOR PERSON-COMPLIANCE ENGINEER PRODUCTS [address] [facility] [address] [place] [address] 11/16/2025 11:00 AM THERMAL TECHNICIAN Office Visit [facility] - Ophthalmology [address] [facility], [place] [phone] Xu Kelly OD [address]25 [place] [phone] 05/14/2026 12:30 PM CDT Procedure visit [facility] - GI [address] [facility], [place] [address] 05/14/2026 1:00 PM CDT Office Visit [facility] - GI [address] [facility], [facility] [place] [phone] Christiano Jasmyn Amee, SLOT FLOOR PERSON-COMPLIANCE ENGINEER PRODUCTS 1225 [facility] [address]FL [place] [address] documented as of this encounter Procedures Procedure Name Priority Date/Time Associated Diagnosis Comments CYTOGENETICS CANCER PANEL Routine 09/29/2017 10:54 AM CDT B-cell lymphoma documented in this encounter Results * CYTOGENETICS CANCER PANEL (09/29/2017 10:54 AM CDT) Indication for Study Diffuse Large B-Cell Lymphoma 7 9:16 AM [facility] Results Cytogenetics Analysis of 200 FFPE interphase gastric mass cells hybridized to dual breakapart BCL6, MYC and dual labeled dual fusion CMYC/IGH and BCL2/IGH specific fluorescent labeled probes* directed onto 3q27,8q24, 8q24/14q32 and 18q21/14q32 showed the following results: nuc ed(BCL6x2)[200], (CEP8,CMYC,IGH)x2[20 0],(CMYCx2)[200],(IG H,BCL2)x2[200] Normal 7 9:16 AM [facility] CYTOGENOMIC LAB Interpretation FISH of double hit lymphoma panel was negative for all the probes based on 200 interphase cells of FFPE slides. 7 9:16 AM [facility] CYTOGENOMIC LAB at 0916 [facility] Disclaimer *This test was developed, and its performance characteristics determined by [facility] Molecular Cytogenetics Laboratory as required by [...] pathology with cytogenetic findings. 7 9:16 AM [facility] CYTOGENOMIC LAB Client Information [facility] - [id number] [facility] Lab # [id number] CATALOG SPECIALIST-TIS 7 9:16 AM [facility] CYTOGENOMIC LAB Embedded Images 7 9:16 AM [facility] CYTOGENOMIC LAB Other SLIDE / Unknown 09/29/2017 1 0:54 AM CDT 10/07/2017 4:12 PM THERMAL TECHNICIAN us Jerry Howell MD LAB - PATHOLOGY/CYTOLOGY ORDERA BLES Final Result [facility] CYTOGENOMIC LAB [address] [place] [address] documented in this encounter Visit Diagnoses Diagnosis B-cell lymphoma (HCC) Burkitt's tumor or lymphoma, unspecified site, extranodal and solid organ sites documented in this encounter Additional Health Concerns Infection Onset Date Last Indicated Resolved Time CDIFF Under Investigation 05/27/2025 05/27/2025 8:56 PM CDT documented as of this encounter Care Teams Eyeglass Inspector Relationship Specialty Start Date End Date Robert Celeste MD [address] [place] [address] PCP - General Internal Medicine 02/20/16 08/26/20 Dinorah Peters DO [address] DIV OF [facility] [place] [address] PCP - General Internal Medicine 08/27/20 03/24/21 Dinorah Peters DO [address] DIV OF [facility] [place] [address] PCP - General Internal Medicine 03/25/21 06/03/23 Pratibha Hayes MD [address] [place] [address] PCP - General Internal Medicine 06/04/23 11/17/23 Franky Choudhury DO [address] [place] [address] PCP - General Internal Medicine 11/18/23 09/26/24 Pratibha Hayes MD [address] DIV OF [facility] [place] [address] PCP - General Internal Medicine 09/27/24 10/01/24 Choudhury DO Franky [address] [place] [address] PCP - General Internal Medicine 10/02/24 John Gallardo MD [address] [place] [address] Resident - PCP Student Resident 07/04/18 06/16/21 Tracy Maldonado MD [address] DIV OF [facility] INTERNAL MEDICINE [place] Resident - PCP Student Resident 06/17/21 05/11/23 Tracy Maldonado MD [address] DIV OF [facility] INTERNAL MEDIC[place] Resident Student Resident 06/17/21 10/01/21 Julita Adams MD [address] DIV OF [facility] INTERNAL MEDIC[place] Resident - PCP Internal Medicine 05/17/23 06/03/23 Abel Pop MD [address] [facility] [place] [phone] Pain Management Anesthesiology 05/17/23 Selam Ramirez MD [address] [place] [phone] Ophthalmology 05/17/23 Luis Munoz MD [address] DIV OF HEMATOLOGY & [place] [address] Hematology and Oncology 05/17/23 Kinjal Marino MD [address] [place] [address] Dermatology 05/17/23 Ghada Guardado MD [address] [facility] [address] [place] [address] Cardiology 05/17/23 João Mora MD 1225 [facility] [place] [phone] Resident Rheumatology 05/17/23 05/26/25 Marianna Benjamin MD [address] [facility] [place] [phone] Surgeon Orthopedic Surgery 05/17/23 Franky Choudhury DO [address] [place] [address] Resident - PCP Internal Medicine 06/04/23 Lenin Trevino MD 1225 [facility] 2L [place] [phone] Rheumatology 05/27/25 Markie Romero MD [address]25 [facility] [place] [phone] Resident Rheumatology 06/15/25 documented as of this encounter
--- OUTSIDE RECORDS SUMMARY | 2025-06-23 10:13 | XMS_ITS | Encounter Summary ---
Author Organization [facility] Address [address] [place] [address] Care Team Providers Care Quality Manager Name Role Phone Abel Pop MD Unavailable Selam Ramirez MD Unavailable Luis Munoz MD Unavailable [phone] Kinjal Marino MD Unavailable [phone] Ghada Guardado MD Unavailable [phone] João Mora MD Unavailable [phone] Marianna Benjamin MD Unavailable Pratibha Hayes MD Primary Care Provider [phone] Franky Choudhury DO Unavailable [phone] Franky Choudhury DO Primary Care Provider Pratibha Hayes MD Primary Care Provider [phone] Franky Choudhury DO Primary Care Provider Lenin Trevino MD Unavailable Markie Romero MD Unavailable Reason for Visit * Reason Onset Date Comments Colposcopy 10/13/2023 Encounter Details Date Type Department Care Team (Late st Contact Info) Description 10/13/2023 Telephone [facility] - SAP BOBJ DEVELOPER [address] [place] [address] Melania Mohan MD [address] [place] [address] Colposcopy Social History Tobacco Use Types Packs/Day [...] on file Legal Sex Female 6:32 AM CHRONIC CONDITION NURSE Gender Identity Not on file Sexual Orientation [...] she is available Nov 12- Dec 03 NIC CONDITION NURSE documented in this encounter Plan of Treatment Upcoming Encounters Date Type Department Care Team (Late st Contact Info) Description 07/16/2025 10:30 AM CDT Procedure visit [facility] - Cosmetic Dermatology [address], [facility] [address] [place] [address] 07/23/2025 9:15 AM CDT Office Visit [facility] - Orthopedics [address] [place] [phone] Sharad Mclaughlin, INSEAM TRIMMER-REFINERY OPERATOR [employer] [address] [facility] 400 [place] [address] 07/26/2025 1:45 PM CDT Office [facility] - Internal Med [address] [place] [phone] Franky Choudhury DO [address]01 [place] [address] 08/02/2025 1:00 PM CDT [facility] - Ophthalmology [address] [place] [address] [place] [phone] Monse Kelly, INSEAM TRIMMER-REFINERY OPERATOR [employer] [address] [place] [address] [place] [address] 08/09/2025 1:30 PM CDT Hospital Encounter [facility] [address] [place] [address] 08/09/2025 2:00 PM CDT Hospital Encounter [address] [address] 08/14/2025 11:00 AM CDT Office Visit [facility] - Cosmetic Dermatology [address], [facility] 200 [place] [phone] Consuelo Bosch MD [address] [facility] [address], [place] [address] 09/06/2025 11:30 AM CDT Office Visit [facility] - Cardiology [address] [facility] [place] [address] [place] [address] Stephanie Silvestre, INSEAM TRIMMER-REFINERY OPERATOR [employer] [address] [place] [address] 10/01/2025 1:00 PM CHRONIC CONDITION NURSE Office Visit [facility] - Rheumatology 12[address] [facility], [place] [phone] Markie Romero MD 1225 [facility] [place] [address] 11/13/2025 11:00 AM CHRONIC CONDITION NURSE Office Visit [facility] - Hematology/Oncology [facility] [address] [place] [phone] Luis Munoz MD 1201 [facility] DIV OF HEMATOLOGY & [place] [address] 11/15/2025 11:00 AM CHRONIC CONDITION NURSE Office Visit [facility] - SAP BOBJ DEVELOPER [address] [facility] [address] [place] [phone] Jennifer Guy, INSEAM TRIMMER-REFINERY OPERATOR [employer]ANT [address] [facility] [address] 400 [place] [address] 11/16/2025 11:00 AM CHRONIC CONDITION NURSE Office Visit [facility] - Ophthalmology [address] [place] [phone] Xu Kelly, MIRTA 12[address] [place] [address] 05/14/2026 12:30 PM CDT Procedure visit [facility] - GI [address] [place] [phone] 05/14/2026 1:00 PM CDT Office Visit [facility] - GI [address] [place] [phone] Jasmyn Alvarado, INSEAM TRIMMER-REFINERY OPERATOR [employer] [address] [place] [address] 3FL [place] [address] documented as of this encounter Goals Goal [...] as of this encounter Care Teams Quality Manager Relationship Specialty Start Date End Date Pratibha Hayes MD [address] [place] [address] 2L DIV [place] [phone] PCP - General Internal Medicine 06/04/23 11/17/23 Franky Choudhury DO [address]01 [place] [address] PCP - General Internal Medicine 11/18/23 09/26/24 Pratibha Hayes MD [address] OF [place] [address] PCP - General Internal Medicine 09/27/24 10/01/24 Franky Choudhury DO 1201 [place] [address] PCP - General Internal Medicine 10/02/24 Abel Pop MD [address] [place] [address] Pain Management Anesthesiology 05/17/23 Selam Ramirez MD 1225 [facility] DEPT [place] [address] Ophthalmology 05/17/23 Luis Munoz MD 1201 [facility] DIV OF HEMATOLOGY & [place] [address] Hematology and Oncology 05/17/23 Kinjal Marino MD 1225 [facility] 3L [place] [address] Dermatology 05/17/23 Ghada Guardado MD [address] [address] Cardiology 05/17/23 João Mora MD 1225 [place] [phone] Resident Rheumatology 05/17/23 05/26/25 [place] [address] [place] [address] [place] [address] Surgeon Orthopedic Surgery 05/17/23 Franky Choudhury DO [address]01 [place] [address] Resident - PCP Internal Medicine 06/04/23 Lenin Trevino MD [address] [place] [address] [place] [phone] Rheumatology 05/27/25 Markie Romero MD [address] [place] [address] [place] [address] Resident Rheumatology 06/15/25 documented as of this encounter
--- OUTSIDE RECORDS SUMMARY | 2025-06-23 10:13 | XMS_ITS | Clinical Summary ---
Author Organization [facility] Address [address] [place] [address] Care Team Providers Care Horticulture Professor Name Role Phone Pratibha Hayes MD Primary Care Provider [phone] Allergies Active Allergy Reactions Criticality Noted Date [...] bad deep cough Morphine Vomiting High 08/12/2018 [place] Anaphylaxis,Rash,Sw elling High 10/30/2024 Mouth blisters and [...] spleen 10/04/2017 Coronary artery disease invo lving tunica-biloxi coronary artery of tun[place]-bil[place] heart without angina pectoris 03/14/2014 Overview (06/16/2025): [...] Department Care Team Description 06/20/2025 Results Follow-Up [facility] at [address] [phone] Lesley Kelly NP Urine culture Urine, clean voided 06/16/2025 6:10 PM CDT - 06/16/2025 11:59 PM CDT Hospital Encounter [address] [address] Acute cystitis with hematuria Discharge Disposition: Discharge to home or self care 06/16/2025 9:15 AM CDT Office Visit [facility] at [address] [address] Lesley Kelly NP Acute cystitis with hematuria (Primary Dx) 06/16/2025 Telephone [facility] at [address] [address] Yael Ram MA from Last [...] on file Legal Sex Female 3:03 AM SHIRT HEMMER Gender Identity Not on file Sexual Orientation [...] 64.4 kg (142 lb) 11/18/2024 3:55 PM SHIRT HEMMER Height 157.5 cm (5' 2) 03/18/2017 3:52 [...] cloacae complex (.) Comment:Testing performed by : [facility], [address] [facility], [place]., [address] Organism ENTEROBACTER CLOACAE COMPLEX ANY Urine, clean voided 06/16/2025 6:44 PM CDT 06/17/2025 12:09 AM CDT Narrative ANY - 06/19/2025 7:45 AM CDT Testing performed by [facility] Microbiology Laboratory ([phone]) Organism Antibiotic Method Susceptibility Enterobacter cloacae complex [...] Enterobacter cloacae complex Piperacillin/Tazobactam INTERPRETATION Resistant Lesley eKlly NP LAB MICROBIOLOGY - GENERAL [facility] Final Result ANY [address] [address] Department [place] [address] * (ABNORMAL) POCT urinalysis dipstick (06/16/2025 1:00 PM CDT) Color, Urine, POC Yellow Clarity, ur, POC Cloudy(A) Clear Glucose, ur, POC Negative Negative Bilirubin, ur, POC Negative Negative Ketones, ur, POC Negative Negative Specific Tyler, POC 1.010 1.003 - 1.030 Blood, ur, POC Trace(A) Negative pH, ur, POC 6.0 5.0 - 8.0 Protein, ur, POC Negative Negative Urobilinogen, urine, POC 0.2 0.2 - 1.0 mg/dL Nitrite, ur, POC Negative Negative Leukocytes, ur, POC Large(A) Negative Lot Number [id number] Urine 06/16/2025 1:00 PM CDT Lesley Kelly NP POINT OF CARE TEST ORDERABLES F inal Result from Last 3 Months Insurance MEDICARE [facility] MEDICARE SUPPLEMENT Care Teams Horticulture Professor Relationship Specialty Start Date End Date Pratibha Hayes MD [address] OF [facility] [place] [address] PCP - General Internal Medicine 11/18/24
--- OUTSIDE RECORDS SUMMARY | 2025-06-23 10:13 | XMS_ITS | Encounter Summary ---
Author Organization [facility] Address [address] [place] [address] Care Team Providers Care Naval Engineer Name Role Phone Able Pop MD Unavailable Selam Ramirez MD Unavailable Luis Munoz MD Unavailable [phone] Kinjal Marino MD Unavailable [phone] Ghada Guardado MD Unavailable João Mora MD Unavailable Marianna Benjamin MD Unavailable Franky Choudhury DO Unavailable [phone] Franky Choudhury DO Primary Care Provider Lenin Trevino MD [facility]available [facility] Unavailable Encounter Details Date Type Department Care Team (Late st Contact Info) Description 05/26/2025 Ophth Exam [facility] - Ophthalmology 1225 [place] [phone] Jorge Johnston MD 1201 [place] [address] Social History Tobacco Use Types [...] Recorded Patient Health Questionnaire-2 Score 0 03/19/2025 [facility] - Occupational [...] any time in the past 12 m [facility], were you homeless or living in a fpc (including now)? No 05/27/2025 Comments No Sex and Gender Information Value Date Recorded Sex Assigned at Not on file Legal Sex Female 6:32 AM WATER SERVICE DISPATCHER Gender Identity Not on file Sexual Orientation [...] Author 0 05/26/2025 11:56 PM SOFIYAT Rhys Patle RN * Is person deaf or have [...] - Cosmetic Dermatology [address], [facility] 200 [place] [address] 07/23/2025 9:15 AM CDT Office Visit [facility] - Orthopedics [address] [place] [address], [place] [address] Sharad Mclaughlin, FLOWER STRIPPER-SENIOR ELECTRICAL DESIGNER 1011 [facility] 400 [place] [address] 07/26/2025 1:45 PM CDT Office Visit [facility] - Internal Med [address] [place] [address], [place] [phone] Franky Choudhury DO [address] [place] [address] 08/02/2025 1:00 PM CDT Office Visit [facility] - Ophthalmology [address] [place] [address], [place] [phone] Monse Kelly, FLOWER STRIPPER-SENIOR ELECTRICAL DESIGNER [address] [place] [address] DEPT OF [place] [address] 08/09/2025 1:30 PM CDT Hospital Encounter [address] [address] 08/09/2025 2:00 PM CDT Hospital Encounter [address] [address] 08/14/2025 11:00 AM CDT Office Visit [facility] - Cosmetic Dermatology [address], [facility] 200 [place] [address] Consuelo Bosch MD [address] [facility] 200[place], [place] [address] 09/06/2025 11:30 AM CDT Office Visit [facility] - Cardiology [address] [facility], [place] [address] [place] [phone] Stephanie Silvestre, FLOWER STRIPPER-SENIOR ELECTRICAL DESIGNER [address] [facility] [address] [place] [address] 10/01/2025 1:00 PM WATER SERVICE DISPATCHER Office Visit [facility] - Rheumatology 1225 [facility], [place] [phone] Markie Romero MD 1225 [facility] DIV OF [place] [address] 11/13/2025 11:00 AM WATER SERVICE DISPATCHER Office Visit [facility] - Hematology/Oncology 365[address] [place] [address] uLis Munoz MD 1201 [facility] DIV OF HEMATOLOGY & MEDICAL [place] [address] 11/15/2025 11:00 AM WATER SERVICE DISPATCHER Office Visit [facility] - MEETING SPECIALIST [address] [facility] [address] [place] [address] Jennifer Guy, FLOWER STRIPPER-SENIOR ELECTRICAL DESIGNER 1031 [facility] [place] 400 [place] [address] 11/16/2025 11:00 AM WATER SERVICE DISPATCHER Office Visit [facility] - Ophthalmology 1225 [facility], [place] [phone] Xu Kelly OD 1225 [place] [address] 05/14/2026 12:30 PM CDT Procedure visit [facility] - GI [address] [place] [phone] 05/14/2026 1:00 PM CDT Office Visit [facility] - GI [address] [place] [phone] Jasymn Alvarado, FLOWER STRIPPER-SENIOR ELECTRICAL DESIGNER [address] [facility] 3FL DIV OF GASTROENTEROLOGY [place], [place] [phone] documented as of this encounter Goals Goal [...] documented as of this encounter Care Teams Naval Engineer Relationship Specialty Start Date End Date Franky Choudhury DO [address] [place] [address] PCP - General Internal Medicine 10/02/24 Abel Pop MD [facility] [place] [address] Pain Management Anesthesiology 05/17/23 Selam Ramirez MD [address] [facility] GL DEPT OF O[place]TH[place] [address] Ophthalmology 05/17/23 Luis Munoz MD [address] [facility] DIV OF HEMATOLOGY & [place]ICAL [place] [address] Hematology and Oncology 05/17/23 Kinjal Marino MD [address] [facility] 3L DEPT [place] [address] Dermatology 05/17/23 Ghada Guardado MD 1034 [address] [facility] 1[address] [place] [address] Cardiology 05/17/23 João Mora MD [address] [facility] [place] [phone] Resident Rheumatology 05/17/23 05/26/25 Marianna Benjamin MD 1225 [facility] [place] [address] Surgeon Orthopedic Surgery 05/17/23 Franky Choudhury DO [address] [place] [address] Resident - PCP Internal Medicine 06/04/23 Lenni Trevino MD 1225 [facility] 2L DIV [place] [address] Rheumatology 05/27/25 Markie Romero MD [address] [facility] DIV OF [place] [address] Resident Rheumatology 06/15/25 documented as of this encounter
--- OUTSIDE RECORDS SUMMARY | 2025-06-23 10:13 | XMS_ITS | Encounter Summary ---
Author Organization [facility] Address [address] [facility] [place] [address] Care Team Providers Care Assistant Director Of Public Works Name Role Phone FranDinorah DO Primary Care Provider [phone] Tracy Maldonado MD Unavailable [phone] Julita Adams MD Unavailable [phone] Abel Pop MD Unavailable Selam Ramirez MD Unavailable Luis Munoz MD Unavailable Kinjal Marino MD Unavailable [phone] Ghada Guardado MD Unavailable [phone] João Mora MD Unavailable Marianna Benjamin MD Unavailable Pratibha Hayes MD Primary Care Provider [phone] Franky Choudhury DO Unavailable [phone] Franky Choudhury DO Primary Care Provider [phone] Pratibha Hayes MD Primary Care Provider [phone] Franky Choudhury DO Primary Care Provider [phone] Lenin Trevino MD Unavailable Markie Romero MD Unavailable Reason for Visit * Reason Onset Date Comments MEDICATION REFILL 03/24/2022 Encounter Details Date Type Department Care Team (Late st Contact Info) Description 03/24/2022 Refill [facility] General Internal Medicine 1225 [facility], [place] [phone] Dinorah Peters, DO 1225 [facility] 2L DIV OF [facility] [place] [address] MEDICATION REFILL Social History Tobacco Use Types Packs/Day Years Used Date Smoking Tobacco: Never Smokeless Tobacco: Never Alcohol Use Standard Drinks/Week Comments No 0 (1 standard drink = 0.6 oz pur e alcohol) PHQ-2 Answer Date Recorded PHQ2 TOTAL SCORE 0 04/03/2021 Comments No Sex and Gender Information Value Date Recorded Sex Assigned at Not on file Legal Sex Female 6:32 AM FLIGHT COMMUNICATIONS OPERATOR Gender Identity Not on file Sexual [...] Dermatology [address], [place] [address] [place] [address] 07/23/2025 9:15 AM CDT Office Visit [facility] - Orthopedics [address] [place] [phone] Sharad Mclaughlin, TUGGER OPERATOR-SOCIAL WORKER MASTERS [address] [address] 07/26/2025 1:45 PM CDT Office Visit [facility] - Internal Med [address] [place] [phone] Franky Choudhury DO 1201 [place] [address] 08/02/2025 1:00 PM CDT Office Visit [facility] - Ophthalmology [address] [place] [phone] Monse Kelly, TUGGER OPERATOR-SOCIAL WORKER MASTERS [address] [place] [address] DEPT [place] [address] 08/09/2025 1:30 PM CDT Hospital Encounter [address] [address] 08/09/2025 2:00 PM CDT Hospital Encounter [address] [address] 08/14/2025 11:00 AM CDT Office Visit [facility] - Cosmetic Dermatology [facility], [place] [address] [place] [address] Consuelo Bosch MD [address] [place] [address], [place] [address] 09/06/2025 11:30 AM CDT Office Visit [facility] - Cardiology 1034 [address] [facility] 1120 [place] [address] Stephanie Silvestre, TUGGER OPERATOR-SOCIAL WORKER MASTERS 1034 [facility] [address] [place] [address] 10/01/2025 1:00 PM FLIGHT COMMUNICATIONS OPERATOR Office Visit [facility] - Rheumatology 1225 [facility], [place] [address] Markie Romero MD 1225 [facility] [place] [address] 11/13/2025 11:00 AM FLIGHT COMMUNICATIONS OPERATOR Office Visit [facility] - Hematology/Oncology 3655 [place] [phone] Luis Munoz MD 1201 [facility] DIV OF HEMATOLOGY & [place] [address] 11/15/2025 11:00 AM FLIGHT COMMUNICATIONS OPERATOR Office Visit [facility] - PRICING ANALYST 10[address] [facility] [address] [place] [address] Jennifer Guy, TUGGER OPERATOR-SOCIAL WORKER MASTERS 1031 [facility] 400 [place] [address] 11/16/2025 11:00 AM FLIGHT COMMUNICATIONS OPERATOR Office Visit [facility] - Ophthalmology 1225 [facility], [place] [address] Xu Kelly OD 1225 [place] [address] 05/14/2026 12:30 PM CDT Procedure visit [facility] - GI 1225 [place] [address] 05/14/2026 1:00 PM CDT Office Visit [facility] - GI 1225 [place] [phone] Jasmyn Alvarado, TUGGER OPERATOR-SOCIAL WORKER MASTERS [address] [place] [address] 3FL DIV [place] [address] documented as of this encounter Goals Goal [...] documented as of this encounter Care Teams Assistant Director Of Public Works Relationship Specialty Start Date End Date Dinorah Peters DO 12[address] [facility] 2L DIV OF [place] [address] PCP - General Internal Medicine 03/25/21 06/03/23 Pratibha Hayes MD 1225 [facility] 2L DIV [place] [address] PCP - General Internal Medicine 06/04/23 11/17/23 Franky Choudhury DO [address]01 [place] [address] PCP - General Internal Medicine 11/18/23 09/26/24 Pratibha Hayes MD [address]L DIV [place] [address] PCP - General Internal Medicine 09/27/24 10/01/24 Macho ChoudhuryamayaDO 1201 [address] [facility] [place] [address] PCP - General Internal Medicine 10/02/24 Tracy Maldonado MD [address] 2L DIV OF GEN INTERNAL MEDICINE [place] Resident - PCP Student Resident 06/17/21 05/11/23 Julita Adams MD [address] 2L DIV OF [facility] INTERNAL MEDICINE [place] Resident - PCP Internal Medicine 05/17/23 06/03/23 Abel Pop MD [address] [place] [address] Pain Management Anesthesiology 05/17/23 Selam Ramirez MD [address] DE[place] [address] Ophthalmology 05/17/23 Luis Munoz MD [address] DIV OF HEMATOLOGY & [place] [address] Hematology and Oncology 05/17/23 Kinjal Marino MD [address] 3L [place] [address] Dermatology 05/17/23 Ghada Guardado MD 1034 [facility] 1120 [place] [address] Cardiology 05/17/23 João Mora MD [facility]5 [place] [address] Resident Rheumatology 05/17/23 05/26/25 Marianna Benjamin MD [address] [place] [address] [place] [address] Surgeon Orthopedic Surgery 05/17/23 Franky Choudhury DO [address]01 [place] [address] Resident - PCP Internal Medicine 06/04/23 Lenin Trevino MD [address] [place] [address] 2L [place] [phone] Rheumatology 05/27/25 Markie Romero MD [address] [place] [address] [place] [address] Resident Rheumatology 06/15/25 documented as of this encounter
--- OUTSIDE RECORDS SUMMARY | 2025-06-23 10:13 | XMS_ITS | Encounter Summary ---
Author Organization [facility] Address [address] [facility] [place] [address] Care Team Providers Care Manager Mechanical Name Role Phone Robert Celeste MD Primary Care Provider [phone] John Gallardo MD Unavailable Dinorah Peters DO Primary Care Provider [phone] Dinorah Peters DO Primary Care Provider [phone] Tracy Maldonado MD Unavailable [phone] Tracy Maldonado MD Unavailable [phone] Julita Adams MD Unavailable Abel Pop MD Unavailable Selam Ramirez MD Unavailable Luis Munoz MD Unavailable [phone] Kinjal Marino MD Unavailable [phone] Ghada Guardado MD Unavailable João Mora MD Unavailable Marianna Benjamin MD Unavailable Pratibha Hayes MD Primary Care Provider [phone] Franky Choudhury DO Unavailable Franky Choudhury DO Primary Care Provider Pratibha Hayes MD Primary Care Provider Franky Choudhury DO Primary Care Provider [phone] Lenin Trevino MD Unavailable Markie Romero MD Unavailable Reason for Visit * Reason Onset Date Comments MEDICATION REFILL 01/13/2020 Encounter Details Date Type Department Care Team (Late st Contact Info) Description 01/13/2020 Refill [facility] [address]60 [place] [address] Octavio Ruff MD [address] [place] [address] MEDICATION REFILL Social History Tobacco Use Types Packs/Day Years Used Date Smoking Tobacco: Never Smokeless Tobacco: Never Alcohol Use Standard Drinks/Week Comments No 0 (1 standard drink = 0.6 oz pur e alcohol) Comments No Sex and Gender Information Value Date Recorded Sex Assigned at Not on file Legal Sex Female 6:32 AM WOOD MILLING MACHINE OPERATOR Gender Identity Not on file Sexual [...] Description 07/16/2025 10:30 AM CDT [facility] [address], [place] [place] [address] 07/23/2025 9:15 AM CDT Office Visit [facility] - Orthopedics [address] [place] [phone] Sharad Mclaughlin, CASE TECHNICIAN-PARTS PROCESSOR [address] [address] 07/26/2025 1:45 PM CDT Office Visit [facility] - Internal Med [address] [place] [address] Franky Choudhury, [address] [place] [address] 08/02/2025 1:00 PM CDT Office Visit [facility] - Ophthalmology [address] [place] [phone] Monse Kelly, CASE TECHNICIAN-PARTS PROCESSOR [address] [place] [address] [place] [address] 08/09/2025 1:30 PM CDT Hospital Encounter [address] [address] 08/09/2025 2:00 PM CDT Hospital Encounter [address] [address] 08/14/2025 11:00 AM CDT Office Visit [facility] - Cosmetic Dermatology [address], [place] [place] [address] Consuelo Bosch MD [address] [facility] [address] [place] [address] 09/06/2025 11:30 AM CDT Office Visit [facility] - Cardiology [address] [facility], [facility] 1[address] [place] [address] Stephanie Silvestre, CASE TECHNICIAN-PARTS PROCESSOR 1034 [facility] [address] [place] [address] 10/01/2025 1:00 PM WOOD MILLING MACHINE OPERATOR Office Visit [facility] - Rheumatology 1225 [place] [address] Markie Romero MD [address] [facility] [place] [address] 11/13/2025 11:00 AM WOOD MILLING MACHINE OPERATOR Office Visit [facility] - Hematology/Oncology 365[address] [place] [phone] Luis Munoz MD 1201 [facility] DIV OF HEMATOLOGY & [place] [address] 11/15/2025 11:00 AM WOOD MILLING MACHINE OPERATOR Office Visit [facility] - COVERING MACHINE TENDER 1031 [facility] [address] [place] [phone] Jennifer Guy, CASE TECHNICIAN-PARTS PROCESSOR 1031 [facility] 400 [place] [address] 11/16/2025 11:00 AM WOOD MILLING MACHINE OPERATOR Office Visit [facility] - Ophthalmology 1225 [facility], [place] [address] Xu Kelly OD 1225 [place] [address] 05/14/2026 12:30 PM CDT Procedure visit [facility] - GI [address] [place] [address] 05/14/2026 1:00 PM CDT Office Visit [facility] - GI [address] [place] [phone] Jasmyn Alvarado, CASE TECHNICIAN-PARTS PROCESSOR [address] [place] [address] [address] [place] [address] documented as of this encounter Goals Goal [...] as of this encounter Care Teams Manager Mechanical Relationship Specialty Start Date End Date Robert Celeste MD 3660 [place] [address] PCP - General Internal Medicine 02/20/16 08/26/20 Dinorah Peters DO [address] [facility] 2L DIV [place] [address] PCP - General Internal Medicine 08/27/20 03/24/21 Dinorah Peters DO 12[address] [facility] 2L [place] [address] PCP - General Internal Medicine 03/25/21 06/03/23 Pratibha Hayes MD [address] 2[address] [place] [address] PCP - General Internal Medicine 06/04/23 11/17/23 Franky Choudhury DO [address] [place] [address] PCP - General Internal Medicine 11/18/23 09/26/24 Pratibha Hayes MD [address] [place] [address] PCP - General Internal Medicine 09/27/24 10/01/24 Franky Choudhury DO [address] [place] [address] PCP - General Internal Medicine 10/02/24 John Gallardo MD [address]35 [place] [address] Resident - PCP Student Resident 07/04/18 06/16/21 Tracy Maldonado MD [address] 2[address] DIV [place] Resident - PCP Student Resident 06/17/21 05/11/23 Tracy Maldonado MD [address] 2[address] DIV OF [facility] INTERNAL [place] Resident Student Resident 06/17/21 10/01/21 Julita Adams MD [address] [place] Resident - PCP Internal Medicine 05/17/23 06/03/23 Abel Pop MD [address] [place] [phone] Pain Management Anesthesiology 05/17/23 Selam Ramirez MD 12[address] S [facility] [place] [address] Ophthalmology 05/17/23 Luis Munoz MD 1201 S [facility] OF HEMATOLOGY & [place] [address] Hematology and Oncology 05/17/23 Kinjal Marino MD [address] [place] [address] Dermatology 05/17/23 Ghada Guardado MD [address] [address] Cardiology 05/17/23 João Mora MD 1225 S [facility] [place] [phone] Resident Rheumatology 05/17/23 05/26/25 Marianna Benjamin MD [address] [facility] [place] [phone] Surgeon Orthopedic Surgery 05/17/23 Franky Choudhury DO [address] [place] [address] Resident - PCP Internal Medicine 06/04/23 Lenin Trevino MD [address] [place] [address] Rheumatology 05/27/25 [facility] [address] [place] [address] Resident Rheumatology 06/15/25 documented as of this encounter
--- OUTSIDE RECORDS SUMMARY | 2025-06-23 10:13 | XMS_ITS | Encounter Summary ---
Author Organization [facility] Address [address] [facility] [place] [address] Care Team Providers Care Church Communications Administrator Name Role Phone Robert Celeste MD Primary Care Provider [phone] John Gallardo MD Unavailable Dinorah Peters DO Primary Care Provider [phone] Dinorah Peters DO Primary Care Provider [phone] Tracy Maldonado MD Unavailable [phone] Tracy Maldonado MD Unavailable [phone] Julita Adams MD Unavailable Abel Pop MD Unavailable Selam Ramirez MD Unavailable Luis Munoz MD Unavailable [phone] Kinjal Marino MD Unavailable [phone] Ghada Guardado MD Unavailable João Mora MD Unavailable Marianna Benjamin MD Unavailable Pratibha Hayes MD Primary Care Provider [phone] Franky Choudhury DO Unavailable ChoudhuryMachoamaya DO Primary Care Provider Pratibha Hayes MD Primary Care Provider Franky Choudhury DO Primary Care Provider [phone] Lenin Trevino MD Unavailable Markie Romero MD Unavailable Encounter Details Date Type Department Care Team (Late st Contact Info) Description 10/07/2017 Lab Requisition [facility] - Lab [employer] 14[address] [place] [address] Jerry Howell MD 0656 [place] [address] B-cell lymphoma Social History Tobacco Use Types Packs/Day Years Used Date Smoking Tobacco: Never Alcohol Use Standard Drinks/Week Comments No 0 (1 standard drink = 0.6 oz pur e alcohol) Comments No Sex and Gender Information Value Date Recorded Sex Assigned at Not on file Legal Sex Female 6:32 AM NATURAL RESOURCES FACULTY MEMBER Gender Identity Not on file Sexual [...] - Cosmetic Dermatology [address], [facility] 200 [place] [address] 07/23/2025 9:15 AM CDT Office Visit [facility] - Orthopedics [address] [place] [phone] Sharad Mclaughlin, BILLING TYPIST-VINEYARDIST 1011 [facility] 400 [place] [address] 07/26/2025 1:45 PM CDT Office Visit [facility] - Internal Med [address] [place] [phone] Franky Choudhury DO 1201 [place] [address] 08/02/2025 1:00 PM CDT [facility] [address] [place] [phone] Monse Kelly, BILLING TYPIST-VINEYARDIST [address] [place] [address] [place] [address] 08/09/2025 1:30 PM CDT Hospital Encounter [address] [address] 08/09/2025 2:00 PM CDT Hospital Encounter [address] [address] 08/14/2025 11:00 AM CDT Office Visit [facility] - Cosmetic Dermatology [facility], [facility] 200 [place] [address] Consuelo Bosch MD [address] [facility] [address] [place] [address] 09/06/2025 11:30 AM CDT Office Visit [facility] - Cardiology 10[address] S [facility], [place] [address] [place] [address] Stephanie Silvestre, BILLING TYPIST-VINEYARDIST 1034 [facility] [address] [place] [address] 10/01/2025 1:00 PM NATURAL RESOURCES FACULTY MEMBER Office Visit [facility] - Rheumatology [address] [place] [phone] Markie Romero MD 1225 [facility] [address] 11/13/2025 11:00 AM NATURAL RESOURCES FACULTY MEMBER Office Visit [facility] - Hematology/Oncology [address] [place] [address] Luis Munoz MD 1201 [facility] DIV OF HEMATOLOGY & [place] [address] 11/15/2025 11:00 AM NATURAL RESOURCES FACULTY MEMBER [facility] - SUPERINTENDENT SANITATION 1031 [facility] [address] [place] [address] Jennifer Guy, BILLING TYPIST-VINEYARDIST 1031 [facility] [address] [place] [address] 11/16/2025 11:00 AM NATURAL RESOURCES FACULTY MEMBER Office Visit [facility] - Ophthalmology [address] [facility], [place] [phone] Xu Kelly OD 1225 [place] [address] 05/14/2026 12:30 PM CDT Procedure visit [facility] - GI [address] [place] [phone] 05/14/2026 1:00 PM CDT Office Visit [facility] - GI [address] [place] [phone] Jasmyn Alvarado, BILLING TYPIST-VINEYARDIST [address] [place] [address] [address] [place] [address] documented as of this encounter Visit Diagnoses Diagnosis B-cell lymphoma (HCC) Burkitt's tumor or lymphoma, unspecified site, extranodal and solid organ sites documented in this encounter Additional Health Concerns Infection Onset Date Last Indicated Resolved Time CDIFF Under Investigation 05/27/2025 05/27/2025 8:56 PM CDT documented as of this encounter Care Teams Church Communications Administrator Relationship Specialty Start Date End Date Robert Celeste MD 3660 [place] [address] PCP - General Internal Medicine 02/20/16 08/26/20 Dinorah Peters DO [address] [facility] 2[address] DIV OF [employer] [place] [address] PCP - General Internal Medicine 08/27/20 03/24/21 Dinorah Peters DO [address] DIV OF [employer] [place] [place] [address] PCP - General Internal Medicine 03/25/21 06/03/23 Pratibha Hayes MD [address] DIV OF [employer] [place] [address] PCP - General Internal Medicine 06/04/23 11/17/23 Franky Choudhury DO [address] [place] [address] PCP - General Internal Medicine 11/18/23 09/26/24 Pratibha Hayes MD [address] DIV OF [employer] [place] [place] [address] PCP - General Internal Medicine 09/27/24 10/01/24 Franky Choudhury DO [address] [place] [address] PCP - General Internal Medicine 10/02/24 John Gallardo MD [address] [place] [address] Resident - PCP Student Resident 07/04/18 06/16/21 Tracy Maldonado MD [address] 2[address] DIV OF [employer] INTERNAL [place], [place] Resident - PCP Student Resident 06/17/21 05/11/23 Tracy Maldonado MD [address] 2[address] DIV OF [employer] [place] Resident Student Resident 06/17/21 10/01/21 Julita Adams MD [address] DIV OF [employer] [place] Resident - PCP Internal Medicine 05/17/23 06/03/23 Abel Pop MD [address] [place] [address] Pain Management Anesthesiology 05/17/23 Selam Ramirez MD [address] [place] [address] Ophthalmology 05/17/23 Luis Munoz MD [address] DIV OF HEMATOLOGY & [place] [address] Hematology and Oncology 05/17/23 Kinjal Marino MD [address] [facility]L [place] [address] Dermatology 05/17/23 Ghada Guardado MD [address] [address] Cardiology 05/17/23 João Mora MD [address] [facility] [place] [address] Resident Rheumatology 05/17/23 05/26/25 Marianna Benjamin MD [address] [facility] [place] [phone] Surgeon Orthopedic Surgery 05/17/23 Franky Choudhury DO [address] [facility] [place] [address] Resident - PCP Internal Medicine 06/04/23 Lenin Trevino MD [address] [facility] 2L [place] [address] Rheumatology 05/27/25 Markie Romero MD [address] [facility] [place] [address] Resident Rheumatology 06/15/25 documented as of this encounter
--- OUTSIDE RECORDS SUMMARY | 2025-06-23 10:13 | XMS_ITS | Encounter Summary ---
Author Organization [facility] Address [address] [facility] [place] [address] Care Team Providers Care Concrete Layer Name Role Phone Abel Pop MD Unavailable Selam Ramirez MD Unavailable Luis Munoz MD Unavailable [phone] Kinjal Marino MD Unavailable [phone] Ghada Guardado MD Unavailable Marianna Benjamin MD Unavailable Franky Choudhury DO Unavailable Franky Choudhury DO Primary Care Provider [phone] Lenin Trevino MD [facility]available [facility] Unavailable Encounter Details Date Type Department Care Team (Late st Contact Info) Description 06/18/2025 Results Follow-Up [facility] - CHILD LIFE THERAPIST [address] [facility] [address] [place] [address] Melania Mohan MD 1031 [facility] [address] [place] [address] Social History Tobacco Use Types [...] Recorded Patient Health Questionnaire-2 Score 0 06/09/2025 [facility] - [...] were you homeless or living in a detention (including now)? No 05/27/2025 Comments No Sex and Gender Information Value Date Recorded Sex Assigned at Not on file Legal Sex Female 6:32 AM REFRIGERATION HOUSEMAN Gender Identity Not on file Sexual Orientation [...] Author No 05/28/2025 12:32 PM CDT Citlalli Aals RN documented as of this encounter Mental Status * Does person have difficulty concentrating/remembering/making decisions? Answer Entry Date Author No 05/28/2025 12:32 PM CDT Citlalli Alas RN documented in this encounter Plan of Treatment Upcoming Encounters Date Type Department Care Team (Late st Contact Info) Description 07/16/2025 10:30 AM CDT Procedure visit [facility] - Cosmetic Dermatology [address] , [facility] 200 [place] [address] 07/23/2025 9:15 AM CDT Office Visit [facility] - Orthopedics [address] [place] [address], [place] [address] Sharad Mclaughlin, GAS ADJUSTER-RECYCLING ASSISTANT 1011 [facility] 400 [place] [address] 07/26/2025 1:45 PM CDT Office Visit [facility] - Internal Med [address] [place] [address], [place] [phone] Franky Choudhury, DO 1201 [place] [address] 08/02/2025 1:00 PM CDT Office Visit [facility] - Ophthalmology 1225 [facility], [place] [phone] Monse Kelly, GAS ADJUSTER-RECYCLING ASSISTANT [address] [place] [address] DEPT [place] [address] 08/09/2025 1:30 PM CDT Hospital Encounter [address] [address] 08/09/2025 2:00 PM CDT Hospital Encounter [address] [address] 08/14/2025 11:00 AM CDT Office Visit [facility] - Cosmetic Dermatology [address], [facility] 200 [place] [phone] Consuelo Bosch MD [address] [facility] [address], [place] [address] 09/06/2025 11:30 AM CDT Office Visit [facility] - Cardiology [address] [address] Stephanie Silvestre, GAS ADJUSTER-RECYCLING ASSISTANT [address] [place] [address] 10/01/2025 1:00 PM REFRIGERATION HOUSEMAN Office Visit [facility] - Rheumatology [address] [place] [phone] Markie Romero MD [facility]5 [facility] DIV [place] [address] 11/13/2025 11:00 AM REFRIGERATION HOUSEMAN Office Visit [facility] Group - Hematology/Oncology [address] [place] [address] Luis Munoz MD 1201 [facility] OF HEMATOLOGY & [place] [address] 11/15/2025 11:00 AM REFRIGERATION HOUSEMAN Office Visit [facility] - CHILD LIFE THERAPIST 1031 [facility] [address] [place] [address] Jennifer Guy, GAS ADJUSTER-RECYCLING ASSISTANT 1031 [facility] [address] 400 [place] [address] 11/16/2025 11:00 AM REFRIGERATION HOUSEMAN Office Visit [facility] Group - Ophthalmology [address] [place] [address] Xu Kelly OD [address] [place] [phone] 05/14/2026 12:30 PM CDT Procedure visit [facility] - GI [address] [place] [phone] 05/14/2026 1:00 PM CDT Office Visit [facility] - GI [address] [place] [phone] Jasmyn Alvarado, GAS ADJUSTER-RECYCLING ASSISTANT [address] [place] [address] DIV [place] [address] documented as of this encounter Goals Goal [...] on filedocumented in this encounter Care Teams Concrete Layer Relationship Specialty Start Date End Date Franky Choudhury DO [address] [place] [address] PCP - General Internal Medicine 10/02/24 Abel Pop MD [address] [place] [address] Pain Management Anesthesiology 05/17/23 Selam Ramirez MD 1225 S [facility] DEPT [place] [address] Ophthalmology 05/17/23 Luis Munoz MD [facility]1 S [facility] OF HEMATOLOGY [place] [address] Hematology and Oncology 05/17/23 Kinjal Marino MD [facility]L [place] [address] Dermatology 05/17/23 Ghada Guardado MD [address] [address] Cardiology 05/17/23 Marianna Benjamin MD [address] [address] Surgeon Orthopedic Surgery 05/17/23 Franky Choudhury DO [address] [place] [address] Resident - PCP Internal Medicine 06/04/23 Lenin Trevino MD [address]L [place] [address] Rheumatology 05/27/25 [facility] [address] [place] [address] Resident Rheumatology 06/15/25 documented as of this encounter
--- OUTSIDE RECORDS SUMMARY | 2025-06-23 10:13 | XMS_ITS | Clinical Summary ---
Author Organization [facility] Address [address] [place] [address] Phone Care Team Providers Care Ward Helper Name Role Phone Pratibha Hayes MD Primary Care Provider [phone] Allergies Active Allergy Reactions Criticality Noted Date [...] on file Legal Sex Female 4:36 AM FILTROSE CRUSHER Gender Identity Not on file Sexual Orientation [...] 1 - Negative. DICTATION LOCATION: [facility] 03/06/2019 2:25 PM CDT RIGHT [...] BI-RADS Category 1 - Negative. DICTATION LOCATION: [facility] Antonia Dupont MD MAMMO ORDERABL ES Final Result from Last 3 Months or Most Recently Relevant to Health Maintenance Insurance MEDICARE PART A AND B [facility] Care Teams Ward Helper Relationship Specialty Start Date End Date Pratibha Hayes MD PCP - General Pediatrics 04/10/21
--- OUTSIDE RECORDS SUMMARY | 2025-06-23 10:13 | XMS_ITS | Encounter Summary ---
Author Organization [facility] Address [address] [place] [address] Care Team Providers Care Quality Assurance Project Manager Name Role Phone Robert Celeste MD Primary Care Provider [phone] John Glalardo MD Unavailable Dinorah Peters DO Primary Care Provider [phone] Dinorah Peters DO Primary Care Provider [phone] Tracy Maldonado MD Unavailable [phone] Tracy Maldonado MD Unavailable [phone] Julita Adams MD Unavailable Abel Pop MD Unavailable Selam Ramirez MD Unavailable Luis Munoz MD Unavailable [phone] Kinjal Marino MD Unavailable [phone] Ghada Guardado MD Unavailable João Mora MD Unavailable Marianna Benjamin MD Unavailable Pratibha Hayes MD Primary Care Provider [phone] Franky Choudhury DO Unavailable KeiMachoamaya DO Primary Care Provider Pratibha Hayes MD Primary Care Provider Franky Choudhury DO Primary Care Provider [phone] Lenin Trevino MD Unavailable Markie Romero MD Unavailable Reason for Visit * Reason Onset Date Comments MEDICATION REFILL 01/10/2020 MEDICATION REFILL 01/11/2020 Encounter Details Date Type Department Care Team (Late st Contact Info) Description 01/10/2020 Refill [facility] [address] [place] [address] Octavio Yanez MD [address] [place] [address] MEDICATION REFILL; MEDICATION REFILL Social History Tobacco Use Types Packs/Day Years Used Date Smoking Tobacco: Never Smokeless Tobacco: Never Alcohol Use Standard Drinks/Week Comments No 0 (1 standard drink = 0.6 oz pur e alcohol) Comments No Sex and Gender Information Value Date Recorded Sex Assigned at Not on file Legal Sex Female 6:32 AM GLOBAL MARKETING COORDINATOR Gender Identity Not on file Sexual Orientation [...] 11:35 AM CST Refill Request Rose Reyn[facility] 12.30.19 NOV none Allergies: Allergies Allergen Reactions [...] Reasons: Sjogren's Syndrome Authorizing Provider: OCTAVIO YANEZ AL MARKETING COORDINATOR documented in this encounter Plan of Treatment Upcoming Encounters Date Type Department Care Team (Late st Contact Info) Description 07/16/2025 10:30 AM CDT Procedure visit [facility] - Cosmetic Dermatology [address], [facility] 200 [place] [address] 07/23/2025 9:15 AM CDT Office Visit [facility] - Orthopedics 1225 [facility], [place] [address] Sharad Mclaughlin, FINANCIAL ASSISTANCE SPECIALIST-TIMBER GRADER [address] [address] 07/26/2025 1:45 PM CDT Office Visit [facility] - Internal Med 1225 [facility], [place] [phone] Franky Choudhury, 1201 [place] [address] 08/02/2025 1:00 PM CDT Office Visit [facility] - Ophthalmology [address] [place] [address], [place] [address] Monse Kelly, FINANCIAL ASSISTANCE SPECIALIST-TIMBER GRADER [address] [place] [address] [place] [address] 08/09/2025 1:30 PM CDT Hospital Encounter [address] [address] 08/09/2025 2:00 PM CDT Hospital Encounter [address] [address] 08/14/2025 11:00 AM CDT Office Visit [facility] - Cosmetic Dermatology [address], [address] [phone] Consuelo Bosch MD [address] [address] 09/06/2025 11:30 AM CDT Office Visit [facility] - Cardiology [address] [facility], [address] [address] Stephanie Silvestre, FINANCIAL ASSISTANCE SPECIALIST-TIMBER GRADER [address] [address] 10/01/2025 1:00 PM GLOBAL MARKETING COORDINATOR Office Visit [facility] - Rheumatology 1225 [place] [address] Markie Romero MD 1225 [facility] [place] [address] 11/13/2025 11:00 AM GLOBAL MARKETING COORDINATOR Office Visit [facility] - Hematology/Oncology [address] [place] [address] Luis Munoz MD 1201 [facility] DIV OF HEMATOLOGY & [place] [address] 11/15/2025 11:00 AM GLOBAL MARKETING COORDINATOR Office Visit [facility] - HUMAN RESOURCES ANALYST 1031 [facility] [address] [place] [address] Jennifer Guy, FINANCIAL ASSISTANCE SPECIALIST-TIMBER GRADER 1031 [facility] [address] 400 [place] [address] 11/16/2025 11:00 AM GLOBAL MARKETING COORDINATOR Office Visit [facility] - Ophthalmology 1225 [facility], [place] [address] Xu Kelly OD [address] [place] [phone] 05/14/2026 12:30 PM CDT Procedure visit [facility] - GI [address] [place] [phone] 05/14/2026 1:00 PM CDT Office Visit [facility] - GI [address] [place] [phone] Jasmyn Alvarado, FINANCIAL ASSISTANCE SPECIALIST-TIMBER GRADER [address] [place] [address] 3F [place] [address] documented as of this encounter Goals Goal [...] as of this encounter Care Teams Quality Assurance Project Manager Relationship Specialty Start Date End Date Robert Celeste MD [address]60 [place] [address] PCP - General Internal Medicine 02/20/16 08/26/20 Dinorah Peters DO [address] 2L [place] [address] PCP - General Internal Medicine 08/27/20 03/24/21 Dinorah Peters DO [address] 2[address] [place] [phone] PCP - General Internal Medicine 03/25/21 06/03/23 Pratibha Hayes MD [address] 2[address] [place] [address] PCP - General Internal Medicine 06/04/23 11/17/23 Franky Choudhury DO [address] [place] [address] PCP - General Internal Medicine 11/18/23 09/26/24 Pratibha Hayes MD [address] 2[address] [place] [phone] PCP - General Internal Medicine 09/27/24 10/01/24 Franky Choudhury DO [address] [place] [address] PCP - General Internal Medicine 10/02/24 John Gallardo MD 3635 [place] [address] Resident - PCP Student Resident 07/04/18 06/16/21 Tracy Maldonado MD [address] 2L DIV OF [facility] INTERNAL MEDICINE [place] Resident - PCP Student Resident 06/17/21 05/11/23 Tracy Maldonado MD [address] 2L DIV OF [facility] INTERNAL MEDICINE [place] Resident Student Resident 06/17/21 10/01/21 Julita Adams MD [address] 2L DIV OF [facility] INTERNAL MEDICINE [place] Resident - PCP Internal Medicine 05/17/23 06/03/23 Abel Pop MD [address] [place] [phone] Pain Management Anesthesiology 05/17/23 Selam Ramirez MD [address] DEPT [place] [phone] Ophthalmology 05/17/23 Luis Munoz MD [address] DIV OF HEMATOLOGY & [place] [address] Hematology and Oncology 05/17/23 Kinjal Marino MD [address] 3L [place] [address] Dermatology 05/17/23 Ghada Guardado MD [address] [facility] [address] [place] [address] Cardiology 05/17/23 João Mora MD [address] [place] [phone] Resident Rheumatology 05/17/23 05/26/25 Marianna Benjamin MD 1225 S [facility] [place] [address] Surgeon Orthopedic Surgery 05/17/23 Franky Choudhury DO [address] [place] [address] Resident - PCP Internal Medicine 06/04/23 Lenin Trevino MD 12[address] [facility] 2L [place] [address] Rheumatology 05/27/25 Markie Romero MD [address] [place] [address] Resident Rheumatology 06/15/25 documented as of this encounter
--- OUTSIDE RECORDS SUMMARY | 2025-06-23 10:13 | XMS_ITS | Encounter Summary ---
Author Organization [facility] Address [address] [facility] [place] [address] Care Team Providers Care Bus Info Consultant Name Role Phone FranDinorah DO Primary Care Provider [phone] Tracy Maldonado MD Unavailable [phone] Julita Adams MD Unavailable [phone] Abel Pop MD Unavailable Selam Ramirez MD Unavailable Luis Munoz MD Unavailable [phone] Kinjal Marino MD Unavailable Ghada Guardado MD Unavailable [phone] João Mora MD Unavailable Marianna Benjamin MD Unavailable [phone] Pratibha Hayes MD Primary Care Provider [phone] Franky Choudhury DO Unavailable [phone] Franky Choudhury DO Primary Care Provider [phone] Pratibha Hayes MD Primary Care Provider [phone] Franky Choudhury DO Primary Care Provider [phone] Lenin Trevino MD [facility]available [facility] MD Unavailable Reason for Visit * Reason Onset Date Comments MEDICATION REFILL 03/24/2022 Encounter Details Date Type Department Care Team (Late st Contact Info) Description 03/24/2022 Refill [facility] 1225 [facility], [place] [phone] Dinorah Peters, DO 1225 [facility] 2L DIV OF [facility] [place] [address] MEDICATION REFILL Social History Tobacco Use Types Packs/Day Years Used Date Smoking Tobacco: Never Smokeless Tobacco: Never Alcohol Use Standard Drinks/Week Comments No 0 (1 standard drink = 0.6 oz pur e alcohol) PHQ-2 Answer Date Recorded PHQ2 TOTAL SCORE 0 04/03/2021 Comments No Sex and Gender Information Value Date Recorded Sex Assigned at Not on file Legal Sex Female 6:32 AM AUTO GARAGE ATTENDANT Gender Identity Not on file Sexual [...] [address] , [facility] 200 [place] [address] 07/23/2025 9:15 AM CDT Office Visit [facility] - Orthopedics [address] [place] [address] Sharad Mclaughlin, BANKMAN-OPERATING TABLE ASSEMBLER 1011 [facility] [address] [place] [address] 07/26/2025 1:45 PM CDT Office [facility] - Internal Med [address] [place] [address] Franky Choudhury, DO 1201 [place] [address] 08/02/2025 1:00 PM CDT Office Visit [facility] - Ophthalmology 1225 [facility], [place] [phone] Monse Kelly, BANKMAN-OPERATING TABLE ASSEMBLER [address] [place] [address] [place] [address] 08/09/2025 1:30 PM CDT Hospital Encounter [address] [address] 08/09/2025 2:00 PM CDT Hospital Encounter [address] [address] 08/14/2025 11:00 AM CDT Office Visit [facility] - Cosmetic Dermatology [address], [facility] 200 [place] [address] Consuelo Bosch MD [address] [facility] [address], [place] [address] 09/06/2025 11:30 AM CDT Office Visit [facility] - Cardiology 1034 [facility], [address] [address] Stephanie Silvestre, BANKMAN-OPERATING TABLE ASSEMBLER [address] [place] [address] 10/01/2025 1:00 PM AUTO GARAGE ATTENDANT Office Visit [facility] - Rheumatology 1225 [facility], [place] [address] Markie Romero MD [facility]5 [facility] [place] [address] 11/13/2025 11:00 AM AUTO GARAGE ATTENDANT Office Visit [facility] - Hematology/Oncology [address] [place] [phone] Luis Munoz MD 1201 [facility] OF HEMATOLOGY & [place] [address] 11/15/2025 11:00 AM AUTO GARAGE ATTENDANT Office Visit [facility] - PRODUCTION PACKAGER 1031 [facility] [address] [place] [address] Jennifer Guy, BANKMAN-OPERATING TABLE ASSEMBLER [address] [place] [address] 11/16/2025 11:00 AM AUTO GARAGE ATTENDANT Office Visit [facility] - Ophthalmology 1225 [place] [phone] Xu Kelly OD 1225 [place] [address] 05/14/2026 12:30 PM CDT Procedure visit [facility] - GI [address] [place] [phone] 05/14/2026 1:00 PM CDT Office Visit [facility] - GI [address] [place] [phone] Jasmyn Alvarado, BANKMAN-OPERATING TABLE ASSEMBLER [address] [place] [address] 3F [place] [address] documented as of this encounter Goals Goal [...] documented as of this encounter Care Teams Bus Info Consultant Relationship Specialty Start Date End Date Johnyalthea Dinorah JuneDO [address] 2L DIV OF [facility] [place] [address] PCP - General Internal Medicine 03/25/21 06/03/23 Pratibha Hayes MD [address] 2L DIV OF [facility] [place] [address] PCP - General Internal Medicine 06/04/23 11/17/23 Franky Choudhury DO [address] [place] [address] PCP - General Internal Medicine 11/18/23 09/26/24 Pratibha Hayes MD [address] 2L DIV OF [facility] [place] [address] PCP - General Internal Medicine 09/27/24 10/01/24 Franky Choudhury DO [address] [place] [address] PCP - General Internal Medicine 10/02/24 Tracy Maldonado MD [address] 2L DIV OF [facility] INTERNAL [place], [place] Resident - PCP Student Resident 06/17/21 05/11/23 Julita Adams MD [address] 2L DIV OF [facility] INTERNAL [place] Resident - PCP Internal Medicine 05/17/23 06/03/23 Abel Pop MD [address] [place] [address] Pain Management Anesthesiology 05/17/23 Selam Ramirez MD 1225 [facility] DEPT [place] [address] Ophthalmology 05/17/23 Luis Munoz MD 1201 [facility] DIV OF HEMATOLOGY & [place] [address] Hematology and Oncology 05/17/23 Kinjal Marino MD 1225 [facility] 3L [place] [address] Dermatology 05/17/23 Ghada Guardado MD [address] [address] Cardiology 05/17/23 João Mora MD 1225 [facility] [place] [address] Resident Rheumatology 05/17/23 05/26/25 Marianna Benjamin MD 1225 [facility] [place] [address] Surgeon Orthopedic Surgery 05/17/23 Franky Choudhury DO 1201 [place] [address] Resident - PCP Internal Medicine 06/04/23 Lenin Trevino MD [address] [facility] 2[facility] [place] [address] Rheumatology 05/27/25 Markie Romero MD [address] [place] [address] Resident Rheumatology 06/15/25 documented as of this encounter
--- OUTSIDE RECORDS SUMMARY | 2025-06-23 10:13 | XMS_ITS | Clinical Summary ---
Author Organization [facility] Address [address], [facility] [place] [address] [place] [address] Phone Care Team Providers Care Skiver Counter Name Role Phone Provider, Unknown Primary Care Provider Unavaila Edmond Soto DO Unavailable [phone] Allergies Active Allergy Reactions Criticality Noted [...] minutes as needed for Chest pain. Active Eleva-3 Fatty Acids (OMEGA-3 FISH OIL PO) Take [...] age to complete this topic Insurance MEDICARE [facility] Care Teams Skiver Counter Relationship Specialty Start Date End Date Provider, Unknown UNKNOWN PCP - General 03/17/17 Edmond Verma DO UNKNOWN Gastroenterology 07/14/17
--- OUTSIDE RECORDS SUMMARY | 2025-06-23 10:13 | XMS_ITS | Encounter Summary ---
Author Organization [facility] Address [address] [place] [address] Care Team Providers Care Hand Mold Maker Name Role Phone Abel Pop MD Unavailable Selam Ramirez MD Unavailable Luis Munoz MD Unavailable [phone] Kinjal Marino MD Unavailable [phone] Ghada Guardado MD Unavailable [phone] Marianna Benjamin MD Unavailable [phone] Franky Choudhury DO Unavailable Franky Choudhury DO Primary Care Provider Lenin Trevino MD [facility]available [facility] Unavailable Encounter Details Date Type Department Care Team (Late st Contact Info) Description 05/28/2025 Ophth Exam [facility] - Ophthalmology 1225 [place] [address] Barrett Gutierrez MD 1201 [place], [place] [id number] Social History Tobacco Use Types Packs/Day Years [...] Recorded Patient Health Questionnaire-2 Score 0 03/19/2025 [facility] ional [facility] - Occupational Stress [...] any time in the past 12 m [facility], were you homeless or living in a senior care (including now)? No 05/27/2025 Comments No Sex and Gender Information Value Date Recorded Sex Assigned at Not on file Legal Sex Female 6:32 AM DIRECTOR INSTRUMENTATION Gender Identity Not on file Sexual Orientation [...] - Cosmetic Dermatology [address], [facility] 200 [place] [address] 07/23/2025 9:15 AM CDT Office Visit [facility] - Orthopedics [address] [place] [address], [place] [address] Sharad Mclaughlin, COMMUNITY RELATIONS ADVISOR-ENTRY PROCESSOR [address] [address] 07/26/2025 1:45 PM CDT Office Visit [facility] - Internal Med [address] [place] [address], [facility] [place] [address] Franky Choudhury, 1201 [place] [address] 08/02/2025 1:00 PM CDT Office Visit [facility] - Ophthalmology 1225 [facility], [place] [address] Monse Kelly, COMMUNITY RELATIONS ADVISOR-ENTRY PROCESSOR 1225 [facility] DEPT [place] [address] 08/09/2025 1:30 PM CDT Hospital Encounter [address] [address] 08/09/2025 2:00 PM CDT Hospital Encounter [address] [address] 08/14/2025 11:00 AM CDT Office Visit [facility] - Cosmetic Dermatology [address], [facility] 200 [place] [address] Consuelo Bosch MD [address] [facility] [address], [place] [address] 09/06/2025 11:30 AM CDT Office Visit [facility] - Cardiology 1034 [facility], [address] [address] Stephanie Silvestre, COMMUNITY RELATIONS ADVISOR-ENTRY PROCESSOR [address] [address] 10/01/2025 1:00 PM DIRECTOR INSTRUMENTATION Office Visit [facility] - Rheumatology [address] [place] [phone] Markie Romero MD [facility]5 [facility] DIV [place] [address] 11/13/2025 11:00 AM DIRECTOR INSTRUMENTATION Office Visit [facility] - Hematology/Oncology [address] [place] [address] Luis Munoz MD 1201 [facility] OF HEMATOLOGY & [place] [address] 11/15/2025 11:00 AM DIRECTOR INSTRUMENTATION Office Visit [facility] - AMERICAN INDIAN STUDIES PROFESSOR 1031 [facility] [address] [place] [address] Jennifer Guy, COMMUNITY RELATIONS ADVISOR-ENTRY PROCESSOR 1031 [facility] [address] [place] [address] 11/16/2025 11:00 AM DIRECTOR INSTRUMENTATION Office Visit [facility] - Ophthalmology 1225 [place] [phone] [place] [address] [place] [phone] 05/14/2026 12:30 PM CDT Procedure visit [facility] - GI [address] [place] [phone] 05/14/2026 1:00 PM CDT Office Visit [facility] - GI [address] [place] [phone] Jasmyn Alvarado, COMMUNITY RELATIONS ADVISOR-ENTRY PROCESSOR [address] [place] [address] 3F DIV [place] [address] documented as of this encounter Goals Goal [...] on filedocumented in this encounter Care Teams Hand Mold Maker Relationship Specialty Start Date End Date Franky Choudhury DO [address] [place] [address] PCP - General Internal Medicine 10/02/24 Abel Pop MD [address] [place] [phone] Pain Management Anesthesiology 05/17/23 Selam Ramirez MD 1225 S [facility] DEPT [place] [phone] Ophthalmology 05/17/23 Luis Munoz MD 1201 S [facility] DIV OF HEMATOLOGY & [place] [address] Hematology and Oncology 05/17/23 Kinjal Marion MD 1225 [address] [facility] 3L [place] [address] Dermatology 05/17/23 Ghada Guardado MD [address] [address] Cardiology 05/17/23 Marianna Benjamin MD [address] [address] Surgeon Orthopedic Surgery 05/17/23 Franky Choudhury DO [address] [place] [address] Resident - PCP Internal Medicine 06/04/23 Lenin Trevino MD [address] [facility] 2L [place] [address] Rheumatology 05/27/25 Markie Romero MD [address] [place] [address] Resident Rheumatology 06/15/25 documented as of this encounter
--- OUTSIDE RECORDS SUMMARY | 2025-06-23 10:13 | XMS_ITS | Encounter Summary ---
Author Organization [facility] Healthcare Address [address] [place] [address] Care Team Providers Care Valve Tester Name Role Phone Pratibha Hayes MD Primary Care Provider [phone] Encounter Details Date Type Department Care Team (Late st Contact Info) Description 06/20/2025 Results Follow-Up [facility] Medical Group Convenient Care at [address] [address] Lesley Kelly NP 2122 [facility] 130 [place] [address] Urine culture Urine, clean voided Social History Tobacco Use Types Packs/Day Years Used Date Smoking Tobacco: Never Alcohol Use Standard Drinks/Week Comments No 0 (1 standard drink = 0.6 oz pur e alcohol) Comments Unknown Sex and Gender Information Value Date Recorded Sex Assigned at Not on file Legal Sex Female 3:03 AM CLIENT PROFESSIONAL Gender Identity Not on file Sexual Orientation Not on file documented as of this encounter Plan of Treatment Not on file documented as of this encounter Visit Diagnoses Not on filedocumented in this encounter Care Teams Valve Tester Relationship Specialty Start Date End Date Pratibha Hayes MD 1225 [address] [facility] 2L DIV [place] [address] PCP - General Internal Medicine 11/18/24 documented as of this encounter
--- OUTSIDE RECORDS SUMMARY | 2025-06-23 10:13 | XMS_ITS | Referral Summary ---
Author Organization [facility] Address [address] [place] [address] Care Team Providers Care Needle Punch Operator Name Role Phone Pratibha Hayes MD Primary Care Provider [phone] Encounters Date Type Department Care Team Description 06/20/2025 Results Follow-Up [facility] at [address] [address] Lesley Kelly NP Urine culture Urine, clean voided 06/16/2025 6:10 PM CDT - 06/16/2025 11:59 PM CDT Hospital Encounter [address] [address] Acute cystitis with hematuria Discharge Disposition: Discharge to home or self care 06/16/2025 Telephone [facility] at [address] [address] Yael Ram MA 06/16/2025 9:15 AM CDT Office Visit [facility] at [address] [address] Lesley Kelly NP Acute cystitis [...] bad deep cough Morphine Vomiting High 08/12/2018 [place] Anaphylaxis,Rash,Sw elling High 10/30/2024 Mouth blisters and [...] spleen 10/04/2017 Coronary artery disease invo lving [place] coronary artery of [place] heart without angina pectoris 03/14/2014 Overview (06/16/2025): [...] on file Legal Sex Female 3:03 AM FINANCIAL SERVICES EDUCATION CONSULTANT Gender Identity Not on file Sexual Orientation [...] 64.4 kg (142 lb) 11/18/2024 3:55 PM FINANCIAL SERVICES EDUCATION CONSULTANT Height 157.5 cm (5' 2) 03/18/2017 3:52 [...] cloacae complex (.) Comment:Testing performed by : [facility], [address] [facility], [place]., [address] Organism ENTEROBACTER CLOACAE COMPLEX ANY BELLAMY Urine, clean voided 06/16/2025 6:44 PM CDT 06/17/2025 12:09 AM CDT Narrative ANY BELLAMY - 06/19/2025 7:45 AM CDT Testing performed by [facility] Microbiology Laboratory ([phone]) Organism Antibiotic Method Susceptibility Enterobacter cloacae complex [...] Resistant Lesley Kelly NP LAB MICROBIOLOGY - [facility] [place] [address] [address] [place] [address] * (ABNORMAL) POCT urinalysis dipstick (06/16/2025 1:00 PM CDT) Color, Urine, POC Yellow Clarity, ur, POC Cloudy(A) Clear Glucose, ur, POC Negative Negative Bilirubin, ur, POC Negative Negative Ketones, ur, POC Negative Negative Specific [place], POC 1.010 1.003 - 1.030 Blood, ur, POC Trace(A) Negative pH, ur, POC 6.0 5.0 - 8.0 Protein, ur, POC Negative Negative Urobilinogen, urine, POC 0.2 0.2 - 1.0 mg/dL Nitrite, ur, POC Negative Negative Leukocytes, ur, POC Large(A) Negative Lot Number [id number] Urine 06/16/2025 1:00 PM CDT Lesley Kelly NP POINT OF CARE TEST ORDERABLES F inal Result from Last 3 Months Insurance MEDICARE [facility] MED[facility] SUPPLEMENT Care Teams Needle Punch Operator Relationship Specialty Start Date End Date Pratibha Hayes MD [address] [place] [phone] PCP - General Internal Medicine 11/18/24
--- OUTSIDE RECORDS SUMMARY | 2025-06-23 10:14 | XMS_ITS | Encounter Summary ---
Author Organization [facility] Address [address] [place] [address] Care Team Providers Care Director Mortgage Name Role Phone Robert Celeste MD Primary Care Provider [phone] John Gallardo MD Unavailable Dinorah Peters DO Primary Care Provider [phone] Dinorah Peters DO Primary Care Provider [phone] Tracy Maldonado MD Unavailable [phone] Tracy Maldonado MD Unavailable [phone] Julita Adams MD Unavailable Abel Pop MD Unavailable Selam Ramirez MD Unavailable Luis Munoz MD Unavailable [phone] Kinjal Marino MD Unavailable [phone] Ghada Guardado MD Unavailable João Mora MD Unavailable Marianna Benjamin MD Unavailable Pratibha Hayes MD Primary Care Provider [phone] Franky Choudhury DO Unavailable Franky Choudhury DO Primary Care Provider Pratibha Hayes MD Primary Care Provider Franky Choudhury DO Primary Care Provider [phone] Lenin Trevino MD Unavailable Markie Romero MD Unavailable Reason for Visit * Reason Onset Date Comments Order 06/22/2018 Encounter Details Date Type Department Care Team (Late st Contact Info) Description 06/22/2018 Telephone [facility] [address] [facility] [address] [place] [address] Robert Celeste MD [address] OF [facility] [place] [address] Order Social History Tobacco Use Types Packs/Day Years Used Date Smoking Tobacco: Never Smokeless Tobacco: Never Alcohol Use Standard Drinks/Week Comments No 0 (1 standard drink = 0.6 oz pur e alcohol) Comments No Sex and Gender Information Value Date Recorded Sex Assigned at Not on file Legal Sex Female 6:32 AM SUPERVISOR FUNCTIONAL TESTING Gender Identity Not on file Sexual Orientation [...] - 06/22/2018 4:14 PM CDT Bella from [facility] called CB# [phone] Bella called to see if the PCP will follow the pt for home care Thank you documented in this encounter Plan of Treatment Upcoming Encounters Date Type Department Care Team (Late st Contact Info) Description 07/16/2025 10:30 AM CDT Procedure visit [facility] - Cosmetic Dermatology [address], [facility] 200 [place] [phone] 07/23/2025 9:15 AM CDT Office Visit [facility] - Orthopedics [address] [place] [phone] Sharad Mclaughlin, CLOTH SANDER-ESTHETICIAN/SPA COORDINATOR 1011 [facility] 400 [place] [address] 07/26/2025 1:45 PM CDT Office Visit [facility] - Internal Med [address] [place] [phone] Franky Choudhury DO 1201 [place] [address] 08/02/2025 1:00 PM CDT Office Visit [facility] - Ophthalmology [address] [place] [phone] Monse Kelly, CLOTH SANDER-ESTHETICIAN/SPA COORDINATOR [address] [place] [address] [place] [phone] 08/09/2025 1:30 PM CDT Hospital Encounter [facility] [address] [place] [address] 08/09/2025 2:00 PM CDT Hospital Encounter [facility] [address] [place] [address] 08/14/2025 11:00 AM CDT Office Visit [facility] - Cosmetic Dermatology [address], [place] [address] [place] [address] Consuelo Bosch MD [address] [place] [address] [place] [address] 09/06/2025 11:30 AM CDT Office Visit [facility] - Cardiology 10[address] [facility], [facility] [address] [place] [address] Stephanie Silvestre, CLOTH SANDER-ESTHETICIAN/SPA COORDINATOR 1034 [facility] [address] [place] [address] 10/01/2025 1:00 PM SUPERVISOR FUNCTIONAL TESTING Office Visit [facility] - Rheumatology 1225 [facility], [place] [address] Markie Romero MD 1225 [facility] [place] [address] 11/13/2025 11:00 AM SUPERVISOR FUNCTIONAL TESTING Office Visit [facility] - Hematology/Oncology [address] [place] [phone] Luis Munoz MD 1201 [facility] DIV OF HEMATOLOGY & [place] [address] 11/15/2025 11:00 AM SUPERVISOR FUNCTIONAL TESTING Office Visit [facility] - AGING DEPARTMENT SUPERVISOR 1031 [facility] [address] [place] [phone] Jennifer Guy, CLOTH SANDER-ESTHETICIAN/SPA COORDINATOR 1031 [facility] 400 [place] [address] 11/16/2025 11:00 AM SUPERVISOR FUNCTIONAL TESTING Office Visit [facility] - Ophthalmology [address] [place] [phone] Xu Kelly, MIRTA [address] [place] [phone] 05/14/2026 12:30 PM CDT Procedure visit [facility] - GI [address] [place] [phone] 05/14/2026 1:00 PM CDT Office Visit [facility] - GI [address] [place] [phone] Jasmyn Alvarado, CLOTH SANDER-ESTHETICIAN/SPA COORDINATOR [address] [place] [address] [address]FL DIV [place] [address] documented as of this encounter Visit Diagnoses Not on filedocumented in this encounter Additional Health Concerns Infection Onset Date Last Indicated Resolved Time CDIFF Under Investigation 05/27/2025 05/27/2025 8:56 PM CDT documented as of this encounter Care Teams Director Mortgage Relationship Specialty Start Date End Date Robert Celeste MD [address] [place] [address] PCP - General Internal Medicine 02/20/16 08/26/20 Dinorah Peters DO [address] [place] [address] 2L DIV [place] [address] PCP - General Internal Medicine 08/27/20 03/24/21 Dinorah Peters DO [address] [place] [address] 2L DIV [place] [address] PCP - General Internal Medicine 03/25/21 06/03/23 Pratibha Hayes MD [address]L DIV OF [facility] [place] [address] PCP - General Internal Medicine 06/04/23 11/17/23 Franky Choudhury DO [address] [place] [address] PCP - General Internal Medicine 11/18/23 09/26/24 Pratibha Hayes MD [address] DIV OF [facility] [place] [address] PCP - General Internal Medicine 09/27/24 10/01/24 Franky Choudhury DO [address] [place] [address] PCP - General Internal Medicine 10/02/24 John Gallardo MD [address] [place] [address] Resident - PCP Student Resident 07/04/18 06/16/21 Tracy Maldonado MD [address] DIV OF [facility] INTERNAL [place] Resident - PCP Student Resident 06/17/21 05/11/23 Tracy Maldonado MD [address] DIV OF [facility] INTERNAL [place] Resident Student Resident 06/17/21 10/01/21 Julita Adams MD [address] 2L DIV OF [place], [place] Resident - PCP Internal Medicine 05/17/23 06/03/23 Abel Pop MD [address] [place] [phone] Pain Management Anesthesiology 05/17/23 Selam Ramirez MD 12[address] S [facility] GL DEPT [place] [address] Ophthalmology 05/17/23 Luis Munoz MD [address] [facility] DIV OF HEMATOLOGY & [place] [address] Hematology and Oncology 05/17/23 Kinjal Marino MD [address] [facility] 3L [place] [address] Dermatology 05/17/23 Ghada Guardado MD [address] [address] Cardiology 05/17/23 João Mora MD [address] [facility] [place] [address] Resident Rheumatology 05/17/23 05/26/25 Marianna Benjamin MD [address] [facility] [place] [phone] Surgeon Orthopedic Surgery 05/17/23 Franky Choudhury DO [address] [place] [address] Resident - PCP Internal Medicine 06/04/23 Lenin Trevino MD [address] [facility] 2L [place] [phone] Rheumatology 05/27/25 Markie Romero MD 1225 S [facility] [place] [address] Resident Rheumatology 06/15/25 documented as of this encounter
--- OUTSIDE RECORDS SUMMARY | 2025-06-23 10:14 | XMS_ITS | Encounter Summary ---
Author Organization [facility] Address [address] [facility] [place] [address] Care Team Providers Care City Marshal Name Role Phone John Gallardo MD Unavailable Dinorah Peters DO Primary Care Provider [phone] Dinorah Peters DO Primary Care Provider [phone] Tracy Maldonado MD Unavailable [phone] Tracy Maldonado MD Unavailable Julita Adams MD Unavailable Abel Pop MD Unavailable Selam Ramirez MD Unavailable Luis Mnuoz MD Unavailable [phone] Kinajl Marino MD Unavailable [phone] Ghada Guardado MD Unavailable [phone] João Mora MD Unavailable Marianna Benjamin MD Unavailable Pratibha Hayes MD Primary Care Provider Franky Choudhury DO Unavailable Franky Choudhury DO Primary Care Provider Pratibha Hayes MD Primary Care Provider Franky Choudhury DO Primary Care Provider [phone] Lenin Trevino MD [facility]available [facility] Unavailable Reason for Visit * Reason Onset Date Comments MEDICATION REFILL 11/15/2020 Encounter Details Date Type Department Care Team (Late st Contact Info) Description 11/15/2020 Refill [facility] Internal Medicine [address] [facility] [address] [place] [address] Obinna Pantoja, DO Need updated address MEDICATION REFILL Social History Tobacco Use Types Packs/Day Years Used Date Smoking Tobacco: Never Smokeless Tobacco: Never Alcohol Use Standard Drinks/Week Comments No 0 (1 standard drink = 0.6 oz pur e alcohol) Comments No Sex and Gender Information Value Date Recorded Sex Assigned at Not on file Legal Sex Female 6:32 AM OPERATIONS SPECIALIST Gender Identity Not on file Sexual [...] visit [facility] - Cosmetic Dermatology [facility], [facility] [address] [place] [phone] 07/23/2025 9:15 AM CDT Office Visit [facility] - Orthopedics [address] [place] [phone] Sharad Mclaughlin, OPERATIONS DIRECTOR-AUTO BODY REPAIR TEACHER 1011 [facility] 400 [place] [address] 07/26/2025 1:45 PM CDT Office Visit [facility] - Internal Med [address] [place] [phone] Franky Choudhury DO 1201 [place] [address] 08/02/2025 1:00 PM CDT Office Visit [facility] - Ophthalmology [address] [place] [phone] Monse Kelly, OPERATIONS DIRECTOR-AUTO BODY REPAIR TEACHER [address] [place] [address] DE[place] [address] 08/09/2025 1:30 PM CDT Hospital Encounter [address] [address] 08/09/2025 2:00 PM CDT Hospital Encounter [address] [address] 08/14/2025 11:00 AM CDT Office Visit [facility] - Cosmetic Dermatology [facility], [facility] [address] [place] [address] Consuelo Bosch MD [address] [facility] [address], [place] [address] 09/06/2025 11:30 AM CDT Office Visit [facility] - Cardiology 10[address] [facility], [facility] [address] [place] [address] Stephanie Silvestre, OPERATIONS DIRECTOR-AUTO BODY REPAIR TEACHER 1034 [facility] [address] [place] [address] 10/01/2025 1:00 PM OPERATIONS SPECIALIST Office Visit [facility] - Rheumatology 1225 [facility], [place] [address] Markie Romero MD 1225 [facility] DIV [place] [address] 11/13/2025 11:00 AM OPERATIONS SPECIALIST Office Visit [facility] - Hematology/Oncology [address] [place] [phone] Luis Munoz MD 1201 [facility] DIV OF HEMATOLOGY & [place] [address] 11/15/2025 11:00 AM OPERATIONS SPECIALIST Office Visit [facility] - [employer] BASEBALL COACH [address] [facility] [address] [place] [phone] Jennifer Guy, OPERATIONS DIRECTOR-AUTO BODY REPAIR TEACHER 1031 [facility] 400 [place] [address] 11/16/2025 11:00 AM OPERATIONS SPECIALIST Office Visit [facility] - Ophthalmology 1225 [facility], [place] [address] Xu Kelly OD 1225 [place] [address] 05/14/2026 12:30 PM CDT Procedure visit [facility] - GI 1225 [place] [address] 05/14/2026 1:00 PM CDT Office Visit [facility] - GI 1225 [place] [phone] Jasmyn Alvarado, OPERATIONS DIRECTOR-AUTO BODY REPAIR TEACHER [address] [place] [address] 3FL DIV [place] [address] documented as of this encounter Goals Goal Patient Goal Type Associated Problems Recent Progress Patient-Stated? Author Medication Management General On track( 025 1:02 PM CDT) Reena Dogde, RN Note: Expected end date: ongoing Interventions: [...] documented as of this encounter Care Teams City Marshal Relationship Specialty Start Date End Date Dinorah Peters DO [address] [place] [address] 2L DIV OF [facility] [place] [address] PCP - General Internal Medicine 08/27/20 03/24/21 Dinorah Peters DO [address] [place] [address] 2L DIV OF [facility] [place] [address] PCP - General Internal Medicine 03/25/21 06/03/23 Pratibha Hayes MD [address] [place] [address] 2L DIV OF [facility] [place] [address] PCP - General Internal Medicine 06/04/23 11/17/23 Franky Choudhury DO [address] [place] [address] PCP - General Internal Medicine 11/18/23 09/26/24 Pratibha Hayes MD [address] 2L DIV OF [facility] [place] [phone] PCP - General Internal Medicine 09/27/24 10/01/24 Franky Choudhury DO [address] [place] [address] PCP - General Internal Medicine 10/02/24 John Gallardo MD [address] [place] [address] Resident - PCP Student Resident 07/04/18 06/16/21 Tracy Maldonado MD [address] 2L DIV OF [facility] [place]NAL [place], [place] Resident - PCP Student Resident 06/17/21 05/11/23 Tracy Maldonado MD [address] 2[address] DIV OF [facility] [place] Resident Student Resident 06/17/21 10/01/21 Julita Adams MD [address] 2[address] DIV OF [facility] [place] Resident - PCP Internal Medicine 05/17/23 06/03/23 Abel Pop MD [address] [place] [phone] Pain Management Anesthesiology 05/17/23 Selam Ramirez MD [address] DEPT [place] [address] Ophthalmology 05/17/23 Luis Munoz MD 1201 S [facility] DIV OF HEMATOLOGY & [place] [address] Hematology and Oncology 05/17/23 Kinjal Marino MD 1225 [address] [facility] 3L [place] [address] Dermatology 05/17/23 Ghada Guardado MD 1034 S [facility] 1[address] [place] [address] Cardiology 05/17/23 João Mora MD 1225 S [facility] [place] [address] Resident Rheumatology 05/17/23 05/26/25 Marianna Benjamin MD 12[address] S [facility] [place] [address] Surgeon Orthopedic Surgery 05/17/23 Franky Choudhury DO [address] [place] [address] Resident - PCP Internal Medicine 06/04/23 Lenin Trevino MD 1225 [facility] 2L [place] [address] Rheumatology 05/27/25 Markie Romero MD 12[address] [facility] [place] [address] Resident Rheumatology 06/15/25 documented as of this encounter
--- OUTSIDE RECORDS SUMMARY | 2025-06-23 10:14 | XMS_ITS ---
Author Organization [facility] Address [address] [facility] [address] [place] [address] Care Team Providers Care Motorcycle Subassembly Repairer Name Role Phone Abel Pop MD Unavailable Selam Ramirez MD Unavailable Luis Munoz MD Unavailable [phone] Kinjal Marino MD Unavailable [phone] Ghada Guardado MD Unavailable Marianna Benjamin MD Unavailable Franky Choudhury DO Unavailable Franky Choudhury DO Primary Care Provider [phone] Lenin Trevino MD [facility]available [facility] Unavailable Active Problems Problem Noted [...] 03/28/2020 Assessment & Plan (10/08/2020 3:58 PM DOCKMASTER): BP stable. No changes. Continue BB and [...] D1. Assessment & Plan (10/08/2020 3:53 PM DOCKMASTER): Stable. No changes. No further ischemic evaluation [...] spleen 10/04/2017 Coronary artery disease invo lving [place] coronary artery of [place] heart without angina pectoris 03/14/2014 Overview (05/25/2018): [...] D1. Assessment & Plan (10/08/2020 3:52 PM DOCKMASTER): Stable sp PCI to LAD with DB [...]
--- OUTSIDE RECORDS SUMMARY | 2025-06-23 10:14 | XMS_ITS | Encounter Summary ---
Author Organization [facility] Address [address] [facility] [place] [address] Care Team Providers Care Admissions Representative Name Role Phone John Gallardo MD Unavailable Dinorah Peters DO Primary Care Provider [phone] Dinorah Peters DO Primary Care Provider [phone] Tracy Maldonado MD Unavailable [phone] Tracy Maldonado MD Unavailable Julita Adams MD Unavailable Abel Pop MD Unavailable Selam Ramirez MD Unavailable Luis Munoz MD Unavailable [phone] Kinjal Marino MD Unavailable [phone] Ghada Guardado MD Unavailable [phone] João Mora MD Unavailable Marianna Benjamin MD Unavailable Pratibha Hayes MD Primary Care Provider Franky Choudhury DO Unavailable Franky Choudhury DO Primary Care Provider Pratibha Hayes MD Primary Care Provider Franky Choudhury DO Primary Care Provider [phone] Lenin Trevino MD Unavailable Markie Romero MD Unavailable Reason for Visit * Reason Onset Date Comments MEDICATION REFILL 11/23/2020 Encounter Details Date Type Department Care Team (Late st Contact Info) Description 11/23/2020 Refill [facility] [address] [facility] [address] [place] [address] Ghada Guardado MD [address] [facility] 1[address] [place] [address] MEDICATION REFILL Social History Tobacco Use Types Packs/Day Years Used Date Smoking Tobacco: Never Smokeless Tobacco: Never Alcohol Use Standard Drinks/Week Comments No 0 (1 standard drink = 0.6 oz pur e alcohol) Comments No Sex and Gender Information Value Date Recorded Sex Assigned at Not on file Legal Sex Female 6:32 AM RENAL MEDICINE SPECIALIST Gender Identity Not on file Sexual Orientation Not on file Occupation Industry Job Start Date Job End Date Retired Not on file Not on file Not on file COVID-19 Exposure Response Date Recorded In the last month, have you been in contact with someone who was confirmed or suspected to have Coronavirus / COVID-19? No / Unsure 11/25/2020 8:07 AM RENAL MEDICINE SPECIALIST documented as of this encounter Functional Status [...] Description 07/16/2025 10:30 AM CDT [facility] Dermatology [address], [place] [address] [place] [address] 07/23/2025 9:15 AM CDT Office Visit [facility] - Orthopedics [address] [place] [phone] Sharad Mclaughlin, SEXUAL HEALTH PHYSICIAN-RN CARDIAC [address] [address] 07/26/2025 1:45 PM CDT Office Visit [facility] - Internal Med [address] [place] [phone] Franky Choudhury DO 1201 [place] [address] 08/02/2025 1:00 PM CDT Office Visit [facility] - Ophthalmology [address] [place] [phone] Monse Kelly, SEXUAL HEALTH PHYSICIAN-RN CARDIAC [address] [place] [address] DE[place] [phone] 08/09/2025 1:30 PM CDT Hospital Encounter [address] [address] 08/09/2025 2:00 PM CDT Hospital Encounter [address] [address] 08/14/2025 11:00 AM CDT Office Visit [facility] - Cosmetic Dermatology [address], [place] [address] [place] [phone] Consuelo Bosch MD [address] [place] [address] [place] [address] 09/06/2025 11:30 AM CDT Office Visit [facility] - Cardiology [address] [facility], [facility] 1[address] [place] [address] Stephanie Silvestre, SEXUAL HEALTH PHYSICIAN-RN CARDIAC 1034 [facility] 1120 [place] [address] 10/01/2025 1:00 PM RENAL MEDICINE SPECIALIST Office Visit [facility] - Rheumatology [address] [place] [phone] Markie Romero MD 1225 [facility] DIV [place] [address] 11/13/2025 11:00 AM RENAL MEDICINE SPECIALIST Office Visit [facility] - Hematology/Oncology [address] [place] [phone] Lius Munoz MD 1201 [facility] DIV OF HEMATOLOGY & [place] [address] 11/15/2025 11:00 AM RENAL MEDICINE SPECIALIST Office Visit [facility] - FEATHERER [address] [facility] [address] [place] [phone] Jennifer Guy, SEXUAL HEALTH PHYSICIAN-RN CARDIAC 1031 [facility] 400 [place] [address] 11/16/2025 11:00 AM RENAL MEDICINE SPECIALIST Office Visit [facility] - Ophthalmology 1225 [facility] [place] [address] KellyXu naidu, OD 1225 [place] [address] 05/14/2026 12:30 PM CDT Procedure visit [facility] - GI [address] [place] [phone] 05/14/2026 1:00 PM CDT Office Visit [facility] - GI [address] [place] [phone] Jasmyn Alvarado, SEXUAL HEALTH PHYSICIAN-RN CARDIAC [address] [place] [address] [address] DIV OF GASTROENTEROLOGY [place], [place] [phone] documented as of this encounter Goals Goal [...] documented as of this encounter Care Teams Admissions Representative Relationship Specialty Start Date End Date Dinorah Peters DO [address] [place] [address] 2L DIV [place] [address] PCP - General Internal Medicine 08/27/20 03/24/21 Dinorah Peters DO [address] [place] [address] 2L DIV [place] [address] PCP - General Internal Medicine 03/25/21 06/03/23 Pratibha Hayes MD [address] [place] [address] PCP - General Internal Medicine 06/04/23 11/17/23 Franky Choudhury DO [address] [place] [address] PCP - General Internal Medicine 11/18/23 09/26/24 Pratibha Hayes MD [address] [place] [address] PCP - General Internal Medicine 09/27/24 10/01/24 Franky Choudhury DO [address] [place] [address] PCP - General Internal Medicine 10/02/24 John Gallardo MD [address] [place] [address] Resident - PCP Student Resident 07/04/18 06/16/21 Tracy Maldonado MD [address] [facility] INTERNAL [place] Resident - PCP Student Resident 06/17/21 05/11/23 Tracy Maldonado MD [address] 2[address] DIV [place] Resident Student Resident 06/17/21 10/01/21 Julita Adams MD [address] 2[address] [place] Resident - PCP Internal Medicine 05/17/23 06/03/23 Abel Pop MD [address] [place] [phone] Pain Management Anesthesiology 05/17/23 Selam Ramirez MD [address] [facility] DEPT [place] [phone] Ophthalmology 05/17/23 Luis Munoz MD 1201 S [facility] OF HEMATOLOGY & [place] [address] Hematology and Oncology 05/17/23 Kinjal Marino MD [address] [facility] 3L [place] [address] Dermatology 05/17/23 Ghada Guardado MD [address] [place] [address] [address] Cardiology 05/17/23 João Mora MD [address] [facility] [place] [phone] Resident Rheumatology 05/17/23 05/26/25 Marianna Benjamin MD [address] [facility] [place] [phone] Surgeon Orthopedic Surgery 05/17/23 Franky Choudhury DO 1201 [place] [address] Resident - PCP Internal Medicine 06/04/23 Lenin Trevino MD [address] [place] [phone] Rheumatology 05/27/25 Markie Romero MD [address] [place] [address] Resident Rheumatology 06/15/25 documented as of this encounter
--- OUTSIDE RECORDS SUMMARY | 2025-06-23 10:14 | XMS_ITS | Encounter Summary ---
Author Organization [facility] Address [address] [place] [address] Care Team Providers Care Fitter Placer Name Role Phone John Gallardo MD Unavailable Dinorah Peters DO Primary Care Provider [phone] Tracy Maldonado MD Unavailable Tracy Maldonado MD Unavailable Julita Adams MD Unavailable Abel Pop MD Unavailable Selam Ramirez MD Unavailable Luis Munoz MD Unavailable [phone] Kinjal Marino MD Unavailable [phone] Ghada Guardado MD Unavailable João Mora MD Unavailable Marianna Benjamin MD Unavailable Pratibha Hayes MD Primary Care Provider [phone] Franky Choudhury DO Unavailable Franky Choudhury DO Primary Care Provider [phone] Pratibha Hayes MD Primary Care Provider Franky Choudhury DO Primary Care Provider Lenin Trevino MD Unavailable Markie Romero MD Unavailable Reason for Visit * Reason Onset Date Comments Scheduling 05/26/2021 Encounter Details Date Type Department Care Team (Late st Contact Info) Description 05/26/2021 Telephone [facility] 1031 [place] [address] Antonia Dupont MD [address] [place] [address] Scheduling Social History Tobacco Use Types Packs/Day Years Used Date Smoking Tobacco: Never Smokeless Tobacco: Never Alcohol Use Standard Drinks/Week Comments No 0 (1 standard drink = 0.6 oz pur e alcohol) PHQ-2 Answer Date Recorded PHQ2 TOTAL SCORE 0 04/03/2021 Comments No Sex and Gender Information Value Date Recorded Sex Assigned at Not on file Legal Sex Female 6:32 AM LEATHER CLEANER Gender Identity Not on file Sexual [...] long and she will be back in [place] in November. She will like a sooner appt if available Pt CB# [phone] documented in this encounter Plan of Treatment Upcoming Encounters Date Type Department Care Team (Late st Contact Info) Description 07/16/2025 10:30 AM CDT Procedure visit [facility] - Cosmetic Dermatology [address], [facility] 200 [place] [phone] 07/23/2025 9:15 AM CDT [facility] [address] [place] [phone] Sharad Mclaughlin, CARPET LOOM FIXER-SOCIAL INSURANCE ADVISER [address] [facility] [address] [place] [address] 07/26/2025 1:45 PM CDT Office Visit [facility] - Internal Med [address] [place] [phone] Franky Choudhury DO 1201 [place] [address] 08/02/2025 1:00 PM CDT [facility] Ophthalmology [address] [place] [phone] Monse Kelly, CARPET LOOM FIXER-SOCIAL INSURANCE ADVISER [address] [facility] GL DE[place] [address] 08/09/2025 1:30 PM CDT Hospital Encounter [facility] [address] [place] [address] 08/09/2025 2:00 PM CDT Hospital Encounter [facility] [address]5 [place] [address] 08/14/2025 11:00 AM CDT Office Visit [facility] - Cosmetic Dermatology [address], [facility] 200 [place] [phone] Consuelo Bosch MD [address] [facility] [address], [place] [address] 09/06/2025 11:30 AM CDT Office Visit [facility] - Cardiology [address] [facility] [place] [address] [place] [address] Stephanie Silvestre, CARPET LOOM FIXER-SOCIAL INSURANCE ADVISER [address] [place] [address] [place] [address] 10/01/2025 1:00 PM LEATHER CLEANER Office Visit [facility] - Rheumatology 1225 [facility], [place] [phone] Markie Romero MD [address] [facility] [place] [address] 11/13/2025 11:00 AM LEATHER CLEANER Office Visit [facility] - Hematology/Oncology [address] [place] [phone] Luis Munoz MD [address] [facility] DIV OF HEMATOLOGY & MEDICAL ONCOLOGY [place] [address] 11/15/2025 11:00 AM LEATHER CLEANER Office Visit [facility] - STACKER [address] [facility] [address] [place] [phone] Jennifer Guy, CARPET LOOM FIXER-SOCIAL INSURANCE ADVISER [address] [place] [address] 11/16/2025 11:00 AM LEATHER CLEANER [facility] Op[facility]mology 1225 [facility], [place] [phone] Xu Kelly OD 1225 [place] [phone] 05/14/2026 12:30 PM CDT Procedure visit [facility] - GI [address] [place] [phone] 05/14/2026 1:00 PM CDT Office Visit [facility] - GI [address] [place] [phone] Jasmyn Alvarado, CARPET LOOM FIXER-SOCIAL INSURANCE ADVISER [address] [place] [address] 3[facility] [place] [address] documented as of this encounter Goals Goal [...] documented as of this encounter Care Teams Fitter Placer Relationship Specialty Start Date End Date Fran Dinorah ChisholmDO [address] 2[address] DIV OF [facility] [place] [address] PCP - General Internal Medicine 03/25/21 06/03/23 Pratibha Hayes MD [address] DIV OF [facility] [place] [address] PCP - General Internal Medicine 06/04/23 11/17/23 Franky Choudhury DO [address] [place] [address] PCP - General Internal Medicine 11/18/23 09/26/24 Pratibha Hayes MD [address] DIV OF [facility] [place] [address] PCP - General Internal Medicine 09/27/24 10/01/24 Franky Choudhury DO [address] [place] [address] PCP - General Internal Medicine 10/02/24 John Gallardo MD [address] [place] [address] Resident - PCP Student Resident 07/04/18 06/16/21 Tracy Maldonado MD [address] DIV OF [facility] INTERNAL [place] Resident - PCP Student Resident 06/17/21 05/11/23 Tracy Maldonado MD [address] DIV OF [facility] INTER[place] Resident Student Resident 06/17/21 10/01/21 Julita Adams MD [address] [facility] 2L DIV OF GEN INTERNAL MEDICINE [place] Resident - PCP Internal Medicine 05/17/23 06/03/23 Abel Pop MD [address] [place] [phone] Pain Management Anesthesiology 05/17/23 Selam Ramirez MD [address] [facility] GL DEPT [place] [phone] Ophthalmology 05/17/23 Luis Munoz MD [address] [facility] DIV OF HEMATOLOGY & MEDICAL ONCOLOGY [place] [address] Hematology and Oncology 05/17/23 Kinjal Marino MD [address] [facility] 3L DEPT OF DERMATOLOG[place] [address] Dermatology 05/17/23 Ghada Guardado MD [address] [facility] 1120 [place] [address] Cardiology 05/17/23 João Mora MD [address] [facility] [place] [phone] Resident Rheumatology 05/17/23 05/26/25 Marianna Benjamin MD [address] [facility] [place] [phone] Surgeon Orthopedic Surgery 05/17/23 Franky Choudhury DO [address] [place] [address] Resident - PCP Internal Medicine 06/04/23 Lenin Trevino MD [address] [facility] 2L DIV OF RHEUMATOLOG[place] [phone] Rheumatology 05/27/25 Markie Romero MD [address] [facility] [place] [phone] Resident Rheumatology 06/15/25 documented as of this encounter
--- OUTSIDE RECORDS SUMMARY | 2025-06-23 10:14 | XMS_ITS | Encounter Summary ---
Author Organization [facility] Address [address] [place] [address] Care Team Providers Care Toxicology Supervisor Name Role Phone Abel Pop MD Unavailable Sel[place] Ramirez MD Unavailable Luis Munoz MD Unavailable [phone] Kinjal Marino MD Unavailable [phone] Ghada Guardado MD Unavailable João Mora MD Unavailable Marianna Benjamin MD Unavailable [phone] Franky Choudhury DO Unavailable Franky Choudhury DO Primary Care Provider Lenin Trevino MD Unavailable [facility] MD Unavailable Encounter Details Date Type Department Care Team (Late st Contact Info) Description 05/23/2025 Results Follow-Up [facility] - GI [address] [facility], [place] [phone] Jasmyn Alvarado, RECONNAISSANCE CREWMEMBER-PRINCIPAL CLERK [address] [place] [address] [facility] OF GASTRO[facility]OLOGY [place], [place] [phone] Social History Tobacco Use Types Packs/Day Years [...] Recorded Patient Health Questionnaire-2 Score 0 03/19/2025 [facility] ional [facility] - Occupational Stress [...] any time in the past 12 m [facility], were you homeless or living in a chcf (including now)? No 05/27/2025 Comments No Sex and Gender Information Value Date Recorded Sex Assigned at Not on file Legal Sex Female 6:32 AM APPLIANCE INSTALLER Gender Identity Not on file Sexual Orientation [...] Description 07/16/2025 10:30 AM CDT Procedure visit [facility] - Cosmetic Dermatology [address], [place] [address] [place] [phone] 07/23/2025 9:15 AM CDT Office Visit [facility] - Orthopedics [address] [facility], [place] [phone] Sharad Mclaughlin, RECONNAISSANCE CREWMEMBER-PRINCIPAL CLERK 1011 [facility] 400 [place] [address] 07/26/2025 1:45 PM CDT Office Visit [facility] - Internal Med [address] [place] [address], [place] [phone] Franky Choudhury, [address]01 [place] [address] 08/02/2025 1:00 PM CDT Office Visit [facility] - Ophthalmology [address] [place] [address], [place] [phone] Monse Kelly, RECONNAISSANCE CREWMEMBER-PRINCIPAL CLERK [address] [facility] DEPT [place] [phone] 08/09/2025 1:30 PM CDT Hospital Encounter [address] [address] 08/09/2025 2:00 PM CDT Hospital Encounter [address] [address] 08/14/2025 11:00 AM CDT Office Visit [facility] - Cosmetic Dermatology [address], [facility] 200 [place] [phone] Consuelo Bosch MD [address] [facility] [address], [place] [address] 09/06/2025 11:30 AM CDT Office Visit [facility] - Cardiology 1034 [facility], [place] [address] [place] [address] Stephanie Silvestre, RECONNAISSANCE CREWMEMBER-PRINCIPAL CLERK 1034 S [facility] [address] [place] [address] 10/01/2025 1:00 PM APPLIANCE INSTALLER Office Visit [facility] - Rheumatology [address] [facility], [place] [phone] Markie Romero MD 1225 [facility] [place] [phone] 11/13/2025 11:00 AM APPLIANCE INSTALLER Office Visit [facility] - Hematology/Oncology 3655 [place] [address] Luis Munoz MD 1201 [facility] DIV OF HEMATOLOGY & [place] [address] 11/15/2025 11:00 AM APPLIANCE INSTALLER Office Visit [facility] - SAFETY PATROL OFFICER 1031 [facility] [address] [place] [phone] Jennifer Guy, RECONNAISSANCE CREWMEMBER-PRINCIPAL CLERK 1031 [facility] 400 [place] [address] 11/16/2025 11:00 AM APPLIANCE INSTALLER Office Visit [facility] - Ophthalmology [address] [facility], [place] [phone] Xu Kelly, MIRTA [address] [place] [phone] 05/14/2026 12:30 PM CDT Procedure visit [facility] - GI [address] [place] [phone] 05/14/2026 1:00 PM CDT Office Visit [facility] - GI [address] [place] [phone] AlvaradoJasmyn hickey Amee, RECONNAISSANCE CREWMEMBER-PRINCIPAL CLERK [address] [facility] 3FL DIV OF GASTROENTEROLOGY [place], [place] [phone] documented as of this encounter Goals Goal [...] documented as of this encounter Care Teams Toxicology Supervisor Relationship Specialty Start Date End Date Franky Choudhury DO 1201 [place] [address] PCP - General Internal Medicine 10/02/24 Abel Pop MD 1201 [place] [phone] Pain Management Anesthesiology 05/17/23 Selam Ramirez MD 1225 [facility] GL DEPT [place] [phone] Ophthalmology 05/17/23 Luis Munoz MD 1201 S [facility] DIV OF HEMATOLOGY & [place] [address] Hematology and Oncology 05/17/23 Kinjal Marino MD 1225 [facility] 3L [place] [address] Dermatology 05/17/23 Ghada Guardado MD 1034 S [facility] 1120 [place] [address] Cardiology 05/17/23 João Mora MD 1225 [facility] [place] [phone] Resident Rheumatology 05/17/23 05/26/25 Marianna Benjamin MD 1225 [facility] [place] [phone] Surgeon Orthopedic Surgery 05/17/23 Franky Choudhury DO 1201 [place] [address] Resident - PCP Internal Medicine 06/04/23 Lenin Trevino MD 1225 [facility] 2L [place] [phone] Rheumatology 05/27/25 Markie Romero MD 1225 [facility] [place] [phone] Resident Rheumatology 06/15/25 documented as of this encounter
--- OUTSIDE RECORDS SUMMARY | 2025-06-23 10:14 | XMS_ITS | Encounter Summary ---
Author Organization [facility] Address [address] [facility] [place] [address] Care Team Providers Care Outside Residential Sales Professional Name Role Phone FranDinorah DO Primary Care Provider [phone] Tracy Maldonado MD Unavailable [phone] Julita Adams MD Unavailable [phone] Abel Pop MD Unavailable Selam Ramirez MD Unavailable Luis Munoz MD Unavailable [phone] Kinjal Marino MD Unavailable [phone] Ghada Guardado MD Unavailable [phone] João Mora MD Unavailable Marianna Benjamin MD Unavailable [phone] Pratibha Hayes MD Primary Care Provider [phone] Franky Choudhury DO Unavailable [phone] Franky Choudhury DO Primary Care Provider [phone] Pratibha Hayes MD Primary Care Provider [phone] Franky Choudhury DO Primary Care Provider [phone] Lenin Trevino MD [facility]available [facility] Unavailable Encounter Details Date Type Department Care Team (Late st Contact Info) Description 12/02/2022 Telephone [facility] [address] [place] [address] Selam Ramirez MD [address] [facility] [place] [address] Social History Tobacco Use Types [...] on file Legal Sex Female 6:32 AM TOLL LINE MECHANIC Gender Identity Not on file Sexual Orientation Not on file Occupation Industry Job Start Date Job End Date Retired Not on file Not on file Not on file COVID-19 Exposure Response Date Recorded In the last 10 days, have yo u been in contact with someone who was confirmed or suspected to have Coronavirus/COVID-19? No / Unsure 12/04/2022 7:49 AM TOLL LINE MECHANIC documented as of this encounter Functional Status [...] any adult clinics. I am only at [facility]. Did you mean to message Dr. Ramirez? LINE MECHANIC * Telephone Encounter - Lu Gunn - 12/02/2022 1:58 PM CST I spoke to Rose and added her to the wait list for an earlier appointment. Her 03/17/23 appointment got pushed back to 05/05/23. Please contact patient if any appointment becomes available with Dr. Ramirez sooner. Thank you! LINE MECHANIC documented in this encounter Plan of Treatment Upcoming Encounters Date Type Department Care Team (Late st Contact Info) Description 07/16/2025 10:30 AM CDT Procedure visit [facility] - Cosmetic Dermatology [address], [facility] [address] [place] [address] 07/23/2025 9:15 AM CDT Office Visit [facility] - Orthopedics [address] [facility], [place] [address] Sharad Mclaughlin, PINSETTER MECHANIC HELPER-ALARM ADJUSTER [address] [facility] [address] [place] [address] 07/26/2025 1:45 PM CDT Office Visit [facility] - Internal Med [address] [facility], [place] [phone] Franky Choudhury DO [address] [place] [address] 08/02/2025 1:00 PM CDT Office Visit [facility] - Ophthalmology [address] [facility], [place] [address] Monse Kelly, PINSETTER MECHANIC HELPER-ALARM ADJUSTER [address] [place] [address] [place] [address] 08/09/2025 1:30 PM CDT Hospital Encounter [address] [address] 08/09/2025 2:00 PM CDT Hospital Encounter [address] [address] 08/14/2025 11:00 AM CDT Office Visit [facility] - Cosmetic Dermatology [address], [facility] [address] [place] [address] Consuelo Bosch MD [address] [facility] [address], [place] [address] 09/06/2025 11:30 AM CDT Office Visit [facility] - Cardiology [address] [facility], [address] [place] [place] [address] Stephanie Silvestre, PINSETTER MECHANIC HELPER-ALARM ADJUSTER [id number] [place] [address] 10/01/2025 1:00 PM TOLL LINE MECHANIC Office Visit [facility] - Rheumatology [address] [facility], [place] [address] Markie Romero MD [facility] [place] [address] 11/13/2025 11:00 AM TOLL LINE MECHANIC [facility] H[facility]Oncology [address] [place] [address] Luis Munoz MD [address] [facility] DIV OF HEMATOLOGY & [place] [address] 11/15/2025 11:00 AM TOLL LINE MECHANIC Office Visit [facility] - ELECTRICAL LINEMAN [address] [facility] [address] [place] [address] Jennifer Guy, PINSETTER MECHANIC HELPER-ALARM ADJUSTER [address] [facility] [address] [place] [address] 11/16/2025 11:00 AM TOLL LINE MECHANIC Office Visit [facility] - Ophthalmology [address] [place] [address], [place] [address] Xu Kelly, MIRTA [address] [place] [address] 05/14/2026 12:30 PM CDT Procedure visit [facility] - GI [address] [place] [phone] 05/14/2026 1:00 PM CDT Office Visit [facility] - GI [address] [place] [phone] Jasmyn Alvarado, PINSETTER MECHANIC HELPER-ALARM ADJUSTER [address] [place] [address] [address] [place] [address] documented as of this encounter Goals Goal [...] documented as of this encounter Care Teams Outside Residential Sales Professional Relationship Specialty Start Date End Date Dinorah Peters DO [address] DIV OF [facility] [place] [place] [address] PCP - General Internal Medicine 03/25/21 06/03/23 Pratibha Hayes MD [address] DIV OF [facility] [place] [place] [address] PCP - General Internal Medicine 06/04/23 11/17/23 Franky Choudhury DO [address] [place] [address] PCP - General Internal Medicine 11/18/23 09/26/24 Pratibha Hayes MD [address] DIV OF [facility] [place] [place] [address] PCP - General Internal Medicine 09/27/24 10/01/24 Franky Choudhury DO [address] [place] [address] PCP - General Internal Medicine 10/02/24 Tracy Maldonado MD [address] DIV OF [facility] INTERNAL [place] Resident - PCP Student Resident 06/17/21 05/11/23 Julita Adams MD [address] [facility] 2L DIV OF GEN INTERNAL MEDICINE [place] Resident - PCP Internal Medicine 05/17/23 06/03/23 Abel Pop MD [address] [place] [address] Pain Management Anesthesiology 05/17/23 Selam Ramirez MD [address] [facility] GL [place] [address] Ophthalmology 05/17/23 Luis Munoz MD [address] [facility] DIV OF HEMATOLOGY & [place] [address] Hematology and Oncology 05/17/23 Kinjal Marino MD [address] [facility] 3L [place] [address] Dermatology 05/17/23 Ghada Guardado MD [address] [facility] [address] [place] [address] Cardiology 05/17/23 João Mora MD [address] [facility] [place] [address] Resident Rheumatology 05/17/23 05/26/25 Marianna Benjamin MD [address] [facility] [place] [address] Surgeon Orthopedic Surgery 05/17/23 Franky Choudhury DO [address] [place] [address] Resident - PCP Internal Medicine 06/04/23 Lenin Trevino MD [address] [facility] 2L [place] [phone] Rheumatology 05/27/25 Markie Romero MD [address] [facility] [place] [address] Resident Rheumatology 06/15/25 documented as of this encounter
--- OUTSIDE RECORDS SUMMARY | 2025-06-23 10:14 | XMS_ITS | Encounter Summary ---
Author Organization [facility] Address [address] [facility] [place] [address] Care Team Providers Care Director Medical Safety Name Role Phone John Gallardo MD Unavailable Dinorah Peters DO Primary Care Provider [phone] Dinorah Peters DO Primary Care Provider [phone] Tracy Maldonado MD Unavailable [phone] Tracy Maldonado MD Unavailable Julita Adams MD Unavailable Abel Pop MD Unavailable Selam Ramirez MD Unavailable Luis Munoz MD Unavailable [phone] Kinjal Marino MD Unavailable Ghada Guardado MD Unavailable [phone] João Mora MD Unavailable Marianna Benjamin MD Unavailable Pratibha Hayes MD Primary Care Provider Franky Choudhury DO Unavailable Franky Choudhury DO Primary Care Provider Pratibha Hayes MD Primary Care Provider [phone] Franky Choudhury DO Primary Care Provider [phone] Lenin Trevino MD Unavailable Markie Romero MD Unavailable Reason for Visit * Reason Onset Date Comments MEDICATION REFILL 11/23/2020 Encounter Details Date Type Department Care Team (Late st Contact Info) Description 11/23/2020 Refill [facility] [address] [place] [address] Luis Munoz MD [address] [facility] OF [facility] & [place] [address] MEDICATION REFILL Social History Tobacco Use Types Packs/Day Years Used Date Smoking Tobacco: Never Smokeless Tobacco: Never Alcohol Use Standard Drinks/Week Comments No 0 (1 standard drink = 0.6 oz pur e alcohol) Comments No Sex and Gender Information Value Date Recorded Sex Assigned at Not on file Legal Sex Female 6:32 AM GEOLOGY ASSOCIATE Gender Identity Not on file Sexual Orientation Not on file Occupation Industry Job Start Date Job End Date Retired Not on file Not on file Not on file COVID-19 Exposure Response Date Recorded In the last month, have you been in contact with someone who was confirmed or suspected to have Coronavirus / COVID-19? No / Unsure 11/25/2020 8:07 AM GEOLOGY ASSOCIATE documented as of this encounter Functional Status [...] Description 07/16/2025 10:30 AM CDT [facility] [address], [place] [address] [place] [address] 07/23/2025 9:15 AM CDT Office Visit [facility] - Orthopedics [address] [place] [phone] Sharad Mclaughlin, SANDER HAND-PIANO MECHANIC APPRENTICE [address] [address] 07/26/2025 1:45 PM CDT Office Visit [facility]ician Group - Internal Med [address] [place] [phone] Franky Choudhury DO [address] [place] [address] 08/02/2025 1:00 PM CDT Office Visit [facility] - Ophthalmology [address] [place] [phone] Monse Kelly, SANDER HAND-PIANO MECHANIC APPRENTICE [address] [place] [address] [place] [address] 08/09/2025 1:30 PM CDT Hospital Encounter [address] [address] 08/09/2025 2:00 PM CDT Hospital Encounter [address] [address] 08/14/2025 11:00 AM CDT Office Visit [facility] - Cosmetic Dermatology [address], [place] [address] [place] [address] Consuelo Bosch MD [address] [place] [address] [place] [address] 09/06/2025 11:30 AM CDT Office Visit [facility] - Cardiology [address] [facility], [facility] [address] [place] [address] Stephanie Silvestre, SANDER HAND-PIANO MECHANIC APPRENTICE [address] [facility] [address] [place] [address] 10/01/2025 1:00 PM GEOLOGY ASSOCIATE Office Visit [facility] - Rheumatology [address] [place] [phone] Markie Romero MD [address] [facility] [place] [address] 11/13/2025 11:00 AM GEOLOGY ASSOCIATE Office Visit [facility] - Hematology/Oncology [address] [place] [address] Luis Munoz MD [address] [facility] DIV OF HEMATOLOGY & [place] [address] 11/15/2025 11:00 AM GEOLOGY ASSOCIATE Office Visit [facility] - GASOLINE ATTENDANT [address] [facility] [address] [place] [address] Jennifer Guy, SANDER HAND-PIANO MECHANIC APPRENTICE [address] [facility] 400 [place] [address] 11/16/2025 11:00 AM GEOLOGY ASSOCIATE Office Visit [facility] - Ophthalmology 1225 [facility] [place] [address] KellyXu naidu, OD [address] [place] [address] 05/14/2026 12:30 PM CDT Procedure visit [facility] Group - GI [address] [place] [phone] 05/14/2026 1:00 PM CDT Office Visit [facility] Group - GI [address] [place] [phone] Jasmyn Alvarado, SANDER HAND-PIANO MECHANIC APPRENTICE [address] [place] [address] [address] DIV OF GASTROENTEROLOGY [place], [place] [phone] documented as of this encounter Goals Goal [...] as of this encounter Care Teams Director Medical Safety Relationship Specialty Start Date End Date Dinorah Peters DO [address] [place] [address] [address] DIV [place] [address] PCP - General Internal Medicine 08/27/20 03/24/21 Dinorah Peters DO [address] [place] [address] 2L [place] [address] PCP - General Internal Medicine 03/25/21 06/03/23 Pratibha Hayes MD [address] [place] [address] PCP - General Internal Medicine 06/04/23 11/17/23 Franky Choudhury DO [address] [place] [address] PCP - General Internal Medicine 11/18/23 09/26/24 Pratibha Hayes MD [address] [place] [address] PCP - General Internal Medicine 09/27/24 10/01/24 Franky Choudhury DO [address] [place] [address] PCP - General Internal Medicine 10/02/24 John Gallardo MD [address] [place] [address] Resident - PCP Student Resident 07/04/18 06/16/21 Tracy Maldonado MD [address] DIV OF [facility] INTERNAL [place], [place] Resident - PCP Student Resident 06/17/21 05/11/23 Tracy Maldonado MD [address] DIV OF [place], [place] Resident Student Resident 06/17/21 10/01/21 Julita Adams MD [address] DIV [place], [place] Resident - PCP Internal Medicine 05/17/23 06/03/23 Abel Pop MD [address] [place] [phone] Pain Management Anesthesiology 05/17/23 Selam Ramirez MD [address] [facility] DE[place] [address] Ophthalmology 05/17/23 Luis Munoz MD [address] [facility] OF HEMATOLOGY & [place] [address] Hematology and Oncology 05/17/23 Kinjal Marino MD 1225 [facility] 3L [place] [address] Dermatology 05/17/23 Ghada Guardado MD [address] [address] Cardiology 05/17/23 João Mora MD [address] [facility] [place] [address] Resident Rheumatology 05/17/23 05/26/25 Marianna Benjamin MD [address] [facility] [place] [phone] Surgeon Orthopedic Surgery 05/17/23 Franky Choudhury DO [address] [place] [address] Resident - PCP Internal Medicine 06/04/23 Lenin Trevino MD [address] [place] [phone] Rheumatology 05/27/25 Markie Romero MD [address] [place] [address] Resident Rheumatology 06/15/25 documented as of this encounter
--- OUTSIDE RECORDS SUMMARY | 2025-06-23 10:14 | XMS_ITS | Clinical Summary ---
Author Organization [facility] [employer] Address [address] [place] [address] Care Team Providers Care Gill Box Tender Name Role Phone Abel Pop MD Unavailable Selam Ramirez MD Unavailable Luis Munoz MD Unavailable [phone] Kinjal Marino MD Unavailable [phone] Ghada Guardado MD Unavailable [phone] Marianna Benjamin MD Unavailable Franky Choudhury DO Unavailable Franky Choudhury DO Primary Care Provider [phone] Lenin Trevino MD [facility]available [facility] Unavailable Source Comments [facility],non-owned Affiliates and Associated Physician Practices is amultiple site organization consisting of ambulatory clinics and hospital sitesin [place], [place], [place] and [place]. This disclosure is being madepursuant to the Care Everywhere program and may not contain all information available regarding this patient. Last updated 18.[facility] [employer] Allergies Active Allergy Reactions Criticality Noted Date Comments Amoxicillin Diarrhea 06/05/2025 Codeine Vomiting High 08/12/2018 Erythromycin Urticaria,Rash Medium 03/13/2016 Kiwi Extract Anaphylaxis,Rash,Sw elling High 10/30/2024 Mouth blisters and anaphylaxis Latex Rash,Swelling High 03/13/2016 blisters Levofloxacin Swelling High 06/01/2018 Says joints swell up huge Lisinopril Cough Medium 06/02/2018 Says really bad deep cough Morphine Vomiting High 08/12/2018 [place] Anaphylaxis,Rash,Sw elling High 10/30/2024 Mouth blisters and [...] patient. azelastine (ASTELIN) 0.1 % nasal spray [place] 1 (one) spray into each nostril once [...] 40 MG tabletIndications:C oronary artery disease involving catawba coronary artery of catawba heart without angina pectoris Take 1 (one) tablet by mouth once daily 90 tablet 3 024 Active aspirin EC (Ecotrin) 81 MG tabletIndications:C oronary artery disease involving catawba coronary artery of catawba heart without angina pectoris Take 1 (one) [...] times daily 025 Active saline nasal spray (Rock; Baby Voss) 0.65 % nasal spray [place] 1 (one) spray into each nostril every 2 hours as needed for Dry Nose 44 mL 05/28/20 25 12:51 PM CDT 025 Active Vascepa 1 g capsuleIndications: Mixed hyperlipidemia,Masha nary artery disease involving catawba coronary artery of catawba heart without angina pectoris TAKE 1 CAPSULE [...] fracture of left nasoorbitoethmoid complex, initial encounter ([facility]) Take 1 (one) tablet by mouth every [...] 03/28/2020 Assessment & Plan (10/08/2020 3:58 PM MAGNETO SPECIALIST): BP stable. No changes. Continue BB and [...] D1. Assessment & Plan (10/08/2020 3:53 PM MAGNETO SPECIALIST): Stable. No changes. No further ischemic evaluation [...] spleen 10/04/2017 Coronary artery disease invo lving catawba coronary artery of catawba heart without angina pectoris 03/14/2014 Overview (05/25/2018): [...] D1. Assessment & Plan (10/08/2020 3:52 PM MAGNETO SPECIALIST): Stable sp PCI to LAD with DB [...] - 06/19/2025 11:59 PM CDT Hospital Encounter [facility] [address] [place] [address] Luis Munoz MD Discharge Disposition: Home or Self Care 06/18/2025 Results Follow-Up [facility] [address] [place] [address] Melania Mohan MD 06/15/2025 Telephone [facility] [address] [place] [address] Ave [address] [place] [address] Sg Lopez Che, MD Medication Request 06/15/2025 Refill [facility] - Rheumatology [address] [place] [phone] Markie Romero MD MEDICATION REFILL 06/14/2025 11:00 AM CDT Office Visit [facility] - Ophthalmology [address] [place] [phone] Monse Kelly APRN-TOWER WATCHMAN 06/14/2025 Travel 06/12/2025 11:30 AM CDT Office Visit [facility] [address] [place] [address] [address] [place] [address] Melania Mohan MD VAIN (vaginal intraepithelial neoplasia) (Primary Dx); ALVERTO III (vulvar intraepithelial neoplasia III) 06/12/2025 Travel 06/11/2025 11:00 AM CDT Office Visit [facility] - Plastic Surgery [address] [place] [phone] Sharad Mclaughlin, WINDOW MAKER-TOWER WATCHMAN Arlette Izaguirre, SARAH Fall (on) (from) other [...] Office Visit [facility] Orthopedics [facility] [facility], [place] [address] Sharad Mclaughlin, WINDOW MAKER-TOWER WATCHMAN Closed nondisplaced fracture of base of fourth metacarpal bone of right hand with routine healing, subsequent encounter (Primary Dx); Fall down stairs, subsequent encounter; Open fracture of orbit with routine healing, subsequent encounter; Skin tear of right hand without complication, subsequent encounter 06/11/2025 9:10 AM CDT - 06/11/2025 11:59 PM CDT Hospital Encounter [facility] DIAGNOSTIC RAD CSM [address] [facility] [place] [address] Sharad Mclaughlin, KAELYN-TOWER WATCHMAN Discharge Disposition: Home or Self Care 06/11/2025 Travel 06/08/2025 Refill [facility] - Cardiology [facility] [phone] Ghada Guardado MD Refill Request 06/05/2025 11:00 AM CDT Office Visit Transitional Care at [address] [phone] Megan Hairston MD Age related osteoporosis, unspecified pathological fracture presence (Primary Dx); Essential hypertension; Coronary artery disease involving catawba coronary artery of catawba heart without angina pectoris 06/04/2025 Telephone Transitional Care at [address] [phone] Chayo Mosher MA Scheduling 06/04/2025 Travel 06/04/2025 Telephone [facility] - Internal Med [address] [place] [address], [place] [phone] Franky Choudhury DO [facility] Follow-up 2025 Orders Only [facility] - Orthopedics [address] [place] [phone] Sharad Mclaughlin, WINDOW MAKER-TOWER WATCHMAN Right hand pain 05/28/2025 Ophth Exam [facility] - Ophthalmology [address] [place] [phone] Barrett Gutierrez MD 05/26/2025 4:19 PM CDT - 05/28/2025 3:33 PM CDT Hospital Encounter [facility] 5S ACUTE [address] [place] [phone] Jaquan Wilhelm MD Freeman, Carl A, MD Trauma Discharge Disposition: Home or Self Care 05/26/2025 Ophth Exam [facility] - Ophthalmology [address] [place] [phone] Jorge Johnston MD 05/26/2025 Travel 05/25/2025 Orders Only [facility] - Orthopedics [address] [place] [address] [address] [facility] [address] [place] [address] Levi Meehan MD Back spasm 05/23/2025 Results Follow-Up [facility] - GI [address] [place] [phone] Jasmyn Alvarado APRN-ELSY 05/23/2025 Orders Only [facility] - GI [address] [place] [phone] Jasmyn Alvarado, WINDOW MAKER-TOWER WATCHMAN Autoimmune hepatitis (HCC) ; Elevated liver enzymes; Encounter for screening for other viral diseases 05/22/2025 Refill [facility] - Internal Med [address] [place] [phone] Franky Choudhury DO Refill Request 05/15/2025 2:00 PM CDT Office Visit [facility] - Hematology/Oncolo gy [address] [place] [phone] Luis Munoz MD 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) (Primary Dx) 05/15/2025 1:40 PM CDT - 05/15/2025 11:59 PM CDT Hospital Encounter [facility] CANCER CARE DRAWSTATION [address] [place] [address] Discharge Disposition: Home or Self Care 05/15/2025 Travel 05/14/2025 10:00 AM CDT Office Visit [facility] - Ophthalmology [address] [place] [phone] Xu Kelly, OD Long-term use of Plaquenil (Primary Dx); Lagophthalmos of right lower eyelid, unspecified lagophthalmos type; Combined forms of age-related cataract of both eyes 05/14/2025 9:30 AM CDT Clinical Support [facility] Group - Ophthalmology [address] [place] [phone] Xu Kelly, OD Long-term use of Plaquenil (Primary Dx) 05/14/2025 Travel 05/10/2025 2:00 PM CDT Office Visit [facility] Group - Cardiology [address] [facility] [address] [place] [address] Ghada Guardado MD History of right hip replacement (Primary Dx); Mixed hyperlipidemia 05/10/2025 Travel 05/08/2025 1:45 PM CDT - 05/08/2025 11:59 PM CDT Hospital Encounter [facility] LAB OP DRAW STATION [address] [place] [address] Discharge Disposition: Home or Self Care 05/08/2025 1:00 PM CDT Office Visit [facility]ician Group - GI [address] [place] [phone] Jasmyn Alvarado, WINDOW MAKER-TOWER WATCHMAN Autoimmune hepatitis (HCC) (Primary Dx) 05/08/2025 Travel 05/07/2025 Refill [facility] Group - Internal Med [address] [place] [phone] Franky Choudhury DO Refill Request 05/04/2025 Orders Only [facility] - Hematology/Oncolo gy [address] [place] [address] Erin Guerra RN 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) 04/13/2025 Refill [facility] - Internal Med [address] [facility], [place] [address] Franky Choudhury DO Refill Request [...] Grandmother Beba/mother Cancer - Skin, Melanoma Mother Beba/mother Cancer - Skin, Non Melanoma Mother Beba/mother [...] Recorded Patient Health Questionnaire-2 Score 0 06/09/2025 [facility] of Occupat ional Health - Occupational Stress [...] any time in the past 12 m [facility], were you homeless or living in a [facility]p (including now)? No 05/27/2025 Comments No Sex and Gender Information Value Date Recorded Sex Assigned at Not on file Legal Sex Female 6:32 AM MAGNETO SPECIALIST Gender Identity Not on file Sexual [...] Dermatology [address], [address] [place] [phone] 07/23/2025 9:15 AM CDT Office Visit [facility] - Orthopedics [address] [place] [phone] Sharad Mclaughlin, WINDOW MAKER-TOWER WATCHMAN [address] [facility] [address] [place] [address] 07/26/2025 1:45 PM CDT Office Visit [facility] - Internal Med [address] [place] [phone] Franky Choudhury, [address] [place] [address] 08/02/2025 1:00 PM CDT Office Visit [facility] - Ophthalmology [address] [place] [phone] Monse Kelly, WINDOW MAKER-TOWER WATCHMAN [address] [place] [address] [place] [phone] 08/09/2025 1:30 PM CDT Hospital Encounter [address] [address] 08/09/2025 2:00 PM CDT Hospital Encounter [address] [address] 08/14/2025 11:00 AM CDT Office Visit [facility] - Cosmetic Dermatology [facility], [facility] [address] [place] [phone] Consuelo Bosch MD [address] [facility] [address] [place] [address] 09/06/2025 11:30 AM CDT Office Visit [facility] - Cardiology [address] [facility], [address] [place] [address] Stephanie Silvestre, WINDOW MAKER-TOWER WATCHMAN [address] [facility] [address] [place] [address] 10/01/2025 1:00 PM MAGNETO SPECIALIST Office Visit [facility] - Rheumatology [address] [place] [phone] Markie Romero MD [address] [facility] [phone] 11/13/2025 11:00 AM MAGNETO SPECIALIST Office Visit [facility] - Hematology/Oncology [address] [place] [phone] Luis Munoz MD [address] [facility] DIV OF HEMATOLOGY & [place] [address] 11/15/2025 11:00 AM MAGNETO SPECIALIST Office Visit [facility] - [facility] [address] [facility] [address] [place] [phone] Jennifer Guy, WINDOW MAKER-TOWER WATCHMAN [address] [facility] [address] [place] [address] 11/16/2025 11:00 AM MAGNETO SPECIALIST Office Visit [facility] - Ophthalmology [address] [facility], [place] [phone] Xu Kelly OD [address] [place] [phone] 05/14/2026 12:30 PM CDT Procedure visit [facility] GI [address] [facility], [place] [phone] 05/14/2026 1:00 PM CDT Office Visit [facility] Physician Group - GI [address] [facility], [place] [phone] Jasmyn Alvarado, WINDOW MAKER-TOWER WATCHMAN [address] [facility] [place] [address] Health Maintenance Due Date Last Done Comments [...] last dose Medical Devices Implanted Type Area Healthcare Interpreter Device Identifier Shelf Expiration Date Model / Serial / Lot Set Intbt .016in .025in Crwfrd Nose Implanted:Qty: 1 on 08/06/2023 by Selam Ramirez MD at [facility] Right: Lacrimal Duct [employer] 12/29/2027 [id number] / / [id number] [place] Sut Healix Adv Dynacord 5.5mm Implanted:Qty: 2 on 11/02/2024 by Levi Meehan MD at [facility] Right: Hip [employer] 01/26/2026 [id number] / / [id number] [place] Sut Healix Adv Dynacord 5.5mm Implanted:Qty: 1 on 11/02/2024 by Levi Meehan MD at [facility] Right: Hip [employer] 05/28/2025 [id number] / / [id number] [place] Sut Healix Adv 5.5mm Bcmps Slf Implanted:Qty: 1 on 11/02/2024 by Levi Meehan MD at [facility] Right: Hip [employer] 03/28/2027 [id number] / / [id number] [place] Sut Healix Adv 5.5mm Bcmps Slf Implanted:Qty: 1 on 11/02/2024 by Levi Meehan MD at [facility] Right: Hip [employer] 02/26/2027 [id number] / / [id number] Explanted Type Area Healthcare Interpreter Device Identifier Shelf Expiration Date Model / Serial / Lot Stent Pncr 15mm 24mm 10mm 146mm 138mm Implanted:Qty: 1 Explanted:Qty: 1 on 07/19/2018 by Genaro Short MD at [facility] [employer] 05/26/2020 [id number] / / [id number] Procedures Procedure Name Priority Date/Time Associated Diagnosis [...] DENSITY AXIAL SKELETON Routine 11/12/2022 9:35 AM MAGNETO SPECIALIST Chronic midline low back pain without sciatica [...] IMAGING EVALUATION. Report dictated by Soren Reyes MD(cmo & president). > Interpreting Provider: Lizz Neil MD on 06/19/2025 2:03 PM Narrative 06/19/2025 2:03 PM CDT EXAMINATIONS: BILATERAL DIGITAL SCREENING MAMMOGRAM AND BILATERAL BREAST TOMOSYNTHESIS LOCATION: [facility] EXAM DATE: 06/19/2025 HISTORY: Screening. History [...] breast imaging studies back to 2017 from [facility], with the most recent dated 06/16/2024 from [facility]. TECHNIQUE: Tomosynthesis (3D) and reconstructed synthetic 2-D [...] papillomavirus Source Vaginal 06/15/2025 9:01 AM CDT [facility] ([facility]) Human papillomavirus High Risk by [facility] Not Detected 06/15/2025 9:01 AM CDT [facility] ([facility]) Comment: This test was developed and its performance characteristics determined by [facility]. It has not been cleared or approved [...] in women under age 21. Performed By: [place] [address] Gravity Prospector: Aj Cárdenas MD, PhD CLIA Number: [id number] Pathology/Cytolo gy ENTIRE VAGINA / Unknown Collection / Unknown 06/12/2025 11:58 AM CDT 06/13/2025 12:16 PM CDT Jennifer VALLE[facility] - MICROBIOLOGY ORDER MARCELINO Final Result [facility] ([facility]) [address] [place] [address] * PAP IMAGE-GUIDED W HPV (06/12/2025 11:58 AM CDT) Case Report Gynecologic Cytology Report Case: [id number] Authorizing Provider: Jennifer Guy APRN-CNP Collected: 06/12/2025 11:58 AM Ordering Location: [facility] Group - Received: 06/12/2025 12:05 PM PAVILION CUTTER First Screen: James Campos, LAKESHA(ASCP) Rescreen: Simonttleonela [...] 9:20 AM CDT [facility] Interpretation WELFARE INVESTIGATOR Negative for intraepithelial lesion or malignancy. 06/18/2025 9:20 AM CDT [facility] at 0920 CDT Other Atrophic changes. 025 9:20 AM CDT [facility] Pap Footnote The Pap Smear is a screening test. False positive and false negative results occur. Negative results do not preclude abnormalities, thus clinical correlation is required. This specimen was evaluated by the [employer] Management[employer] Imaging System along with an additional manual rescreening by a pipe supervisor and/or pathologist. 06/18/2025 9:20 AM CDT [facility] Embedded Images 9:20 AM CDT [facility] Pathology/Cytolo gy ENTIRE VAGINA / Unknown Collection / Unknown 06/12/2025 11:58 AM CDT 06/12/2025 12:05 PM CDT Jennifer Guy WINDOW MAKER-TOWER WATCHMAN LAB - PATHOLOGY/CYTOLOGY ORDERABLES Final Result Performing Organization Address City/State/[facility] Co de Phone Number [facility] LAB [address] [phone] * XR Hand Right 3Vw or More [...] MD on 06/11/2025 9:26 AM Sharad Mclaughlin WINDOW MAKER-TOWER WATCHMAN DIAGNOSTIC IMAGING ORDE [facility] Final Result * (ABNORMAL) CBC W AUTO DIFFERENTIAL (05/28/2025 5:36 AM CDT) Only the most recent of4 resultswithin the time period is included. WBC 14.3(H) 4.0 - 10.7 x10E9/L 05/28/2025 6:59 AM CDT [facility] RBC Count 3.29(L) 3.90 - 5.20 x10E12/L 05/28/2025 6:59 AM CDT [facility] Hemoglobin 10.6(L) 11.9 - 15.8 g/dL 05/28/2025 6:59 AM T [facility] Hematocrit 31.6(L) 34.8 - 46.1 % 05/28/2025 6:59 AM [facility] MCV 96.0 80.0 - 98.0 fL 05/28/2025 6:59 AM [facility] MCH 32.2 26.7 - 33.6 pg 05/28/2025 6:59 AM [facility] MCHC 33.5 31.7 - 36.3 g/dL 05/28/2025 6:59 AM [facility] RDW-CV 13.9 11.3 - 14.8 % 05/28/2025 6:59 AM [facility] Platelet Count 285 150 - 420 x10E9/L 05/28/2025 6:59 AM [facility] MPV 11.0 7.8 - 11.4 fL 05/28/2025 6:59 AM [facility] Neutrophil % 58.1 41.0 - 74.0 % 05/28/2025 6:59 AM [facility] Lymphocyte % 32.9 17.0 - 47.0 % 05/28/2025 6:59 AM [facility] Monocyte % 7.5 3.0 - 11.0 % 05/28/2025 6:59 AM [facility] Eosinophil % 0.8 0.0 - 7.0 % 05/28/2025 6:59 AM [facility] Basophil % 0.4 0.0 - 1.6 % 05/28/2025 6:59 AM [facility] Immature Granulocytes % 0.3 0.0 - 1.0 % 05/28/2025 6:59 AM [facility] Neutrophil Absolute 8.33(H) 1.60 - 7.50 x10E9/L 05/28/2025 6:59 AM [facility] Lymphocyte Absolute 4.71(H) 1.00 - 4.40 x10E9/L 05/28/2025 6:59 AM [facility] Monocyte Absolute 1.07(H) 0.15 - 1.00 x10E9/L 05/28/2025 6:59 AM [facility] Eosinophil Absolute 0.12 0.00 - 0.60 x10E9/L 05/28/2025 6:59 AM [facility] Basophil Absolute 0.06 0.00 - 0.13 x10E9/L 05/28/2025 6:59 AM [facility] Blood BLOOD SPECIMEN / Unknown Lab Venipuncture / Unknown 05/28/2025 5:36 AM CDT 05/28/2025 6:52 AM CDT us Jaquan Wilhelm MD LAB - HEMATOLOGY ORDERA BLES Final Result [facility] [address] [place] [address], [facility] [phone] * (ABNORMAL) BASIC METABOLIC PANEL (CALCIUM TOTAL) (05/28/2025 5:36 AM CDT) Only the most recent of3 resultswithin the time period is included. BUN 12 7 - 26 mg/dL 05/28/2025 7:18 AM [facility] Creatinine 0.50(L) 0.56 - 0.96 mg/dL 05/28/2025 7:18 AM [facility] Sodium 137 136 - 145 mmol/L 05/28/2025 7:18 AM [facility] Potassium 3.7 3.5 - 4.5 mmol/L 05/28/2025 7:18 AM [facility] Chloride 108(H) 98 - 107 mmol/L 05/28/2025 7:18 AM [facility] CO2 17(L) 22 - 29 mmol/L 05/28/2025 7:18 AM [facility] Glucose 84 70 - 99 mg/dL 05/28/2025 7:18 AM [facility] Calcium 8.4 8.4 - 10.2 mg/dL 05/28/2025 7:18 AM [facility] Anion Gap 12 6 - 16 05/28/2025 7:18 AM [facility] BUN/Creatinine Ratio 24(H) 7 - 23 05/28/2025 7:18 AM [facility] Osmolality Calculated 283 275 - 295 mOsm/kg 05/28/2025 7:18 AM [facility] eGFR by CKD-EPI >90 >=90 mL/min/1.7 3 m2 05/28/2025 7:18 AM CDT [facility] Blood BLOOD SPECIMEN / Unknown Lab Venipuncture / Unknown 05/28/2025 5:36 AM CDT 05/28/2025 7:03 AM CDT Narrative [facility] - 05/28/2025 7:18 AM CDT Estimated Glomerular Filtration Rate (eGFR) calculated using the CKD-EPI Creatinine Equation (2020), per the National Kidney Foundation and [place] [employer] Neph[employer] recommendations. Jaquan Wilhelm MD LAB - CHEMISTRY ORDERAB LES Final Result Performing Organization Address City/[facility]/ZIP Co de Phone Number [address] [address], [facility] [phone] * (ABNORMAL) PHOSPHORUS BLOOD (05/28/2025 5:36 AM CDT) Only the most recent of2 resultswithin the time period is included. Phosphorus 2.6(L) 2.9 - 5.1 mg/dL 05/28/2025 7:18 AM CDT [facility] Blood BLOOD SPECIMEN / Unknown Lab Venipuncture / Unknown 05/28/2025 5:36 AM CDT 05/28/2025 7:03 AM CDT us Jaquan Wilhelm MD LAB - CHEMISTRY ORDERAB LES Final Result [address] [address], [facility] [phone] * MAGNESIUM BLOOD (05/28/2025 5:36 AM CDT) Only the most recent of2 resultswithin the time period is included. Magnesium 1.9 1.6 - 2.6 mg/dL 05/28/2025 7:18 AM CDT [facility] Blood BLOOD SPECIMEN / Unknown Lab Venipuncture / Unknown 05/28/2025 5:36 AM CDT 05/28/2025 7:03 AM CDT us Jaquan Wilhelm MD LAB - CHEMISTRY ORDERAB LES Final Result [facility] [address] [place] [address], [facility] [phone] * C DIFFICILE GDH AG + TOXIN A+B (05/27/2025 6:00 PM CDT) C difficile GDH antigen & toxin A/B NEGATIVE NEGATIVE 05/27/2025 8:56 PM CDT [facility] Stool STOOL SPECIMEN / Unknown Collection / Unknown 05/27/2025 6:00 PM CDT 05/27/2025 6:09 PM CDT Narrative [facility] - 05/27/2025 8:56 PM CDT Negative for toxigenic C. difficile us Jerry Mahajan MD LAB - MICROBIOLOGY ORDERABLES Final Result [facility] [address] [place] [address], [facility] [phone] * XR Lumbar Spine 2 or 3Vw [...] PM Jaquan Wilhelm MD DIAGNOSTIC IMAGING ORDE [facility] Final Result * XR Foot Left 3Vw or More (05/26/2025 6:17 PM CDT) Anatomical Region Laterality Modality Ankle / Foot Digital Radiogra phy 05/26/2025 6:33 PM CDT Impressions 05/26/2025 10:01 PM CDT IMPRESSION: No acute fracture or dislocation identified. Report dictated by Alex Jerome MD, (cmo & president). I, Peter Cruz MD have personally reviewed and interpreted this examination/study. > Interpreting Provider: Peter Cruz MD on 05/26/2025 10:01 PM Narrative 05/26/2025 10:01 PM CDT PROCEDURE: XR FOOT LEFT 3VW OR MORE, DATE/TIME OF EXAM: 05/26/2025 6:17 PM, LOCATION [facility] INDICATION: T14.90XA: Trauma ADDITIONAL CLINICAL INFORMATION: [...] DATE/TIME OF EXAM: 05/26/2025 6:17 PM, LOCATION [facility] INDICATION: T14.90XA: Trauma ADDITIONAL CLINICAL INFORMATION: [...] Report dictated by Alex Jerome MD, MD (cmo & president). Peter Jennings MD have personally reviewed and interpreted this examination/study. > Interpreting Provider: Peter Cruz MD on 510:01 PM Jaquan Wilhelm MD [facility] Final Result * XR Forearm Right 2Vw or More (05/26/2025 6:17 PM CDT) Anatomical Region Laterality Modality Upper Extremity Digital Radiogra phy 05/26/2025 6:35 PM CDT Impressions 05/26/2025 9:55 PM CDT IMPRESSION: No acute displaced fractures identified forearm and hand. Report dictated by Alex Jerome MD, MD (cmo & president). Peter Jennings MD have personally reviewed and interpreted this examination/study. > Interpreting Provider: Peter Cruz MD on 05/26/2025 9:55 PM Narrative 05/26/2025 9:55 PM CDT PROCEDURE: XR FOREARM RIGHT 2VW OR MORE, XR HAND RIGHT 3VW OR MORE, DATE/TIME OF EXAM: 05/26/2025 6:17 PM, LOCATION [facility] INDICATION: T14.90XA: Trauma COMPARISON: None. RIGHT [...] DATE/TIME OF EXAM: 05/26/2025 6:17 PM, LOCATION [facility] INDICATION: T14.90XA: Trauma COMPARISON: None. RIGHT [...] hand. Report dictated by Alex Jerome MD, (cmo & president). I, Peter Cruz MD have personally reviewed [...] panniculitis. > Dictated by Sindhu Williamson MD (cmo & president). I, Darlene Rivas MD have personally reviewed and interpreted this examination/study. > Interpreting Provider: Darlene Rivas MD on 05/27/2025 1:41 AM Narrative 05/27/2025 1:41 AM CDT PROCEDURE: CT CHEST ABDOMEN PELVIS W CONT, DATE/TIME OF EXAM: 05/26/2025 5:14 PM, LOCATION [facility] INDICATION: T14.90XA: Trauma COMPARISON: None. TECHNIQUE: [...] CONT, DATE/TIME OF EXAM:05/26/2025 5:14 PM, LOCATION [facility] INDICATION: T14.90XA: Trauma COMPARISON: None. TECHNIQUE: [...] panniculitis. > Dictated by Sindhu Williamson MD (cmo & president). I, Darlene Rivas MD have personally reviewed [...] DATE/TIME OF EXAM: 05/26/2025 5:14 PM, LOCATION [facility] INDICATION: T14.90XA: Trauma EXAMINATION: 1. Computed [...] levels. There is advanced degenerative disc disease. Qeef-ox-ctsqkadh spinal canal stenosis at the level of [...] DATE/TIME OF EXAM: 05/26/2025 5:14 PM, LOCATION [facility] INDICATION: T14.90XA: Trauma EXAMINATION: 1. Computed [...] multiplelevels. There is advanced degenerative disc disease. Zjhs-pe-nnysghmr spinalcanal stenosis at the level of T6/T7 [...] DATE/TIME OF EXAM: 05/26/2025 5:14 PM, LOCATION [facility] INDICATION: T14.90XA: Trauma EXAMINATION: 1. Computed [...] levels. There is advanced degenerative disc disease. Djgk-uc-qlazsgdl spinal canal stenosis at the level of [...] DATE/TIME OF EXAM: 05/26/2025 5:14 PM, LOCATION [facility] INDICATION: T14.90XA: Trauma EXAMINATION: 1. Computed [...] multiplelevels. There is advanced degenerative disc disease. Phce-ka-jspixmvv spinalcanal stenosis at the level of T6/T7 [...] DATE/TIME OF EXAM: 05/26/2025 5:14 PM, LOCATION [facility] INDICATION: T14.90XA: Trauma EXAMINATION: 1. Computed [...] levels. There is advanced degenerative disc disease. Iucf-av-vqyxcptw spinal canal stenosis at the level of [...] DATE/TIME OF EXAM: 05/26/2025 5:14 PM, LOCATION [facility] INDICATION: T14.90XA: Trauma EXAMINATION: 1. Computed [...] multiplelevels. There is advanced degenerative disc disease. Lgut-vx-pglpefsc spinalcanal stenosis at the level of T6/T7 [...] DATE/TIME OF EXAM: 05/26/2025 5:14 PM, LOCATION [facility] INDICATION: T14.90XA: Trauma EXAMINATION: 1. Computed [...] levels. There is advanced degenerative disc disease. Vgoa-yq-matlgsre spinal canal stenosis at the level of [...] DATE/TIME OF EXAM: 05/26/2025 5:14 PM, LOCATION [facility] INDICATION: T14.90XA: Trauma EXAMINATION: 1. Computed [...] multiplelevels. There is advanced degenerative disc disease. Cjsd-tp-odhdivjd spinalcanal stenosis at the level of T6/T7 [...] DATE/TIME OF EXAM: 05/26/2025 5:14 PM, LOCATION [facility] INDICATION: T14.90XA: Trauma EXAMINATION: 1. Computed [...] levels. There is advanced degenerative disc disease. Zoon-nj-npndtlbf spinal canal stenosis at the level of [...] DATE/TIME OF EXAM: 05/26/2025 5:14 PM, LOCATION [facility] INDICATION: T14.90XA: Trauma EXAMINATION: 1. Computed [...] multiplelevels. There is advanced degenerative disc disease. Kgke-jo-gkphnysi spinalcanal stenosis at the level of T6/T7 [...] MD CT ORDERABLES Final Result * PT-INR [facility] (05/26/2025 4:45 PM CDT) PT 13.7 12.1 - 14.8 Seconds 05/26/2025 5:21 PM CDT [facility] INR 1.1 See Comment 05/26/2025 5:21 PM CDT [facility] Comment:The suggested therap eutic range for standard coumadin (warfarin) therapy is an INR of 2.0-3.0. For high-risk patients (Mechanical Mitral Valve Prosthesis, etc.), the suggested prophylactic therapeutic range is an INR of 2.5-3.5. Blood BLOOD SPECIMEN / Unknown Venipuncture / Unknown 05/26/2025 4:45 PM CDT 05/26/2025 4:51 PM CDT us Jerry Mahajan MD LAB - COAGULATION ORDERABLES F inal Result [facility] [address] [place] [address], [facility] [phone] * TYPE + SCREEN PANEL (05/26/2025 4:45 PM CDT) Antibody Screen NEG 5:54 PM CDT [facility] ABO Rh O POS 05/26/2025 5:54 PM CDT [facility] BLOOD [facility] Blood Bank BLOOD SPECIMEN / Unknown Venipuncture / Unknown 05/26/2025 4:45 PM CDT 05/26/2025 5:01 PM CDT us Jerry Mahajan MD LAB - BLOOD BANK ORDERABLES Fi nal Result Performing Organization Address [facility]/ZIP Co de Phone Number [facility] [address] [place] [address], [facility] [phone] * ALCOHOL ETHYL BLOOD (05/26/2025 4:45 PM CDT) Ethanol (mg/dL) <10 <10 mg/dL 5:21 PM CDT [facility] Ethanol Calculated (g/dL) <0.010 <=0.010 g/dL 05/26/2025 5:21 PM CDT [facility] Blood BLOOD SPECIMEN / Unknown Venipuncture / Unknown 05/26/2025 4:45 PM CDT 05/26/2025 4:51 PM CDT Narrative [facility] - 05/26/2025 5:21 PM CDT Ethanol Interp <10: None Detected. Depression of NURSING ADMIN: >100 mg/dl Potentially Critical: >250 mg/dl Potentially [...] ORDERABLES Fin al Result Performing Organization Address [facility]/ZIP Co de Phone Number [facility] [address] [place] [address], [place] [phone] * XR PELVIS 1 OR 2VW (05/26/2025 4:34 PM CDT) Anatomical Region Laterality Modality Pelvis Digital Radiogra phy 05/26/2025 6:09 PM CDT Impressions 05/26/2025 9:55 PM CDT IMPRESSION: No acute fracture identified. Report dictated by Alex Jerome MD, MD (cmo & president). Peter Jennings MD have personally reviewed and interpreted this examination/study. > Interpreting Provider: Peter Cruz MD on 05/26/2025 9:55 PM Narrative 05/26/2025 9:55 PM CDT PROCEDURE: XR PELVIS 1 OR 2VW, DATE/TIME OF EXAM: 05/26/2025 4:34 PM, LOCATION [facility] INDICATION: T14.90XA: Trauma ADDITIONAL CLINICAL INFORMATION: [...] DATE/TIME OF EXAM: 05/26/2025 4:34 PM, LOCATION [facility] INDICATION: T14.90XA: Trauma ADDITIONAL CLINICAL INFORMATION: Ordering Provider Reason For Exam: Technologist Note: Additional: COMPARISON: X-ray pelvis from 08/17/2024. FINDINGS: No acute fracture is identified. The femoral heads appear well-seated within their respective acetabula. The pubic symphysis is intact. Bone density and texture are normal. The sacroiliac joints are normal. IMPRESSION: No acute fracture identified. Report dictated by Alex Jerome MD, (cmo & president). Peter Jennings MD have personally reviewed and interpreted this examination/study. > Interpreting Provider: Peter Cruz MD on 6/28/89296:55 PM us Jerry Mahajan MD DIAGNOSTIC IMAGING ORDERABLES Final Result * XR CHEST 1VW PORTABLE (05/26/2025 4:34 PM CDT) Anatomical Region Laterality Modality Chest Digital Radiogra phy 05/26/2025 6:08 PM CDT Narrative 05/26/2025 9:55 PM CDT PROCEDURE: XR CHEST 1VW PORTABLE, DATE/TIME OF EXAM: 05/26/2025 4:34 PM, LOCATION [facility] INDICATION: T14.90XA: Trauma ADDITIONAL CLINICAL INFORMATION: Ordering Provider Reason For Exam: Technologist Note: Additional: COMPARISON: Chest x-ray from 05/04/2022. FINDINGS/IMPRESSION: Left minimal basilar atelectasis. Otherwise there is no focal consolidation, pleural effusion, or pneumothorax.The cardiomediastinal silhouette is normal. No displaced fractures identified. > Dictated by Alex Jerome MD (cmo & president). Peter Jennings MD have personally reviewed and interpreted this examination/study. > Interpreting Provider: Peter Cruz MD on 05/26/2025 9:55 PM Procedure Note Peter Cruz MD - 05/26/2025 PROCEDURE: XR CHEST 1VW PORTABLE, DATE/TIME OF EXAM: 05/26/2025 4:34PM, LOCATION [facility] INDICATION: T14.90XA: Trauma ADDITIONAL CLINICAL INFORMATION: Ordering Provider Reason For Exam: Technologist Note: Additional: COMPARISON: Chest x-ray from 05/04/2022. FINDINGS/IMPRESSION: Left minimal basilar atelectasis. Otherwise there is no focal consolidation, pleural effusion, or pneumothorax.The cardiomediastinal silhouette is normal. No displaced fractures identified. > Dictated by Alex Jerome MD (cmo & president). Peter Jennings MD have personally reviewed and [...] - 99 mg/dL 05/08/2025 10:02 PM CDT [facility] Sodium 140 136 - 145 mmol/L 05/08/2025 10:02 PM CDT [facility] Potassium 4.5 3.5 - 5.1 mmol/L 05/08/2025 10:02 PM CDT [facility] Chloride 106 98 - 107 mmol/L 05/08/2025 10:02 PM CDT [facility] CO2 17(L) 22 - 29 mmol/L 05/08/2025 10:02 PM CDT [facility] Calcium 9.6 8.4 - 10.4 mg/dL 05/08/2025 10:02 PM CDT [facility] Anion Gap 17(H) 6 - 16 mmol/L 05/08/2025 10:02 PM CDT [facility] BUN 13 7 - 26 mg/dL 05/08/2025 10:02 PM CDT [facility] Creatinine 0.70 0.57 - 1.11 mg/dL 05/08/2025 10:02 PM CDT [facility] Alkaline Phosphatase 64 40 - 150 U/L 05/08/2025 10:02 PM CDT [facility] ALT 80(H) 6 - 57 U/L 05/08/2025 10:02 PM CDT [facility] AST 96(H) 10 - 48 U/L 05/08/2025 10:02 PM CDT [facility] Protein Total 7.8 6.4 - 8.3 gm/dL 05/08/2025 10:02 PM CDT [facility] Albumin 4.3 3.1 - 4.5 gm/dL 05/08/2025 10:02 PM CDT [facility] Bilirubin Total 0.7 0.2 - 1.2 mg/dL 05/08/2025 10:02 PM CDT [facility] eGFR by CKD-EPI >90 >=90 mL/min/1.7 3 m2 05/08/2025 10:02 PM CDT [facility] Blood BLOOD SPECIMEN / Unknown Lab Venipuncture / Unknown 05/08/2025 2:02 PM CDT 05/08/2025 8:50 PM CDT Jasmyn Alvarado WINDOW MAKER-TOWER WATCHMAN LAB - CHEMISTRY ORD ERABLES Final Result Performing Organization Address City/[facility]/ZIP Co de Phone Number [facility] [address] [place] [address] * IGG BLOOD (05/08/2025 2:02 PM CDT) [facility] IgG 1,391 767 - 1,590 mg/dL 05/08/2025 11:23 PM CDT [facility] Blood BLOOD SPECIMEN / Unknown Lab Venipuncture / Unknown 05/08/2025 2:02 PM CDT 05/08/2025 2:03 PM CDT Jasmyn Alvarado [facility] - CHEMISTRY ORD ERABLES Final Result [address] [address], [facility] [phone] * BONE DENSITY AXIAL SKELETON(1OR MORE SITES)[id number] (11/12/2022 9:35 AM MAGNETO SPECIALIST) Anatomical Region Laterality Modality Other 11/12/2022 2:59 PM MAGNETO SPECIALIST Narrative 11/12/2022 5:35 PM MAGNETO SPECIALIST Examination: Dual energy x-ray absorptiometry of the [...] SD > Dictated by Linda Ward MD (Executive Assistant To General Counsel) 11/12/2022 3:14 PM I, Efra Camargo MD [...] SD > Dictated by Linda Ward MD (Executive Assistant To General Counsel) 11/12/2022 3:14PM I, Efra Camargo MD have [...] or abscess without bleeding CPT copyright 2019 [employer]. All rights reserved. The codes documented in this report are preliminary and upon interpreter for the deaf review may be revised to meet current compliance requirements. Ez Lord MD 05/04/2022 8:46:58 AM This report has been signed electronically. Note Initiated On: 05/04/2022 7:48 AM Number of Addenda: 0 [facility] [address] [place] [address] 05/04/2022 7:48 AM CDT Ez Lord MD GI PROCEDURE ORDERABLES Edited Result - Final Performing Organization Address [facility]/ZIP Co de Phone Number [facility] * HEPATITIS C ANTIBODY (07/15/2017 11:00 AM CDT) Hepatitis C Antibody Non-react [facility] Comment: Hepatitis C Antibody screen indicates no [...] ORDERABLE S Final Result Performing Organization Address [facility] Co de Phone Number [facility] [address] [place] [address] from Last 3 Months or Most Recently Relevant to Health Maintenance Insurance MEDICARE [facility] MEDICARE MEDICARE MEDICARE [facility] Advance Directives * Full Code (Latest Code [...] 10:18 PM 06/22/2018 6:14 PM Care Teams Gill Box Tender Relationship Specialty Start Date End Date Franky Choudhury DO [facility] [place] [address] PCP - General Internal Medicine 10/02/24 Abel Pop MD [address] [place] [phone] Pain Management Anesthesiology 05/17/23 Selam Ramirez MD [address] [facility] [place] [phone] Ophthalmology 05/17/23 Luis Munoz MD [address] [facility] DIV OF HEMATOLOGY & [place] [address] Hematology and Oncology 05/17/23 Kinjal Marino MD [address] [facility] 3L [place] [address] Dermatology 05/17/23 Ghada Guardado MD [address] [address] Cardiology 05/17/23 Marianna Benjamin MD [address] [address] Surgeon Orthopedic Surgery 05/17/23 Franky Choudhury DO [address] [place] [address] Resident - PCP Internal Medicine 06/04/23 Lenin Trevino MD [address] [facility] [address]L [place] [phone] Rheumatology 05/27/25 Markie Romero MD [address] [facility] [place] [phone] Resident Rheumatology 06/15/25
--- OUTSIDE RECORDS SUMMARY | 2025-06-23 10:14 | XMS_ITS | Encounter Summary ---
Author Organization [facility] Address [address] [facility] [place] [address] Care Team Providers Care Finish Saw Operator Name Role Phone FranDinorah DO Primary Care Provider [phone] Tracy Maldonado MD Unavailable [phone] Julita Adams MD Unavailable [phone] Abel Pop MD Unavailable Selam Ramirez MD Unavailable Luis Munoz MD Unavailable [phone] Kinjal Marino MD Unavailable [phone] Ghada Guardado MD Unavailable [phone] João Mora MD Unavailable Marianna Benjamin MD Unavailable [phone] Pratibha Hayes MD Primary Care Provider [phone] Franky Choudhury DO Unavailable [phone] Franky Choudhury DO Primary Care Provider [phone] Pratibha Hayes MD Primary Care Provider [phone] Franky Choudhury DO Primary Care Provider [phone] Lenin Trevino MD [facility] Unavailable Reason for Visit * Reason Onset Date Comments MEDICATION REFILL 11/20/2022 Encounter Details Date Type Department Care Team (Late st Contact Info) Description 11/20/2022 Refill [facility] Internal Medicine [address] [facility], [place] [address] Julita Adams MD [address] [place] [address] MEDICATION REFILL Social History Tobacco Use Types [...] on file Legal Sex Female 6:32 AM CREDIT REPORTER Gender Identity Not on file Sexual Orientation Not on file Occupation Industry Job Start Date Job End Date Retired Not on file Not on file Not on file COVID-19 Exposure Response Date Recorded In the last 10 days, have yo u been in contact with someone who was confirmed or suspected to have Coronavirus/COVID-19? No / Unsure 11/12/2022 2:59 PM CREDIT REPORTER documented as of this encounter Functional Status [...] Description 07/16/2025 10:30 AM CDT Procedure visit [facility] - Cosmetic Dermatology [address], [facility] [address] [place] [phone] 07/23/2025 9:15 AM CDT Office Visit [facility] - Orthopedics [address] [place] [phone] Sharad Mclaughlin, MEDICAL VIDEOGRAPHER-MOLD FILLER [employer] [address] [facility] [address] [place] [address] 07/26/2025 1:45 PM CDT Office Visit [facility] - Internal Med [address] [place] [phone] Franky Choudhury DO [address] [place] [address] 08/02/2025 1:00 PM CDT Office Visit [facility] - Ophthalmology [address] [place] [phone] Monse Kelly, MEDICAL VIDEOGRAPHER-MOLD FILLER [employer] [address] [place] [address] [place] [phone] 08/09/2025 1:30 PM CDT Hospital Encounter [facility] [address] [place] [address] 08/09/2025 2:00 PM CDT Hospital Encounter [facility] [address] [place] [address] 08/14/2025 11:00 AM CDT Office Visit [facility] - Cosmetic Dermatology [address], [place] [address] [place] [phone] Consuelo Bosch MD [address] [place] [address] [place] [address] 09/06/2025 11:30 AM CDT Office Visit [facility] - Cardiology [address] [facility], [facility] [address] [place] [address] Stephanie Silvestre, MEDICAL VIDEOGRAPHER-MOLD FILLER [employer] [address] [facility] [address] [place] [address] 10/01/2025 1:00 PM CREDIT REPORTER Office Visit [facility] - Rheumatology [address] [facility], [place] [phone] Markie Romero MD [address] [facility] [place] [phone] 11/13/2025 11:00 AM CREDIT REPORTER Office Visit [facility] - Hematology/Oncology [address] [place] [phone] Luis Munoz MD [address] [facility] DIV OF HEMATOLOGY & [place] [address] 11/15/2025 11:00 AM CREDIT REPORTER Office Visit [facility] - CORE CHECKER [address] [facility] [address] [place] [phone] Jennifer Guy, MEDICAL VIDEOGRAPHER-MOLD FILLER [employer]LLS [address] [facility] [address] [place] [address] 11/16/2025 11:00 AM CREDIT REPORTER [facility] [address] [place] [phone] Xu Kelly, MIRTA [address] [place] [address] 05/14/2026 12:30 PM CDT Procedure visit [facility] - GI [address] [place] [phone] 05/14/2026 1:00 PM CDT Office Visit [facility] - GI [address] [place] [phone] Jasmyn Alvarado, MEDICAL VIDEOGRAPHER-MOLD FILLER [employer] [address] [place] [address] [address] DIV OF GASTROENTEROLOGY [place], [place] [phone] documented as of this encounter Goals Goal [...] documented as of this encounter Care Teams Finish Saw Operator Relationship Specialty Start Date End Date Dinorah Peters DO [address] [place] [address] [address] [place] [address] PCP - General Internal Medicine 03/25/21 06/03/23 Pratibha Hayes MD [address] [place] [address] [address] [place] [address] PCP - General Internal Medicine 06/04/23 11/17/23 Franky Choudhury DO [address] [place] [address] PCP - General Internal Medicine 11/18/23 09/26/24 Pratibha Hayes MD [address] DIV OF [facility] [place] [address] PCP - General Internal Medicine 09/27/24 10/01/24 Franky Choudhury DO [address] [place] [address] PCP - General Internal Medicine 10/02/24 Tracy Maldonado MD [address] [facility] 2L DIV OF [facility] INTERNAL MEDICINE [place] Resident - PCP Student Resident 06/17/21 05/11/23 Julita Adams MD [address] DIV OF [facility] INTERNAL [place], [place] Resident - PCP Internal Medicine 05/17/23 06/03/23 Abel Pop MD [address] [place] [address] Pain Management Anesthesiology 05/17/23 Selam Ramirez MD [address] [place] [address] Ophthalmology 05/17/23 Luis Munoz MD [address] DIV OF HEMATOLOGY & [place] [address] Hematology and Oncology 05/17/23 Kinjal Marino MD [address] [facility] 3L [place] [address] Dermatology 05/17/23 Ghada Guardado MD [address] [facility] [place] [place] [address] Cardiology 05/17/23 João Mora MD [address] [facility] [place] [phone] Resident Rheumatology 05/17/23 05/26/25 Marianna Benjamin MD [address] [facility] [phone] Surgeon Orthopedic Surgery 05/17/23 Franky Choudhury DO [address] [place] [address] Resident - PCP Internal Medicine 06/04/23 Lenin Trevino MD [address] [facility] [address]L [place] [phone] Rheumatology 05/27/25 Markie Romero MD [address] [facility] [place] [phone] Resident Rheumatology 06/15/25 documented as of this encounter
--- OUTSIDE RECORDS SUMMARY | 2025-06-23 10:14 | XMS_ITS | Encounter Summary ---
Author Organization [facility] Address [address] [place] [address] Care Team Providers Care Clinical Care Coordinator Name Role Phone Robert Celeste MD Primary Care Provider [phone] John Gallardo MD Unavailable Dinorah Peters DO Primary Care Provider [phone] Dinorah Peters DO Primary Care Provider [phone] Tracy Maldonado MD Unavailable [phone] Tracy Maldonado MD Unavailable [phone] Julita Adams MD Unavailable Abel Pop MD Unavailable Selam Ramirez MD Unavailable Luis Munoz MD Unavailable [phone] Kinjal Marino MD Unavailable [phone] Ghada Guardado MD Unavailable João Mora MD Unavailable Marianna Benjamin MD Unavailable Pratibha Hayes MD Primary Care Provider [phone] Franky Choudhury DO Unavailable Kei Franky DO Primary Care Provider Pratibha Hayes MD Primary Care Provider Franky Choudhury DO Primary Care Provider [phone] Lenin Trevino MD Unavailable Markie Romero MD Unavailable Encounter Details Date Type Department Care Team (Late st Contact Info) Description 06/23/2018 Telephone [facility] General Internal Medicine [address] [place], [place] [phone] Robert Celeste MD [address] [place] [address] Social History Tobacco Use Types Packs/Day Years Used Date Smoking Tobacco: Never Smokeless Tobacco: Never Alcohol Use Standard Drinks/Week Comments No 0 (1 standard drink = 0.6 oz pur e alcohol) Comments No Sex and Gender Information Value Date Recorded Sex Assigned at Not on file Legal Sex Female 6:32 AM SERVER ADMINISTRATOR Gender Identity Not on file Sexual Orientation [...] visit [facility] - Cosmetic Dermatology [facility], [address] [place] [phone] 07/23/2025 9:15 AM CDT [facility] [address] [place] [phone] Sharad Mclaughlin, SILICA FILTER OPERATOR-RECRUITING AND SELECTION CONSULTANT [address] [address] 07/26/2025 1:45 PM CDT Office Visit [facility] - Internal Med [address] [place] [phone] Franky Choudhury, [address]01 [place] [address] 08/02/2025 1:00 PM CDT Office Visit [facility] Ophthalmology [address] [place] [phone] Monse Kelly, SILICA FILTER OPERATOR-RECRUITING AND SELECTION CONSULTANT [address] [place] [address] [place] [phone] 08/09/2025 1:30 PM CDT Hospital Encounter [address] [address] 08/09/2025 2:00 PM CDT Hospital Encounter [address] [address] 08/14/2025 11:00 AM CDT Office Visit [facility] - Cosmetic Dermatology [facility] [address], [address] [place] [phone] Consuelo Bosch MD [address] [place] [address] 09/06/2025 11:30 AM CDT Office Visit [facility] - Cardiology [address] [facility], [facility] 1120 [place] [address] Stephanie Silvestre SILICA FILTER OPERATOR-RECRUITING AND SELECTION CONSULTANT 1034 [facility] [address] [place] [address] 10/01/2025 1:00 PM SERVER ADMINISTRATOR Office Visit [facility] - Rheumatology [address] [place] [phone] Markie Romero MD 1225 [facility] [place] [address] 11/13/2025 11:00 AM SERVER ADMINISTRATOR Office Visit [facility] - Hematology/Oncology 3655 [place] [phone] Luis Munoz MD 1201 [facility] DIV OF HEMATOLOGY & [place] [address] 11/15/2025 11:00 AM SERVER ADMINISTRATOR Office Visit [facility] - COLLECTOR OF INTERNAL REVENUE 10[address] [facility] [address] [place] [phone] Jennifer Guy, SILICA FILTER OPERATOR-RECRUITING AND SELECTION CONSULTANT [address] [facility] [address] [place] [address] 11/16/2025 11:00 AM SERVER ADMINISTRATOR Office Visit [facility] - Ophthalmology 1225 [facility] [place] [phone] Xu Kelly OD 1225 [place] [phone] 05/14/2026 12:30 PM CDT Procedure visit [facility] - GI 1225 [place] [phone] 05/14/2026 1:00 PM CDT Office Visit [facility]ician [facility] - GI 1225 [place] [phone] Jasmyn Alvarado, SILICA FILTER OPERATOR-RECRUITING AND SELECTION CONSULTANT 1225 [facility] 3FL [place] [address] documented as of this encounter Visit Diagnoses Not on filedocumented in this encounter Additional Health Concerns Infection Onset Date Last Indicated Resolved Time CDIFF Under Investigation 05/27/2025 05/27/2025 8:56 PM CDT documented as of this encounter Care Teams Clinical Care Coordinator Relationship Specialty Start Date End Date Robert Celeste MD 3660 [place] [address] PCP - General Internal Medicine 02/20/16 08/26/20 Dinorah Peters DO 1225 [facility] 2[place] [address] PCP - General Internal Medicine 08/27/20 03/24/21 Dinorah Peters DO 1225 [facility] 2[place] [address] PCP - General Internal Medicine 03/25/21 06/03/23 Pratibha Hayes MD 1225 [facility] 2[place] [address] PCP - General Internal Medicine 06/04/23 11/17/23 Franky Choudhury DO 1201 [place] [address] PCP - General Internal Medicine 11/18/23 09/26/24 Pratibha Hayes MD [address] 2L DIV OF [facility] [place] [phone] PCP - General Internal Medicine 09/27/24 10/01/24 Franky Choudhury DO [address] [place] [address] PCP - General Internal Medicine 10/02/24 John Gallardo MD 3635 [place] [address] Resident - PCP Student Resident 07/04/18 06/16/21 Tracy Maldonado MD [address] 2L DIV OF [facility] INTERNAL [place] Resident - PCP Student Resident 06/17/21 05/11/23 Tracy Maldonado MD [address] 2L DIV OF [facility] INTERNAL [place] Resident Student Resident 06/17/21 10/01/21 Julita Adams MD [address] 2L DIV OF [facility] INTERNAL [place] Resident - PCP Internal Medicine 05/17/23 06/03/23 Abel Pop MD [address] [place] [phone] Pain Management Anesthesiology 05/17/23 Selam Ramirez MD [address] [place] [phone] Ophthalmology 05/17/23 Luis Munoz MD [address] DIV OF HEMATOLOGY & [place] [address] Hematology and Oncology 05/17/23 Kinjal Marino MD [address] 3L [place] [address] Dermatology 05/17/23 Ghada Guardado MD [address] [facility] 1120 [place] [address] Cardiology 05/17/23 João Mora MD [address] [place] [address] Resident Rheumatology 05/17/23 05/26/25 Marianna Benjamin MD [address] [place] [phone] Surgeon Orthopedic Surgery 05/17/23 Franky Choudhury DO [address] [place] [address] Resident - PCP Internal Medicine 06/04/23 Lenin Trevino MD [address] 2L [place] [phone] Rheumatology 05/27/25 Markie oRmero MD [address] [place] [address] Resident Rheumatology 06/15/25 documented as of this encounter
--- OUTSIDE RECORDS SUMMARY | 2025-06-23 10:14 | XMS_ITS | Encounter Summary ---
Author Organization [facility] Address [address] [place] [place] [address] Care Team Providers Care Test Driver Name Role Phone Robert Celeste MD Primary Care Provider [phone] John Gallardo MD Unavailable Dinorah Peters DO Primary Care Provider [phone] Dinorah Peters DO Primary Care Provider [phone] Tracy Maldonado MD Unavailable [phone] Tracy Maldonado MD Unavailable [phone] Julita Adams MD Unavailable Abel Pop MD Unavailable Selam Ramirez MD Unavailable Luis Munoz MD Unavailable [phone] Kinjal Marino MD Unavailable [phone] Ghada Guardado MD Unavailable João Mora MD Unavailable Marianna Benjamin MD Unavailable Pratibha Hayes MD Primary Care Provider [phone] Franky Choudhury DO Unavailable KeiMachoamaya DO Primary Care Provider Pratibha Hayes MD Primary Care Provider Franky Choudhury DO Primary Care Provider [phone] Lenin Trevino MD Unavailable Markie Romero MD Unavailable Encounter Details Date Type Department Care Team (Late st Contact Info) Description 08/16/2018 Telephone [facility] General Internal Medicine [address] [place], [place] [phone] Robert Celeste MD [address] [place] [address] Social History Tobacco Use Types Packs/Day Years Used Date Smoking Tobacco: Never Smokeless Tobacco: Never Alcohol Use Standard Drinks/Week Comments No 0 (1 standard drink = 0.6 oz pur e alcohol) Comments No Sex and Gender Information Value Date Recorded Sex Assigned at Not on file Legal Sex Female 6:32 AM FACILITY ASSISTANT Gender Identity Not on file Sexual Orientation [...] Description 07/16/2025 10:30 AM CDT Procedure visit [facility] - Cosmetic Dermatology [address], [facility] 200 [place] [phone] 07/23/2025 9:15 AM CDT Office Visit [facility] - Orthopedics [address] [place] [phone] Sharad Mclaughlin, PARTS REPRESENTATIVE-BEHAVIOR CLINICIAN 1011 [facility] 400 [place] [address] 07/26/2025 1:45 PM CDT [facility] Med [address] [place] [phone] Franky Choudhury DO 1201 [place] [address] 08/02/2025 1:00 PM CDT Office [facility] Ophthalmology [address] [place] [phone] Monse Kelly, PARTS REPRESENTATIVE-BEHAVIOR CLINICIAN [address] [place] [address] [place] [address] 08/09/2025 1:30 PM CDT Hospital Encounter [facility] [address]5 [place] [address] 08/09/2025 2:00 PM CDT Hospital Encounter [facility] 3655 [place] [address] 08/14/2025 11:00 AM CDT Office Visit [facility] - Cosmetic Dermatology [address], [address] [place] [phone] Consuelo Bosch MD [address] [facility] [address] [place] [address] 09/06/2025 11:30 AM CDT Office Visit [facility] - Cardiology [address] [place], [facility] 1120 [place] [address] Stephanie Silvestre, PARTS REPRESENTATIVE-BEHAVIOR CLINICIAN [address] [place] [place] [facility] 1120 [place] [address] 10/01/2025 1:00 PM FACILITY ASSISTANT Office Visit [facility] - Rheumatology [address] [place], [place] [phone] Markie Romero MD 1225 [facility] [place] [phone] 11/13/2025 11:00 AM FACILITY ASSISTANT Office Visit [facility] - Hematology/Oncology 365[address] [place] [phone] Luis Munoz MD 1201 S [facility] DIV OF HEMATOLOGY & [place] [address] 11/15/2025 11:00 AM FACILITY ASSISTANT Office Visit [facility] - SECURITY ASSOCIATE 1031 [facility] [address] [place] [phone] Jennifer Guy, PARTS REPRESENTATIVE-BEHAVIOR CLINICIAN 1031 [facility] 400 [place] [address] 11/16/2025 11:00 AM FACILITY ASSISTANT Office Visit [facility] - Ophthalmology 1225 [place] [phone] Xu Kelly, MIRTA 1225 [place] [address] 05/14/2026 12:30 PM CDT Procedure visit [facility] - GI [address] [place] [phone] 05/14/2026 1:00 PM CDT Office Visit [facility] - GI [address] [place] [phone] Jasmyn Alvarado, PARTS REPRESENTATIVE-BEHAVIOR CLINICIAN [address] [place] [address] 3FL DIV OF GASTROENTEROLOGY [place], [place] [phone] documented as of this encounter Goals Goal [...] documented as of this encounter Care Teams Test Driver Relationship Specialty Start Date End Date Robert Celeste MD 3660 [place] [address] PCP - General Internal Medicine 02/20/16 08/26/20 Dinorah Peters DO [address] [place] [address] 2L DIV [place] [address] PCP - General Internal Medicine 08/27/20 03/24/21 Dinorah Peters DO [address] 2L DIV OF [facility] [place] [address] PCP - General Internal Medicine 03/25/21 06/03/23 Pratibha Hayes MD [address] 2L DIV OF [facility] [place] [address] PCP - General Internal Medicine 06/04/23 11/17/23 Franky Choudhury DO [address] [place] [address] PCP - General Internal Medicine 11/18/23 09/26/24 Pratibha Hayes MD [address] 2L [place] [address] PCP - General Internal Medicine 09/27/24 10/01/24 Franky Choudhury DO [address] [place] [address] PCP - General Internal Medicine 10/02/24 John Gallardo MD 3635 [place] [address] Resident - PCP Student Resident 07/04/18 06/16/21 Tracy Maldonado MD [address] 2L DIV [place] Resident - PCP Student Resident 06/17/21 05/11/23 Tracy Maldonado MD [address] 2L DIV OF [facility] INTERNAL MEDICINE [place] Resident Student Resident 06/17/21 10/01/21 Julita Adams MD [address]25 S [facility] 2L DIV OF [facility] INTERNAL MEDICINE [place] Resident - PCP Internal Medicine 05/17/23 06/03/23 Abel Pop MD [address] [place] [address] Pain Management Anesthesiology 05/17/23 Selam Ramirez MD 1225 S [facility] GL [place] [address] Ophthalmology 05/17/23 Luis Munoz MD 1201 S [facility] DIV OF HEMATOLOGY & [place] [address] Hematology and Oncology 05/17/23 Kinjal Marino MD 1225 [facility] 3L [place] [address] Dermatology 05/17/23 Ghada Guardado MD [address] [address] Cardiology 05/17/23 João Mora MD 1225 S [facility] [place] [place] [address] Resident Rheumatology 05/17/23 05/26/25 Marianna Benjamin MD 1225 S [facility] [place] [phone] Surgeon Orthopedic Surgery 05/17/23 Franky Choudhury DO [address] [place] [address] Resident - PCP Internal Medicine 06/04/23 Lenin Trevino MD 1225 [address] [facility] 2L [place] [address] Rheumatology 05/27/25 Markie Romero MD 1225 S [facility] [place] [address] Resident Rheumatology 06/15/25 documented as of this encounter
--- OUTSIDE RECORDS SUMMARY | 2025-06-23 10:14 | XMS_ITS | Encounter Summary ---
Author Organization [facility] Address [address] [facility] [place] [address] Care Team Providers Care Orthopedic Shoe Maker Name Role Phone Robert Celeste MD Primary Care Provider [phone] John Gallardo MD Unavailable Dinorah Peters DO Primary Care Provider [phone] Dinorah Peters DO Primary Care Provider [phone] Tracy Maldonado MD Unavailable [phone] Tracy Maldonado MD Unavailable [phone] Julita Adams MD Unavailable Abel Pop MD Unavailable Selam Ramirez MD Unavailable Luis Munoz MD Unavailable [phone] Kinjal Marino MD Unavailable [phone] Ghada Guardado MD Unavailable João Mora MD Unavailable Marianna Benjamin MD Unavailable Pratibha Hayes MD Primary Care Provider [phone] Franky Choudhury DO Unavailable Franky Choudhury DO Primary Care Provider Pratibha Hayes MD Primary Care Provider Franky hCoudhury DO Primary Care Provider [phone] Lenin Trevino MD Unavailable Markie Romero MD Unavailable Reason for Visit * Reason Onset Date Comments Results 07/04/2018 Encounter Details Date Type Department Care Team (Late st Contact Info) Description 07/04/2018 Telephone [facility] Medicine 3660 [facility] 206 [place] [address] Robert Celeste MD [address] OF [facility] [place] [address] Results Social History Tobacco Use Types Packs/Day Years Used Date Smoking Tobacco: Never Smokeless Tobacco: Never Alcohol Use Standard Drinks/Week Comments No 0 (1 standard drink = 0.6 oz pur e alcohol) Comments No Sex and Gender Information Value Date Recorded Sex Assigned at Not on file Legal Sex Female 6:32 AM AIR AND WATER TESTER Gender Identity Not on file Sexual Orientation [...] 9:01 AM CDT PT: Rose Reynaga PH: [phone] Patient would like to request biopsy results. Patient will be seeing PCP today. Advised patient to inquire when she comes in. Thank you documented in this encounter Plan of Treatment Upcoming Encounters Date Type Department Care Team (Late st Contact Info) Description 07/16/2025 10:30 AM CDT Procedure visit [facility] - Cosmetic Dermatology [address], [facility] 200 [place] [address] 07/23/2025 9:15 AM CDT Office Visit [facility] - Orthopedics [address] [place] [phone] Sharad Mclaughlin, ELECTRONIC WARFARE TECHNICAL-CLIENT SERVICES DIRECTOR 1011 [facility] 400 [place] [address] 07/26/2025 1:45 PM CDT Office Visit [facility] - Internal Med [address] [place] [phone] Franky Choudhury DO 1201 [place] [address] 08/02/2025 1:00 PM CDT Office Visit [facility] - Ophthalmology [address] [place] [phone] Monse Kelly, ELECTRONIC WARFARE TECHNICAL-CLIENT SERVICES DIRECTOR [address] [place] [address] [place] [address] 08/09/2025 1:30 PM CDT Hospital Encounter [facility] 3655 [place] [address] 08/09/2025 2:00 PM CDT Hospital Encounter [facility] [address] [place] [address] 08/14/2025 11:00 AM CDT Office Visit [facility] - Cosmetic Dermatology [address], [address] [place] [phone] Consuelo Bosch MD [address] [place] [address] 09/06/2025 11:30 AM CDT Office Visit [facility] - Cardiology [address] [facility], [facility] 1120 [place] [address] Stephanie Silvestre, ELECTRONIC WARFARE TECHNICAL-CLIENT SERVICES DIRECTOR [address] [facility] 1120 [place] [address] 10/01/2025 1:00 PM AIR AND WATER TESTER Office Visit [facility] - Rheumatology 1225 [facility], [place] [address] Markie Romero MD 1225 [facility] [place] [address] 11/13/2025 11:00 AM AIR AND WATER TESTER Office Visit [facility] - Hematology/Oncology 3655 [place] [phone] Luis Munoz MD 1201 [facility] DIV OF HEMATOLOGY & [place] [address] 11/15/2025 11:00 AM AIR AND WATER TESTER Office Visit [facility] - COMMUNITY LIVING COACH 1031 [facility] [address] [place] [phone] Jennifer Guy, ELECTRONIC WARFARE TECHNICAL-CLIENT SERVICES DIRECTOR [address] [place] [address] 11/16/2025 11:00 AM AIR AND WATER TESTER Office Visit [facility] - Ophthalmology 1225 [facility], [place] [phone] Xu Kelly, MIRTA 1225 [place] [phone] 05/14/2026 12:30 PM CDT [facility] [address] [place] [phone] 05/14/2026 1:00 PM CDT Office Visit [facility] - GI [address] [place] [phone] Jasmyn Alvarado, ELECTRONIC WARFARE TECHNICAL-CLIENT SERVICES DIRECTOR [address] [place] [address] 3FL [place] [address] documented as of this encounter Visit Diagnoses Not on filedocumented in this encounter Additional Health Concerns Infection Onset Date Last Indicated Resolved Time CDIFF Under Investigation 05/27/2025 05/27/2025 8:56 PM CDT documented as of this encounter Care Teams Orthopedic Shoe Maker Relationship Specialty Start Date End Date Robert Celeste MD 3660 [place] [address] PCP - General Internal Medicine 02/20/16 08/26/20 Dinorah Peters DO [address] [place] [address] 2L DIV [place] [phone] PCP - General Internal Medicine 08/27/20 03/24/21 Dinorah Peters DO [address] [place] [address] 2L DIV [place] [phone] PCP - General Internal Medicine 03/25/21 06/03/23 Pratibha Hayes MD [address] 2L DIV OF [facility] [place] [address] PCP - General Internal Medicine 06/04/23 11/17/23 Franky Choudhury DO [address] [place] [address] PCP - General Internal Medicine 11/18/23 09/26/24 Pratibha Hayes MD [address] 2[place] [address] PCP - General Internal Medicine 09/27/24 10/01/24 Franky Choudhury DO [address] [place] [address] PCP - General Internal Medicine 10/02/24 John Gallardo MD 3635 [place] [address] Resident - PCP Student Resident 07/04/18 06/16/21 Tracy Maldonado MD [address] 2L DIV [place] Resident - PCP Student Resident 06/17/21 05/11/23 Tracy Maldonado MD [address] 2L DIV OF [facility] INTERNAL [place], [place] Resident Student Resident 06/17/21 10/01/21 Julita Adams MD [address] 2L [place] Resident - PCP Internal Medicine 05/17/23 06/03/23 Abel Pop MD [address] [place] [phone] Pain Management Anesthesiology 05/17/23 Selam Ramirez MD 1225 [address] [facility] GL [place] [phone] Ophthalmology 05/17/23 Luis Munoz MD [address]01 S [facility] DIV OF HEMATOLOGY & [place] [address] Hematology and Oncology 05/17/23 Kinjal Marino MD [address]25 [address] [facility] 3L [place] [address] Dermatology 05/17/23 Ghada Guardado MD [address] [address] Cardiology 05/17/23 João Mora MD [address] [facility] [place] [phone] Resident Rheumatology 05/17/23 05/26/25 Marianna Benjamin MD [address] [facility] [place] [address] Surgeon Orthopedic Surgery 05/17/23 Franky Choudhury DO [address] [place] [address] Resident - PCP Internal Medicine 06/04/23 Lenin Trevino MD [address]L [place] [address] Rheumatology 05/27/25 Markie Romero MD [address] [place] [address] Resident Rheumatology 06/15/25 documented as of this encounter
[2025-06-23 10:47] LABS: Add Urine Microscopic? YES; Appearance Urine Turbid (Clear); Glucose Urine UA Negative (Negative); Leukocyte Esterase Ur 3+ LEU/UL (Negative); Need Manual Microscopic Reviewed; Nitrate Urine Negative (Negative); Non Pathogenic Casts 0-2; Specific Grav Ur 1.015 (1.001-1.035)
[2025-06-23] MEDS: NITROFURANTOIN MONOHYD MACROCR 100 MG CAP PO (11:15)
[2025-06-23] MEDS: PHENAZOPYRIDINE HCL 100 MG TABLET 200 MG PO (11:15)
== END 2025-06-23 11:19 | disposition home or self-care (01) ==
PROVIDERS: Emergency Provider Emergency Medicine
DX: N39.0 Urinary tract infection, site not specified (principal)
CPT/HCPCS: 81001; 87086; 99283; A9270